=== PATIENT | female | born 1980 | race Caucasian/White ===

== ENCOUNTER → 2018-03-28 02:48 | Outpatient (CLI) | payer MEDICAID, SELFPAY ==
[2018-03-28 13:55] LABS: ALT 20 U/L (12-78); AST 18 U/L (15-37); Albumin 3.8 g/dL (3.4-5.0); Alkaline Phosphatase 99 U/L (46-116); Anion Gap 12.9 mmol/L (3-11); BUN 4 mg/dL (7-18); Bilirubin, Total 0.4 mg/dL (0.2-1.0); CO2 24.1 mmol/L (21.0-32.0); CREATININE 0.79 mg/dL (0.55-1.02); Chloride 101 mmol/L (98-107); Glucose 98 mg/dL (70-100); Potassium 4.1 mmol/L (3.5-5.1); Sodium 138 mmol/L (136-145); Total Protein 7.6 g/dL (6.4-8.2)
[2018-03-29 14:47] LABS: HCV RNA Detection Quantitative Undetected IU/mL (UNDECT)
== END ==
PROVIDERS: PCP Family Medicine; Visit Provider Nurse Practitioner Adult Health
DX: B18.2 Chronic viral hepatitis C (principal)
CPT/HCPCS: 36415; 80053; 87522

== ENCOUNTER 2018-05-01 19:58 | Outpatient (REF) | payer MEDICAID, SELFPAY ==
[2018-05-03 13:45] LABS: Chlamydia Result Negative; GC Result Negative; Specimen Description VAGINAL
== END 2018-05-01 20:18 ==
LOC: LBN 19:58
PROVIDERS: PCP Family Medicine; Visit Provider Nurse Practitioner Family
DX: N76.0 Acute vaginitis (principal)
CPT/HCPCS: 87491; 87591; 87480; 87510; 87660

== ENCOUNTER 2018-08-14 12:06 | Outpatient (CLI) | payer MEDICAID, SELFPAY ==
[2018-08-14 15:21] LABS: ALT 13 U/L (12-78); AST 8 U/L (15-37); Albumin 3.5 g/dL (3.4-5.0); Alkaline Phosphatase 101 U/L (46-116); Anion Gap 8.8 mmol/L (3-11); BUN 8 mg/dL (7-18); Bilirubin, Total 0.2 mg/dL (0.2-1.0); CO2 24.2 mmol/L (21.0-32.0); CREATININE 0.75 mg/dL (0.55-1.02); Chloride 104 mmol/L (98-107); Glucose 112 mg/dL (70-100); Potassium 3.9 mmol/L (3.5-5.1); Sodium 137 mmol/L (136-145)
[2018-08-20 11:31] LABS: HCV RNA Detection Quantitative Undetected IU/mL (UNDECT)
== END 2018-08-14 12:26 ==
PROVIDERS: PCP Family Medicine; Visit Provider Nurse Practitioner Adult Health
DX: B18.2 Chronic viral hepatitis C (principal)
CPT/HCPCS: 36415; 80053; 86803; 87522

== ENCOUNTER 2018-11-14 18:25 | Outpatient (REF) | payer MEDICAID, SELFPAY ==
[2018-11-18 14:05] LABS: Chlamydia Result Negative; GC Result Negative; Specimen Description VAGINAL
== END 2018-11-14 18:45 ==
LOC: LBN 18:25
PROVIDERS: PCP Family Medicine; Visit Provider Nurse Practitioner Family
DX: Z11.3 Encounter for screening for infections with a predominantly sexual mode of transmission (principal)
CPT/HCPCS: 87491; 87591; 87480; 87510; 87660

== ENCOUNTER 2019-06-02 00:23 | Inpatient (IN) | payer MEDICAID, SELFPAY ==
[2019-06-02] VITALS (18 sets, daily range): BP systolic 113–174; BP diastolic 49–104; PULSE 65–100; RESP 12–22; TEMP 36.9–37.6; O2SAT 95–100
--- NOTE | 2019-06-02 00:46 | DI.CT_ITS ---
EXAM: CT LUMBAR SPINE RECONS CLINICAL HISTORY: right flank and back pain. TECHNIQUE: COMPARISON: ABD PELVIS WITH CONTRAST from 06/24/2011 FINDINGS: Reconstructed CT edges of the lumbar spine no acute abnormality is demonstrated. The disc height is p reserved at L1-2 and L2-3. There is no evidence of significant central foraminal stenosis. L3-4 there is slight loss of disc height probable mild broad-based disc bulge is seen halting in mild lateral s natalie stenosis. No foraminal narrowing is identified. The disc height is preserved at L4-5 facet join t DJD is identified and is more advanced on the right side. There is moderate to severe bilateral for aminal narrowing the osteophytic material from the superior L5 articular facets abutting the L4 nerve roots bilaterally. The L5-S1 level is partially obscured by artifact and cannot be evaluated. There is what appears to represent a broad-based disc bulge. There is no apparent significant narrowing of the central canal. Bilateral facet joint DJD is demonstrated and is more advanced on the right side. There is apparent severe bilateral foraminal narrowing with apparent flattening of the L5 nerve roots bilaterally. Yes subparagraph summary acute lumbar fracture is demonstrated. If changes are noted as described above. Please see the body of. IMPRESSION:
--- NOTE | 2019-06-02 00:46 | DI.CT_ITS ---
EXAM: CT ABDOMEN PELVIS WO CLINICAL HISTORY: right flank and back pain. TECHNIQUE: The examination was carried out according to the usual protocol without contrast enhancem ent. COMPARISON: ABD PELVIS WITH CONTRAST from 06/24/2011 FINDINGS: The liver is incompletely demonstrated however no abnormality involving the mid or lower portions of the liver is seen. Gallbladder is normal. There are no stones or ductal dilatation. Pancreas and s pleen are unremarkable. The adrenals appear normal. Unenhanced kidneys appear intact with no eviden ce of calculi or hydronephrosis. There is no evidence of nephroureterolithiasis. In the absence of o ral contrast enhancement, a partially distended stomach is noted with ingested material. No small bow el dilatation or evidence to suggest obstruction is seen. Colon is normal. There is no evidence of d iverticulitis or colitis. There is nothing to suggest an acute appendix. There is a trace amount fr ee fluid in the pelvis. No free air is identified. There is no evidence of an aortic aneurysm. Ther e is no evidence of lymphadenopathy. The bladder is grossly unremarkable. Note is made of an anteve rted uterus which is normal in size. There is a 6.2 by 6.9 x 6.5 cm cystic lesion in the anterior pe lvis with a density of 4.6 Hounsfield units. This lesion is contiguous with both ovaries. As visualiz ed, the ovaries are normal in size with note made of a 1.4 x 1.7 cm dominant right ovarian follicle. No bony abnormality is seen. There is a tiny fat containing ventral hernia at the umbilicus. IMPRESSION: There is no evidence of nephrolithiasis or hydronephrosis. Ureters are incompletely visualized but th ere is no evidence of ureterolithiasis or ureterectasis. Note is made of a 6.2 x 6.9 x 6.5 cm cystic lesion in the anterior pelvis which likely arises from the right ovary but is contiguous with both ov lindy. An enlarged ovarian follicle or cyst measuring 1.4 x 1.7 cm in the right ovary. A trace quanti ty of free fluid is identified in the pelvis.
[2019-06-02] MEDS: Ondansetron 4 MG/2 ML VIAL IVP ×3 (01:10→10:10)
[2019-06-02] MEDS: Ketorolac 15 MG/ML VIAL IVP (01:11)
[2019-06-02] MEDS: Normal Saline 1,000 ML 1000 ML IV (01:11)
[2019-06-02 01:23] LABS: Bilirubin Small (Negative); Blood Negative (Negative); Clarity Clear (Clear); Glucose Negative (Negative); Ketones Negative (Negative); Leukocyte Esterase Negative (Negative); Nitrite Negative (Negative); Specific Gravity >= 1.030 (1.005-1.025); Urobilinogen 0.2 EU/dL (Up TO 0.2); pH 5.5 (5-8)
--- NOTE | 2019-06-02 01:27 | ED.GENADUL_ITS ---
Discharge Plan Disposition Patient Disposition: [facility] INPATIENT Condition: Good Discharge Details Chief Complaint: Nk/Back Pain Clinical Impression: Ovarian cyst, Ovarian torsion Primary Care Provider: Coty Stanley ED Provider: Héctor Calvo Home Meds and New Rx's Prescriptions: No Action olanzapine 7.5 mg tablet 7.5 mg PO QHS Qty: 30 RF: 1 mirtazapine 15 mg tablet 15 mg PO DAILY Qty: 30 RF: 1 clonidine HCl 0.2 mg tablet 0.2 mg PO BID Qty: 60 RF: 0 lamotrigine [Lamictal] 150 mg tablet 150 mg PO BID Qty: 60 RF: 5 alprazolam 2 mg tablet 2 mg PO BID Qty: 60 RF: 0 doxepin 10 mg capsule 10 mg PO QHS PRN (Reason: itching) Qty: 30 RF: 0 methylphenidate HCl [Ritalin] 20 mg tablet 20 mg PO TID MDD 3 Qty: 90 RF: 0 albuterol sulfate [ProAir HFA] 8.5 GM HFA aerosol inhaler 2 puff Inhalation Q4H PRN Qty: 1 RF: 12 levothyroxine 50 mcg tablet 50 mcg PO DAILY Qty: 90 RF: 12 omeprazole 40 mg capsule,delayed release(DR/EC) 40 mg PO DAILY Qty: 90 RF: 3 fluticasone propionate 50 mcg/actuation spray,suspension 2 spray NS BID Qty: 3 RF: 12 clindamycin phosphate 2 % cream 1 appful VG DAILY Qty: 40 RF: 0 metoprolol tartrate 25 mg tablet 25 mg PO BID Qty: 180 RF: 3 Symbicort 160-4.5 mcg/actuation HFA aerosol inhaler 2 puff Inhalation BID Qty: 1 RF: 6 clonidine HCl 0.2 mg tablet 0.2 mg PO BID Qty: 30 RF: 0 Medical Decision Making This is a 38-year-old female with a past medical history of reactive airway disease, chronic hep C, bipolar disorder, who presents today for evaluation of right flank pain. She has had symptoms for the last 2 days, she describes it as achy in nature. She denies any urinary complaints, she denies any GI or complaints. She denies any chest pain shortness of breath. Physical exam demonstrates no ability to reproduce the tenderness. No midline cervical thoracic or lumbar spine tenderness, no clinical evidence of cauda equina syndrome, no significant paraspinal spasm. Signs and symptoms are concerning for potential kidney stone versus psoas spasm.. We will get a CT scan of the abdomen, evaluate for the laboratory work-up, get a urinalysis, treat the patient's pain and reassess. 3:31 AM Laboratory work-up is returned, no significant white count. Mild increase at 11.6. Hemoglobin is notably low at 8.0, which is certainly atypical for the patient. Stool Hemoccult was performed, and this is negative for any blood. She continues to deny any vaginal bleeding, dark tarry stools, or hematemesis. Renal function stable. Urinalysis shows no significant hematuria, no clinical evidence of UTI. CT scan results have returned, she has severe degeneration of her lumbar spine, no significant acute fracture though. CT of the abdomen does show evidence of a large 6.2 x 6.9 x 6.5 cm cystic lesion in the anterior pelvis suspected to arise from the right ovary. Suspect large cyst. With no evidence of kidney stone, and this radiographic finding this certainly pains her atypical symptomatology and a new light. I suspect that her pain is most likely referred pain secondary to this cyst. With the size of the cyst, as well as her intermittent severe stabbing right\flank pain, and concern for potential torsion as well. No ultrasound is available at this time of night. I have contacted Dr. Leach of OB, discussed the history with her, she is here evaluated the patient currently out of concern for potential intermittent torsion. Patient has received 8 mg of morphine, as well as 5 mg of Valium and pain appears to be controlled at this time. 3:[address] Leach has seen and assessed the patient, she to this concern for intermittent torsion. She would like to admit the patient to take her to the OR in the morning. Patient's pain is controlled at this time. Vital signs remained stable. Patient will be admitted for further management. I have extensively reviewed the treatment plan with the patient. I have addressed all patient concerns at this time. I have also discussed the plan with the admitting physician and they agree with the current assessment and plan and have agreed to assume responsibility for the patient. All parties demonstrate verbal understanding and agreement with our assessment and plan at this time. High-resolution bone algorithm imaging has been reconstructed in the axial, coronal, and sagittal planes. High resolution axial soft tissue imaging has been reconstructed at 1 mm slice thickness. Please note: This is not the same as a dedicated lumbar spine exam. There is extensive technical artifact. The discs and spinal nerve roots are poorly visualized. No acute lumbar fracture or malalignment is seen. There is degenerative change in the lower thoracic spine with discogenic degeneration and anterior osteophytes at multiple levels. L1-L2: Disc height preserved. Small anterior osteophytes. Within the limits of the exam, no significant central canal or neural foraminal narrowing demonstrated. L2-L3: Disc height relatively preserved. Within the limits of the exam, no significant central canal or neural foraminal narrowing demonstrated. L3-L4: Mild loss of disc height. Mild broad-based disc bulge suggested with mild central canal narrowing. Within the limits of the exam, no significant foraminal narrowing. L4-L5: Disc height preserved. Moderate bilateral facet arthrosis, worse on the right. Within the limits of the exam, no significant central canal narrowing. Moderate-severe bilateral foraminal narrowing with osteophytic material from the superior L5 articular facets abutting the L4 nerve roots bilaterally. L5-S1: This level is partially obscured by artifact and not well evaluated. Loss of disc height with a broad-based posterior disc bulge. Central canal not well evaluated but probably not significantly narrowed. Markedly severe bilateral facet arthrosis, worse on the right where there is bony fragmentation. Severe bilateral foraminal narrowing with apparent flattening of the L5 nerve roots bilaterally. IMPRESSION: 1. Limited evaluation of the lumbar spine. No acute lumbar fracture seen. 2. Severe degenerative change with the worst levels at L4-L5 and L5-S1, probably affecting the L4 and L5 nerve roots bilaterally, as above. 3. Disc pathology not confidently excluded given the limits of the exam. Although no grossly herniated disc is seen, the L5-S1 level is largely obscured by artifact and poorly evaluated in this regard. FINDINGS: Lungs: Lung bases clear. Liver: Upper liver partially excluded from view. Visualized unenhanced liver grossly unremarkable. Gallbladder and bile ducts: Normal appearing gallbladder. No calcified gallstone s. No biliary dilatation. Pancreas: Grossly unremarkable unenhanced pancreas. Spleen: Grossly unremarkable unenhanced spleen. Adrenals: Normal appearing adrenal glands. Kidneys and ureters: Grossly unremarkable unenhanced kidneys. No radiopaque renal calculi or hydronephrosis. Ureters partially obscured. No suspicious calcifications along the expected ureteral courses. Stomach and bowel: No oral contrast. Stomach partially distended with ingested material. No small bowel dilatation to suggest obstruction. Normal-appearing colon. No evidence of diverticulitis or colitis. Appendix: Appendix partially obscured but normal in caliber and appearance through its visualized portion. Intraperitoneal space: Trace fluid in the pelvis. No free air. Vasculature: Normal caliber abdominal aorta. Lymph nodes: No pathologically enlarged mesenteric, retroperitoneal, or pelvic sidewall lymph nodes. Bladder: Urinary bladder collapsed and not well evaluated but grossly unremarkable, as seen. Reproductive: Anteverted uterus, normal in size. 6.2 cm x 6.9 cm x 6.5 cm cystic lesion in the anterior pelvis with a density of 4.6 Hounsfield units, contiguous with both ovaries. Otherwise normal sized ovaries. 1.4 cm x 1.7 cm dominant right ovarian follicle. Bones/joints: No acute fracture seen among the bones of the abdomen or pelvis. Severe bilateral facet arthrosis at L5-S1. Discogenic degeneration and anterior osteophytes at multiple lower thoracic levels. Soft tissues: Tiny fat-containing ventral hernia at the umbilicus, doubtful clinical significance. IMPRESSION: 1. No radiopaque renal calculi or hydronephrosis. Ureters partially obscured. No suspicious calcifications along the expected ureteral courses. 2. 6.2 cm x 6.9 cm x 6.5 cm cystic lesion in the anterior pelvis, suspected to arise from the right ovary but contiguous with both ovaries. An enlarged ovarian follicle or cyst is suspected. 1.4 cm x 1.7 cm dominant right ovarian follicle also present. 3. Trace pelvic fluid. Thank you for allowing us to participate in the care of your patient. Dictated and Authenticated by: Hernandez Erickson MD 06/02/2019 1:57 AM Eastern Time ([place] & [place]) HPI General Date/Time Provider Initiated Documentation: 06/02/19 00:30 . HPI Narrative: This is a 38-year-old female with past medical history of reactive airway disease, bipolar disorder, chronic hepatitis C, who presents today for evaluation of right flank pain. Patient states that for the last 2 days she has had this right-sided flank pain, that appears to be in her back as well. She denies any initial aggravating event. Pain is notably achy in the right lower back, no radiation anteriorly, or to midline. She denies any radiation down her leg. She does have a history of sciatica in the past and states that this feels notably different. She denies any dysuria, hematuria, increased urinary frequency. She denies history of kidney stones. She denies any vaginal discharge. She denies any nausea vomiting or diarrhea. Symptoms are made worse with movement. She did take a friend's [place] earlier today and this did notably improve her symptoms. She denies any other complaints at this time. She denies bowel or bladder incontinence, saddle anesthesia, numbness tingling or weakness. She denies any chest pain or shortness of breath. Related Data Home Medications Medication Instructions Recorded Confirmed albuterol sulfate [Proair Hfa] 2 puff INHALATION Q4H PRN #1 12/18/16 06/02/19 canister clonidine HCl 0.2 mg tablet 0.2 mg PO BID #60 tab 08/19/18 06/02/19 lamotrigine 150 mg tablet 150 mg PO BID #60 tab 09/04/18 06/02/19 levothyroxine 50 mcg tablet 50 mcg PO DAILY #90 tab-cap 10/15/18 06/02/19 omeprazole 40 mg capsule,delayed 40 mg PO DAILY #90 tab-cap 10/21/18 06/02/19 release olanzapine 7.5 mg tablet 7.5 mg PO QHS #30 tab 11/27/18 06/02/19 fluticasone propionate 50 2 spray NS BID #3 gm 12/16/18 06/02/19 mcg/actuation nasal spray,suspension clindamycin phosphate 2 % vaginal 1 appful VG DAILY #40 gm 12/23/18 06/02/19 cream metoprolol tartrate 25 mg tablet 25 mg PO BID #180 tab-cap 01/08/19 06/02/19 mirtazapine 15 mg tablet 15 mg PO DAILY #30 tab 01/15/19 06/02/19 alprazolam 2 mg tablet 2 mg PO BID #60 tab 02/13/19 06/02/19 doxepin 10 mg capsule 10 mg PO QHS PRN #30 cap 02/13/19 06/02/19 methylphenidate HCl 20 mg tablet 20 mg PO TID #90 tab MDD 3 02/13/19 06/02/19 budesonide-formoterol HFA 160 2 puff INHALATION BID #1 inhaler 02/20/19 06/02/19 mcg-4.5 mcg/actuation aerosol inhaler clonidine HCl 0.2 mg tablet 0.2 mg PO BID #30 tab 03/14/19 06/02/19 Previous Rx's Medication Instructions Recorded clonidine HCl 0.2 mg tablet 0.2 mg PO BID #60 tab 08/19/18 lamotrigine 150 mg tablet 150 mg PO BID #60 tab 09/04/18 levothyroxine 50 mcg tablet 50 mcg PO DAILY #90 tab-cap 10/15/18 omeprazole 40 mg capsule,delayed 40 mg PO DAILY #90 tab-cap 10/21/18 release olanzapine 7.5 mg tablet 7.5 mg PO QHS #30 tab 11/27/18 fluticasone propionate 50 2 spray NS BID #3 gm 12/16/18 mcg/actuation nasal spray,suspension clindamycin phosphate 2 % vaginal 1 appful VG DAILY #40 gm 12/23/18 cream metoprolol tartrate 25 mg tablet 25 mg PO BID #180 tab-cap 01/08/19 mirtazapine 15 mg tablet 15 mg PO DAILY #30 tab 01/15/19 alprazolam 2 mg tablet 2 mg PO BID #60 tab 02/13/19 doxepin 10 mg capsule 10 mg PO QHS PRN #30 cap 02/13/19 methylphenidate HCl 20 mg tablet 20 mg PO TID #90 tab MDD 3 02/13/19 budesonide-formoterol HFA 160 2 puff INHALATION BID #1 inhaler 02/20/19 mcg-4.5 mcg/actuation aerosol inhaler clonidine HCl 0.2 mg tablet 0.2 mg PO BID #30 tab 03/14/19 Allergies Allergy/AdvReac Type Severity Reaction Status Date / Time latex Allergy Intermediate SKIN RASH Unverified 06/02/19 00:37 prazosin AdvReac Dizziness/S Unverified 06/02/19 00:37 wejanet General Stated Complaint: Nk/Back Pain JOLLY: 3 Review of Systems Review of Systems ROS Unobtainable: All systems reviewed & are unremarkable except as noted in HPI and below PFSH Surgical History (Updated 01/03/19 @ 05:56 by Jeff Riggs) Dilation and curettage Social History Smoking/Tobacco Use Status: Current every day Drug use: Current Sobriety Exam Narrative Exam Narrative: 1.Const: Well-nourished, Well-developed, appearing stated age 2.Eyes: PERRL, no conjunctival injection, and symmetrical lids. 3.ENT: Atraumatic external nose and ears. Moist MM. Neck: Symmetric, trachea midline, No thyromegaly. 4.CVS: +S1/S2, No murmurs or gallops. Peripheral pulses 2+ and equal in all extremities. Brisk capillary refill in all extremities. 5.RESP: Unlabored respiratory effort. Clear to auscultation bilaterally. No wheezes rales or rhonchi 6.GI: Soft, Nontender/Nondistended, No hepatosplenomegaly. No guarding or rebound. No CVA tenderness. Nonreproducible tenderness subjectively in the right lower flank area. Negative obturator and psoas sign. No pain at McBurney's point, negative Larsen sign. 7.MSK: Normocephalic/Atraumatic, Extremities w/o deformity or ttp No cyanosis or clubbing, Normal movement of all extremities. No midline tenderness to palpation over the CTLS spine. Normal ROM in flexion, extension, side bend, and rotation. Patient has +5 out of 5 strength in the lower extremities in dorsiflexion and plantarflexion, knee flexion and extension, hip flexion and extension. There is +2 over 2 dorsalis pedis pulses bilaterally. There is normal sensation to the skin with light touch at the foot, knee, and hip. Normal saddle sensation. Good sensation over the deep sural nerve area bilaterally. Rectal exam demonstrates normal rectal tone, normal perirectal sensation. Reflexes are +2 over 4 in the patellar reflex bilaterally. +5 out of 5 strength in the medial, ulnar, radial nerve distribution bilaterally in the hands as well as intact light touch sensation to these dermatomes on the hands 8.Skin: Warm, Dry. No rashes or lesions. 9.Neuro: ichthyologist II-XII grossly intact. Sensation grossly intact, no focal neurologic deficits. 10.Psych: (AAO) x3. Appropriate mood and affect Course Vital Signs Vital signs: Vital Signs Temperature 37.1 C 06/02/19 00:29 Pulse 71 06/02/19 00:29 Respiratory Rate 20 06/02/19 00:29 Blood Pressure 130/92 H 06/02/19 00:29 Pulse Oximetry 100 06/02/19 00:29 Temperature 37.1 C 06/02/19 00:29 Temperature Source Skin 06/02/19 00:29 Pulse 71 06/02/19 00:29 Respiratory Rate 20 06/02/19 00:29 Blood Pressure 130/92 H 06/02/19 00:29 Blood Pressure Position Standing 06/02/19 00:29 Pulse Oximetry 100 06/02/19 00:29 Oxygen Delivery Method Room Air 06/02/19 00:29 Oxygen Flow Rate 0 06/02/19 00:29 Pain Level 10 06/02/19 01:11 Lab/Test Results Lab/Test Results: POC- Test(urine) Negative
[2019-06-02 01:36] LABS: Bacteria Moderate HPF (Negative); Crystals Negative HPF (Negative); Epithelial Cells Many HPF (Negative); Other Cells Negative (Negative); RBC Negative (0-2)
[2019-06-02 01:37] LABS: C & S Indicated? No/Sq. Contamination; Casts Negative LPF (Negative); Mucus Heavy (Negative)
--- NOTE | 2019-06-02 01:58 | DI.VRAD_ITS ---
Addendum created by Hernandez Erickson MD on 06/02/2019 3:01:53 AM EDT High-resolution bone algorithm imaging has been reconstructed in the axial, coronal, and sagittal planes. High resolution axial soft tissue imaging has been reconstructed at 1 mm slice thickness. Please note: This is not the same as a dedicated lumbar spine exam. There is extensive technical artifact. The discs and spinal nerve roots are poorly visualized. No acute lumbar fracture or malalignment is seen. There is degenerative change in the lower thoracic spine with discogenic degeneration and anterior osteophytes at multiple levels. L1-L2: Disc height preserved. Small anterior osteophytes. Within the limits of the exam, no significant central canal or neural foraminal narrowing demonstrated. L2-L3: Disc height relatively preserved. Within the limits of the exam, no significant central canal or neural foraminal narrowing demonstrated. L3-L4: Mild loss of disc height. Mild broad-based disc bulge suggested with mild central canal narrowing. Within the limits of the exam, no significant foraminal narrowing. L4-L5: Disc height preserved. Moderate bilateral facet arthrosis, worse on the right. Within the limits of the exam, no significant central canal narrowing. Moderate-severe bilateral foraminal narrowing with osteophytic material from the superior L5 articular facets abutting the L4 nerve roots bilaterally. L5-S1: This level is partially obscured by artifact and not well evaluated. Loss of disc height with a broad-based posterior disc bulge. Central canal not well evaluated but probably not significantly narrowed. Markedly severe bilateral facet arthrosis, worse on the right where there is bony fragmentation. Severe bilateral foraminal narrowing with apparent flattening of the L5 nerve roots bilaterally. IMPRESSION: 1. Limited evaluation of the lumbar spine. No acute lumbar fracture seen. 2. Severe degenerative change with the worst levels at L4-L5 and L5-S1, probably affecting the L4 and L5 nerve roots bilaterally, as above. 3. Disc pathology not confidently excluded given the limits of the exam. Although no grossly herniated disc is seen, the L5-S1 level is largely obscured by artifact and poorly evaluated in this regard. Initial report created on 06/02/2019 1:57:40 AM EDT PROCEDURE INFORMATION: Exam: CT Abdomen And Pelvis Without Contrast Exam date and time: 06/02/2019 12:49 AM Clinical history: 38 years old, female; Abdominal pain; Flank; Right TECHNIQUE: Imaging protocol: Computed tomography of the abdomen and pelvis without contrast. COMPARISON: No relevant prior studies available. FINDINGS: Lungs: Lung bases clear. Liver: Upper liver partially excluded from view. Visualized unenhanced liver grossly unremarkable. Gallbladder and bile ducts: Normal appearing gallbladder. No calcified gallstones. No biliary dilatation. Pancreas: Grossly unremarkable unenhanced pancreas. Spleen: Grossly unremarkable unenhanced spleen. Adrenals: Normal appearing adrenal glands. Kidneys and ureters: Grossly unremarkable unenhanced kidneys. No radiopaque renal calculi or hydronephrosis. Ureters partially obscured. No suspicious calcifications along the expected ureteral courses. Stomach and bowel: No oral contrast. Stomach partially distended with ingested material. No small bowel dilatation to suggest obstruction. Normal-appearing colon. No evidence of diverticulitis or colitis. Appendix: Appendix partially obscured but normal in caliber and appearance through its visualized portion. Intraperitoneal space: Trace fluid in the pelvis. No free air. Vasculature: Normal caliber abdominal aorta. Lymph nodes: No pathologically enlarged mesenteric, retroperitoneal, or pelvic sidewall lymph nodes. Bladder: Urinary bladder collapsed and not well evaluated but grossly unremarkable, as seen. Reproductive: Anteverted uterus, normal in size. 6.2 cm x 6.9 cm x 6.5 cm cystic lesion in the anterior pelvis with a density of 4.6 Hounsfield units, contiguous with both ovaries. Otherwise normal sized ovaries. 1.4 cm x 1.7 cm dominant right ovarian follicle. Bones/joints: No acute fracture seen among the bones of the abdomen or pelvis. Severe bilateral facet arthrosis at L5-S1. Discogenic degeneration and anterior osteophytes at multiple lower thoracic levels. Soft tissues: Tiny fat-containing ventral hernia at the umbilicus, doubtful clinical significance. IMPRESSION: 1. No radiopaque renal calculi or hydronephrosis. Ureters partially obscured. No suspicious calcifications along the expected ureteral courses. 2. 6.2 cm x 6.9 cm x 6.5 cm cystic lesion in the anterior pelvis, suspected to arise from the right ovary but contiguous with both ovaries. An enlarged ovarian follicle or cyst is suspected. 1.4 cm x 1.7 cm dominant right ovarian follicle also present. 3. Trace pelvic fluid. Dictated and Authenticated by: Hernandez Erickson MD. Ordering:KAMILA Anaya MD
[2019-06-02 02:25] LABS: Abs Immature Grans 0.03 k/cumm (0.0-0.09); Absolute Basophil Count 0.01 k/cumm (0.0-0.2); Absolute Eosinophil Count 0.07 k/cumm (0.0-0.7); Absolute Lymphocyte Count 1.45 k/cumm (1.2-3.4); Absolute Monocyte Count 0.76 k/cumm (0.11-0.7); Absolute Neutrophil Count 9.24 k/cumm (1.2-6.7); Basophils % 0.1; Eosinophils % 0.6; HCT 28.5 % (36.0-46.0); Immature Grans % 0.3; Lymphocytes % 12.5; Mean Corp. HGB Concentration 28.1 g/dL (32.0-36.0); Mean Corpuscular Volume 78.5 fL (80-95); Mean Platelet Volume 8.7 fL (8.0-11.0); Monocytes % 6.6; Neutrophils % 79.9; Platelet Count 328 x1000/uL (130-400); RBC 3.63 m/cumm (4.00-5.20); RBC Distribution Width 17.5 % (11.7-14.6); White Blood Cell Count 11.56 k/cumm (4.4-10.8)
[2019-06-02] MEDS: ACETAMINOPHEN 1,000 MG/100 ML BTL 400 MG IVPB (02:33)
[2019-06-02 02:34] LABS: ALT 9 U/L (14-59); Alkaline Phosphatase 62 U/L (46-116); Anion Gap 8.4 mmol/L (3-11); BUN 8 mg/dL (7-18); Bilirubin, Total 0.3 mg/dL (0.2-1.0); CO2 25.6 mmol/L (21.0-32.0); Calcium 8.3 mg/dL (8.5-10.1); Chloride 104 mmol/L (98-107); Glucose 110 mg/dL (70-100); Potassium 4.1 mmol/L (3.5-5.1); Sodium 138 mmol/L (136-145); Total Protein 6.5 g/dL (6.4-8.2)
[2019-06-02 02:35] LABS: AST < 5 U/L (15-37)
[2019-06-02] MEDS: diazePAM 10 MG/2 ML SYR 5 MG IVP (03:15)
--- NOTE | 2019-06-02 04:05 | W.PM.HP.N ---
Date of service: 06/02/19 Time of Service: 04:05 Assessment and Plan Assessment and plan (1) Anxiety: Status: Chronic (2) Asthma: Status: Chronic (3) Bipolar I disorder: Status: Chronic (4) Smoker: Status: Chronic (5) Chronic hepatitis C: Status: Resolved (6) Right lower quadrant pain: Start date: 05/30/19 Status: Acute Assessment and plan: Patient has responded to IV morphine while in the emergency room the plan is to continue to provide analgesics pending her surgery today. (7) Ovarian cyst: Status: Acute Assessment and plan: Informed consent was obtained for laparoscopic ovarian cystectomy possible oophorectomy. The risk of damage to surrounding structures including bowel bladder ureters and blood vessels was discussed. She is aware that there is a chance of infection and that she may have a removal of the ovary during surgery. She was instructed to be n.p.o. and her questions were answered History of Present Illness History of Present Illness Chief Complaint: Acute onset right lower quadrant pain, ovarian cyst Review of Systems Constitutional Constitutional: Reports difficulty sleeping Cardiovascular Cardiovascular: Reports lightheadedness Respiratory Respiratory: Reports cough (Occasional) Gastrointestinal Gastrointestinal: Reports abdominal pain, Denies change in bowel habits and Denies change in stool character Genitourinary Genitourinary: Reports abnormal menses (Monthly blood variable in amount of bleeding) and Reports pelvic pain (Acute onset 48 hours-no improvement with NSAIDs) Musculoskeletal Musculoskeletal: Reports back pain Integumentary/Breasts Skin/Breast: Reports system reviewed and no additional complaints, except as docu Psychiatric Psychiatric: Reports abnormal sleep pattern and Reports anxiety Comments: Currently functioning well. She sees Dr. Pereira for medications on a monthly basis. [facility] Medical History (Updated 06/02/19 @ 04:26 by Miriam Leach MD) Asthma (Chronic) Bipolar I disorder (Chronic) Declines medication. Followed by Dr. Pereira Chronic hepatitis C (Resolved 01/14/18) Rx at [facility] [place]. 2019 viral load undetectable Drug overdose (Ruled-out 03/12/06) Fracture of tibia (Resolved) Hepatitis C antibody test positive (Resolved 03/19/15) pos RNA test referral to [facility] Hypothyroidism (Chronic 01/11/12) Increased body mass index (Chronic) Substance abuse (Chronic) Heroin, crack cocaine, alcohol. 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 Number of Children: 0 Education Level: college Pets and animals: No Sexually active: Yes History History 1 Para Hx # Term Pregnancies Multiple births Hx # Pregnancies Ectopic pregnancies AB induced 1 Hx Number of Living Children 0 AB spontaneous Meds Home Medications and Allergies Home Medications Medication Instructions Recorded Confirmed Type albuterol sulfate [Proair Hfa] 2 puff INHALATION Q4H PRN #1 12/18/16 06/02/19 History canister clonidine HCl 0.2 mg tablet 0.2 mg PO BID #60 tab 08/19/18 06/02/19 Rx lamotrigine 150 mg tablet 150 mg PO BID #60 tab 09/04/18 06/02/19 Rx levothyroxine 50 mcg tablet 50 mcg PO DAILY #90 tab-cap 10/15/18 06/02/19 Rx omeprazole 40 mg capsule,delayed 40 mg PO DAILY #90 tab-cap 10/21/18 06/02/19 Rx release olanzapine 7.5 mg tablet 7.5 mg PO QHS #30 tab 11/27/18 06/02/19 Rx fluticasone propionate 50 2 spray NS BID #3 gm 12/16/18 06/02/19 Rx mcg/actuation nasal spray,suspension clindamycin phosphate 2 % vaginal 1 appful VG DAILY #40 gm 12/23/18 06/02/19 Rx cream metoprolol tartrate 25 mg tablet 25 mg PO BID #180 tab-cap 01/08/19 06/02/19 Rx mirtazapine 15 mg tablet 15 mg PO DAILY #30 tab 01/15/19 06/02/19 Rx alprazolam 2 mg tablet 2 mg PO BID #60 tab 02/13/19 06/02/19 Rx doxepin 10 mg capsule 10 mg PO QHS PRN #30 cap 02/13/19 06/02/19 Rx methylphenidate HCl 20 mg tablet 20 mg PO TID #90 tab MDD 3 02/13/19 06/02/19 Rx budesonide-formoterol HFA 160 2 puff INHALATION BID #1 inhaler 02/20/19 06/02/19 Rx mcg-4.5 mcg/actuation aerosol inhaler clonidine HCl 0.2 mg tablet 0.2 mg PO BID #30 tab 03/14/19 06/02/19 Rx Allergies Allergy/AdvReac Type Severity Reaction Status Date / Time latex Allergy Intermediate SKIN RASH Unverified 06/02/19 00:37 prazosin AdvReac Dizziness/S Unverified 06/02/19 00:37 weats Exam Const General: no acute distress (Lying on gurney left lateral position) and anxious Nutritional Appearance: obese Orientation: alert, awake and oriented x3 Resp Effort & Inspection: normal respiratory effort and able to speak in complete sentences Auscultation: clear to auscultation bilaterally Cardio Rate: regular rate Rhythm: regular rhythm GI Palpation: soft, no hepatosplenomegaly and tender (Right lower quadrant) Rectal Exam - female: other (Performed by ER provider earlier in the evening) General: deferred Skin General skin exam: no rashes or lesions noted Extrem General: normal to inspection, full ROM and normal capillary refill Psych Appearance: grossly normal Mental Status: mental status grossly normal Speech and Movement: pressured speech Mood: expansive Affect: normal affect Attitude: cooperative Thought Process: tangential Thought Content: normal Insight: insight good Judgment: judgment good Other: Patient was able to comprehend the gravity of the situation and the need for surgery to evaluate and treat her ovary for possible ovarian torsion. Results Labs Result diagrams: 06/02/19 02:12 06/02/19 02:12 Labs: Laboratory Results - last 24 hr 06/02/19 06/02/19 06/02/19 01:00 02:12 02:12 WBC 11.56 H RBC 3.63 L Hgb 8.0 L Hct 28.5 L MCV 78.5 L MCH 22.0 L MCHC 28.1 L RDW 17.5 H Plt Count 328 MPV 8.7 Immature Gran % 0.3 Neutrophils % 79.9 Lymphocytes % 12.5 Monocytes % 6.6 Eosinophils % 0.6 Basophils % 0.1 Absolute Neutrophils 9.24 H Absolute Lymphocytes 1.45 Absolute Monocytes 0.76 H Absolute Eosinophils 0.07 Absolute Basophils 0.01 Sodium 138 Potassium 4.1 Chloride 104 Carbon Dioxide 25.6 Anion Gap 8.4 BUN 8 Creatinine 0.70 Estimated GFR/1.73 m2 >= 60.00 Glucose 110 H Calcium 8.3 L Total Bilirubin 0.3 AST < 5 L ALT 9 L Alkaline Phosphatase 62 Total Protein 6.5 Albumin 3.0 L Urine Color Yellow Urine Clarity Clear Urine pH 5.5 Ur Specific [place] >= 1.030 H Urine Protein 30 H Urine Ketones Negative Urine Blood Negative Urine Nitrite Negative Urine Bilirubin Small H Urine Urobilinogen 0.2 Ur Leukocyte Esterase Negative Urine RBC Negative Urine WBC 3-5 Ur Epithelial Cells Many Urine Crystals Negative Urine Bacteria Moderate Urine Casts Negative Urine Mucus Heavy Urine Other Negative Ur Culture Indicated? No/sq. contamination Urine Glucose Negative Last Vital Signs Temp 98.8 F 06/02/19 00:29 Pulse 71 06/02/19 00:29 Resp 19 06/02/19 03:03 BP 130/92 H 06/02/19 00:29 Pulse Ox 96 06/02/19 03:03
[2019-06-02] MEDS: Normal Saline Flush 10 ML SYR IVP ×3 (05:20→08:01)
[2019-06-02] MEDS: Lactated Ringers 1,000 ML 125 ML IV ×3 (05:20→11:46)
--- NOTE | 2019-06-02 07:03 | NUR.NOTE ---
Patient was admitted to the med-surg unit with history of right flank pain since early Sunday morning. She was medicated when she came to the floor with prn morphine with a pain of 8-9/10. Warm compress placed to the area to help with the discomfort.
[2019-06-02] MEDS: MORPHine 2 MG/ML SYR IVP (07:32)
--- NOTE | 2019-06-02 09:35 | FALL_PTH ---
PATIENT: Beverley Charles LOC: [id number]#:[id number] AGE/SX: 38/F ROOM: 216 RE06/02/[address]: Miriam Leach : 1980 BED: A DIS: 06/02/2019 SPEC #: [id number] RECD: 06/02/19 12:54 STATUS: CARRIE REQ #: [id number] KERRI: 06/02/19 09:[address]: Miriam Leach DEPT: Surgical Specimen RECD BY: Kandice Dukes ENTERED: 06/02/19 12:55 SP TYPE: Fall OTHR DR: Coty Stanley MD, DC Tissues: 1 - FALLOPIAN TUBE (OTHER) Procedures: GROSS AND MICRO LEVEL 3 Comments: [id number]
--- NOTE | 2019-06-02 09:39 | PDOC.CMIN ---
- If Service Date Differs Date of service: 06/02/19 Time of Service: 09:40 Care Management Initial Assess REASON FOR HOSPITALIZATION:: Ovarian torsion. PAST MEDICAL HISTORY/PAST SURGICAL HISTORY:: Medical History: Anxiety disorder, depression, ? bipolar disorder, asthma, history of substance abuse, tobacco use, sleep disorder with chronic insomnia, and chronic back pain. 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 Has patient been provided with information about the portal?: Yes CODE STATUS:: Full Code INSURANCE COVERAGE / FINANCIAL ISSUES:: Medicaid. PRIMARY CARE PHYSICIAN:: Coty Stanley MD PATIENT/FAMILY EDUCATION NEEDS:: Review discharge plan, limitations, follow-up plan, and Ask Me Three. ANTICIPATED BARRIERS TO DISCHARGE:: None identified at this time.
[2019-06-02] MEDS: Bupivacaine 0.25% Pres-Free 30 ML VIAL (09:48)
--- NOTE | 2019-06-02 09:49 | NUR.NOTE ---
0700 Pt found to be writhing and crying out in pain at change of shift - MD notified by charge nurse - now dose of MSO4 was given without relief - second dose of MSO4 given as ordered without relief - pt transported to the ORm shortly after the second dose. Nursing Note:
[2019-06-02] MEDS: LORazepam 2 MG/ML VIAL 0.5 MG IVP (10:05)
[2019-06-02] MEDS: fentaNYL 100 MCG/2 ML VIAL IVP (10:35)
[2019-06-02] MEDS: oxyCODONE 5 mg/Acetaminophen 325 mg TAB PO ×2 (11:56→15:34)
--- NOTE | 2019-06-02 14:57 | DSE_ITS ---
Date of service: 06/02/19 Time of Service: 14:57 DS: Diagnosis Discharge Diagnosis (1) Anxiety: Status: Chronic (2) Asthma: Status: Chronic (3) Bipolar I disorder: Status: Chronic (4) Smoker: Status: Chronic (5) Chronic hepatitis C: Status: Resolved (6) Right lower quadrant pain: Status: Acute Asessment and Plan: 6 x 6 cm left adnexal cystic structure on CT scan. Operative findings left fallopian paratubal cyst (7) History of laparoscopy: Status: Chronic Discharge Plan Disposition Patient Disposition: HOME Condition: Good Discharge Details Chief Complaint: Nk/Back Pain Clinical Impression: Ovarian cyst, Ovarian torsion Reason For Visit: OVARIAN TORSION Admit Date/Time: 06/02/19 04:15 Admit Provider: Miriam Leach Attending Provider: Miriam Leach Primary Care Provider: Coty Stanley ED Provider: Héctor Calvo Hospital Course Hospital Course: Patient presented to the [facility] emergency department with 48 hours of worsening right lower quadrant and back pain. CT imaging showed a simple appearing 6 x 6 adnexal structure in the pelvis. Patient's pain was intermittent concerning for torsion of the adnexal structure. She underwent a operative laparoscopy on 06/02/2019 with the finding of a untorsed left paratubal cyst. Other pelvic structures abdominal structures appear normal. The left fallopian tube and paratubal cyst were excised. She was had stable vital signs and satisfactory pain control after the procedure was discharged home on the day of surgery. Home Meds and New Rx's Prescriptions: No Action olanzapine 7.5 mg tablet 7.5 mg PO QHS Qty: 30 RF: 1 mirtazapine 15 mg tablet 15 mg PO DAILY Qty: 30 RF: 1 clonidine HCl 0.2 mg tablet 0.2 mg PO BID Qty: 60 RF: 0 lamotrigine [Lamictal] 150 mg tablet 150 mg PO BID Qty: 60 RF: 5 alprazolam 2 mg tablet 2 mg PO BID Qty: 60 RF: 0 doxepin 10 mg capsule 10 mg PO QHS PRN (Reason: itching) Qty: 30 RF: 0 methylphenidate HCl [Ritalin] 20 mg tablet 20 mg PO TID MDD 3 Qty: 90 RF: 0 albuterol sulfate [ProAir HFA] 8.5 GM HFA aerosol inhaler 2 puff Inhalation Q4H PRN Qty: 1 RF: 12 levothyroxine 50 mcg tablet 50 mcg PO DAILY Qty: 90 RF: 12 omeprazole 40 mg capsule,delayed release(DR/EC) 40 mg PO DAILY Qty: 90 RF: 3 fluticasone propionate 50 mcg/actuation spray,suspension 2 spray NS BID Qty: 3 RF: 12 clindamycin phosphate 2 % cream 1 appful VG DAILY Qty: 40 RF: 0 metoprolol tartrate 25 mg tablet 25 mg PO BID Qty: 180 RF: 3 Symbicort 160-4.5 mcg/actuation HFA aerosol inhaler 2 puff Inhalation BID Qty: 1 RF: 6 clonidine HCl 0.2 mg tablet 0.2 mg PO BID Qty: 30 RF: 0 oxycodone-acetaminophen [Percocet] 5-325 mg tablet 1 tab PO Q6H MDD 4 PRN (Reason: pain) Qty: 6 RF: 0 Discharge Instructions Additional Instructions: Follow-up with Dr. Leach in 1-1/2 weeks. Call to make an appointment. Stand Alone Forms: DSU Post Gynecology Surgery Activity:: Activity as Tolerated Equipment/Supplies:: No Equipment Needed Diet:: As Tolerated Discharge Orders Discharge Orders: Discharge Order (Routine); Ordered 06/02/19 Ordered By: Miriam Leach DS: Summary Status at Discharge Functional status at discharge: independent ambulation Overall status at discharge: patient is progressing back to baseline Mental Status: mental status grossly normal Speech and Movement: speech and movement normal Mood: congruent mood Affect: labile affect Exam Narrative Exam Narrative: Patient underwent the above-stated surgery on the morning of 06/02/2019. Her postop course was uncomplicated she was tolerating regular diet at the time of discharge. Pain controlled with 1 dose of Percocet every 6 hours and nonsteroidal anti-inflammatories as needed. Incisions are clean dry and intact she is able to ambulate without difficulty to and from the bathroom. She will remain with her mother tonight and was given instructions regarding activity restrictions in the next 48 hours. Const General: no acute distress Nutritional Appearance: obese Orientation: alert, awake and oriented x3 Neck Neck: normal visual inspection Resp Effort & Inspection: normal respiratory effort GI Inspection: other (Incisions clean dry and intact no evidence of ecchymosis) Palpation: soft (Slightly tender incision sites) General: deferred Skin General skin exam: no rashes or lesions noted Extrem General: normal to inspection, full ROM and normal capillary refill Psych Appearance: grossly normal Mental Status: mental status grossly normal Speech and Movement: speech and movement normal Mood: congruent mood Affect: labile affect DS: Data Vitals/I&O Vitals and I&O: Vital Signs Temperature 99.1 F 06/02/19 12:32 Temperature Source Core 06/02/19 12:32 Pulse 81 06/02/19 12:32 Pulse Rhythm Regular 06/02/19 04:40 Pulse 65 06/02/19 03:03 Respiratory Rate 14 06/02/19 12:32 Respiratory Effort Non-Labored 06/02/19 04:40 Respiratory Depth Normal 06/02/19 04:40 Respiratory Pattern Normal 06/02/19 04:40 Blood Pressure 151/87 H 06/02/19 12:32 Blood Pressure Position Standing 06/02/19 00:29 Pulse Oximetry 96 06/02/19 12:32 Respiratory End-tidal CO2 29 06/02/19 10:45 Oxygen Delivery Method Room Air 06/02/19 12:32 Oxygen Flow Rate 0 06/02/19 12:32 Pain Level 5 06/02/19 12:32 Comment 06/02/19 06:19 Intake & Output 06/01/19 06/02/19 06/02/19 23:59 11:59 23:59 Intake Total 1100 / 1100 Output Total 400 / 800 400 / 800 Balance 700 / 300 -400 / 300 Weight 259 lb 15.999 oz Intake: IV 1100 / 1100 Output: Urine 400 / 800 400 / 800 Other: Urine Color Yellow Pale Yellow Urine Appearance Clear Clear Emesis Description None Voiding Methods Toilet Data Completed and Pending Labs on day of discharge: Labs from last 24 hours 06/02/19 06/02/19 06/02/19 08:03 02:12 02:12 WBC 11.56 H RBC 3.63 L Hgb 8.0 L Hct 28.5 L MCV 78.5 L MCH 22.0 L MCHC 28.1 L RDW 17.5 H Plt Count 328 MPV 8.7 Immature Gran % 0.3 Neutrophils % 79.9 Lymphocytes % 12.5 Monocytes % 6.6 Eosinophils % 0.6 Basophils % 0.1 Absolute Neutrophils 9.24 H Absolute Lymphocytes 1.45 Absolute Monocytes 0.76 H Absolute Eosinophils 0.07 Absolute Basophils 0.01 Sodium 138 Potassium 4.1 Chloride 104 Carbon Dioxide 25.6 Anion Gap 8.4 BUN 8 Creatinine 0.70 Estimated GFR/1.73 m2 >= 60.00 Glucose 110 H Calcium 8.3 L Total Bilirubin 0.3 AST < 5 L ALT 9 L Alkaline Phosphatase 62 Total Protein 6.5 Albumin 3.0 L Urine Color Urine Clarity Urine pH Ur Specific [place] Urine Protein Urine Ketones Urine Blood Urine Nitrite Urine Bilirubin Urine Urobilinogen Ur Leukocyte Esterase Urine RBC Urine WBC Ur Epithelial Cells Urine Crystals Urine Bacteria Urine Casts Urine Mucus Urine Other Ur Culture Indicated? Urine Glucose Patient ABO/Rh Cancelled 06/02/19 01:00 WBC RBC Hgb Hct MCV MCH MCHC RDW Plt Count MPV Immature Gran % Neutrophils % Lymphocytes % Monocytes % Eosinophils % Basophils % Absolute Neutrophils Absolute Lymphocytes Absolute Monocytes Absolute Eosinophils Absolute Basophils Sodium Potassium Chloride Carbon Dioxide Anion Gap BUN Creatinine Estimated GFR/1.73 m2 Glucose Calcium Total Bilirubin AST ALT Alkaline Phosphatase Total Protein Albumin Urine Color Yellow Urine Clarity Clear Urine pH 5.5 Ur Specific [place] >= 1.030 H Urine Protein 30 H Urine Ketones Negative Urine Blood Negative Urine Nitrite Negative Urine Bilirubin Small H Urine Urobilinogen 0.2 Ur Leukocyte Esterase Negative Urine RBC Negative Urine WBC 3-5 Ur Epithelial Cells Many Urine Crystals Negative Urine Bacteria Moderate Urine Casts Negative Urine Mucus Heavy Urine Other Negative Ur Culture Indicated? No/sq. contamination Urine Glucose Negative Patient ABO/Rh [facility] Medical History (Updated 06/02/19 @ 04:26 by Miriam Leach MD) Asthma (Chronic) Bipolar I disorder (Chronic) Declines medication. Followed by Dr. Pereira Chronic hepatitis C (Resolved 01/14/18) Rx at [facility] [place]. 2019 viral load undetectable Drug overdose (Ruled-out 03/12/06) Fracture of tibia (Resolved) Hepatitis C antibody test positive (Resolved 03/19/15) pos RNA test referral to [facility] [place] Hypothyroidism (Chronic 01/11/12) Increased body mass index (Chronic) Substance abuse (Chronic) Heroin, crack cocaine, alcohol. 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
--- NOTE | 2019-06-02 15:24 | ROE_ITS ---
Date of service: 06/02/19 Time of Service: 15:24 Operative Note Operative Note DATE OF PROCEDURE: 06/02/19 PRE-OP DIAGNOSIS: Right adnexal mass. Right lower quadrant pain. Possible intermittent ovarian torsion POST-OP DIAGNOSIS: other (Right lower quadrant pain. Left paratubal cyst) PROCEDURE: Laparoscopic left salpingectomy with adjoining cyst. SURGEON: Miriam Leach REINSTATEMENT CLERK: Roger Olson ANESTHESIA: GETA ESTIMATED BLOOD LOSS: 5 PATHOLOGY: other (Left fallopian tube with attached tubal cyst) COMPLICATIONS: None Patient was transported to: PACU Patient's condition: stable Implants: None Indications: 38-year old G1, P0 female who presented to [facility] ED with 48 hours of right lower quadrant and back pain. Imaging revealed a cystic structure of adnexal origin approximately 6 x 6 cm. Patient's foot symptoms were significant for intermittent pain not controlled with narcotics or nonsteroidal anti- inflammatories. Findings: Normal upper abdomen. Normal right adnexa. Normal left ovary. Inferior portion of the length of the fallopian tube was attached to a smooth mobile cystic mass with clear fluid. Procedure Description: Patient was taken the operating room she is placed in the dorsal supine position and general endotracheal anesthesia administered without difficulty. She is placed in the dorsal supine position prepped and draped in the usual sterile fashion after [place] catheter was inserted to gravity drainage a transverse skin incision was made below the umbilicus and through the incision was placed a varies needle attached to carbon dioxide gas. Ultrasound guidance was used to observe the placement of the varies needle into the fascia and intra-abdominal placement also confirmed by drop in the intra-abdominal pressure. Once a pneumoperitoneum was established a 12 mm Visiport was placed through the incision and intra-abdominal placement confirmed visually. Patient was then placed in Trendelenburg and two 5 mm skin incisions were made approximately 2 cm medial to the superior anterior iliac crest left and right side respectively after the sites were infiltrated with 1% lidocaine without epinephrine. A 5 mm trocar and sleeves were placed on the right and left i ncisions under direct visualization. The bowels were swept away with laparoscopic graspers the upper abdomen pelvis carefully inspected with the above-noted findings it was determined that the left fallopian tube was too involved with the paratubal cyst to safely dissected the cyst from the fallopian tube incision was made to proceed with a salpingectomy. LigaSure device was used to clamp cauterize and cut the mesosalpinx attachment to the left ovary. The proximal portion of the left fallopian tube was clamped cauterized and dissected from the uterine cornua effectively freeing up the left paratubal cyst. All pedicle sites were noted to be hemostatic. A Endo Catch bag was placed through the 10 mm port and an attempt at placing paratubal cyst into the bag was unsuccessful secondary to the bag size. Another Endo Catch bag was attempted but could not be placed through the umbilical port so the decision was made to drain the cyst. I direct visualization a laparoscopic needle was inserted through the 5 mm port and punctured the wall of the cyst and 100 cc of clear proteinaceous fluid was aspirated successfully deflating the cystic structure. The left scopic grasper was then used to hold cystic structure up so no leakage of cyst contents were observed and the cyst was then placed into a Endo Catch bag delivered through the abdominal incision and passed off of the operative field. The 10 mm umbilical port was reinserted the pedicle sites were carefully inspected and noted to be hemostatic and both 5 mm ports were removed the pneumoperitoneum reduced and the 10 mm trocar and sleeve removed. The rectus fascia was grasped with [place] clamp tented up and the rectus fascia closed with interrupted suture of 0 Vicryl. space beneath the umbilical incision was also closed with a 0 Vicryl suture. Skin of the umbilical port site was reapproximated with subcuticular suture of 4-0 Monocryl and skin glue was used to seal incisions. All sponge lap needle counts are correct x2
== END 2019-06-02 15:45 | disposition home or self-care (01) | DRG 742 ==
LOC: ER 04:31 → MS 05:05
PROVIDERS: Admitting Provider Obstetrics & Gynecology Gynecology; Emergency Provider Student in an Organized Health Care Education/Training Program; PCP Family Medicine; Visit Provider Obstetrics & Gynecology Gynecology
PROC: 0UT64ZZ Resection of Left Fallopian Tube, Percutaneous Endoscopic Approach (ICD-10-PCS; CPT 58662; principal; 2019-06-02 10:30)
DX: N83.8 Other noninflammatory disorders of ovary, fallopian tube and broad ligament (principal); G06.1 Intraspinal abscess and granuloma; A41.01 Sepsis due to Methicillin susceptible Staphylococcus aureus; F31.89 Other bipolar disorder; Z16.29 Resistance to other single specified antibiotic; G82.20 Paraplegia, unspecified; G83.4 Cauda equina syndrome; Z68.41 Body mass index [BMI] 40.0-44.9, adult; R10.31 Right lower quadrant pain; F41.9 Anxiety disorder, unspecified; J45.909 Unspecified asthma, uncomplicated; F17.210 Nicotine dependence, cigarettes, uncomplicated; B18.2 Chronic viral hepatitis C; E03.9 Hypothyroidism, unspecified; F11.11 Opioid abuse, in remission; F10.11 Alcohol abuse, in remission; F14.11 Cocaine abuse, in remission; B95.61 Methicillin susceptible Staphylococcus aureus infection as the cause of diseases classified elsewhere; R50.82 Postprocedural fever; Z48.816 Encounter for surgical aftercare following surgery on the genitourinary system; R26.89 Other abnormalities of gait and mobility; R33.9 Retention of urine, unspecified; G89.18 Other acute postprocedural pain; D50.9 Iron deficiency anemia, unspecified; I10 Essential (primary) hypertension
CPT/HCPCS: 58661; 36415; 72158; 80053; 80307; 81025; 82550; 84145; 86900; 86901; 87040; 87077; 87389; 87798; 94640; 96361; 96365; 96374; 96375; 96376; 99221; 99238; 99285; 71046; 74176; 74177; 81003; 81015; 82607; 82728; 82746; 83010; 83540; 83550; 83605; 83615; 83735; 85014; 85018; 85025; 85045; 85610; 86140; 86618; 87086; 87186; 88304; 99222; 99284; 99291; 99292; G0378; J0131; J0696; J1100; J1885; J2060; J2250; J2270; J2405; J3010; J3360; J3490; Q9967

== ENCOUNTER 2019-06-02 17:18 | Inpatient (IN) | payer MEDICAID, SELFPAY ==
[2019-06-02] VITALS (9 sets, daily range): BP systolic 138–194; BP diastolic 90–106; PULSE 96–116; RESP 17–30; TEMP 36.6–39; O2SAT 97–98
--- NOTE | 2019-06-02 17:39 | W.ED.GENAD ---
Discharge Plan Disposition Patient Disposition: [facility] INPATIENT Condition: Stable Discharge Details Chief Complaint: Abd Prob Clinical Impression: Post-op pain Primary Care Provider: Coty Stanley ED Provider: Niko Sifuentes Home Meds and New Rx's Prescriptions: No Action olanzapine 7.5 mg tablet 7.5 mg PO QHS Qty: 30 RF: 1 mirtazapine 15 mg tablet 15 mg PO DAILY Qty: 30 RF: 1 clonidine HCl 0.2 mg tablet 0.2 mg PO BID Qty: 60 RF: 0 lamotrigine [Lamictal] 150 mg tablet 150 mg PO BID Qty: 60 RF: 5 alprazolam 2 mg tablet 2 mg PO BID Qty: 60 RF: 0 doxepin 10 mg capsule 10 mg PO QHS PRN (Reason: itching) Qty: 30 RF: 0 methylphenidate HCl [Ritalin] 20 mg tablet 20 mg PO TID MDD 3 Qty: 90 RF: 0 albuterol sulfate [ProAir HFA] 8.5 GM HFA aerosol inhaler 2 puff Inhalation Q4H PRN Qty: 1 RF: 12 levothyroxine 50 mcg tablet 50 mcg PO DAILY Qty: 90 RF: 12 omeprazole 40 mg capsule,delayed release(DR/EC) 40 mg PO DAILY Qty: 90 RF: 3 fluticasone propionate 50 mcg/actuation spray,suspension 2 spray NS BID Qty: 3 RF: 12 metoprolol tartrate 25 mg tablet 25 mg PO BID Qty: 180 RF: 3 Symbicort 160-4.5 mcg/actuation HFA aerosol inhaler 2 puff Inhalation BID Qty: 1 RF: 6 clonidine HCl 0.2 mg tablet 0.2 mg PO BID Qty: 30 RF: 0 oxycodone-acetaminophen [Percocet] 5-325 mg tablet 1 tab PO Q6H MDD 4 PRN (Reason: pain) Qty: 6 RF: 0 Medical Decision Making 38-year-old female who is hours status post excision of 6 x 6 cm left adnexal cystic structure with operative findings of left fallopian paratubal cyst. She has had cramping abdominal and back pain. She is hypertensive, mildly tachycardic in pain. Her abdominal exam is essentially reassuring, but this may be a postoperative ileus, pain from distention of abdomen, doubt acute postsurgical complication. IV placed, fluids and medications administered. Patient seen in consultation in the ER by Dr. Olson and will be admitted to the floor. HPI General Mode of arrival: ambulatory. Date/Time Provider Initiated Documentation: 06/02/19 17:19. Limitations to Documentation: no limitations. Information obtained by: patient and family. History of Present Illness 38 year old F presents to the emergency department with the chief complaint of Postop abdominal and back pain, described as moderate, Quality is described as other (Cramping), and is localized to the abdomen. Patient reports radiation to back. Patient started experiencing this hour(s) and it has been intermittent. No relieving factors improve symptom(s), Patient notes denies fever/chills and nausea/vomiting. Related Data Home Medications Medication Instructions Recorded Confirmed albuterol sulfate [Proair Hfa] 2 puff INHALATION Q4H PRN #1 12/18/16 06/02/19 canister clonidine HCl 0.2 mg tablet 0.2 mg PO BID #60 tab 08/19/18 06/02/19 lamotrigine 150 mg tablet 150 mg PO BID #60 tab 09/04/18 06/02/19 levothyroxine 50 mcg tablet 50 mcg PO DAILY #90 tab-cap 10/15/18 06/02/19 omeprazole 40 mg capsule,delayed 40 mg PO DAILY #90 tab-cap 10/21/18 06/02/19 release olanzapine 7.5 mg tablet 7.5 mg PO QHS #30 tab 11/27/18 06/02/19 fluticasone propionate 50 2 spray NS BID #3 gm 12/16/18 06/02/19 mcg/actuation nasal spray,suspension metoprolol tartrate 25 mg tablet 25 mg PO BID #180 tab-cap 01/08/19 06/02/19 mirtazapine 15 mg tablet 15 mg PO DAILY #30 tab 01/15/19 06/02/19 alprazolam 2 mg tablet 2 mg PO BID #60 tab 02/13/19 06/02/19 doxepin 10 mg capsule 10 mg PO QHS PRN #30 cap 02/13/19 06/02/19 methylphenidate HCl 20 mg tablet 20 mg PO TID #90 tab MDD 3 02/13/19 06/02/19 budesonide-formoterol HFA 160 2 puff INHALATION BID #1 inhaler 02/20/19 06/02/19 mcg-4.5 mcg/actuation aerosol inhaler clonidine HCl 0.2 mg tablet 0.2 mg PO BID #30 tab 03/14/19 06/02/19 oxycodone-acetaminophen 5 mg-325 1 tab PO Q6H PRN #6 tab MDD 4 06/02/19 06/02/19 mg tablet Previous Rx's Medication Instructions Recorded clonidine HCl 0.2 mg tablet 0.2 mg PO BID #60 tab 08/19/18 lamotrigine 150 mg tablet 150 mg PO BID #60 tab 09/04/18 levothyroxine 50 mcg tablet 50 mcg PO DAILY #90 tab-cap 10/15/18 omeprazole 40 mg capsule,delayed 40 mg PO DAILY #90 tab-cap 10/21/18 release olanzapine 7.5 mg tablet 7.5 mg PO QHS #30 tab 11/27/18 fluticasone propionate 50 2 spray NS BID #3 gm 12/16/18 mcg/actuation nasal spray,suspension metoprolol tartrate 25 mg tablet 25 mg PO BID #180 tab-cap 01/08/19 mirtazapine 15 mg tablet 15 mg PO DAILY #30 tab 01/15/19 alprazolam 2 mg tablet 2 mg PO BID #60 tab 02/13/19 doxepin 10 mg capsule 10 mg PO QHS PRN #30 cap 02/13/19 methylphenidate HCl 20 mg tablet 20 mg PO TID #90 tab MDD 3 02/13/19 budesonide-formoterol HFA 160 2 puff INHALATION BID #1 inhaler 02/20/19 mcg-4.5 mcg/actuation aerosol inhaler clonidine HCl 0.2 mg tablet 0.2 mg PO BID #30 tab 03/14/19 oxycodone-acetaminophen 5 mg-325 1 tab PO Q6H PRN #6 tab MDD 4 06/02/19 mg tablet Allergies Allergy/AdvReac Type Severity Reaction Status Date / Time latex Allergy Intermediate SKIN RASH Unverified 06/02/19 17:27 prazosin AdvReac Dizziness/S Unverified 06/02/19 17:27 wejanet General Stated Complaint: Abd Prob JOLLY: 3 Review of Systems Review of Systems Narrative: No fever, no vomiting. 6 systems reviewed and otherwise negative [facility] Medical History Asthma (Chronic) Bipolar I disorder (Chronic) Declines medication. Followed by Dr. Pereira Chronic hepatitis C (Resolved 01/14/18) [place] [facility] [place] viral load undetectable Drug overdose (Ruled-out 03/12/06) Fracture of tibia (Resolved) Hepatitis C antibody test positive (Resolved 03/19/15) pos RNA test [place] [facility] [place] Hypothyroidism (Chronic 01/11/12) Increased body mass index (Chronic) Substance abuse (Chronic) Heroin, crack cocaine, alcohol. 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 Pleasant, well groomed, interactive. HEAD: Normocephalic, atraumatic ENT: Mucous membranes moist, oropharynx unremarkable, External ear exam unremarkable EYES: PERRL, EOMI NECK: Full ROM, no LATHA, no menigismus CHEST/RESP: Nontender, clear to auscultation bilateral, no wheeze/rhonchi/rales CARDIOVASCULAR: RRR, no murmur, rub nydia. 2+ Rad pulse bilateral ABDOMEN: Soft, mild diffuse tenderness without rebound or guarding, lower abdomen surgical incisions clean dry and intact with overlying tissue adhesive, no mass. +Bowel sounds EXT: Full ROM, no edema, no rash Neuro: Grossly normal neurologic exam, conversant, interactive. Psych: Speech fluent, thoughts congruent, affect normal Course Vital Signs Vital signs: Vital Signs Temperature 36.6 C 06/02/19 17:24 Pulse 111 H 06/02/19 17:24 Respiratory Rate 30 H 06/02/19 17:24 Blood Pressure 138/106 H 06/02/19 17:24 Pulse Oximetry 98 06/02/19 17:24 Temperature 36.6 C 06/02/19 17:24 Temperature Source Temporal Artery Scan 06/02/19 17:24 Pulse 111 H 06/02/19 17:24 Respiratory Rate 30 H 06/02/19 17:24 Respiratory Effort Non-Labored 06/02/19 17:24 Blood Pressure 138/106 H 06/02/19 17:24 Pulse Oximetry 98 06/02/19 17:24 Oxygen Delivery Method Room Air 06/02/19 17:24 Oxygen Flow Rate 0 06/02/19 17:24 Pain Level 10 06/02/19 17:24
[2019-06-02] MEDS: diazePAM 10 MG/2 ML SYR 2.5 MG IVP (18:18)
[2019-06-02] MEDS: Ketorolac 30 MG/ML VIAL IVP ×2 (18:18→23:34)
[2019-06-02] MEDS: Lactated Ringers 1,000 ML 125 ML IV ×2 (18:19→19:38)
[2019-06-02] MEDS: HYDROmorphone 2 MG/ML VIAL IVP (19:36)
[2019-06-02] MEDS: ALPRAZolam 0.5 MG TAB 2 MG PO (20:25)
[2019-06-02] MEDS: cloNIDine 0.1 MG TAB 0.2 MG PO (20:26)
[2019-06-02] MEDS: Acetaminophen 500 MG TAB 1000 MG PO (20:26)
[2019-06-02] MEDS: Metoprolol 25 MG TAB PO (20:26)
[2019-06-02] MEDS: lamoTRIgine 100 MG TAB 150 MG PO (20:27)
[2019-06-02] MEDS: Budesonide/Formoterol 160/4.5 6 GM 60 PUFF INH IH (20:28)
[2019-06-02] MEDS: Normal Saline Flush 10 ML SYR IVP (22:02)
[2019-06-02] MEDS: Ondansetron 4 MG/2 ML VIAL IVP (22:03)
[2019-06-02] MEDS: Doxepin 10 MG CAP PO (22:23)
--- NOTE | 2019-06-02 23:51 | NUR.NOTE ---
Nursing Note: Pt been restless, anxious, verbally upset since admission. Had brown liquidy emesis x 4, estimated total of 500 cc. Medicated with zofran for nausea. Dilaudid also given for post op pain, ice pack been utilized for pounding headache. Had tylenol for temp. 39 and subsided to 38.3. Pt home meds 3 bottles in a purple bag taken by manager floor then 1 bot with Ibufropen,tylenol and xanax was locked up by nursing motel food service supervisor. Pt was hesitant to give the last bot to Nrsg.super, Pt stated that because of her spiritual belief that something might happen to her if it will be out of her hand. Pt repeated many times that her boyfriend will kill her that's why she is scared to . Crying of not feeling good and continue pacing and up and about on bed, crying intermittently. Requested a jug of ice cubes. Nursing will continue to monitor for safety.
[2019-06-03] MEDS: Lactated Ringers 1,000 ML 125 ML IV ×3 (00:57→19:26)
[2019-06-03 04:10] VITALS: BP 137/82; PULSE 101; RESP 20; TEMP 37.3; O2SAT 96
[2019-06-03] MEDS: HYDROmorphone 2 MG/ML VIAL IVP ×2 (04:17→19:26)
[2019-06-03 07:00] VITALS: BP 126/70; PULSE 107; RESP 18; TEMP 38; O2SAT 95
[2019-06-03] MEDS: Ketorolac 30 MG/ML VIAL IVP ×3 (07:07→18:12)
[2019-06-03] MEDS: Levothyroxine 50 MCG TAB PO (07:07)
[2019-06-03 08:13] LABS: HCT 26.1 % (36.0-46.0); HGB 7.3 g/dL (12.0-15.5); Mean Corpuscular Hemoglobin 22.1 pg (27.0-33.0); Mean Corpuscular Volume 79.1 fL (80-95); Mean Platelet Volume 8.6 fL (8.0-11.0); Platelet Count 287 x1000/uL (130-400); RBC Distribution Width 17.5 % (11.7-14.6); White Blood Cell Count 11.92 k/cumm (4.4-10.8)
[2019-06-03] MEDS: lamoTRIgine 100 MG TAB 150 MG PO ×2 (08:27→19:28)
[2019-06-03] MEDS: Methylphenidate 10 MG TAB 20 MG PO ×3 (08:28→16:15)
[2019-06-03] MEDS: oxyCODONE 5 mg/Acetaminophen 325 mg TAB PO ×4 (08:29→22:05)
[2019-06-03] MEDS: ALPRAZolam 0.5 MG TAB 2 MG PO ×2 (08:29→19:27)
[2019-06-03] MEDS: cloNIDine 0.1 MG TAB 0.2 MG PO ×2 (08:29→19:28)
[2019-06-03] MEDS: Metoprolol 25 MG TAB PO ×2 (08:29→19:28)
[2019-06-03] MEDS: Omeprazole 20 MG CAPCR 40 MG PO (08:29)
[2019-06-03] MEDS: Normal Saline Flush 10 ML SYR IVP ×2 (08:30→18:12)
[2019-06-03 08:33] LABS: Absolute Lymphocyte Count 1.07 k/cumm (1.2-3.4); Absolute Neutrophil Count 10.25 k/cumm (1.2-6.7); Anisocytosis 1+; Basophilic Stippling Present; Diff Comment Manual Differential; Hypochromasia 2+; Microcytosis 2+
[2019-06-03 08:34] LABS: Polychromasia Present
[2019-06-03] MEDS: Budesonide/Formoterol 160/4.5 6 GM 60 PUFF INH IH ×2 (08:48→22:06)
[2019-06-03 11:15] VITALS: BP 112/75; PULSE 83; RESP 18; TEMP 37.1; O2SAT 96
--- NOTE | 2019-06-03 11:29 | DI.RAD_ITS ---
EXAM: XR CHEST 2V PA LATERAL INDICATION: Postoperative fever. COMPARISON: CHEST 2 VIEWS PA,LAT from 04/07/2010 TECHNIQUE: 2D digital imaging was performed. FINDINGS: The heart size is within normal limits. The aorta is mildly tortuous. The lungs appear clear. The re is respiratory motion on the lateral view. Degenerative changes are seen in thoracic spine. IMPRESSION: Limited exam. No acute abnormality.
--- NOTE | 2019-06-03 13:29 | INITIAL_ITS ---
Care Management Initial Assess REASON FOR HOSPITALIZATION:: Ovarian Torsion PAST MEDICAL HISTORY/PAST SURGICAL HISTORY:: Asthma, Bipolar I disorder, chronic heapatitis C, prior drug overdose, fracture of tibia, Hep C antibody test positive, hypothyroidism, increased BMI, Substance abuse, laparoscopy, dilation and curettage-elective termination of . PREVIOUS FUNCTIONAL STATUS/SOCIAL/FAMILY SUPPORTS:: Beverley resides alone in her own home in [place], [place]. Beverley reports some close friends as supports as well as her parents. She is not currently employed and enjoys art work and dancing. She is deemed disabled due to Bipolar diagnosis and has service supports locally. Openly admits she uses drugs on a regular basis. Her parents assist with management of finances. Mostly independent in the community. CURRENT FUNCTIONAL STATUS:: Beverley was standing in her room, fully engaged with this entry writer. She reviewed her current living situation and was openly engaged. ADVANCE DIRECTIVES:: Completing with [employer] Systems [employer] currently, per her report. Has patient been provided with information about the portal?: Yes Did the patient sign up for the portal?: No CODE STATUS:: Full Code INSURANCE COVERAGE / FINANCIAL ISSUES:: Medicaid CURRENT HOME/COMMUNITY SERVICES/EQUIPMENT:: Beverley is normally independent with ADLs, does not use any assistive equipment and does not have any services in place. Has med management/counseling services in place with Dr. Pereira in the community setting. PRIMARY CARE PHYSICIAN:: Dr. Coty Stanley POTENTIAL DISCHARGE NEEDS:: Follow up appointment with PCP and Dr. Pereira. PATIENT/FAMILY EDUCATION NEEDS:: Review discharge instructions regarding medications and follow up appointments, discuss Ask Me Three. ANTICIPATED BARRIERS TO DISCHARGE:: None identified at this time. TRANSPORTATION:: Home via private vehicle with family. PLAN:: Beverley will return home when ready per MD. She will follow up with her community providers and plan of care as prescribed. She will transport via private vehicle with family.
--- NOTE | 2019-06-03 16:11 | CHAPLAIN ---
Beverley was resting in bed when I visited. She told me about not feeling well after she was discharged yesterday and returning to the ER and being readmitted. She said she is fearful of going home, as she lives alone. This is unusual for her she said. She shared some personal history and described what negative energies she believes are affecting her and where they are coming from. We talked about this being a safe place for her and she could focus on regaining her strength. When I asked what she does to support her wellness, she talked about meditation and drawing. She said she has not been able to meditate lately, but did ask for paper and black pen, so I got those for her. I will check in with her tomorrow.
--- NOTE | 2019-06-03 17:38 | W.PM.HP.N ---
Date of service: 06/02/19 Time of Service: 19:00 Assessment and Plan Assessment and plan (1) Postoperative pain: Status: Acute Assessment and plan: Will place in observation overnight. We will manage pain with IV Dilaudid. Plan to reevaluate as needed. (2) Status post laparoscopy: Status: Acute History of Present Illness History of Present Illness Chief Complaint: Postoperative pain Narrative: 36-year-old patient presented to the emergency department shortly after discharge home today. She did undergo a laparoscopic left salpingectomy with excision of a large paratubal cyst. The patient had intense pain on her way home which was uncontrollable prompting her to present back to the emergency department. She felt that she simply could not manage her pain at home. Review of Systems Review of Systems ROS Unobtainable: All systems reviewed & are unremarkable except as noted in HPI and below [facility] Medical History Asthma (Chronic) Bipolar I disorder (Chronic) Declines medication. Followed by Dr. Pereira Chronic hepatitis C (Resolved 01/14/18) Rx at [facility] [place]. 2019 viral load undetectable Drug overdose (Ruled-out 03/12/06) Fracture of tibia (Resolved) Hepatitis C antibody test positive (Resolved 03/19/15) pos RNA test referral to [facility] [place] Hypothyroidism (Chronic 01/11/12) Increased body mass index (Chronic) Substance abuse (Chronic) Heroin, crack cocaine, alcohol. 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 Number of Children: 0 Education Level: college Pets and animals: No Sexually active: Yes Do you feel safe at home: Yes Do you feel safe in your relationship?: Yes History History 1 Para Hx # Term Pregnancies Multiple births Hx # Pregnancies Ectopic pregnancies AB induced 1 Hx Number of Living Children 0 AB spontaneous Meds Home Medications and Allergies Home Medications Medication Instructions Recorded Confirmed Type albuterol sulfate [Proair Hfa] 2 puff INHALATION Q4H PRN #1 12/18/16 06/02/19 History canister clonidine HCl 0.2 mg tablet 0.2 mg PO BID #60 tab 08/19/18 06/02/19 Rx lamotrigine 150 mg tablet 150 mg PO BID #60 tab 09/04/18 06/02/19 Rx levothyroxine 50 mcg tablet 50 mcg PO DAILY #90 tab-cap 10/15/18 06/02/19 Rx omeprazole 40 mg capsule,delayed 40 mg PO DAILY #90 tab-cap 10/21/18 06/02/19 Rx release olanzapine 7.5 mg tablet 7.5 mg PO QHS #30 tab 11/27/18 06/02/19 Rx fluticasone propionate 50 2 spray NS BID #3 gm 12/16/18 06/02/19 Rx mcg/actuation nasal spray,suspension metoprolol tartrate 25 mg tablet 25 mg PO BID #180 tab-cap 01/08/19 06/02/19 Rx mirtazapine 15 mg tablet 15 mg PO DAILY #30 tab 01/15/19 06/02/19 Rx alprazolam 2 mg tablet 2 mg PO BID #60 tab 02/13/19 06/02/19 Rx doxepin 10 mg capsule 10 mg PO QHS PRN #30 cap 02/13/19 06/02/19 Rx methylphenidate HCl 20 mg tablet 20 mg PO TID #90 tab MDD 3 02/13/19 06/02/19 Rx budesonide-formoterol HFA 160 2 puff INHALATION BID #1 inhaler 02/20/19 06/02/19 Rx mcg-4.5 mcg/actuation aerosol inhaler clonidine HCl 0.2 mg tablet 0.2 mg PO BID #30 tab 03/14/19 06/02/19 Rx oxycodone-acetaminophen 5 mg-325 1 tab PO Q6H PRN #6 tab MDD 4 06/02/19 06/02/19 Rx mg tablet Allergies Allergy/AdvReac Type Severity Reaction Status Date / Time latex Allergy Intermediate SKIN RASH Unverified 06/02/19 17:27 prazosin AdvReac Dizziness/S Unverified 06/02/19 17:27 weats Exam GI Other: Abdomen is soft and appropriately tender. Incisions are clean and dry. No palpable masses organomegaly. Results Labs Result diagrams: 06/03/19 07:57 Labs: Laboratory Results - last 24 hr 06/03/19 07:57 WBC 11.92 H RBC 3.30 L Hgb 7.3 L Hct 26.1 L MCV 79.1 L MCH 22.1 L MCHC 28.0 L RDW 17.5 H Plt Count 287 MPV 8.6 Immature Gran % 0.0 Neutrophils % 86.0 Lymphocytes % 9.0 Monocytes % 5.0 Eosinophils % 0.0 Basophils % 0.0 Absolute Neutrophils 10.25 H Absolute Lymphocytes 1.07 L Absolute Monocytes 0.60 Absolute Eosinophils 0.00 Absolute Basophils 0.00 Differential Comment Manual differential RBC Morphology See below Polychromasia Present Hypochromasia 2+ Basophilic Stippling Present Anisocytosis 1+ Microcytosis 2+ Last Vital Signs Temp 98.8 F 06/03/19 11:15 Pulse 83 06/03/19 11:15 Resp 18 06/03/19 11:15 BP 112/75 06/03/19 11:15 Pulse Ox 96 06/03/19 11:15
--- NOTE | 2019-06-03 17:41 | W.PM.PROGNOT ---
Date of Service Date of service: 06/03/19 Time of Service: 17:41 Assessment and Plan Assessment and plan (1) Status post laparoscopy: Status: Acute Assessment and plan: Likely fevers are related to atelectasis and lack of ambulation. Will obtain blood cultures if fevers persist. CXR today was normal. Will continue to observe over night. Repeat labs in the am. If she remains afebrile will consider discharge home in the morning. (2) Postoperative pain: Status: Acute Subjective Subjective Interval history since last seen: Doing a little bit better this afternoon. She did have numerous low-grade temperatures overnight. There is no appreciable source for her fevers. Through the day today she did feel better particularly after use of incentive spirometer and ambulation. She does still have somewhat of headache. Pain is moderately controlled. She has not yet moved her bowels. Exam GI Other: Abdomen remains soft and appropriately tender. There is normoactive bowel sounds. Incisions are clean dry and intact Objective Objective Clinical Data: Abnormal lab results 06/03/19 Range/Units 07:57 WBC 11.92 H (4.4-10.8) k/cumm RBC 3.30 L (4.00-5.20) m/cumm Hgb 7.3 L (12.0-15.5) g/dL Hct 26.1 L (36.0-46.0) % MCV 79.1 L (80-95) fL MCH 22.1 L (27.0-33.0) pg MCHC 28.0 L (32.0-36.0) g/dL RDW 17.5 H (11.7-14.6) % Absolute Neutrophils 10.25 H (1.2-6.7) k/cumm Absolute Lymphocytes 1.07 L (1.2-3.4) k/cumm Vital Signs Temperature 98.8 F 06/03/19 11:15 Temperature Source Tympanic 06/03/19 11:15 Pulse 83 06/03/19 11:15 Pulse Rhythm Regular 06/03/19 08:34 Respiratory Rate 18 06/03/19 11:15 Respiratory Effort 06/03/19 08:34 Respiratory Depth Normal 06/03/19 08:34 Respiratory Pattern Normal 06/03/19 08:34 Blood Pressure 112/75 06/03/19 11:15 Pulse Oximetry 96 06/03/19 11:15 Oxygen Delivery Method Room Air 06/03/19 11:15 Oxygen Flow Rate 0 06/03/19 11:15 Pain Level 8 06/03/19 16:14 Comment 06/03/19 04:10 Intake & Output 06/02/19 06/03/19 06/03/19 23:59 11:59 23:59 Intake Total 329.166 / 684.398 2732.416 / 2110.416 Output Total 300 / 300 2200 / 2200 Balance 29.166 / 29.166 -89.584 / -89.584 Weight 259 lb 15.999 oz Intake: IV 329.166 / 399.522 6922.416 / 1610.416 Oral 500 / 500 Output: Urine 300 / 300 2200 / 2200 Other: Urine Color Dark Katy Yellow Urine Appearance Clear Clear Urine Odor Normal Strong Comment in toilet per Pt Voiding Methods Toilet Toilet Laboratory Results WBC 11.92 k/cumm (4.4-10.8) H 06/03/19 07:57 RBC 3.30 m/cumm (4.00-5.20) L 06/03/19 07:57 Hgb 7.3 g/dL (12.0-15.5) L 06/03/19 07:57 Hct 26.1 % (36.0-46.0) L 06/03/19 07:57 MCV 79.1 fL (80-95) L 06/03/19 07:57 MCH 22.1 pg (27.0-33.0) L 06/03/19 07:57 MCHC 28.0 g/dL (32.0-36.0) L 06/03/19 07:57 RDW 17.5 % (11.7-14.6) H 06/03/19 07:57 Plt Count 287 x1000/uL (130-400) 06/03/19 07:57 MPV 8.6 fL (8.0-11.0) 06/03/19 07:57 Immature Gran % 0.0 06/03/19 07:57 Neutrophils % 86.0 06/03/19 07:57 Lymphocytes % 9.0 06/03/19 07:57 Monocytes % 5.0 06/03/19 07:57 Eosinophils % 0.0 06/03/19 07:57 Basophils % 0.0 06/03/19 07:57 Absolute Neutrophils 10.25 k/cumm (1.2-6.7) H 06/03/19 07:57 Absolute Lymphocytes 1.07 k/cumm (1.2-3.4) L 06/03/19 07:57 Absolute Monocytes 0.60 k/cumm (0.11-0.7) 06/03/19 07:57 Absolute Eosinophils 0.00 k/cumm (0.0-0.7) 06/03/19 07:57 Absolute Basophils 0.00 k/cumm (0.0-0.2) 06/03/19 07:57 Differential Comment Manual differential 06/03/19 07:57 RBC Morphology See below 06/03/19 07:57 Polychromasia Present 06/03/19 07:57 Hypochromasia 2+ 06/03/19 07:57 Basophilic Stippling Present 06/03/19 07:57 Anisocytosis 1+ 06/03/19 07:57 Microcytosis 2+ 06/03/19 07:57
[2019-06-03 18:15] VITALS: BP 150/90; PULSE 95; RESP 18; TEMP 37; O2SAT 100
[2019-06-03 19:35] VITALS: BP 106/69; PULSE 91; RESP 18; TEMP 37; O2SAT 97
[2019-06-03] MEDS: Mirtazapine 15 MG TAB PO (22:05)
[2019-06-03] MEDS: Milk of Magnesia 30 ML CUP PO (22:05)
[2019-06-03] MEDS: Doxepin 10 MG CAP PO (22:05)
[2019-06-03] MEDS: Senna TAB 1 TAB PO (22:05)
[2019-06-03] MEDS: Docusate Sodium 100 MG CAP PO (22:05)
[2019-06-04] VITALS (9 sets, daily range): BP systolic 121–166; BP diastolic 68–97; PULSE 72–108; RESP 18–22; TEMP 36.3–39; O2SAT 90–100
[2019-06-04] MEDS: Ketorolac 30 MG/ML VIAL IVP ×3 (00:45→22:49)
[2019-06-04] MEDS: Ondansetron 4 MG/2 ML VIAL IVP (01:54)
[2019-06-04] MEDS: Acetaminophen 500 MG TAB 1000 MG PO (02:00)
[2019-06-04] MEDS: Lactated Ringers 1,000 ML 125 ML IV ×2 (03:25→11:30)
[2019-06-04] MEDS: Levothyroxine 50 MCG TAB PO (06:52)
[2019-06-04] MEDS: oxyCODONE 5 mg/Acetaminophen 325 mg TAB PO ×2 (06:52→12:37)
[2019-06-04] MEDS: Methylphenidate 10 MG TAB 20 MG PO ×3 (08:00→15:55)
[2019-06-04] MEDS: Budesonide/Formoterol 160/4.5 6 GM 60 PUFF INH IH ×2 (09:37→20:21)
--- NOTE | 2019-06-04 10:14 | W.PM.PROGNOT ---
Date of Service Date of service: 06/04/19 Time of Service: 10:14 Assessment and Plan Assessment and plan (1) Status post laparoscopy: Status: Acute Assessment and plan: Pt's pain persists. Rx with narcotics. No plans for discharge at this time. (2) Postoperative pain: Status: Acute Assessment and plan: We will continue with as needed narcotics will hold Xanax secondary to apparent somnolence. (3) Fever: Status: Acute Assessment and plan: Unclear etiology. Hospitalist service consulted. We will perform CAT scan of abdomen and pelvis Subjective Subjective Patient reports: still having pain (not currently but earlier this am.), tolerating a regular diet and flatus; denies bowel movement (laxative last night without results.) Interval history since last seen: Pt's temperature was elevated during the night. BCx obtained. WBC pending. Per Dr. Olson's exam abdomen w/o evidence of guarding or rebound yesterday. However pt continues to c/o abdominal pain. Brigitte regular diet. CXR neg for infiltrate. Exam Narrative Exam Narrative: TM 101f this am. Const General: no acute distress (sitting in bed, conversing with visitor.) Nutritional Appearance: obese Orientation: alert, awake, oriented x3 and other (slurring words, eyelids drooping.) Eyes Pupils: pinpoint bilaterally Resp Effort & Inspection: normal respiratory effort Auscultation: clear to auscultation bilaterally Cardio Palpation: normal PMI Rate: regular rate Rhythm: regular rhythm GI Inspection: normal to inspection, incision (Clean dry and intact) and large pannus Palpation: soft and tender (No guarding or rebound, tenderness is generalized not focal) Auscultation: normal bowel sounds General: deferred Back/Spine/Pelvis Back: no CVA tenderness Thoracic/Lumbar Spine: thoracic and lumbar spine normal to inspection Pelvis: no pain with anterior-posterior compression Skin General skin exam: no rashes or lesions noted (Tattoos) Trauma: no lacerations or abrasions Hair: normal Neuro General: alert, awake (Awakened easily, not obtunded) and oriented x3 Speech: abnormal speech slurred (Initially slurred however normalized during conversation) Motor: muscle tone normal throughout Sensory Exam: lower extremity (Complains of itchy feet and soles) Extrem General: normal to inspection, full ROM and normal capillary refill (SCDs in place) Psych Appearance: grossly normal Speech and Movement: slurred speech Mood: congruent mood Affect: blunted Attitude: cooperative Thought Process: normal Thought Content: normal Insight: fair Judgment: judgment good Objective Objective Clinical Data: Vital Signs Temperature 99.0 F 06/04/19 09:52 Temperature Source Tympanic 06/04/19 09:52 Pulse 98 H 06/04/19 07:45 Pulse Rhythm Regular 06/04/19 04:57 Respiratory Rate 20 06/04/19 08:29 Respiratory Effort 06/04/19 04:57 Respiratory Depth Normal 06/04/19 04:57 Respiratory Pattern Normal 06/04/19 04:57 Blood Pressure 156/82 H 06/04/19 07:45 Pulse Oximetry 95 06/04/19 08:29 Oxygen Delivery Method Room Air 06/04/19 08:29 Oxygen Flow Rate 0 06/04/19 08:29 Pain Level 10 06/04/19 07:45 Comment 06/04/19 08:29 Intake & Output 06/03/19 06/03/19 06/04/19 11:59 23:59 11:59 Intake Total 2110.416 / 3370.416 1260 / 3370.416 1497.5 / 1497.5 Output Total 2200 / 2200 600 / 600 Balance -89.584 / 9841.789 7352 / 1170.416 897.5 / 897.5 Intake: IV 1610.416 / 2630.416 1020 / 2630.416 997.5 / 997.5 Oral 500 / 740 240 / 740 500 / 500 Output: Urine 2200 / 2200 600 / 600 Other: Urine Color Yellow Yellow Yellow Urine Appearance Clear Clear Clear Urine Odor Strong Normal Normal Comment in toilet per Pt Pt voiding ad florin in toilet. Denies sx. Voiding Methods Toilet Toilet Toilet Laboratory Results WBC 11.92 k/cumm (4.4-10.8) H 06/03/19 07:57 RBC 3.30 m/cumm (4.00-5.20) L 06/03/19 07:57 Hgb 7.3 g/dL (12.0-15.5) L 06/03/19 07:57 Hct 26.1 % (36.0-46.0) L 06/03/19 07:57 MCV 79.1 fL (80-95) L 06/03/19 07:57 MCH 22.1 pg (27.0-33.0) L 06/03/19 07:57 MCHC 28.0 g/dL (32.0-36.0) L 06/03/19 07:57 RDW 17.5 % (11.7-14.6) H 06/03/19 07:57 Plt Count 287 x1000/uL (130-400) 06/03/19 07:57 MPV 8.6 fL (8.0-11.0) 06/03/19 07:57 Immature Gran % 0.0 06/03/19 07:57 Neutrophils % 86.0 06/03/19 07:57 Lymphocytes % 9.0 06/03/19 07:57 Monocytes % 5.0 06/03/19 07:57 Eosinophils % 0.0 06/03/19 07:57 Basophils % 0.0 06/03/19 07:57 Absolute Neutrophils 10.25 k/cumm (1.2-6.7) H 06/03/19 07:57 Absolute Lymphocytes 1.07 k/cumm (1.2-3.4) L 06/03/19 07:57 Absolute Monocytes 0.60 k/cumm (0.11-0.7) 06/03/19 07:57 Absolute Eosinophils 0.00 k/cumm (0.0-0.7) 06/03/19 07:57 Absolute Basophils 0.00 k/cumm (0.0-0.2) 06/03/19 07:57 Differential Comment Manual differential 06/03/19 07:57 RBC Morphology See below 06/03/19 07:57 Polychromasia Present 06/03/19 07:57 Hypochromasia 2+ 06/03/19 07:57 Basophilic Stippling Present 06/03/19 07:57 Anisocytosis 1+ 06/03/19 07:57 Microcytosis 2+ 06/03/19 07:57
[2019-06-04] MEDS: lamoTRIgine 100 MG TAB 150 MG PO ×2 (11:02→20:22)
[2019-06-04] MEDS: Omeprazole 20 MG CAPCR 40 MG PO (11:04)
[2019-06-04] MEDS: cloNIDine 0.1 MG TAB 0.2 MG PO ×2 (11:04→20:22)
[2019-06-04] MEDS: Metoprolol 25 MG TAB PO ×2 (11:05→20:23)
[2019-06-04 12:32] LABS: *AMPHETAMINES SCREEN URINE Negative (Negative); *BARBITURATES SCREEN URINE Negative (Negative); *BENZODIAZEPINES SCREEN URINE POSITIVE (Negative); Cannabinoids THC POSITIVE (Negative); Cocaine Screen,Urine Negative (Negative); METHADONE URINE SCREEN Negative (Negative); OPIATES URINE SCREEN POSITIVE (Negative)
[2019-06-04 12:35] LABS: Tricyclic Antidepressants Negative (Negative)
[2019-06-04] MEDS: Butalbital/Acetaminophen/Caffeine 50/325/40 TAB PO (12:37)
[2019-06-04 13:10] LABS: Lactate 1.1 mmol/L (0.6-1.4)
[2019-06-04 13:17] LABS: Abs Immature Grans 0.06 k/cumm (0.0-0.09); Absolute Eosinophil Count 0.02 k/cumm (0.0-0.7); Absolute Lymphocyte Count 1.22 k/cumm (1.2-3.4); Basophils % 0.1; Eosinophils % 0.1; HCT 28.1 % (36.0-46.0); HGB 7.9 g/dL (12.0-15.5); Immature Grans % 0.3; Lymphocytes % 6.8; Mean Corp. HGB Concentration 28.1 g/dL (32.0-36.0); Mean Corpuscular Hemoglobin 22.3 pg (27.0-33.0); Mean Corpuscular Volume 79.2 fL (80-95); Monocytes % 4.7; Platelet Count 337 x1000/uL (130-400); RBC 3.55 m/cumm (4.00-5.20); RBC Distribution Width 17.6 % (11.7-14.6); White Blood Cell Count 17.98 k/cumm (4.4-10.8)
[2019-06-04] MEDS: ALPRAZolam 0.5 MG TAB PO ×2 (13:26→22:49)
[2019-06-04 13:32] LABS: Absolute Basophil Count 0.02 k/cumm (0.0-0.2); Absolute Monocyte Count 0.85 k/cumm (0.11-0.7); Absolute Neutrophil Count 15.82 k/cumm (1.2-6.7)
[2019-06-04 13:39] LABS: ALT 12 U/L (14-59); AST 11 U/L (15-37); Albumin 2.7 g/dL (3.4-5.0); Alkaline Phosphatase 89 U/L (46-116); Anion Gap 11.1 mmol/L (3-11); BUN 10 mg/dL (7-18); Bilirubin, Total 0.4 mg/dL (0.2-1.0); CO2 26.9 mmol/L (21.0-32.0); CREATININE 0.81 mg/dL (0.55-1.02); Calcium 8.7 mg/dL (8.5-10.1); Chloride 99 mmol/L (98-107); Glucose 106 mg/dL (70-100); Potassium 3.4 mmol/L (3.5-5.1); Sodium 137 mmol/L (136-145); Total Protein 7.5 g/dL (6.4-8.2)
[2019-06-04 13:48] LABS: Diff Comment RBC Morph Reviewed
[2019-06-04 13:51] LABS: Anisocytosis 2+; Hypochromasia 2+; Polychromasia Present
[2019-06-04 13:52] LABS: Poikilocytes 1+
--- NOTE | 2019-06-04 15:21 | DI.CT_ITS ---
EXAM: CT LUMBAR SPINE RECONS CLINICAL HISTORY: suspected cord impingement,BACK PAIN TECHNIQUE: The exam is done as reconstructions from abdomen and pelvic CT. COMPARISON: CT LUMBAR SPINE RECONS from 06/02/2019 FINDINGS: There is a normal lumbar lordosis. The vertebral bodies are intact. Facet joint arthropathy is noted at L5-S1. There is a serial 0.4 cm grade 1 anterior listhesis of L5 on S1. No acute lumbar spine f racture is evident. There is no evidence of spondylolisthesis. Note is made of degenerative changes involving the lower thoracic and upper lumbar spine. A disc bulge is noted at L5-S1, likely causing mild canal stenosis. The disc spaces are otherwise intact. No soft abnormality is seen. IMPRESSION: No acute abnormality is demonstrated. Degenerative changes at L5-S1 are noted as described above. If there is further clinical question regarding the status of this patient, then an MRI is suggested.
--- NOTE | 2019-06-04 15:27 | DI.CT_ITS ---
EXAM: CT ABDOMEN PELVIS W CLINICAL HISTORY: pod 2. fevers unknown etiology. TECHNIQUE: The examination was carried out with an intravenous injection of 100 cc of Omnipaque 350. COMPARISON: No exams were available for comparison FINDINGS: There is a small right pleural effusion. The liver, gallbladder and bile ducts are unremarkable. The pancreas, spleen and adrenals and kidneys and stomach is unremarkable. There is no evidence of bowel obstruction. There is no evidence of an acute appendix. There is no evidence of free fluid or a pneu moperitoneum., There is no evidence of an aortic aneurysm. There are no enlarged lymph nodes. The bl adder is decompressed. A Fagan catheter noted in place. The reproductive organs as visualized are u nremarkable. No acute bony abnormality is seen. There is a small fat containing umbilical hernia. IMPRESSION: There is no evidence of an acute abdomen. Note is made of a small right pleural effusion.
[2019-06-04] MEDS: Omnipaque 350 MG/ML 50 ML BTL IV (15:31)
[2019-06-04] MEDS: Omnipaque 350 MG/ML 100 ML BTL IV (15:32)
[2019-06-04] MEDS: Normal Saline Flush 10 ML SYR IVP ×2 (15:46→22:51)
[2019-06-04] MEDS: POTASSIUM CHLORIDE/0.9% NACL 1,000 ML 75 MEQ IV (15:54)
--- NOTE | 2019-06-04 15:56 | CHAPLAIN ---
Beverley was clearly uncomfortable and complaining of significant pain. She said she is worried about her soul and her body. We talked about caring for her soul while she was experiencing pain. At times she said she didn't think she could move her legs. She was not able to lie still for more than a few moments at a time.
--- NOTE | 2019-06-04 15:59 | DI.VRAD_ITS ---
PROCEDURE INFORMATION: Exam: CT Lumbar Spine Without Contrast Exam date and time: 06/04/2019 3:35 PM Clinical history: 38 years old, female; Other: Suspected cord impingement TECHNIQUE: Imaging protocol: Computed tomography images of the lumbar spine without contrast. Radiation optimization: All CT scans at this facility use at least one of these dose optimization techniques: automated exposure control; mA and/or kV adjustment per patient size (includes targeted exams where dose is matched to clinical indication); or iterative reconstruction. COMPARISON: CT LUMBAR SPINE RECONS 06/02/2019 1:10 AM FINDINGS: Vertebrae: Lumbar lordosis is preserved. Vertebral body heights are maintained. Redemonstration of prominent facet arthropathy at L5-S1. Serial 0.4 cm grade 1 anterolisthesis of L5 on S1. No acute lumbar spine fracture. No measurable spondylolisthesis. Small anterior osteophytes in the lower thoracic upper lumbar spine. Discs/Spinal canal/Neural foramina: Based disc bulge at L5-S1, likely causing mild canal stenosis. Disc space heights are preserved. Soft tissues: Unremarkable. IMPRESSION: 1. No acute findings in the lumbar spine. 2. Spondylotic changes at L5-S1, as above. If clinical concern for spinal canal stenosis, recommend correlation with MRI. Dictated and Authenticated by: Dustin Guzmán MD. Ordering:ALETHEA Evans MD
--- NOTE | 2019-06-04 16:09 | DI.VRAD_ITS ---
PROCEDURE INFORMATION: Exam: CT Abdomen And Pelvis With Contrast Exam date and time: 06/04/2019 3:28 PM Clinical history: 38 years old, female; Patient HX: Fever unknown etiology TECHNIQUE: Imaging protocol: Computed tomography of the abdomen and pelvis with intravenous contrast. Radiation optimization: All CT scans at this facility use at least one of these dose optimization techniques: automated exposure control; mA and/or kV adjustment per patient size (includes targeted exams where dose is matched to clinical indication); or iterative reconstruction. Contrast material: OMNIPAQUE 350; Contrast volume: 100 ml; Contrast route: IV; COMPARISON: CT ABDOMEN PELVIS WO 06/02/2019 1:10 AM FINDINGS: Limitations: Examination is limited by motion artifact. Pleural space: Small right pleural effusion. Liver: Unremarkable. Gallbladder and bile ducts: Unremarkable. No ductal dilation. Pancreas: Unremarkable. No ductal dilation. Spleen: Unremarkable. Adrenals: Unremarkable. Kidneys and ureters: No hydronephrosis or stones. Stomach and bowel: Stomach is unremarkable. No small bowel obstruction. Large bowel is unremarkable. Appendix: No evidence of appendicitis. Intraperitoneal space: No pneumoperitoneum. No significant fluid collection. Vasculature: Unremarkable. Lymph nodes: No enlarged lymph nodes. Bladder: The bladder is decompressed by presence of Fagan catheter. Reproductive: Unremarkable as visualized. Bones/joints: No acute fracture. Soft tissues: Small fat containing umbilical hernia. IMPRESSION: 1. No acute intra-abdominal findings. 2. Small right pleural effusion. Dictated and Authenticated by: Dustin Guzmán MD. Ordering:YUSEF Pineda MD
--- NOTE | 2019-06-04 16:12 | CMPROGNOTE_ITS ---
Care Management Progress Note S/O: Beverley continues to struggle with increased pain, and has not had a bowel movement. She also had some issues with voiding today, and jasso was placed. Beverley continues to be closely monitored and continues with additional testing. CM continues to follow. A: 38 year old female admitted to [facility] 06/02/19 for Ovarian Torsion P: Beverley will return home when ready per MD. She will follow up with her community providers and plan of care as prescribed. She will transport via private vehicle with family.
--- NOTE | 2019-06-04 17:18 | W.PM.PROGNOT ---
Date of Service Date of service: 06/04/19 Time of Service: 17:18 Assessment and Plan Assessment and plan (1) Status post laparoscopy: Status: Acute Assessment and plan: CT of the abdomen pelvis was normal. No evidence of intra-abdominal process causing fevers or back pain (2) Fever: Status: Acute Assessment and plan: Patient experienced a elevation of WBC earlier today along with a T-max of 101 ?F. Blood cultures are pending. Antibiotic coverage initiated. Urine culture obtained. Qualifiers: Fever type: post-procedural Qualified Code(s): R50.82 - Postprocedural fever (3) Microcytic anemia: Status: Acute Assessment and plan: Stable (4) Lower extremity weakness: Status: Acute Assessment and plan: Unclear etiology lumbar CAT scan inconclusive for stenosis or disc involvement in symptoms. Normal anal sphincter tone on exam this evening. Qualifiers: Laterality: bilateral Qualified Code(s): R29.898 - Other symptoms and signs involving the musculoskeletal system (5) Lumbar pain: Status: Acute Assessment and plan: Flexeril initiated. Lumbar lidocaine patch applied. Will continue Percocet and change from Dilaudid to morphine for breakthrough pain per patient request. (6) Urinary retention: Start date: 06/04/19 Start time: 11:04 Status: Acute Assessment and plan: Patient unable to void spontaneously. Fagan catheter placed to gravity drainage. (7) Constipation: Status: Acute Assessment and plan: Patient reports no BM since prior to her surgery. MiraLAX dose last night was ineffective. I recommended repeating the MiraLAX continuing the Colace. Subjective Subjective Patient reports: still having pain, tolerating liquids well, no bowel movement and afebrile (Since this morning); denies bowel movement Interval history since last seen: -Patient unable to void this morning and had approximately 800 cc postvoid residual. A Fagan catheter was placed to gravity drainage and has remained in place during the day. -Hospitalist consult greatly appreciated -No evidence of an intra-abdominal process on today's CAT scan. Abdominal pain has subsided. -Patient complains of feeling weak with continued lumbar pain and lower extremity numbness and tingling. She is unsure of the buckling of her legs yesterday evening was a result of the Dilaudid analgesic being too strong. CT of the lumbar spine was inconclusive for spinal cord stenosis or compression. Patient is extremely reluctant to undergo an MRI secondary to anxiety. She has attempted MRIs in the past and was unable to tolerate them secondary to claustrophobia and anxiety. -Plan at this time is to proceed with medication change: Begin Flexeril and substitute IV morphine in place of Dilaudid for pain not controlled with Percocet. Will apply lidocaine patch to the lumbar area. -No BM for several days. Patient received a dose of MiraLAX last night with no results I have encouraged her to repeat the MiraLAX dosing. -She is currently more comfortable on her hospital [facility] then she is in the hospital bed. Exam Const General: no acute distress (Laying on the left side feeding herself supper, more alert and engaged) Nutritional Appearance: obese Orientation: alert, awake and oriented x3 Resp Effort & Inspection: normal respiratory effort GI Inspection: normal to inspection and large pannus Palpation: soft Rectal Exam - female: normal sphincter tone Rectal exam normal sphincter tone - female: bulbo-cavernosis reflex normal Back/Spine/Pelvis Thoracic/Lumbar Spine: lumbar spinal tenderness (During application of lidocaine patch) Sacrum: tenderness Neuro General: gait abnormal (Patient has remained in bed or on the [facility] throughout the day) Cognition: normal cognition Motor: muscle tone normal throughout Extrem General: full ROM (Patient able to move lower extremities 4/5 strength) Psych Appearance: grossly normal Mental Status: mental status grossly normal Speech and Movement: speech and movement normal (No evidence of agitation, restlessness that was present earlier today) Mood: anxious mood (Less anxious) Affect: blunted Attitude: cooperative Thought Process: normal Thought Content: normal Insight: fair Judgment: fair Objective Objective Clinical Data: Abnormal lab results 06/04/19 06/04/19 06/04/19 Range/Units 12:02 13:00 13:00 WBC 17.98 H (4.4-10.8) k/cumm RBC 3.55 L (4.00-5.20) m/cumm Hgb 7.9 L (12.0-15.5) g/dL Hct 28.1 L (36.0-46.0) % MCV 79.2 L (80-95) fL MCH 22.3 L (27.0-33.0) pg MCHC 28.1 L (32.0-36.0) g/dL RDW 17.6 H (11.7-14.6) % Absolute Neutrophils 15.82 H (1.2-6.7) k/cumm Absolute Monocytes 0.85 H (0.11-0.7) k/cumm Potassium 3.4 L (3.5-5.1) mmol/L Anion Gap 11.1 H (3-11) mmol/L Glucose 106 H (70-100) mg/dL AST 11 L (15-37) U/L ALT 12 L (14-59) U/L Albumin 2.7 L (3.4-5.0) g/dL Urine Opiates Screen Positive A (Negative) U Benzodiazepines Scrn Positive A (Negative) Ur THC Screen Positive A (Negative) Vital Signs Temperature 97.3 F L 06/04/19 13:19 Temperature Source Temporal Artery Scan 06/04/19 13:19 Pulse 72 06/04/19 13:19 Pulse Rhythm Regular 06/04/19 07:35 Respiratory Rate 18 06/04/19 13:19 Respiratory Effort Non-Labored 06/04/19 07:35 Respiratory Depth Normal 06/04/19 07:35 Respiratory Pattern Normal 06/04/19 07:35 Blood Pressure 166/97 H 06/04/19 13:19 Pulse Oximetry 90 L 06/04/19 13:19 Oxygen Delivery Method Room Air 06/04/19 13:19 Oxygen Flow Rate 0 06/04/19 13:19 Pain Level 10 06/04/19 15:55 Comment 06/04/19 08:29 Intake & Output 06/03/19 06/04/19 06/04/19 23:59 11:59 23:59 Intake Total 1260 / 3370.416 2497.5 / 4497.5 1999 / 4497.5 Output Total 600 / 1375 775 / 1375 Balance 1260 / 9471.057 3856.5 / 3122.5 1225 / 3122.5 Intake: IV 1020 / 2630.416 1996.5 / 2997.5 999 / 2997.5 Oral 240 / 740 500 / 1500 1000 / 1500 Output: Urine 600 / 1375 775 / 1375 Other: Urine Color Yellow Yellow Straw Urine Appearance Clear Clear Clear Urine Odor Normal Normal Comment Pt voiding ad florin in toilet. Denies sx. Voiding Methods Toilet Toilet Laboratory Results WBC 17.98 k/cumm (4.4-10.8) H 06/04/19 13:00 RBC 3.55 m/cumm (4.00-5.20) L 06/04/19 13:00 Hgb 7.9 g/dL (12.0-15.5) L 06/04/19 13:00 Hct 28.1 % (36.0-46.0) L 06/04/19 13:00 MCV 79.2 fL (80-95) L 06/04/19 13:00 MCH 22.3 pg (27.0-33.0) L 06/04/19 13:00 MCHC 28.1 g/dL (32.0-36.0) L 06/04/19 13:00 RDW 17.6 % (11.7-14.6) H 06/04/19 13:00 Plt Count 337 x1000/uL (130-400) 06/04/19 13:00 MPV 9.0 fL (8.0-11.0) 06/04/19 13:00 Immature Gran % 0.3 06/04/19 13:00 Neutrophils % 88.0 06/04/19 13:00 Lymphocytes % 6.8 06/04/19 13:00 Monocytes % 4.7 06/04/19 13:00 Eosinophils % 0.1 06/04/19 13:00 Basophils % 0.1 06/04/19 13:00 Absolute Neutrophils 15.82 k/cumm (1.2-6.7) H 06/04/19 13:00 Absolute Lymphocytes 1.22 k/cumm (1.2-3.4) 06/04/19 13:00 Absolute Monocytes 0.85 k/cumm (0.11-0.7) H 06/04/19 13:00 Absolute Eosinophils 0.02 k/cumm (0.0-0.7) 06/04/19 13:00 Absolute Basophils 0.02 k/cumm (0.0-0.2) 06/04/19 13:00 Differential Comment Rbc morph reviewed 06/04/19 13:00 RBC Morphology See below 06/04/19 13:00 Polychromasia Present 06/04/19 13:00 Hypochromasia 2+ 06/04/19 13:00 Poikilocytosis 1+ 06/04/19 13:00 Basophilic Stippling Present 06/03/19 07:57 Anisocytosis 2+ 06/04/19 13:00 Microcytosis 2+ 06/03/19 07:57 Sodium 137 mmol/L (136-145) 06/04/19 13:00 Potassium 3.4 mmol/L (3.5-5.1) L 06/04/19 13:00 Chloride 99 mmol/L (98-107) 06/04/19 13:00 Carbon Dioxide 26.9 mmol/L (21.0-32.0) 06/04/19 13:00 Anion Gap 11.1 mmol/L (3-11) H 06/04/19 13:00 BUN 10 mg/dL (7-18) 06/04/19 13:00 Creatinine 0.81 mg/dL (0.55-1.02) 06/04/19 13:00 Estimated GFR/1.73 m2 >= 60.00 (mL/min/1.73m2) 06/04/19 13:00 Glucose 106 mg/dL (70-100) H 06/04/19 13:00 Lactate 1.1 mmol/L (0.6-1.4) 06/04/19 13:00 Calcium 8.7 mg/dL (8.5-10.1) 06/04/19 13:00 Total Bilirubin 0.4 mg/dL (0.2-1.0) 06/04/19 13:00 AST 11 U/L (15-37) L 06/04/19 13:00 ALT 12 U/L (14-59) L 06/04/19 13:00 Alkaline Phosphatase 89 U/L (46-116) 06/04/19 13:00 Total Protein 7.5 g/dL (6.4-8.2) 06/04/19 13:00 Albumin 2.7 g/dL (3.4-5.0) L 06/04/19 13:00 Urine Opiates Screen Positive (Negative) A 06/04/19 12:02 Urine Methadone Screen Negative (Negative) 06/04/19 12:02 Ur Barbiturates Screen Negative (Negative) 06/04/19 12:02 Ur Tricyclics Screen Negative (Negative) 06/04/19 12:02 Ur Amphetamines Screen Negative (Negative) 06/04/19 12:02 U Benzodiazepines Scrn Positive (Negative) A 06/04/19 12:02 Urine Cocaine Screen Negative (Negative) 06/04/19 12:02 Ur THC Screen Positive (Negative) A 06/04/19 12:02
[2019-06-04] MEDS: Lidocaine 5% Patch 1 PATCH TP (17:49)
[2019-06-04] MEDS: Cyclobenzaprine 10 MG TAB 5 MG PO ×2 (17:50→20:23)
[2019-06-04] MEDS: cefTRIAXone 1 GM/50 ML BAG IVPB (17:50)
[2019-06-04] MEDS: MORPHine 2 MG/ML SYR IVP ×2 (18:56→23:02)
--- NOTE | 2019-06-04 20:54 | W.MEDCONSULT ---
Date of service: 06/04/19 Time of Service: 13:00 Assessment and Plan Assessment and plan (1) FUO (fever of unknown origin): Status: Acute Assessment and plan: Given the constellation of symptoms and history, DDx includes: UTI (UA pending), infectious causes of back pain such as epidural abscess, Lyme disease, substance withdrawal, HIV seroconversion illness, central fever, complication of anesthesia, bacteremia/endocarditis. I cannot emphasize strongly enough that the patient should have an MRI. Will increase ceftriaxone to 2 grams Q 12 hours and add vancomycin for any epidural issue. I do not see meningeal signs as far as her headache, though. Check CRP, procalcitonin. Await culture data. I think we should also strongly consider transfer of the patient to a facility with ID as well as formal anesthesia for MRI available. (2) Back pain: Status: Acute Assessment and plan: DDx: Cauda equina, epidural abscess, muscle spasm Consult neurology. Treat empirically for epidural abscess. (3) Migraine: Status: Chronic Assessment and plan: Treat potential [employer] infection. Ok to use tylenol/toradol for pain. I do not see any evidence of meningitis on exam. Neurology consult. (4) Ambulatory dysfunction: Status: Acute Assessment and plan: PT/OT consults (5) Constipation: Status: Acute Assessment and plan: provide bowel regimen. Could be related to back pain/spinal cord issue (6) Urinary retention: Status: Acute Assessment and plan: S/p jasso. as above (7) Lower extremity weakness: Status: Acute Assessment and plan: As above Qualifiers: Laterality: bilateral Qualified Code(s): R29.898 - Other symptoms and signs involving the musculoskeletal system (8) H/O: substance abuse: Status: Acute Assessment and plan: Check HIV. Consider bacteremia, endocarditis, epidural abscess. History of Present Illness History of Present Illness Chief Complaint: headache, back pain Narrative: Ms Charles is a 38 year old female with h/o chronic back pain, hypertension, hepatitis C, BiPolar I d/o, anxiety d/o NOS, obesity with BMI of 43.3, hypothyroidism, who was admitted to the [facility] on 06/02/19 for a suspected right ovarian torsion. At the time, one of her complaints seems to also have been the back pain. She underwent a laparoscopic left salpingectomy with adjoining cyst on 06/02/19, with EBL of 5 cc, which was otherwise uncomplicated. She did not have a spinal block for anesthesia - it was general. The patient developed a fever on the day of admission. Today, she also reported a headache with photophobia, mostly on the right side of her head. She gets migraines sometimes and they can feel a little bit like that. She states usually tyelnol helps her with her headache. 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 She is retaining urine and had to have a jasso catheter placed. No BM for several days. When examining the patient, she is quite distracted and keeps asking for someone to wrap her legs a certain way. When I talked to her about getting an MRI which I feel is strongly indicated due to concerns for possible cord compression, the patient stated that there is nothing we can give her to make her calm enough to go through it - she has tried to have them before but always freaked out. She did not consent to an MRI, but did to CT of her lumbar spine. This was reviewed with radiology - both this CT and the abdominal CT were normal. MRI of the spine was recommended. The patient has refused it so far despite us trying to convince her and despite us trying to recruit her parents to do the same. Consults Consult date: 06/04/19 Requesting physician: Roger Olson Review of Systems Review of Systems Narrative: 12 systems reviewed. Pertinent positives and negatives are as per HPI. [facility] Medical History (Updated 06/04/19 @ 21:19 by Cristina Romero MD) Asthma (Chronic) Bipolar I disorder (Chronic) Declines medication. Followed by Dr. Pereira Chronic hepatitis C (Resolved 01/14/18) [place] at [facility] [place] 2019 viral load undetectable Constipation (Acute) Drug overdose (Ruled-out 03/12/06) Fever (Acute) Fracture of tibia (Resolved) Hepatitis C antibody test positive (Resolved 03/19/15) pos RNA test referral to [facility] [place] Hypothyroidism (Chronic 01/11/12) Increased body mass index (Chronic) Iron deficiency anemia (Acute) Lower extremity weakness (Acute) Lumbar pain (Acute) Microcytic anemia (Acute) Substance abuse (Chronic) Heroin, crack cocaine, alcohol. 2019 patient reports clean and sober not in a maintenance program Urinary retention (Acute) Surgical History (Updated 06/03/19 @ 17:40 by Roger Olson MD) History of laparoscopy (Chronic) 06/02/2019 left laparoscopic salpingectomy with excision of paratubal cyst Status post dilation and curettage (Resolved) Elective termination of Social History (Updated 06/02/19 @ 04:13 by Miriam Leach MD) Smoking/Tobacco Use Status: Current every day Tobacco Type: cigarettes Alcohol Intake: current Alcohol Intake frequency: holidays/special occasions only Substance use type: former substance user and marijuana Household members: none and other Details: 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 Subjective numbness BLE's Psychiatric: Anxious Skin: visible skin intact HEENT: Atraumatic, normocephalic, has a washcloth on, EOMI, MMM, no submandibular or cervical lymphadenopathy, no goiter or JVD Cardiovascular: RRR, no m/r/g, mildly tachycardic Lungs: CTAB Gastrointestinal: abdomen is soft, full, nontender, nondistended Genitourinary: has a jasso Extremities: no e/c/c BLE's, able to move both BLE's against gravity. Results Last Vital Signs Temp 36.3 C L 06/04/19 13:19 Pulse 72 06/04/19 13:19 Resp 18 06/04/19 13:19 BP 166/97 H 06/04/19 13:19 Pulse Ox 90 L 06/04/19 13:19 Labs Result diagrams: 06/04/19 13:00 06/04/19 13:00 Labs: Laboratory Results - last 24 hr 06/04/19 06/04/19 06/04/19 12:02 13:00 13:00 WBC 17.98 H RBC 3.55 L Hgb 7.9 L Hct 28.1 L MCV 79.2 L MCH 22.3 L MCHC 28.1 L RDW 17.6 H Plt Count 337 MPV 9.0 Immature Gran % 0.3 Neutrophils % 88.0 Lymphocytes % 6.8 Monocytes % 4.7 Eosinophils % 0.1 Basophils % 0.1 Absolute Neutrophils 15.82 H Absolute Lymphocytes 1.22 Absolute Monocytes 0.85 H Absolute Eosinophils 0.02 Absolute Basophils 0.02 Differential Comment Rbc morph reviewed RBC Morphology See below Polychromasia Present Hypochromasia 2+ Poikilocytosis 1+ Anisocytosis 2+ Sodium 137 Potassium 3.4 L Chloride 99 Carbon Dioxide 26.9 Anion Gap 11.1 H BUN 10 Creatinine 0.81 Estimated GFR/1.73 m2 >= 60.00 Glucose 106 H Lactate Calcium 8.7 Total Bilirubin 0.4 AST 11 L ALT 12 L Alkaline Phosphatase 89 Total Protein 7.5 Albumin 2.7 L Urine Opiates Screen Positive A Urine Methadone Screen Negative Ur Barbiturates Screen Negative Ur Tricyclics Screen Negative Ur Amphetamines Screen Negative U Benzodiazepines Scrn Positive A Urine Cocaine Screen Negative Ur THC Screen Positive A 06/04/19 13:00 WBC RBC Hgb Hct MCV MCH MCHC RDW Plt Count MPV Immature Gran % Neutrophils % Lymphocytes % Monocytes % Eosinophils % Basophils % Absolute Neutrophils Absolute Lymphocytes Absolute Monocytes Absolute Eosinophils Absolute Basophils Differential Comment RBC Morphology Polychromasia Hypochromasia Poikilocytosis Anisocytosis Sodium Potassium Chloride Carbon Dioxide Anion Gap BUN Creatinine Estimated GFR/1.73 m2 Glucose Lactate 1.1 Calcium Total Bilirubin AST ALT Alkaline Phosphatase Total Protein Albumin Urine Opiates Screen Urine Methadone Screen Ur Barbiturates Screen Ur Tricyclics Screen Ur Amphetamines Screen U Benzodiazepines Scrn Urine Cocaine Screen Ur THC Screen CT lumbar spine: 1. No acute findings in the lumbar spine. 2. Spondylotic changes at L5-S1, as above. If clinical concern for spinal canal stenosis, recommend correlation with MRI. CT abdomen/pelvis: 1. No acute intra-abdominal findings. 2. Small right pleural effusion.
[2019-06-04 21:50] LABS: C-Reactive Protein > 25.00 mg/dL (0.0-0.3)
[2019-06-04 22:40] LABS: Procalcitonin 0.3 ng/mL
[2019-06-04] MEDS: Mirtazapine 15 MG TAB PO (22:50)
[2019-06-04 23:18] LABS: Creatine Kinase 152 U/L (26-192)
[2019-06-04] MEDS: Acetaminophen 325 MG TAB 650 MG PO (23:40)
[2019-06-05] VITALS (8 sets, daily range): BP systolic 142–192; BP diastolic 72–119; PULSE 81–96; RESP 16–23; TEMP 36.7–38.5; O2SAT 93–98
[2019-06-05 01:51] LABS: Bilirubin Negative (Negative); Blood Small (Negative); Clarity Clear (Clear); Glucose Negative (Negative); Ketones Negative (Negative); Leukocyte Esterase Negative (Negative); Nitrite Negative (Negative); Specific Gravity 1.015 (1.005-1.025); Urobilinogen 0.2 EU/dL (Up TO 0.2)
[2019-06-05 02:00] LABS: WBC 20-50 HPF (0-5)
[2019-06-05 02:01] LABS: Bacteria Few HPF (Negative); Epithelial Cells Few HPF (Negative); Other Cells Moderate Renal (Negative)
[2019-06-05 02:02] LABS: C & S Indicated? Yes; Casts Negative LPF (Negative); Crystals Negative HPF (Negative); Mucus Negative (Negative)
[2019-06-05] MEDS: Ketorolac 30 MG/ML VIAL IVP ×2 (03:40→09:07)
[2019-06-05] MEDS: Normal Saline Flush 10 ML SYR IVP ×3 (03:41→12:41)
[2019-06-05] MEDS: Ondansetron 4 MG/2 ML VIAL IVP (05:01)
[2019-06-05] MEDS: Levothyroxine 50 MCG TAB PO (05:59)
[2019-06-05] MEDS: POTASSIUM CHLORIDE/0.9% NACL 1,000 ML 75 MEQ IV (06:34)
[2019-06-05 07:24] LABS: Abs Immature Grans 0.05 k/cumm (0.0-0.09); Absolute Basophil Count 0.01 k/cumm (0.0-0.2); Absolute Eosinophil Count 0.03 k/cumm (0.0-0.7); Absolute Lymphocyte Count 0.66 k/cumm (1.2-3.4); Absolute Monocyte Count 0.72 k/cumm (0.11-0.7); Absolute Neutrophil Count 12.92 k/cumm (1.2-6.7); Basophils % 0.1; Eosinophils % 0.2; HCT 27.1 % (36.0-46.0); HGB 7.5 g/dL (12.0-15.5); Immature Grans % 0.3; Lymphocytes % 4.6; Mean Corp. HGB Concentration 27.7 g/dL (32.0-36.0); Mean Corpuscular Hemoglobin 21.9 pg (27.0-33.0); Neutrophils % 89.8; Platelet Count 289 x1000/uL (130-400); RBC 3.43 m/cumm (4.00-5.20); RBC Distribution Width 17.6 % (11.7-14.6); White Blood Cell Count 14.39 k/cumm (4.4-10.8)
[2019-06-05 07:30] LABS: ALT 12 U/L (14-59); AST 10 U/L (15-37); Albumin 2.3 g/dL (3.4-5.0); Alkaline Phosphatase 105 U/L (46-116); Anion Gap 8.5 mmol/L (3-11); BUN 6 mg/dL (7-18); Bilirubin, Total 0.4 mg/dL (0.2-1.0); CO2 27.5 mmol/L (21.0-32.0); CREATININE 0.62 mg/dL (0.55-1.02); Calcium 8.6 mg/dL (8.5-10.1); Chloride 102 mmol/L (98-107); Glucose 110 mg/dL (70-100); Potassium 3.6 mmol/L (3.5-5.1); Sodium 138 mmol/L (136-145); Total Protein 6.9 g/dL (6.4-8.2)
[2019-06-05 07:35] LABS: C-Reactive Protein > 25.00 mg/dL (0.0-0.3)
[2019-06-05] MEDS: Acetaminophen 325 MG TAB 650 MG PO (08:01)
[2019-06-05] MEDS: Senna TAB 1 TAB PO (08:01)
[2019-06-05] MEDS: lamoTRIgine 100 MG TAB 150 MG PO (08:01)
[2019-06-05] MEDS: Docusate Sodium 100 MG CAP PO (08:01)
[2019-06-05] MEDS: cloNIDine 0.1 MG TAB 0.2 MG PO (08:01)
[2019-06-05] MEDS: Omeprazole 20 MG CAPCR 40 MG PO (08:02)
[2019-06-05] MEDS: Cyclobenzaprine 10 MG TAB 5 MG PO ×2 (08:02→13:30)
[2019-06-05] MEDS: Metoprolol 25 MG TAB PO (08:02)
[2019-06-05] MEDS: Methylphenidate 10 MG TAB 20 MG PO ×2 (08:02→11:32)
[2019-06-05] MEDS: cefTRIAXone 2 GM/50 ML BAG IVPB (08:06)
[2019-06-05 08:12] LABS: Procalcitonin 0.3 ng/mL
--- NOTE | 2019-06-05 08:20 | NCONE_ITS ---
Date of service: 06/05/19 Time of Service: 08:20 Assessment and Plan Assessment and plan (1) Flaccid paraplegia: Status: Acute (2) Lumbar pain: Status: Acute Assessment and plan: Ms. Charles is a 38-year-old, right-handed woman who was admitted for increasing low back pain and headaches associated with fever now with urinary retention, constipation, subjective lower extremity numbness, and lower extremity weakness. Her neurological exam was significant for intact sensation except for reduced vibration distally. She is noted to have flaccid lower extremity weakness. I recommend an MRI of the thoracic and lumbar spines with and without contrast as further work-up. She is extremely claustrophobic. Pending those evaluations, consider further MRI or CT imaging of the head and neck plus or minus a lumbar puncture as further work-up. DISCLAIMER: This note was created using [employer] voice recognition software. History of Present Illness History of Present Illness Chief Complaint: leg weakness Narrative: Handedness: right. HPI: Ms. Charles is a 38 year-old woman with a past medical history of bipolar disorder, hepatitis C status post recent treatment, reactive airway disease, GERD, and a remote history of polysubstance abuse. Ms. Charles presented to the emergency room on 06/01/2019 with 2-day history of right flank pain radiating across her low back. She was found to have a large right abdominal cyst thought to be related to an ovary with a noted laboratory work-up including white blood cell count of 11.6, hemoglobin 8.0 (new; baseline ~12), and negative Hemoccult test. She underwent laproscopic exploration on 06/02/19 found to have a left fallopian paratubal cyst which was removed (pathology is still pending). She was discharged home that same day, however, developed worsening acute pain (in the low back and abdomen along with headache) in transit and so turned around and came back to the ER. She was admitted for pain control. Since admission, she has had fluctuating fevers with a Tmax of 39.0. Her pain waxed and waned until 06/04/19 since when her pain has been significantly worse in her low back along with worsening headache. At that time, she also was unable to void (800cc on bladder scan) and jasso catheter was placed. She has not had a BM since admission. She also noted leg numbness from the knees down bilaterally as well as new leg weakness. She has been unable to ambulate independently since yesterday. Today she notes right buttocks numbness with intact perineal sensation. She underwent a L-spine CT on 06/02/19 and 06/04/19. I was able to review both. She has minimal DJD. No significant bony findings. CT A/P yesterday showed no significant abnormalities. Her WBC spiked to 18.98 yesterday and she has 1/2 blood cultures with gram+ cocci. She has been started on broad-spectrum antibiotics. She has baseline headaches 2-3 days per week. These are easily treated with APAP. Consults Requesting physician: Cristina Romero [facility] Medical History Asthma (Chronic) Bipolar I disorder (Chronic) Declines medication. Followed by Dr. Pereira Chronic hepatitis C (Resolved 01/14/18) Rx at [facility] [place]. 2019 viral load undetectable Constipation (Acute) Drug overdose (Ruled-out 03/12/06) Fever (Acute) Fracture of tibia (Resolved) Hepatitis C antibody test positive (Resolved 03/19/15) pos RNA test referral to [facility] [place] Hypothyroidism (Chronic 01/11/12) Increased body mass index (Chronic) Iron deficiency anemia (Acute) Lower extremity weakness (Acute) Lumbar pain (Acute) Microcytic anemia (Acute) Substance abuse (Chronic) Heroin, crack cocaine, alcohol. 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 Number of Children: 0 Education Level: college Pets and animals: No Sexually active: Yes Do you feel safe at home: Yes Do you feel safe in your relationship?: Yes History History 1 Para Hx # Term Pregnancies Multiple births Hx # Pregnancies Ectopic pregnancies AB induced 1 Hx Number of Living Children 0 AB spontaneous Visit Medication and Allergies Active Medications Generic Name Dose Route Start Last Admin Trade Name Freq PRN Reason Stop Dose Admin Acetaminophen 650 mg 06/04/19 22:09 06/05/19 08:01 Tylenol PO 650 mg Q6H PRN PRN Administration Acetaminophen/Butalbital/Caffeine 1 tab 06/03/19 21:25 06/04/19 12:37 Fioricet PO 1 tab Q4H PRN PRN Administration Albuterol Sulfate 0 puff 06/02/19 19:30 Ventolin Hfa IH Q4H PRN PRN Alprazolam 0.5 mg 06/04/19 16:54 06/04/19 22:49 Xanax PO 0.5 mg BID PRN PRN Administration Budesonide/Formoterol Fumarate 0 puff 06/02/19 20:00 06/04/19 20:21 Symbicort 160/4.5 Mcg Inhaler IH 2 puffs BID MARIANA Administration Clonidine 0.2 mg 06/02/19 20:00 06/05/19 08:01 Catapres PO 0.2 mg BID MARIANA Administration Cyclobenzaprine HCl 5 mg 06/04/19 20:00 06/05/19 08:02 Flexeril PO 5 mg TID MARIANA Administration Diazepam 2.5 mg 06/05/19 08:00 Valium Injection IVP 06/05/19 16:00 TODAY@0800 MARIANA Docusate Sodium 100 mg 06/05/19 08:30 06/05/19 08:01 Colace PO 100 mg BID MARIANA Administration Doxepin HCl 10 mg 06/02/19 22:00 06/04/19 22:49 Adapin PO Not Given HS MARIANA Potassium Chloride/Sodium Chloride 1,000 mls @ 75 mls/hr 06/04/19 15:15 06/05/19 06:34 Kcl 20meq/Ns IV 75 mls/hr INFUSION MARIANA Administration Ceftriaxone Sodium/Dextrose 2 gm in 50 mls @ 100 mls/hr 06/05/19 08:00 06/05/19 08:06 Rocephin IVPB 100 mls/hr Q12H MARIANA Administration Vancomycin HCl 1,250 mg/ 250 mls @ 166.667 mls/hr 06/05/19 08:00 Sodium Chloride IVPB Q8H [facility] Protocol IV Miscellaneous Supplies 1 each 06/02/19 17:45 IV DIRECTED MARIANA Iohexol 50 ml 06/04/19 16:00 06/04/19 15:31 Omnipaque 350 IV 07/04/19 23:59 50 ml DIRECTED MARIANA Administration Iohexol 100 ml 06/04/19 15:45 06/04/19 15:32 Omnipaque 350 IV 07/04/19 23:59 100 ml DIRECTED MARIANA Administration Ketorolac Tromethamine 30 mg 06/04/19 16:00 06/05/19 03:40 Toradol Injection IVP 06/09/19 15:59 30 mg Q6H MARIANA Administration Lamotrigine 150 mg 06/02/19 20:00 06/05/19 08:01 Lamictal PO 150 mg BID MARIANA Administration Levothyroxine Sodium 50 mcg 06/03/19 06:00 06/05/19 05:59 Levothroid PO 50 mcg DAILY@0600 MARIANA Administration Lidocaine 1 patch 06/04/19 18:00 06/04/19 17:49 Lidoderm 5% Patch TP 1 patch Q24H MARIANA Administration Magnesium Hydroxide 30 ml 06/03/19 21:28 06/03/19 22:05 Milk Of Magnesia PO 30 ml DAILY PRN PRN Administration Methylphenidate HCl 20 mg 06/03/19 08:00 06/05/19 08:02 Ritalin PO 20 mg 0800,1200,1600 MARIANA Administration Metoprolol Tartrate 25 mg 06/02/19 20:00 06/05/19 08:02 Lopressor PO 25 mg BID MARIANA Administration Mirtazapine 15 mg 06/03/19 22:00 06/04/19 22:50 Remeron PO 15 mg HS MARIANA Administration Morphine Sulfate 2 mg 06/04/19 17:13 06/04/19 23:02 IVP 2 mg Q3H PRN PRN Administration Olanzapine 5 mg/ Olanzapine 2. 7.5 mg 06/02/19 22:00 06/04/19 22:49 5 mg PO Not Given HS MARIANA Omeprazole 40 mg 06/03/19 07:30 06/05/19 08:02 Prilosec PO 40 mg DAILY@0730 MARIANA Administration Ondansetron HCl 4 mg 06/02/19 17:46 06/05/19 05:01 Zofran Injection IVP 4 mg Q6H PRN PRN Administration Oxycodone/Acetaminophen 0 tab 06/02/19 17:46 06/04/19 12:37 Percocet 5 Mg/325 Mg PO 2 tab Q4H PRN PRN Administration Polyethylene Glycol 17 gm 06/04/19 11:01 Miralax PO BID PRN PRN Sennosides 1 tab 06/05/19 08:30 06/05/19 08:01 Senokot PO 1 tab BID MARIANA Administration Sodium Chloride 0 ml 06/02/19 17:31 06/05/19 05:01 Saline Flush 10 Ml Syringe IVP 10 ml PRN PRN Administration Allergies latex Allergy (Intermediate, Unverified 06/02/19 17:27) SKIN RASH prazosin Adverse Reaction (Unverified 06/02/19 17:27) Dizziness/Sweats Exam Narrative Exam Narrative: Physical Exam: Gen: Patient of apparent stated age, distressed, eyes closed, not moving much due to pain Head and face: no facial or cranial abnormalities Neck: Supple, no meningismus, no occipital tenderness CV: + S1, S2, RRR, no murmur Resp: CTA B/L Abd: soft, tender, nondistended, +BS Ext: No edema. No clubbing or cyanosis. No bony deformity. Neuro Exam: Language: fluency, naming, repetition, and comprehension intact; Mental Status: AAOx3, current events intact, fund of knowledge intact; Speech: no dysarthria Cranial nerves: Funduscopy: not performed CN II: visual masters intact CN III, IV, : extraocular movements intact, no nystagmus, pupils symmetric and reactive to light CN V: face sensation intact to LT and PP CN VII: no facial asymmetry noted CN VIII: hearing intact bilaterally CN IX, X: palate rises symmetrically CN XI: trapezius/SCM 5/5 bilaterally CN XII: protrudes tongue symmetrically Sensory: intact to LT, PP (was in significant pain with this testing throughout her body), and joint position in all extremities; reduced vibration in the distal LEs; no level to PP; unable to test sphincter reflex/control as patient was leaving for MRI Motor: bulk intact. Flaccid bilateral LE. Fine motor movements intact bilaterally. No pronator drift. Strength 5/5 throughout the upper extremities. No movement in legs except for toe wiggling. Did not test reflex to pain. Reflexes: 2+ at the biceps, triceps, and brachioradialis; areflexic in the bilateral LE with toes neutral bilaterally; Coordination: no ataxia Gait: unable to ambulate (3 assist) Results Last Vital Signs Temp 38.5 C H 06/05/19 08:01 Pulse 81 06/05/19 04:10 Resp 16 06/05/19 04:10 BP 143/82 H 06/05/19 04:10 Pulse Ox 95 06/05/19 04:10 Labs Result diagrams: 06/05/19 14:00 06/05/19 07:05 Labs: Laboratory Results - last 24 hr 06/04/19 06/04/19 06/04/19 12:02 13:00 13:00 WBC 17.98 H RBC 3.55 L Hgb 7.9 L Hct 28.1 L MCV 79.2 L MCH 22.3 L MCHC 28.1 L RDW 17.6 H Plt Count 337 MPV 9.0 Immature Gran % 0.3 Neutrophils % 88.0 Lymphocytes % 6.8 Monocytes % 4.7 Eosinophils % 0.1 Basophils % 0.1 Absolute Neutrophils 15.82 H Absolute Lymphocytes 1.22 Absolute Monocytes 0.85 H Absolute Eosinophils 0.02 Absolute Basophils 0.02 Differential Comment Rbc morph reviewed RBC Morphology See below Polychromasia Present Hypochromasia 2+ Poikilocytosis 1+ Anisocytosis 2+ Sodium 137 Potassium 3.4 L Chloride 99 Carbon Dioxide 26.9 Anion Gap 11.1 H BUN 10 Creatinine 0.81 Estimated GFR/1.73 m2 >= 60.00 Glucose 106 H Lactate Calcium 8.7 Magnesium Total Bilirubin 0.4 AST 11 L ALT 12 L Alkaline Phosphatase 89 Creatine Kinase C-Reactive Protein Total Protein 7.5 Albumin 2.7 L Procalcitonin Urine Color Urine Clarity Urine pH Ur Specific Terral Urine Protein Urine Ketones Urine Blood Urine Nitrite Urine Bilirubin Urine Urobilinogen Ur Leukocyte Esterase Urine RBC Urine WBC Ur Epithelial Cells Urine Crystals Urine Bacteria Urine Casts Urine Mucus Urine Other Ur Culture Indicated? Urine Glucose Urine Opiates Screen Positive A Urine Methadone Screen Negative Ur Barbiturates Screen Negative Ur Tricyclics Screen Negative Ur Amphetamines Screen Negative U Benzodiazepines Scrn Positive A Urine Cocaine Screen Negative Ur THC Screen Positive A 06/04/19 06/04/19 06/04/19 13:00 13:00 21:25 WBC RBC Hgb Hct MCV MCH MCHC RDW Plt Count MPV Immature Gran % Neutrophils % Lymphocytes % Monocytes % Eosinophils % Basophils % Absolute Neutrophils Absolute Lymphocytes Absolute Monocytes Absolute Eosinophils Absolute Basophils Differential Comment RBC Morphology Polychromasia Hypochromasia Poikilocytosis Anisocytosis Sodium Potassium Chloride Carbon Dioxide Anion Gap BUN Creatinine Estimated GFR/1.73 m2 Glucose Lactate 1.1 Calcium Magnesium Total Bilirubin AST ALT Alkaline Phosphatase Creatine Kinase 152 C-Reactive Protein > 25.00 H Total Protein Albumin Procalcitonin Urine Color Urine Clarity Urine pH Ur Specific Terral Urine Protein Urine Ketones Urine Blood Urine Nitrite Urine Bilirubin Urine Urobilinogen Ur Leukocyte Esterase Urine RBC Urine WBC Ur Epithelial Cells Urine Crystals Urine Bacteria Urine Casts Urine Mucus Urine Other Ur Culture Indicated? Urine Glucose Urine Opiates Screen Urine Methadone Screen Ur Barbiturates Screen Ur Tricyclics Screen Ur Amphetamines Screen U Benzodiazepines Scrn Urine Cocaine Screen Ur THC Screen 06/04/19 06/05/19 06/05/19 21:25 01:20 07:05 WBC RBC Hgb Hct MCV MCH MCHC RDW Plt Count MPV Immature Gran % Neutrophils % Lymphocytes % Monocytes % Eosinophils % Basophils % Absolute Neutrophils Absolute Lymphocytes Absolute Monocytes Absolute Eosinophils Absolute Basophils Differential Comment RBC Morphology Polychromasia Hypochromasia Poikilocytosis Anisocytosis Sodium 138 Potassium 3.6 Chloride 102 Carbon Dioxide 27.5 Anion Gap 8.5 BUN 6 L Creatinine 0.62 Estimated GFR/1.73 m2 >= 60.00 Glucose 110 H Lactate Calcium 8.6 Magnesium 2.0 Total Bilirubin 0.4 AST 10 L ALT 12 L Alkaline Phosphatase 105 Creatine Kinase C-Reactive Protein > 25.00 H Total Protein 6.9 Albumin 2.3 L Procalcitonin 0.3 Urine Color Yellow Urine Clarity Clear Urine pH 7.0 Ur Specific Terral 1.015 Urine Protein 30 H Urine Ketones Negative Urine Blood Small H Urine Nitrite Negative Urine Bilirubin Negative Urine Urobilinogen 0.2 Ur Leukocyte Esterase Negative Urine RBC 10-20 H Urine WBC 20-50 Ur Epithelial Cells Few Urine Crystals Negative Urine Bacteria Few Urine Casts Negative Urine Mucus Negative Urine Other Moderate renal Ur Culture Indicated? Yes Urine Glucose Negative Urine Opiates Screen Urine Methadone Screen Ur Barbiturates Screen Ur Tricyclics Screen Ur Amphetamines Screen U Benzodiazepines Scrn Urine Cocaine Screen Ur THC Screen 06/05/19 06/05/19 07:05 07:05 WBC 14.39 H RBC 3.43 L Hgb 7.5 L Hct 27.1 L MCV 79.0 L MCH 21.9 L MCHC 27.7 L RDW 17.6 H Plt Count 289 MPV 9.0 Immature Gran % Neutrophils % Lymphocytes % Monocytes % Eosinophils % Basophils % Absolute Neutrophils Absolute Lymphocytes Absolute Monocytes Absolute Eosinophils Absolute Basophils Differential Comment RBC Morphology Polychromasia Hypochromasia Poikilocytosis Anisocytosis Sodium Potassium Chloride Carbon Dioxide Anion Gap BUN Creatinine Estimated GFR/1.73 m2 Glucose Lactate Calcium Magnesium Total Bilirubin AST ALT Alkaline Phosphatase Creatine Kinase C-Reactive Protein Total Protein Albumin Procalcitonin 0.3 Urine Color Urine Clarity Urine pH Ur Specific Terral Urine Protein Urine Ketones Urine Blood Urine Nitrite Urine Bilirubin Urine Urobilinogen Ur Leukocyte Esterase Urine RBC Urine WBC Ur Epithelial Cells Urine Crystals Urine Bacteria Urine Casts Urine Mucus Urine Other Ur Culture Indicated? Urine Glucose Urine Opiates Screen Urine Methadone Screen Ur Barbiturates Screen Ur Tricyclics Screen Ur Amphetamines Screen U Benzodiazepines Scrn Urine Cocaine Screen Ur THC Screen
[2019-06-05 08:23] LABS: Anisocytosis 1+; Diff Comment RBC Morph Reviewed; Hypochromasia 2+; Polychromasia Present
[2019-06-05] MEDS: VANCOMYCIN 1,250 MG in Normal Saline 250 ML 166.667 MG IVPB (09:07)
[2019-06-05] MEDS: MORPHine 2 MG/ML SYR IVP ×2 (09:07→13:31)
[2019-06-05] MEDS: ALPRAZolam 0.5 MG TAB PO (09:07)
--- NOTE | 2019-06-05 10:12 | PDOC.CMPRO ---
Care Management Progress Note S/O: Beverley continues to struggle with increased pain, has not had a bowel movement and now has fevers and positive blood cultures. Beverley continues to be closely monitored and continues with additional testing-anticipate MRI today if Beverley can manage. She reports struggling with claustrophobia and shares fears around completing the MRI, anticipate she will be medicated prior to attempt. CHANTE met with Beverley and provided support, Beverley requested this junior underwriter call her mother, Lashanda and describe her situation. CHANTE complied and facilitated conversation with Beverley and her mother, at Beverley's request. Lashanda reported she would be in some time this afternoon. Per MD, anticipate Beverley may transfer, CM continues to follow. A: 38 year old female admitted to [facility] 06/02/19 for Ovarian Torsion P: Undetermined plan at this time. Anticipate Beverley may require transfer. CHANTE continues to follow.
--- NOTE | 2019-06-05 11:11 | W.PM.PROGNOT ---
Date of Service Date of service: 06/05/19 Time of Service: 11:11 Assessment and Plan Assessment and plan (1) Ambulatory dysfunction: Status: Acute Assessment and plan: Appreciate neuro consult and hospitalist care of the patient. Will await results of further imaging. (2) Back pain: Status: Acute Assessment and plan: Patient receiving narcotics for pain control (3) FUO (fever of unknown origin): Status: Acute Assessment and plan: Currently being dosed with ceftriaxone and vancomycin. Await final report on blood cultures. Subjective Subjective Patient reports: still having pain, flatus, no bowel movement and fever (TM 101 degrees Fahrenheit) Interval history since last seen: 12-hour events: -WBC 17 K yesterday 14 K today. Procalcitonin 0.3. Temperature elevation to 101 ?F overnight blood Cultures from 06/04/2019 showed gram-positive cocci as pulmonary growth. Ceftriaxone and vancomycin have been ordered. -Continues to have back pain lower extremity numbness in feeling that her legs are very heavy and difficult to lift. She has not been off the gurney since yesterday when she returned from her CAT scan. He feels that the gurney is more comfortable than the bed. Neuro consult performed this morning. -She continues to receive sedation for anxiety and is in the process of being premedicated for a MRI of the spine and chest plan for today. -Blood pressure intermittently elevated during the night. -Oxygen saturation has been satisfactory -Fagan catheter in place preliminary urine culture from the emergency room was negative for growth -No BM since arrival to the hospital. She had normal sphincter tone last evening, hospitalist was unable to replicate results this morning. - Exam Const General: lethargic (Patient currently sedated in anticipation of MRI) Nutritional Appearance: obese Orientation: other (Heavily sedated) Limitations: altered mental status GI Inspection: other (Physical exam deferred at this time. Will follow with hospitalist service ) Objective Objective Clinical Data: Abnormal lab results 06/04/19 06/04/19 06/04/19 Range/Units 12:02 13:00 13:00 WBC 17.98 H (4.4-10.8) k/cumm RBC 3.55 L (4.00-5.20) m/cumm Hgb 7.9 L (12.0-15.5) g/dL Hct 28.1 L (36.0-46.0) % MCV 79.2 L (80-95) fL MCH 22.3 L (27.0-33.0) pg MCHC 28.1 L (32.0-36.0) g/dL RDW 17.6 H (11.7-14.6) % Absolute Neutrophils 15.82 H (1.2-6.7) k/cumm Absolute Lymphocytes (1.2-3.4) k/cumm Absolute Monocytes 0.85 H (0.11-0.7) k/cumm Potassium 3.4 L (3.5-5.1) mmol/L Anion Gap 11.1 H (3-11) mmol/L BUN (7-18) mg/dL Glucose 106 H (70-100) mg/dL AST 11 L (15-37) U/L ALT 12 L (14-59) U/L C-Reactive Protein (0.0-0.3) mg/dL Albumin 2.7 L (3.4-5.0) g/dL Urine Protein (Negative) mg/dL Urine Blood (Negative) Urine RBC (0-2) Urine Opiates Screen Positive A (Negative) U Benzodiazepines Scrn Positive A (Negative) Ur THC Screen Positive A (Negative) 06/04/19 06/05/19 06/05/19 Range/Units 21:25 01:20 07:05 WBC (4.4-10.8) k/cumm RBC (4.00-5.20) m/cumm Hgb (12.0-15.5) g/dL Hct (36.0-46.0) % MCV (80-95) fL MCH (27.0-33.0) pg MCHC (32.0-36.0) g/dL RDW (11.7-14.6) % Absolute Neutrophils (1.2-6.7) k/cumm Absolute Lymphocytes (1.2-3.4) k/cumm Absolute Monocytes (0.11-0.7) k/cumm Potassium (3.5-5.1) mmol/L Anion Gap (3-11) mmol/L BUN 6 L (7-18) mg/dL Glucose 110 H (70-100) mg/dL AST 10 L (15-37) U/L ALT 12 L (14-59) U/L C-Reactive Protein > 25.00 H > 25.00 H (0.0-0.3) mg/dL Albumin 2.3 L (3.4-5.0) g/dL Urine Protein 30 H (Negative) mg/dL Urine Blood Small H (Negative) Urine RBC 10-20 H (0-2) Urine Opiates Screen (Negative) U Benzodiazepines Scrn (Negative) Ur THC Screen (Negative) 06/05/19 Range/Units 07:05 WBC 14.39 H (4.4-10.8) k/cumm RBC 3.43 L (4.00-5.20) m/cumm Hgb 7.5 L (12.0-15.5) g/dL Hct 27.1 L (36.0-46.0) % MCV 79.0 L (80-95) fL MCH 21.9 L (27.0-33.0) pg MCHC 27.7 L (32.0-36.0) g/dL RDW 17.6 H (11.7-14.6) % Absolute Neutrophils 12.92 H (1.2-6.7) k/cumm Absolute Lymphocytes 0.66 L (1.2-3.4) k/cumm Absolute Monocytes 0.72 H (0.11-0.7) k/cumm Potassium (3.5-5.1) mmol/L Anion Gap (3-11) mmol/L BUN (7-18) mg/dL Glucose (70-100) mg/dL AST (15-37) U/L ALT (14-59) U/L C-Reactive Protein (0.0-0.3) mg/dL Albumin (3.4-5.0) g/dL Urine Protein (Negative) mg/dL Urine Blood (Negative) Urine RBC (0-2) Urine Opiates Screen (Negative) U Benzodiazepines Scrn (Negative) Ur THC Screen (Negative) Vital Signs Temperature 99.9 F H 06/05/19 10:11 Temperature Source Tympanic 06/05/19 10:11 Pulse 96 H 06/05/19 07:40 Pulse Rhythm Regular 06/05/19 01:34 Respiratory Rate 23 06/05/19 07:40 Respiratory Effort Non-Labored 06/05/19 01:34 Respiratory Depth Normal 10/24/19 01:34 Respiratory Pattern Normal 06/05/19 01:34 Blood Pressure 192/119 H 06/05/19 07:40 Pulse Oximetry 98 06/05/19 07:40 Oxygen Delivery Method Room Air 06/05/19 07:40 Oxygen Flow Rate 0 06/05/19 07:40 Pain Level 10 06/05/19 09:07 Comment 06/05/19 07:40 Intake & Output 06/04/19 06/04/19 06/05/19 11:59 23:59 11:59 Intake Total 2497.5 / 4737.5 2240 / 4737.5 1520 / 1520 Output Total 600 / 2900 2300 / 2900 1600 / 1600 Balance 1897.5 / 1837.5 -60 / 1837.5 -80 / -80 Intake: IV 1997.5 / 2997.5 1000 / 2997.5 1520 / 1520 Oral 500 / 1740 1240 / 1740 Output: Urine 600 / 2900 2300 / 2900 1600 / 1600 Other: Urine Color Yellow Yellow Dark [place] Urine Appearance Clear Clear Clear Urine Odor Normal Voiding Methods Toilet Laboratory Results WBC 14.39 k/cumm (4.4-10.8) H 06/05/19 07:05 RBC 3.43 m/cumm (4.00-5.20) L 06/05/19 07:05 Hgb 7.5 g/dL (12.0-15.5) L 06/05/19 07:05 Hct 27.1 % (36.0-46.0) L 06/05/19 07:05 MCV 79.0 fL (80-95) L 06/05/19 07:05 MCH 21.9 pg (27.0-33.0) L 06/05/19 07:05 MCHC 27.7 g/dL (32.0-36.0) L 06/05/19 07:05 RDW 17.6 % (11.7-14.6) H 06/05/19 07:05 Plt Count 289 x1000/uL (130-400) 06/05/19 07:05 MPV 9.0 fL (8.0-11.0) 06/05/19 07:05 Immature Gran % 0.3 06/05/19 07:05 Neutrophils % 89.8 06/05/19 07:05 Lymphocytes % 4.6 06/05/19 07:05 Monocytes % 5.0 06/05/19 07:05 Eosinophils % 0.2 06/05/19 07:05 Basophils % 0.1 06/05/19 07:05 Absolute Neutrophils 12.92 k/cumm (1.2-6.7) H 06/05/19 07:05 Absolute Lymphocytes 0.66 k/cumm (1.2-3.4) L 06/05/19 07:05 Absolute Monocytes 0.72 k/cumm (0.11-0.7) H 06/05/19 07:05 Absolute Eosinophils 0.03 k/cumm (0.0-0.7) 06/05/19 07:05 Absolute Basophils 0.01 k/cumm (0.0-0.2) 06/05/19 07:05 Differential Comment Rbc morph reviewed 06/05/19 07:05 RBC Morphology See below 06/05/19 07:05 Polychromasia Present 06/05/19 07:05 Hypochromasia 2+ 06/05/19 07:05 Poikilocytosis 1+ 06/04/19 13:00 Basophilic Stippling Present 06/03/19 07:57 Anisocytosis 1+ 06/05/19 07:05 Microcytosis 2+ 06/03/19 07:57 Sodium 138 mmol/L (136-145) 06/05/19 07:05 Potassium 3.6 mmol/L (3.5-5.1) 06/05/19 07:05 Chloride 102 mmol/L (98-107) 06/05/19 07:05 Carbon Dioxide 27.5 mmol/L (21.0-32.0) 06/05/19 07:05 Anion Gap 8.5 mmol/L (3-11) 06/05/19 07:05 BUN 6 mg/dL (7-18) L 06/05/19 07:05 Creatinine 0.62 mg/dL (0.55-1.02) 06/05/19 07:05 Estimated GFR/1.73 m2 >= 60.00 (mL/min/1.73m2) 06/05/19 07:05 Glucose 110 mg/dL (70-100) H 06/05/19 07:05 Lactate 1.1 mmol/L (0.6-1.4) 06/04/19 13:00 Calcium 8.6 mg/dL (8.5-10.1) 06/05/19 07:05 Magnesium 2.0 mg/dL (1.8-2.4) 06/05/19 07:05 Total Bilirubin 0.4 mg/dL (0.2-1.0) 06/05/19 07:05 AST 10 U/L (15-37) L 06/05/19 07:05 ALT 12 U/L (14-59) L 06/05/19 07:05 Alkaline Phosphatase 105 U/L (46-116) 06/05/19 07:05 Creatine Kinase 152 U/L (26-192) 06/04/19 13:00 C-Reactive Protein > 25.00 mg/dL (0.0-0.3) H 06/05/19 07:05 Total Protein 6.9 g/dL (6.4-8.2) 06/05/19 07:05 Albumin 2.3 g/dL (3.4-5.0) L 06/05/19 07:05 Procalcitonin 0.3 ng/mL 06/05/19 07:05 Urine Color Yellow (Yellow) 06/05/19 01:20 Urine Clarity Clear (Clear) 06/05/19 01:20 Urine pH 7.0 (5-8) 06/05/19 01:20 Ur Specific [place] 1.015 (1.005-1.025) 06/05/19 01:20 Urine Protein 30 mg/dL (Negative) H 06/05/19 01:20 Urine Ketones Negative mg/dL (Negative) 06/05/19 01:20 Urine Blood Small (Negative) H 06/05/19 01:20 Urine Nitrite Negative (Negative) 06/05/19 01:20 Urine Bilirubin Negative (Negative) 06/05/19 01:20 Urine Urobilinogen 0.2 EU/dL (Up TO 0.2) 06/05/19 01:20 Ur Leukocyte Esterase Negative (Negative) 06/05/19 01:20 Urine RBC 10-20 (0-2) H 06/05/19 01:20 Urine WBC 20-50 HPF (0-5) 06/05/19 01:20 Ur Epithelial Cells Few HPF (Negative) 06/05/19 01:20 Urine Crystals Negative HPF (Negative) 06/05/19 01:20 Urine Bacteria Few HPF (Negative) 06/05/19 01:20 Urine Casts Negative LPF (Negative) 06/05/19 01:20 Urine Mucus Negative (Negative) 06/05/19 01:20 Urine Other Moderate renal (Negative) 06/05/19 01:20 Ur Culture Indicated? Yes 06/05/19 01:20 Urine Glucose Negative mg/dL (Negative) 06/05/19 01:20 Urine Opiates Screen Positive (Negative) A 06/04/19 12:02 Urine Methadone Screen Negative (Negative) 06/04/19 12:02 Ur Barbiturates Screen Negative (Negative) 06/04/19 12:02 Ur Tricyclics Screen Negative (Negative) 06/04/19 12:02 Ur Amphetamines Screen Negative (Negative) 06/04/19 12:02 U Benzodiazepines Scrn Positive (Negative) A 06/04/19 12:02 Urine Cocaine Screen Negative (Negative) 06/04/19 12:02 Ur THC Screen Positive (Negative) A 06/04/19 12:02
[2019-06-05] MEDS: diazePAM 10 MG/2 ML SYR 2.5 MG IVP (11:33)
[2019-06-05] MEDS: Gadoterate meglumine 20 ML VIAL IVP (12:40)
--- NOTE | 2019-06-05 13:00 | DI.MRI_ITS ---
EXAM: MR LUMBAR SPINE WO/W CLINICAL HISTORY: suspected epidural abscess,back pain. TECHNIQUE: Multiplanar multisequence MRI was performed. COMPARISON: No exams were available for comparison FINDINGS: MR examination of the lower thoracic and lumbar spine was performed according to the usual protocol w ith additional post contrast T1 weighted axial and sagittal imaging. No significant bony signal abnormality seen except for mild peridiscal vertebral signal changes at T1 1-T12. There is an irregular posteriorly located area of abnormal signal extending from T11 through L2-L3, measuring roughly 10.5 by 1 x 1 cm. This shows intermediate to high heterogeneous signal on T 2 weighted images, low to intermediate heterogeneous signal on T1 weighted images, and shows suggesti on of enhancement of the border and adjoining nerve roots on post contrast imaging with no internal e nhancement. Findings as described are consistent with the clinically suspected epidural abscess. No gross disc herniation identified. No gross bony destruction by MR criteria. No gross perispinal abscess. Visualized portions of the kidneys and aorta appear intact. IMPRESSION: Findings suggesting epidural abscess from T11-L2 or L3 level as described above.
[2019-06-05] MEDS: Bisacodyl 10 MG SUPP PR (13:45)
[2019-06-05] MEDS: LORazepam 2 MG/ML VIAL 1 MG IVP (14:09)
[2019-06-05 14:13] LABS: Lactate 0.8 mmol/L (0.6-1.4)
[2019-06-05 14:16] LABS: HCT 28.5 % (36.0-46.0); HGB 7.9 g/dL (12.0-15.5)
--- NOTE | 2019-06-05 14:20 | W.PM.DS.N ---
Date of service: 06/05/19 Time of Service: 14:20 DS: Diagnosis Discharge Diagnosis (1) Epidural abscess: Status: Acute Asessment and Plan: T11-L3 (2) Sepsis: Status: Acute (3) Flaccid paraplegia: Status: Acute (4) Lumbar pain: Status: Acute (5) Gram-positive bacteremia: Status: Acute (6) Cauda equina compression: Status: Acute (7) H/O: substance abuse: Status: Acute (8) Ambulatory dysfunction: Status: Acute (9) Urinary retention: Status: Acute (10) Microcytic anemia: Status: Acute (11) Anxiety: Status: Chronic (12) Bipolar I disorder: Status: Chronic (13) Chronic hepatitis C: Status: Resolved (14) Essential hypertension: Status: Suspected (15) Hypothyroidism: Status: Chronic (16) Obesity, morbid, BMI 40.0-49.9: Status: Acute Discharge Plan Disposition Patient Disposition: [facility] Condition: Stable Discharge Details Chief Complaint: Abd Prob Clinical Impression: Post-op pain Reason For Visit: OVARIAN TORSION Admit Date/Time: 06/02/19 17:47 Admit Provider: Roger Olson Attending Provider: Roger Olson Primary Care Provider: Coty Stanley ED Provider: Niko Sifuentes Hospital Course Hospital Course: Ms Charles is a 38 year old female with PMHx of IV drug/polysubstance abuse, as well as hypertension, hepatitic C, Bipolar I and anxiety d/o NOS, asthma, obesith with BMI of 43, who was admitted to [facility] service on 06/02/19 after she had presented to [facility] ED with right flank/abdominal/back pain x 2 days. The patient now also reports that she had had chills at home. CT of the abdomen had revealed an adnexal mass (cyst), and the patient was suspected to have intermittent ovarian torsion causing the pain. She underwent a laparoscopic left salpingectomy with excision of a large paratubal cyst. She was discharged home the same day, but had intense pain in the same region and represented to [facility] ED. She was again admitted to the [facility] service. She was noted to be spiking fevers on the day of hospitalization with a white count of 11.56 and worsening back pain. Initial septic workup included a UA/culture and CXR, both negative. Hospitalist service was consulted on 06/04/19 when the patient started to report loss of sensation in her legs, a headache with photophobia, remained febrile, and started to require a 3-person assist to get out of bed because of leg weakness. Later that day she was found to have urinary retention, requiring a jasso catheter. She had preserved rectal tone, per report of the primary team, but together with her history of IV drug abuse (though the patient denies doing so recent), current symptoms were very suspicious for an epidural abscess. The patient had refused an MRI on 06/04/19 despite multiple attempts to convince her to get one. She was empirically initiated on vancomycin and ceftriaxone 2 grams IV Q12 hours because of the high clinical suspicion for epidural abscess. On the am of 06/05/19, the patient finally consented to an MRI. She was evaluated by neurology who agreed that the patient had flacid paraplegia and required a thoracolumbar MRI with and without contrast. As feared, the study was positive for an epidural abscess extending from T11 to L3. The patient had one blood culture come back so far positive for GPC's in aerobic bottle, drawn on 06/04/19. She likely also has endocarditis and this will need to be evaluated at [facility] where she is getting transferred. She does not have a murmur. She consents to transfer. She was accepted in transfer by Dr Austin Michael of Neurosurgery, whose assistance is very much appreciated with plans for emergent surgery on her arrival to the hospital. She is hemodynamically stable for transport and transfer to medical surgical level of care. Critical care time spent on patient and completion of her transfer summary is 90 minutes. Home Meds and New Rx's Prescriptions: No Action olanzapine 7.5 mg tablet 7.5 mg PO QHS Qty: 30 RF: 1 mirtazapine 15 mg tablet 15 mg PO DAILY Qty: 30 RF: 1 clonidine HCl 0.2 mg tablet 0.2 mg PO BID Qty: 60 RF: 0 lamotrigine [Lamictal] 150 mg tablet 150 mg PO BID Qty: 60 RF: 5 alprazolam 2 mg tablet 2 mg PO BID Qty: 60 RF: 0 doxepin 10 mg capsule 10 mg PO QHS PRN (Reason: itching) Qty: 30 RF: 0 methylphenidate HCl [Ritalin] 20 mg tablet 20 mg PO TID MDD 3 Qty: 90 RF: 0 albuterol sulfate [ProAir HFA] 8.5 GM HFA aerosol inhaler 2 puff Inhalation Q4H PRN Qty: 1 RF: 12 levothyroxine 50 mcg tablet 50 mcg PO DAILY Qty: 90 RF: 12 omeprazole 40 mg capsule,delayed release(DR/EC) 40 mg PO DAILY Qty: 90 RF: 3 fluticasone propionate 50 mcg/actuation spray,suspension 2 spray NS BID Qty: 3 RF: 12 metoprolol tartrate 25 mg tablet 25 mg PO BID Qty: 180 RF: 3 Symbicort 160-4.5 mcg/actuation HFA aerosol inhaler 2 puff Inhalation BID Qty: 1 RF: 6 clonidine HCl 0.2 mg tablet 0.2 mg PO BID Qty: 30 RF: 0 oxycodone-acetaminophen [Percocet] 5-325 mg tablet 1 tab PO Q6H MDD 4 PRN (Reason: pain) Qty: 6 RF: 0 Discharge Instructions Stand Alone Forms: Nursing Discharge Form Activity:: bedrest, turn Q2H Equipment/Supplies:: No Equipment Needed Diet:: NPO Discharge Orders Discharge Orders: Discharge Order (Routine); Ordered 06/05/19 Ordered By: Miriam Leach Discharge Data Discharge Date/Time-TO BE ENTERED AT DEPARTURE: 06/05/19 14:40 DS: Summary Status at Discharge Functional status at discharge: bed bound Overall status at discharge: patient is not back to baseline Mental Status: mental status grossly normal Speech and Movement: restless and other (weak BLE's) Mood: anxious mood Affect: labile affect Exam Narrative Exam Narrative: General: Very anxious obese female, A&Ox3, distracted, but able to focus and have a conversation. Neurological: A&Ox3, 3/5 strength B, Subjective numbness BLE's Psychiatric: Anxious Skin: visible skin intact HEENT: Atraumatic, normocephalic, EOMI, MMM, no submandibular or cervical lymphadenopathy, no goiter or JVD Cardiovascular: RRR, no m/r/g, mildly tachycardic Lungs: CTAB Gastrointestinal: abdomen is soft, full, nontender, nondistended Genitourinary: has a jasso Extremities: no e/c/c BLE's, able to move both BLE's, 3/5 strength today; severe right lower back pain. Psych Mental Status: mental status grossly normal Speech and Movement: restless and other (weak BLE's) Mood: anxious mood Affect: labile affect DS: Data Vitals/I&O Vitals and I&O: Vital Signs Temperature 37.7 C H 06/05/19 10:11 Temperature Source Tympanic 06/05/19 10:11 Pulse 96 H 06/05/19 07:40 Pulse Rhythm Regular 06/05/19 09:28 Respiratory Rate 23 06/05/19 07:40 Respiratory Effort Non-Labored 06/05/19 09:28 Respiratory Depth Normal 06/05/19 09:28 Respiratory Pattern Normal 06/05/19 09:28 Blood Pressure 192/119 H 06/05/19 07:40 Pulse Oximetry 98 06/05/19 07:40 Oxygen Delivery Method Room Air 06/05/19 07:40 Oxygen Flow Rate 0 06/05/19 07:40 Pain Level 10 06/05/19 13:31 Comment 06/05/19 07:40 Intake & Output 06/04/19 06/05/19 06/05/19 23:59 11:59 23:59 Intake Total 2240 / 4737.5 1520 / 2520 1000 / 2520 Output Total 2300 / 2900 1600 / 1600 Balance -60 / 1837.5 -80 / 920 1000 / 920 Intake: IV 1000 / 2997.5 1520 / 2520 1000 / 2520 Oral 1240 / 1740 Output: Urine 2300 / 2900 1600 / 1600 Other: Urine Color Yellow Dark Katy Urine Appearance Clear Clear Data Completed and Pending Completed studies during hospitalization [Text1]: MRI lumbar spine 06/05/19: MR examination of the lower thoracic and lumbar spine was performed according to the usual protocol with additional post contrast T1 weighted axial and sagittal imaging. No significant bony signal abnormality seen except for mild peridiscal vertebral signal changes at T11-T12. There is an irregular posteriorly located area of abnormal signal extending from T11 through L2-L3, measuring roughly 10.5 by 1 x 1 cm. This shows intermediate to high heterogeneous signal on T2 weighted images, low to intermediate heterogeneous signal on T1 weighted images, and shows suggestion of enhancement of the border and adjoining nerve roots on post contrast imaging with no internal enhancement. Findings as described are consistent with the clinically suspected epidural abscess. No gross disc herniation identified. No gross bony destruction by MR criteria. No gross perispinal abscess. Visualized portions of the kidneys and aorta appear intact. IMPRESSION: Findings suggesting epidural abscess from T11-L2 or L3 level as described above. CT abdomen/pelvis 06/04/19: There is no evidence of an acute abdomen. Note is made of a small right pleural effusion. CT lumbar spine 06/04/19: No acute abnormality is demonstrated. Degenerative changes at L5-S1 are noted as described above. If there is further clinical question regarding the status of this patient, then an MRI is suggested. CXR 06/03/19: Limited exam. No acute abnormality. CT lumbar spine 06/02/19: Reconstructed CT edges of the lumbar spine no acute abnormality is demonstrated. The disc height is preserved at L1-2 and L2-3. There is no evidence of significant central foraminal stenosis. L3-4 there is slight loss of disc height probable mild broad-based disc bulge is seen halting in mild lateral spinal stenosis. No foraminal narrowing is identified. The disc height is preserved at L4-5 facet joint DJD is identified and is more advanced on the right side. There is moderate to severe bilateral foraminal narrowing the osteophytic material from the superior L5 articular facets abutting the L4 nerve roots bilaterally. The L5-S1 level is partially obscured by artifact and cannot be evaluated. There is what appears to represent a broad-based disc bulge. There is no apparent significant narrowing of the central canal. Bilateral facet joint DJD is demonstrated and is more advanced on the right side. There is apparent severe bilateral foraminal narrowing with apparent flattening of the L5 nerve roots bilaterally. Yes subparagraph summary acute lumbar fracture is demonstrated. If changes are noted as described above. Please see the body of. CT abdomen/pelvis 06/02/19: There is no evidence of nephrolithiasis or hydronephrosis. Ureters are incompletely visualized but there is no evidence of ureterolithiasis or ureterectasis. Note is made of a 6.2 x 6.9 x 6.5 cm cystic lesion in the anterior pelvis which likely arises from the right ovary but is contiguous with both ovaries. An enlarged ovarian follicle or cyst measuring 1.4 x 1.7 cm in the right ovary. A trace quantity of free fluid is identified in the pelvis. Labs on day of discharge: Labs from last 24 hours 06/05/19 06/05/19 06/05/19 14:00 14:00 14:00 WBC RBC Hgb Hct MCV MCH MCHC RDW Plt Count MPV Immature Gran % Neutrophils % Lymphocytes % Monocytes % Eosinophils % Basophils % Absolute Neutrophils Absolute Lymphocytes Absolute Monocytes Absolute Eosinophils Absolute Basophils Differential Comment RBC Morphology Polychromasia Hypochromasia Anisocytosis Retic Count Pending Haptoglobin Pending PT INR Sodium Potassium Chloride Carbon Dioxide Anion Gap BUN Creatinine Estimated GFR/1.73 m2 Glucose Lactate Calcium Magnesium Iron Pending TIBC Pending Transferrin % Sat Pending Ferritin Total Bilirubin AST ALT Alkaline Phosphatase Lactate Dehydrogenase Creatine Kinase C-Reactive Protein Total Protein Albumin Vitamin B12 Folate Procalcitonin Urine Color Urine Clarity Urine pH Ur Specific Roby Urine Protein Urine Ketones Urine Blood Urine Nitrite Urine Bilirubin Urine Urobilinogen Ur Leukocyte Esterase Urine RBC Urine WBC Ur Epithelial Cells Urine Crystals Urine Bacteria Urine Casts Urine Mucus Urine Other Ur Culture Indicated? Urine Glucose A.phagocytophil DNA PCR B. divergens/MO-1 PCR Babesia duncani (PCR) Babesia microti DNA PCR Borrelia (PCR) Lyme Disease Antibody E.chaffeensis DNA (PCR) E.ewingii/canis DNA PCR E. muris-like DNA (PCR) HIV 1&2 Ag/Ab, 4th Gen Pathology Consult Spec 06/05/19 06/05/19 06/05/19 14:00 14:00 14:00 WBC RBC Hgb Hct MCV MCH MCHC RDW Plt Count MPV Immature Gran % Neutrophils % Lymphocytes % Monocytes % Eosinophils % Basophils % Absolute Neutrophils Absolute Lymphocytes Absolute Monocytes Absolute Eosinophils Absolute Basophils Differential Comment RBC Morphology Polychromasia Hypochromasia Anisocytosis Retic Count Haptoglobin PT Pending INR Pending Sodium Potassium Chloride Carbon Dioxide Anion Gap BUN Creatinine Estimated GFR/1.73 m2 Glucose Lactate 0.8 Calcium Magnesium Iron TIBC Transferrin % Sat Ferritin Pending Total Bilirubin AST ALT Alkaline Phosphatase Lactate Dehydrogenase Pending Creatine Kinase C-Reactive Protein Total Protein Albumin Vitamin B12 Pending Folate Pending Procalcitonin Urine Color Urine Clarity Urine pH Ur Specific Roby Urine Protein Urine Ketones Urine Blood Urine Nitrite Urine Bilirubin Urine Urobilinogen Ur Leukocyte Esterase Urine RBC Urine WBC Ur Epithelial Cells Urine Crystals Urine Bacteria Urine Casts Urine Mucus Urine Other Ur Culture Indicated? Urine Glucose A.phagocytophil DNA PCR B. divergens/MO-1 PCR Babesia duncani (PCR) Babesia microti DNA PCR Borrelia (PCR) Lyme Disease Antibody E.chaffeensis DNA (PCR) E.ewingii/canis DNA PCR E. muris-like DNA (PCR) HIV 1&2 Ag/Ab, 4th Gen Pathology Consult Spec 06/05/19 06/05/19 06/05/19 14:00 12:04 07:05 WBC RBC Hgb 7.9 L Hct 28.5 L MCV MCH MCHC RDW Plt Count MPV Immature Gran % Neutrophils % Lymphocytes % Monocytes % Eosinophils % Basophils % Absolute Neutrophils Absolute Lymphocytes Absolute Monocytes Absolute Eosinophils Absolute Basophils Differential Comment RBC Morphology Polychromasia Hypochromasia Anisocytosis Retic Count Haptoglobin PT INR Sodium Potassium Chloride Carbon Dioxide Anion Gap BUN Creatinine Estimated GFR/1.73 m2 Glucose Lactate Calcium Magnesium Iron TIBC Transferrin % Sat Ferritin Total Bilirubin AST ALT Alkaline Phosphatase Lactate Dehydrogenase Creatine Kinase C-Reactive Protein Total Protein Albumin Vitamin B12 Folate Procalcitonin 0.3 Urine Color Urine Clarity Urine pH Ur Specific Roby Urine Protein Urine Ketones Urine Blood Urine Nitrite Urine Bilirubin Urine Urobilinogen Ur Leukocyte Esterase Urine RBC Urine WBC Ur Epithelial Cells Urine Crystals Urine Bacteria Urine Casts Urine Mucus Urine Other Ur Culture Indicated? Urine Glucose A.phagocytophil DNA PCR B. divergens/MO-1 PCR Babesia duncani (PCR) Babesia microti DNA PCR Borrelia (PCR) Lyme Disease Antibody E.chaffeensis DNA (PCR) E.ewingii/canis DNA PCR E. muris-like DNA (PCR) HIV 1&2 Ag/Ab, 4th Gen Pathology Consult Spec Pending 06/05/19 06/05/19 06/05/19 07:05 07:05 01:20 WBC 14.39 H RBC 3.43 L Hgb 7.5 L Hct 27.1 L MCV 79.0 L MCH 21.9 L MCHC 27.7 L RDW 17.6 H Plt Count 289 MPV 9.0 Immature Gran % 0.3 Neutrophils % 89.8 Lymphocytes % 4.6 Monocytes % 5.0 Eosinophils % 0.2 Basophils % 0.1 Absolute Neutrophils 12.92 H Absolute Lymphocytes 0.66 L Absolute Monocytes 0.72 H Absolute Eosinophils 0.03 Absolute Basophils 0.01 Differential Comment Rbc morph reviewed RBC Morphology See below Polychromasia Present Hypochromasia 2+ Anisocytosis 1+ Retic Count Haptoglobin PT INR Sodium 138 Potassium 3.6 Chloride 102 Carbon Dioxide 27.5 Anion Gap 8.5 BUN 6 L Creatinine 0.62 Estimated GFR/1.73 m2 >= 60.00 Glucose 110 H Lactate Calcium 8.6 Magnesium 2.0 Iron TIBC Transferrin % Sat Ferritin Total Bilirubin 0.4 AST 10 L ALT 12 L Alkaline Phosphatase 105 Lactate Dehydrogenase Creatine Kinase C-Reactive Protein > 25.00 H Total Protein 6.9 Albumin 2.3 L Vitamin B12 Folate Procalcitonin Urine Color Yellow Urine Clarity Clear Urine pH 7.0 Ur Specific Roby 1.015 Urine Protein 30 H Urine Ketones Negative Urine Blood Small H Urine Nitrite Negative Urine Bilirubin Negative Urine Urobilinogen 0.2 Ur Leukocyte Esterase Negative Urine RBC 10-20 H Urine WBC 20-50 Ur Epithelial Cells Few Urine Crystals Negative Urine Bacteria Few Urine Casts Negative Urine Mucus Negative Urine Other Moderate renal Ur Culture Indicated? Yes Urine Glucose Negative A.phagocytophil DNA PCR B. divergens/MO-1 PCR Babesia duncani (PCR) Babesia microti DNA PCR Borrelia (PCR) Lyme Disease Antibody E.chaffeensis DNA (PCR) E.ewingii/canis DNA PCR E. muris-like DNA (PCR) HIV 1&2 Ag/Ab, 4th Gen Pathology Consult Spec 06/04/19 06/04/19 06/04/19 21:25 21:25 13:00 WBC RBC Hgb Hct MCV MCH MCHC RDW Plt Count MPV Immature Gran % Neutrophils % Lymphocytes % Monocytes % Eosinophils % Basophils % Absolute Neutrophils Absolute Lymphocytes Absolute Monocytes Absolute Eosinophils Absolute Basophils Differential Comment RBC Morphology Polychromasia Hypochromasia Anisocytosis Retic Count Haptoglobin PT INR Sodium Potassium Chloride Carbon Dioxide Anion Gap BUN Creatinine Estimated GFR/1.73 m2 Glucose Lactate Calcium Magnesium Iron TIBC Transferrin % Sat Ferritin Total Bilirubin AST ALT Alkaline Phosphatase Lactate Dehydrogenase Creatine Kinase C-Reactive Protein > 25.00 H Total Protein Albumin Vitamin B12 Folate Procalcitonin 0.3 Urine Color Urine Clarity Urine pH Ur Specific Roby Urine Protein Urine Ketones Urine Blood Urine Nitrite Urine Bilirubin Urine Urobilinogen Ur Leukocyte Esterase Urine RBC Urine WBC Ur Epithelial Cells Urine Crystals Urine Bacteria Urine Casts Urine Mucus Urine Other Ur Culture Indicated? Urine Glucose A.phagocytophil DNA PCR B. divergens/MO-1 PCR Babesia duncani (PCR) Babesia microti DNA PCR Borrelia (PCR) Lyme Disease Antibody E.chaffeensis DNA (PCR) E.ewingii/canis DNA PCR E. muris-like DNA (PCR) HIV 1&2 Ag/Ab, 4th Gen Pending Pathology Consult Spec 06/04/19 06/04/19 13:00 13:00 WBC RBC Hgb Hct MCV MCH MCHC RDW Plt Count MPV Immature Gran % Neutrophils % Lymphocytes % Monocytes % Eosinophils % Basophils % Absolute Neutrophils Absolute Lymphocytes Absolute Monocytes Absolute Eosinophils Absolute Basophils Differential Comment RBC Morphology Polychromasia Hypochromasia Anisocytosis Retic Count Haptoglobin PT INR Sodium Potassium Chloride Carbon Dioxide Anion Gap BUN Creatinine Estimated GFR/1.73 m2 Glucose Lactate Calcium Magnesium Iron TIBC Transferrin % Sat Ferritin Total Bilirubin AST ALT Alkaline Phosphatase Lactate Dehydrogenase Creatine Kinase 152 C-Reactive Protein Total Protein Albumin Vitamin B12 Folate Procalcitonin Urine Color Urine Clarity Urine pH Ur Specific Roby Urine Protein Urine Ketones Urine Blood Urine Nitrite Urine Bilirubin Urine Urobilinogen Ur Leukocyte Esterase Urine RBC Urine WBC Ur Epithelial Cells Urine Crystals Urine Bacteria Urine Casts Urine Mucus Urine Other Ur Culture Indicated? Urine Glucose A.phagocytophil DNA PCR Pending B. divergens/MO-1 PCR Pending Babesia duncani (PCR) Pending Babesia microti DNA PCR Pending Borrelia (PCR) Pending Lyme Disease Antibody Pending E.chaffeensis DNA (PCR) Pending E.ewingii/canis DNA PCR Pending E. muris-like DNA (PCR) Pending HIV 1&2 Ag/Ab, 4th Gen Pathology Consult Spec 06/05/19 14:00 Blood Blood Culture - Pending 06/05/19 01:20 Urine - Reflex from Ua Urine Culture - Pending 06/04/19 13:20 Blood Blood Culture - Pending Preliminary micro results at discharge 06/05/19 14:00 Blood Culture - Pending Blood 06/04/19 13:00 Blood Culture - Preliminary Blood Gram Positive Cocci 06/04/19 12:02 Urine Culture - Preliminary Urine - Cath Straight 06/05/19 01:20 Urine Culture - Pending Urine - Reflex from Ua 06/04/19 13:20 Blood Culture - Pending Blood [facility] Medical History Asthma (Chronic) Bipolar I disorder (Chronic) Declines medication. Followed by Dr. Pereira Chronic hepatitis C (Resolved 01/14/18) [place] at [facility] 2019 viral load undetectable Constipation (Acute) Drug overdose (Ruled-out 03/12/06) Fever (Acute) Fracture of tibia (Resolved) Hepatitis C antibody test positive (Resolved 03/19/15) pos RNA test referral to [facility] Hypothyroidism (Chronic 01/11/12) Increased body mass index (Chronic) Iron deficiency anemia (Acute) Lower extremity weakness (Acute) Lumbar pain (Acute) Microcytic anemia (Acute) Substance abuse (Chronic) Heroin, crack cocaine, alcohol. 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
[2019-06-05 14:28] LABS: Prothrombin Time 10.5 sec (9.3-11.0)
[2019-06-05 14:56] LABS: Iron 8 ug/dL (50-175); Total Iron Binding Capacity 274 ug/dL (250-450); Transferrin Sat 3 % (15-50)
--- NOTE | 2019-06-05 15:16 | CHAPLAIN ---
I visited with Beverley shortly before she was transferred to [facility]. Her nurse, Elvis, and SCREEN MAKING TECHNICIAN, Jose, were working hard to make Beverley comfortable. Centrifuge Operator, Britany let Bevelrey know that her mom would be following her to [facility]. Beverley was calm when the ambulance crew arrived to transport her.
[2019-06-05 15:34] LABS: Ferritin 125 ng/mL (8-388); Folate 5.6 ng/mL (8.6-20.0); Vitamin B12 711 pg/mL (193-986)
[2019-06-05 15:47] LABS: LDH 142 U/L (81-234)
[2019-06-06 11:14] LABS: Haptoglobin 364 mg/dL (32-197)
[2019-06-06 13:18] LABS: HIV-1/2 Ag & Ab Screen Negative (NEGAT)
[2019-06-06 13:50] LABS: Lyme Ab w Rflx to Lyme Confirm Negative
[2019-06-07 00:05] LABS: Anaplasma phagocytophilum Negative (Negative); B. miyamotoi PCR Negative (Negative); Babesia divergens/MO-1 Negative (Negative); Babesia duncani Negative (Negative); Babesia microti Negative (Negative); Ehrlichia chaffeensis Negative (Negative); Ehrlichia ewingii/canis Negative (Negative); Ehrlichia muris eauclairensis Negative (Negative)
== END 2019-06-05 14:40 | DRG 94 ==
LOC: ER 18:00 → MS 06-03 09:04
PROVIDERS: Internal Medicine; Admitting Provider Obstetrics & Gynecology; Emergency Provider Emergency Medicine; PCP Family Medicine; Visit Provider Obstetrics & Gynecology Gynecology
DX: G06.1 Intraspinal abscess and granuloma (principal); A41.01 Sepsis due to Methicillin susceptible Staphylococcus aureus; Z16.29 Resistance to other single specified antibiotic; G82.20 Paraplegia, unspecified; G83.4 Cauda equina syndrome; Z68.41 Body mass index [BMI] 40.0-44.9, adult; B95.61 Methicillin susceptible Staphylococcus aureus infection as the cause of diseases classified elsewhere; R50.82 Postprocedural fever; Z48.816 Encounter for surgical aftercare following surgery on the genitourinary system; R26.89 Other abnormalities of gait and mobility; R33.9 Retention of urine, unspecified; G89.18 Other acute postprocedural pain; F14.11 Cocaine abuse, in remission; F10.11 Alcohol abuse, in remission; F11.11 Opioid abuse, in remission; D50.9 Iron deficiency anemia, unspecified; F41.9 Anxiety disorder, unspecified; F31.9 Bipolar disorder, unspecified; B18.2 Chronic viral hepatitis C; I10 Essential (primary) hypertension; E03.9 Hypothyroidism, unspecified
CPT/HCPCS: 36415; 72158; 80053; 80307; 82550; 84145; 87040; 87077; 87389; 87798; 94640; 96374; 96375; 99223; 99231; 99233; 99254; 99255; 99285; 99291; 71046; 74177; 81003; 81015; 82607; 82728; 82746; 83010; 83540; 83550; 83605; 83615; 83735; 85014; 85018; 85025; 85045; 85610; 86140; 86618; 87086; 87186; 99222; 99284; 99292; G0378; J0696; J1885; J2060; J2270; J2405; J3360; J3490; Q9967

== ENCOUNTER 2019-09-05 00:13 | Outpatient (CLI) | payer MEDICAID, SELFPAY ==
[2019-09-05 14:42] LABS: Abs Immature Grans 0.04 k/cumm (0.0-0.09); Absolute Basophil Count 0.02 k/cumm (0.0-0.2); Absolute Lymphocyte Count 2.33 k/cumm (1.2-3.4); Absolute Monocyte Count 0.32 k/cumm (0.11-0.7); Absolute Neutrophil Count 6.84 k/cumm (1.2-6.7); Basophils % 0.2; HCT 31.8 % (36.0-46.0); HGB 9.2 g/dL (12.0-15.5); Immature Grans % 0.4 %; Lymphocytes % 24.1; Mean Corp. HGB Concentration 28.9 g/dL (32.0-36.0); Mean Corpuscular Hemoglobin 22.7 pg (27.0-33.0); Mean Corpuscular Volume 78.5 fL (80-95); Mean Platelet Volume 9.2 fL (8.0-11.0); Monocytes % 3.3; Platelet Count 361 x1000/uL (130-400); RBC 4.05 m/cumm (4.00-5.20); RBC Distribution Width 16.3 % (11.7-14.6); White Blood Cell Count 9.65 k/cumm (4.4-10.8)
[2019-09-05 14:56] LABS: Anisocytosis 1+; Diff Comment RBC Morph Reviewed; Hypochromasia 2+; Microcytosis 2+; Polychromasia Present
[2019-09-05 15:23] LABS: ALT 13 U/L (14-59); AST 8 U/L (15-37); Albumin 3.5 g/dL (3.4-5.0); Alkaline Phosphatase 82 U/L (46-116); Anion Gap 10.1 mmol/L (3-11); BUN 16 mg/dL (7-18); Bilirubin, Total 0.1 mg/dL (0.2-1.0); CO2 25.9 mmol/L (21.0-32.0); CREATININE 0.51 mg/dL (0.55-1.02); Calcium 9.1 mg/dL (8.5-10.1); Chloride 104 mmol/L (98-107); Glucose 102 mg/dL (74-106); Potassium 4.4 mmol/L (3.5-5.1); Sodium 140 mmol/L (136-145); TSH (W/Ref FT4) 2.04 uIU/mL (0.36-3.74); Total Protein 6.9 g/dL (6.4-8.2)
[2019-09-08 10:49] LABS: HIV-1/2 Ag & Ab Screen Negative (Negative)
[2019-09-08 11:12] LABS: Hepatitis C Ab w Rflx HCV PCR Reactive (Negative)
[2019-09-08 13:53] LABS: Syphilis Serology (RPR) Negative (Negative)
[2019-09-10 08:46] LABS: HCV RNA Detection Quantitative 0 IU/mL (Undetected)
== END 2019-09-05 00:33 ==
PROVIDERS: PCP Family Medicine; Visit Provider Nurse Practitioner Family
DX: D50.9 Iron deficiency anemia, unspecified (principal); E11.9 Type 2 diabetes mellitus without complications; E03.9 Hypothyroidism, unspecified; F19.11 Other psychoactive substance abuse, in remission; G06.2 Extradural and subdural abscess, unspecified; Z11.3 Encounter for screening for infections with a predominantly sexual mode of transmission; Z11.59 Encounter for screening for other viral diseases; Z11.4 Encounter for screening for human immunodeficiency virus [HIV]
CPT/HCPCS: 36415; 80053; 86803; 87389; 83036; 84443; 85025; 86592; 87522

== ENCOUNTER 2020-04-29 11:30 | Outpatient (REF) | payer MEDICAID, SELFPAY ==
[2020-05-05 15:06] LABS: Chlamydia Result Negative (Negative); GC Result Negative (Negative)
== END 2020-04-29 11:50 ==
LOC: LBN 11:30
PROVIDERS: PCP Family Medicine; Visit Provider Physician Assistant
DX: L02.416 Cutaneous abscess of left lower limb (principal); N89.8 Other specified noninflammatory disorders of vagina
CPT/HCPCS: 87491; 87591; 87480; 87510; 87660

== ENCOUNTER 2020-06-10 21:25 | Outpatient (REF) | payer MEDICAID, SELFPAY ==
[2020-06-17 11:54] LABS: Chlamydia Result Negative (Negative); GC Result Negative (Negative)
== END 2020-06-10 21:45 ==
LOC: LBN 21:25
PROVIDERS: PCP Family Medicine; Visit Provider Physician Assistant
DX: N89.8 Other specified noninflammatory disorders of vagina (principal); Z11.3 Encounter for screening for infections with a predominantly sexual mode of transmission
CPT/HCPCS: 87491; 87591; 87480; 87510; 87660

== ENCOUNTER 2021-08-01 17:22 | Outpatient (REF) | payer MEDICAID, SELFPAY ==
[2021-08-03 11:38] LABS: COVID-19 RT-PCR UVMMC Result Negative (Negative)
== END 2021-08-01 17:23 | disposition home or self-care (01) ==
LOC: NCHCN 17:22
PROVIDERS: PCP Family Medicine; Visit Provider Family Medicine
DX: Z20.822 Contact with and (suspected) exposure to COVID-19 (principal); J06.9 Acute upper respiratory infection, unspecified
CPT/HCPCS: U0003

== ENCOUNTER 2021-10-24 03:01 | Emergency (ER) | payer MEDICAID, SELFPAY ==
[2021-10-24 03:11] VITALS: BP 178/100; PULSE 119; RESP 24; TEMP 36; O2SAT 98
--- NOTE | 2021-10-24 03:15 | DI.CT_ITS ---
Exam(s) CT CHEST PE CTA EXAM: CT CHEST PE CTA CLINICAL HISTORY: cough, hemoptysis. TECHNIQUE: Imaging Protocol: Axial CT angiography was performed with multi-slice acquisition and mu lti-planar and/or 3D reconstructions. CONTRAST MATERIAL: Intravenous: Omnipaque 350 Contrast volume:100 ml COMPARISON: CT CT LUMBAR SPINE RECONS from 06/04/2019 FINDINGS: Pulmonary Arteries: No evidence of filling defect to suggest pulmonary emboli. Tracheobronchial tree: Patent where visualized. Mediastinum and Bettye: No dominant adenopathy or fluid collection. Pulmonary parenchyma: No consolidation or dominant measurable mass. Respiratory motion. Pleura: No effusion or pneumothorax. Heart: The heart is not dilated. No coronary artery calcifications are seen. Aorta: Thoracic aorta non-dilated. Upper abdomen: Unremarkable. Bones: Endplate osteophytes. IMPRESSION: No evidence of pulmonary embolism or other acute abnormality.. RADIATION DOSE DELIVERED: 622.54mGy.cm Total DLP 622.54mGy.cm Total DLP 622.54mGy.cm Total DLP DATA REPOSITORY: All CT scans at this facility are submitted to the National Radiology Data Registry (NRDR) Dose Index Registry (DIR) with the [employer] ([employer]). RADIATION OPTIMIZATION: All CT scans at this facility use at least one of these dose optimization te chniques: automated exposure control; mA and/or kV adjustment per patient size (includes targeted exa ms where dose is matched to clinical indication); or iterative reconstruction.
[2021-10-24 03:20] VITALS: BP 140/96
--- NOTE | 2021-10-24 03:30 | RT.EKG_ITS ---
APPROVED REPORT Exam: Resting ECG Reason for Exam: sob Patient Location: E HR:101 bpm ECG Measurements Heart Rate 101 AXIS ME 173 P 44 QRSd 100 QRS 44 QT 353 T 33 QTc 457 Conclusion Sinus tachycardia...rate> 99 Probable left atrial enlargement...P >50mS, <-0.10mV V1 Low voltage, precordial leads...precordial leads <1.0mV Physician: no stemi
[2021-10-24] MEDS: Normal Saline 1,000 ML 1000 ML IV (03:40)
[2021-10-24] MEDS: Ketorolac 15 MG/ML VIAL IVP (03:45)
--- NOTE | 2021-10-24 04:05 | W.ED.GENAD ---
Discharge Plan Disposition Patient Disposition: HOME Condition: Good Discharge Details Clinical Impression: Otitis media, URI (upper respiratory infection), Pharyngitis Primary Care Provider: Coty Stanley ED Provider: Héctor Calvo Home Meds and New Rx's Prescriptions: New amoxicillin-pot clavulanate 875-125 mg tablet 1 tab PO Q12H 7 Days Qty: 14 0RF Continued cholecalciferol (vitamin D3) 2,000 unit tablet 2,000 unit PO DAILY 0RF multivitamin Tablet 1 tab PO DAILY 0RF polyethylene glycol 3350 17 gram powder in packet 17 gm PO DAILY 0RF acetaminophen 325 mg capsule 650 mg PO Q6H PRN0RF metoprolol tartrate 50 mg tablet 50 mg PO BID Qty: 180 3RF lamotrigine [Lamictal] 150 mg tablet 150 mg PO BID Qty: 60 5RF alprazolam 2 mg tablet 2 mg PO BID Qty: 60 0RF methylphenidate HCl [Ritalin] 20 mg tablet 20 mg PO TID MDD 3 Qty: 90 0RF mupirocin 2 % ointment 1 applic TP BID Qty: 30 0RF amlodipine 10 mg tablet 10 mg PO DAILY Qty: 90 6RF fluticasone propionate 50 mcg/actuation spray,suspension 1 spray NS BID Qty: 19.8 12RF lisinopril 10 mg tablet 10 mg PO DAILY Qty: 90 6RF levothyroxine 50 mcg tablet 50 mcg PO DAILY Qty: 90 12RF omeprazole 40 mg capsule,delayed release(DR/EC) 40 mg PO DAILY Qty: 90 3RF clonidine HCl 0.2 mg tablet 0.2 mg PO Q8H Qty: 90 4RF albuterol sulfate [ProAir HFA] 90 mcg/actuation HFA aerosol inhaler 2 puff Inhalation Q4H PRN Qty: 1 2RF Discontinued doxycycline hyclate 100 mg capsule 100 mg PO BID Qty: 20 0RF Discharge Instructions Instructions: Pharyngitis (ED), Upper Respiratory Infection (ED) Additional Instructions: At this time you have evidence of pharyngitis and an ear infection. It may have been caused by a virus but now there is a bacterial component. Please take the antibiotic as directed. You have been given the first dose here in 1 pill for this evening, and then please fill the prescription and take this as directed. If you notice any worsening of your symptoms, or any new symptoms such as vomiting, diarrhea, fever, chills, shortness of breath, chest pain, numbness, weakness, or fainting , please return immediately to the emergency department for reevaluation. Please follow up with your primary care provider as soon as possible for reassessment and reevaluation. As always, it was a pleasure participating in your medical care today. Referrals: Coty Stanley MD, [place] [Primary Care Provider] - Medical Decision Making 41-year-old female with past medical history of IV drug use, hypertension, bipolar disorder, hypothyroidism, previous epidural abscess, who presents today for evaluation of congestion, ear pressure and pain, cough, hemoptysis, loss of taste, and chills. She has had her initial vaccination for coronavirus. She admits to a sore throat as well, and worsening breath. She does admit to recently using IV drugs 1 week ago, shortly after which her symptoms began. She denies any other complaints. She does admit to significant others with similar symptoms at home. She denies any severe headache but does admit to notable sinus congestion. She denies any neck pain. She denies any chest or back pain. No other complaints at this time. No other modifying factors. She describes the hemoptysis is a small amount of blood tingeing the sputum. Physical exam demonstrate small amount of effusion behind both ears and tympanic membranes. Enlarged tonsils, not crossing midline no. Only grade 3. No nuchal rigidity. No abdominal pain. Lung sounds are clear. Patient is tachycardic. The patient's history of IV drug use, differential is most likely hives for Covid, viral upper respiratory infection, in conjunction now with bacterial ear infection and pharyngitis with mild tonsillitis. However with her IV drug use I do have concern for other potential etiologies including pneumonia, pulmonary abscess. She has no cardiac murmur on exam, so I doubt endocarditis at this stage. We will rehydrate, evaluate for these etiologies, monitor closely rehydrate and reassess. No indication for lumbar puncture at this time as there is no current clinical evidence of meningitis. 6:16 AM Laboratory work-up has returned, mildly elevated white count at 15, mild left shift, electrolytes normal, renal function unremarkable. Troponin normal with no suggestion of myocarditis. Covid influenza and RSV are negative. CTA shows no evidence of pulmonary embolism, pneumonia, or other significant abnormality. Patient was rehydrated with a liter of normal saline, heart rate notably improved. Patient remains afebrile. Patient is feeling better. With evidence of very mild colitis, and otitis media, I do feel antibiotics are indicated. We will give Augmentin here, and a prescription for home use. With a normal lactate, normalized vital signs, no evidence of septic shock or severe sepsis whatsoever, I do feel that the patient is stable at this time for discharge with antibiotics. Discussed red flags which to return. I have extensively reviewed the treatment plan and discharge instructions with the patient. I have addressed all patient concerns at this time. The patient was made aware of what symptoms to monitor for that would warrant a return to the emergency department. Discussed the plan with the patient, they demonstrate verbal understanding and agreement with our assessment and plan at this time. The documentation in this chart was dictated using [employer] dictation software. Please excuse any dictation errors. FINDINGS: Pulmonary arteries: No central or segmental filling pulmonary artery filling defects are identified. Aorta: Unremarkable. The aorta is normal in course and caliber. No bronchial artery enlargement identified. Lungs: Pulmonary motion limiting fine pulmonary detail. No significant airspace consolidation concerning for pneumonia. Pleural spaces: No pneumothorax. No pleural effusion. Heart: The heart is within normal limits for size. No pericardial effusion is seen. Lymph nodes: The visualized supraclavicular region appears normal. No mediastinal or hilar adenopathy is identified. Bones/joints: Unremarkable. Is Kim you can come to the house if he already rolls reversed tissues: Unremarkable. IMPRESSION: 1. No pulmonary embolism identified. 2. No significant airspace consolidation concerning for pneumonia. 3. No bronchial artery enlargement identified. Thank you for allowing us to participate in the care of your patient. Dictated and Authenticated by: Abdoul Ingram MD 10/24/2021 5:37 AM Eastern Time ([place] & [place]) HPI General Date/Time Provider Initiated Documentation: 10/24/21 03:17. HPI Narrative: 41-year-old female with past medical history of IV drug use, hypertension, bipolar disorder, hypothyroidism, previous epidural abscess, who presents today for evaluation of congestion, ear pressure and pain, cough, hemoptysis, loss of taste, and chills. She has had her initial vaccination for coronavirus. She admits to a sore throat as well, and worsening breath. She does admit to recently using IV drugs 1 week ago, shortly after which her symptoms began. She denies any other complaints. She does admit to significant others with similar symptoms at home. She denies any severe headache but does admit to notable sinus congestion. She denies any neck pain. She denies any chest or back pain. No other complaints at this time. No other modifying factors. She describes the hemoptysis is a small amount of blood tingeing the sputum. Related Data Home Medications Medication Instructions Recorded Confirmed lamotrigine 150 mg tablet 150 mg PO BID #60 tab 09/04/18 10/24/21 (Lamictal) alprazolam 2 mg tablet 2 mg PO BID #60 tab 02/13/19 10/24/21 methylphenidate HCl 20 mg tablet 20 mg PO TID #90 tab MDD 3 02/13/19 10/24/21 (Ritalin) acetaminophen 325 mg capsule 650 mg PO Q6H PRN cap 07/24/19 10/24/21 cholecalciferol (vitamin D3) 50 2,000 unit PO DAILY 07/24/19 08/01/21 mcg (2,000 unit) tablet metoprolol tartrate 50 mg tablet 50 mg PO BID #180 tab-cap 07/24/19 10/24/21 multivitamin 1 tab PO DAILY 07/24/19 10/24/21 polyethylene glycol 3350 17 gram 17 gm PO DAILY 07/24/19 08/01/21 oral powder packet mupirocin 2 % topical ointment 1 applic TP BID #30 gm 08/04/19 08/01/21 amlodipine 10 mg tablet 10 mg PO DAILY #90 tab 01/15/21 10/24/21 fluticasone propionate 50 1 spray NS BID #19.8 ml 01/15/21 10/24/21 mcg/actuation nasal spray,suspension levothyroxine 50 mcg tablet 50 mcg PO DAILY #90 tab-cap 01/15/21 10/24/21 lisinopril 10 mg tablet 10 mg PO DAILY #90 tab 01/15/21 10/24/21 omeprazole 40 mg capsule,delayed 40 mg PO DAILY #90 tab-cap 01/15/21 10/24/21 release clonidine HCl 0.2 mg tablet 0.2 mg PO Q8H #90 tab 01/18/21 10/24/21 albuterol sulfate 90 mcg/actuation 2 puff INHALATION Q4H PRN #1 10/05/21 10/24/21 aerosol inhaler (ProAir HFA) canister amoxicillin 875 mg-potassium 1 tab PO Q12H 7 Days #14 tab 10/24/21 clavulanate 125 mg tablet Previous Rx's Medication Instructions Recorded lamotrigine 150 mg tablet 150 mg PO BID #60 tab 09/04/18 (Lamictal) alprazolam 2 mg tablet 2 mg PO BID #60 tab 02/13/19 methylphenidate HCl 20 mg tablet 20 mg PO TID #90 tab MDD 3 02/13/19 (Ritalin) metoprolol tartrate 50 mg tablet 50 mg PO BID #180 tab-cap 07/24/19 mupirocin 2 % topical ointment 1 applic TP BID #30 gm 08/04/19 amlodipine 10 mg tablet 10 mg PO DAILY #90 tab 01/15/21 fluticasone propionate 50 1 spray NS BID #19.8 ml 01/15/21 mcg/actuation nasal spray,suspension levothyroxine 50 mcg tablet 50 mcg PO DAILY #90 tab-cap 01/15/21 lisinopril 10 mg tablet 10 mg PO DAILY #90 tab 01/15/21 omeprazole 40 mg capsule,delayed 40 mg PO DAILY #90 tab-cap 01/15/21 release clonidine HCl 0.2 mg tablet 0.2 mg PO Q8H #90 tab 01/18/21 albuterol sulfate 90 mcg/actuation 2 puff INHALATION Q4H PRN #1 10/05/21 aerosol inhaler (ProAir HFA) canister amoxicillin 875 mg-potassium 1 tab PO Q12H 7 Days #14 tab 10/24/21 clavulanate 125 mg tablet Allergies Allergy/AdvReac Type Severity Reaction Status Date / Time latex Allergy Intermediate SKIN RASH Unverified 10/24/21 03:14 prazosin AdvReac Dizziness/S Unverified 10/24/21 03:14 carmela General Stated Complaint: RespSymp JOLLY: 3 Review of Systems All systems reviewed & are unremarkable except as noted in HPI and below PFSH All Active Problems (Updated 10/24/21 @ 05:48 by Héctor Calvo DO) Otitis media (Acute) URI (upper respiratory infection) (Acute) Pharyngitis (Acute) Abscess (Acute) Vaginal itching (Acute) Pre-diabetes (Acute) Obesity, morbid, BMI 40.0-49.9 (Acute) Flaccid paraplegia (Acute) H/O: substance abuse (Acute) Ambulatory dysfunction (Acute) Back pain (Acute) Migraine (Chronic) FUO (fever of unknown origin) (Acute) Constipation (Acute) Urinary retention (Acute) Lumbar pain (Acute) Lower extremity weakness (Acute) Microcytic anemia (Acute) Postoperative pain (Acute) Ovarian cyst (Acute) Substance abuse (Chronic) Heroin, crack cocaine, alcohol. 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 Followed by Dr. Pereira Annual physical exam (Acute 04/01/15) Anxiety (Chronic) Elev transaminase/LDH (Acute 03/16/08) Smoker (Chronic) Accidental drug overdose (Acute) Medical History At risk for sexually transmitted disease due to unprotected sex (04/24/17) 2018 treated for chlamydia x2. 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 3.ENT: Atraumatic external nose and ears. Moist MM. Neck: Symmetric, trachea midline, No thyromegaly. No nuchal rigidity. Patient does demonstrate a small effusion in both ears. Posterior oropharynx demonstrates erythematous and enlarged tonsils, tonsils are grade 3. They are not touching. They are not crossing midline. No evidence of abscess, or deviation of the uvula. No large amount of pus is noted. 4.CVS: +S1/S2, No murmurs or gallops. Peripheral pulses 2+ and equal in all extremities. Brisk capillary refill in all extremities. 5.RESP: Unlabored respiratory effort. Clear to auscultation bilaterally. No wheezes rales or rhonchi 6.GI: Soft, Nontender/Nondistended, No hepatosplenomegaly. No guarding or rebound. 7.MSK: Normocephalic/Atraumatic, Extremities w/o deformity or ttp No cyanosis or clubbing, Normal movement of all extremities 8.Skin: Warm, Dry. No rashes or lesions. 9.Neuro: patient accounts specialist II-XII grossly intact. Sensation grossly intact, no focal neurologic deficits. 10.Psych: (AAO) x3. Appropriate mood and affect Course Vital Signs Vital signs: Vital Signs Temperature 36.0 C L 10/24/21 03:11 Pulse 119 H 10/24/21 03:11 Respiratory Rate 24 10/24/21 03:11 Blood Pressure 178/100 H 10/24/21 03:11 Pulse Oximetry 98 10/24/21 03:11 Temperature 36.0 C L 10/24/21 03:11 Temperature Source Skin 10/24/21 03:11 Pulse 119 H 10/24/21 03:11 Respiratory Rate 24 10/24/21 03:11 Respiratory Effort 10/24/21 03:17 Blood Pressure 140/96 H 10/24/21 03:20 Pulse Oximetry 98 10/24/21 03:11 Pain Level 9 10/24/21 03:11 Lab/Test Results Lab/Test Results: 10/24/21 03:29 Blood Blood Culture - Pending 10/24/21 03:29 Blood Blood Culture - Pending Laboratory Tests Range/Units 10/24/21 03:29 COVID-19 Source Cancelled SARS-CoV-2 (PCR) Cancelled
[2021-10-24 04:09] LABS: BE (Venous) 4 mmol/L (-2-3); HCO3 (Venous) 27 mmol/L (23-28); O2 Sat (Venous) 97 %; TCO2 (Venous) 25 mmol/L (24-29); pCO2 (Venous) 37 mmHg (41-51); pH (Venous) 7.47 (7.31-7.41); pO2 (Venous) 80 mmHg
[2021-10-24 04:10] LABS: Abs Immature Grans 0.08 10^3/uL (0.0-0.06); Absolute Basophil Count 0.03 10^3/uL (0.0-0.2); Absolute Eosinophil Count 0.13 10^3/uL (0.0-0.7); Absolute Lymphocyte Count 2.16 10^3/uL (1.2-3.4); Absolute Monocyte Count 0.75 10^3/uL (0.1-0.8); Absolute Neutrophil Count 12.51 10^3/uL (1.2-6.7); Basophils % 0.2; Eosinophils % 0.8; HCT 36.5 % (36.0-46.0); HGB 11.1 g/dL (11.2-15.7); Immature Grans % 0.5; Lymphocytes % 13.8; MCH 26.2 pg (27.0-33.0); MCHC 30.4 % (32.0-36.0); MCV 86.1 fL (80-95); MPV 9.2 fL (8.0-11.0); Monocytes % 4.8; Neutrophils % 79.9; Nucleated RBC 0 %; Platelet Count 283 10^3/uL (130-400); RBC 4.24 10^6/uL (3.93-5.22); RDW 14.6 % (11.7-14.6); RDW-SD 46.5 fL; WBC 15.66 10^3/uL (4.4-10.8)
[2021-10-24 04:32] VITALS: BP 137/72; PULSE 72; RESP 16; O2SAT 100
[2021-10-24 04:41] LABS: ALT 17 U/L (14-59); AST 12 U/L (15-37); Alkaline Phosphatase 96 U/L (46-116); Anion Gap 10.4 mmol/L (3-11); BUN 12 mg/dL (7-18); Bilirubin, Total 0.2 mg/dL (0.2-1.0); CO2 25.6 mmol/L (21.0-32.0); CREATININE 0.7 mg/dL (0.55-1.02); Calcium 8.4 mg/dL (8.5-10.1); Chloride 100 mmol/L (98-107); Glucose 103 mg/dL (74-106); Potassium 3.9 mmol/L (3.5-5.1); Sodium 136 mmol/L (136-145); Total Protein 7.3 g/dL (6.4-8.2); Troponin I < 50 ng/L (<or=60)
[2021-10-24 04:51] LABS: COVID-19 PCR Negative (Negative); Influenza A PCR Negative (Negative); Influenza B PCR Negative (Negative); RSV PCR Negative (Negative)
[2021-10-24 04:52] LABS: Source Nasopharynx
[2021-10-24] MEDS: Omnipaque 350 MG/ML 100 ML BTL IJ (05:12)
[2021-10-24] MEDS: Normal Saline Flush 10 ML SYR IVP (05:22)
--- NOTE | 2021-10-24 05:38 | DI.VRAD_ITS ---
PROCEDURE INFORMATION: Exam: CTA Chest With Contrast Exam date and time: 10/24/2021 3:31 AM Age: 41 years old Clinical indication: Patient HX: Cough, hemoptysis TECHNIQUE: Imaging protocol: Computed tomographic angiography of the chest with contrast. 3D rendering (Not supervised by radiologist): MIP and/or 3D reconstructed images were created by the technologist. Radiation optimization: All CT scans at this facility use at least one of these dose optimization techniques: automated exposure control; mA and/or kV adjustment per patient size (includes targeted exams where dose is matched to clinical indication); or iterative reconstruction. Contrast material: OMNIPAQUE 350; Contrast volume: 100 ml; Contrast route: INTRAVENOUS (IV); COMPARISON: CR XR CHEST 2V PA LATERAL 06/03/2019 11:18 AM FINDINGS: Pulmonary arteries: No central or segmental filling pulmonary artery filling defects are identified. Aorta: Unremarkable. The aorta is normal in course and caliber. No bronchial artery enlargement identified. Lungs: Pulmonary motion limiting fine pulmonary detail. No significant airspace consolidation concerning for pneumonia. Pleural spaces: No pneumothorax. No pleural effusion. Heart: The heart is within normal limits for size. No pericardial effusion is seen. Lymph nodes: The visualized supraclavicular region appears normal. No mediastinal or hilar adenopathy is identified. Bones/joints: Unremarkable. Soft tissues: Unremarkable. IMPRESSION: 1. No pulmonary embolism identified. 2. No significant airspace consolidation concerning for pneumonia. 3. No bronchial artery enlargement identified. Dictated and Authenticated by: Abdoul Ingram MD. Ordering:KAMILA Anaya MD
[2021-10-24 05:47] VITALS: BP 163/92; PULSE 96; RESP 16; O2SAT 97
[2021-10-24] MEDS: Amox. 875/Clav. 125, 2 TABS/BTL 1 TAB PO (05:56)
== END 2021-10-24 06:10 | disposition home or self-care (01) ==
PROVIDERS: Emergency Provider Student in an Organized Health Care Education/Training Program; PCP Family Medicine
DX: H65.193 Other acute nonsuppurative otitis media, bilateral (principal); J06.9 Acute upper respiratory infection, unspecified; J02.9 Acute pharyngitis, unspecified; R00.0 Tachycardia, unspecified; R06.02 Shortness of breath
CPT/HCPCS: 36415; 71275; 80053; 81025; 82805; 87040; 87635; 87637; 87880; 93005; 96361; 96374; 99284; 99285; 83605; 84484; 85025; 87081; 93010; J1885; J3490

== ENCOUNTER 2021-11-05 14:59 | Emergency (ER) | payer MEDICAID, SELFPAY ==
[2021-11-05 15:03] VITALS: BP 137/73; PULSE 88; RESP 16; TEMP 37; O2SAT 96
[2021-11-05 15:55] LABS: Abs Immature Grans 0.05 10^3/uL (0.0-0.06); Absolute Basophil Count 0.02 10^3/uL (0.0-0.2); Absolute Eosinophil Count 0.09 10^3/uL (0.0-0.7); Absolute Lymphocyte Count 1.65 10^3/uL (1.2-3.4); Basophils % 0.2; Eosinophils % 0.9; HCT 35.6 % (36.0-46.0); HGB 10.7 g/dL (11.2-15.7); Immature Grans % 0.5; Lymphocytes % 16.6; MCHC 30.1 % (32.0-36.0); MCV 86.4 fL (80-95); MPV 9.2 fL (8.0-11.0); Neutrophils % 76.8; Nucleated RBC 0 %; Platelet Count 281 10^3/uL (130-400); RBC 4.12 10^6/uL (3.93-5.22); RDW-SD 47.8 fL; WBC 9.91 10^3/uL (4.4-10.8)
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
[2021-11-05 16:03] LABS: Bilirubin Negative (Negative); Blood Negative (Negative); Clarity Clear (Clear); Glucose Negative (Negative); Ketones Negative (Negative); Leukocyte Esterase Negative (Negative); Nitrite Negative (Negative); Urobilinogen 0.2 EU/dL (Up TO 0.2)
--- NOTE | 2021-11-05 16:03 | CMPROGNOTE_ITS ---
- If Service Date Differs Date of service: 11/05/21 Time of Service: 16:03 Care Management Progress Note VOLUNTARY FOR INPATIENT PSYCHIATRIC STABILIZATION. Beverley has a known mental health and substance use history, as well as severe internal and external (environmental) stressors she is dealing with at this time. Her family has been attempting to support her in seeking support for over a week, as Beverley has been at times delusional and suicidal. Carol Hernandez, [facility] prepared EE paperwork in the event Beverley changes her mind and no longer wishes to seek treatment. Safety plan has been established with patient, and care team, to adhere to patient goals, identify restrictions based on behavioral status, address nutrition, and determine allowed personal belongings, tools for hygiene and personal care. Determine level of activity including ambulation, level of sup ervision, visitors, and determine privileges based on behaviors and level of engagement by pt. SAFETY PLAN: 1. Will remain on suicide precautions. In Paper Clothes 2. Will remain in room under direct supervision of one-on-one staff at all times provided by [employer]; VINOD, [employer] supervisor shipping room. 3. May have paper cups, plates, finger foods as well as a cardboard spoon with which to eat meals. 4. Follow [facility] Management of the Admitted Behavioral Health Patient policy. 5. Comfort bath system only, shower permitted with escort at RN discretion. 6. No personal belongings-soft items permitted at RN discretion. 7. Visitors-none at this time-per policy at RN discretion. 8. Activities: soft cart items approved per RN discretion. 9. Bathroom privileges with escort in the ED, available in room without limita tion on M/S. 10. Phone: contact limited to family/legal/service providers at this time, via cordless phone at RN discretion. 11. Due to VOLUNTARY status, if patient wishes to leave [facility], staff will contact [facility] Crisis Screener ([phone]) and On-Call Seamer ([phone]) as soon as possible. In the event of elopement, notify [place] [employer] ([phone]). Patient is currently voluntarily at [facility] and seeking inpatient admission when a bed becomes available. [facility] Frontline Second Floor Operator will continue seeking placement. Please contact the Senior Environmental Consultant Seamer ([phone]) and [facility] Second Floor Operator ([phone]) for any needed changes in the Safety Plan. Safety plan has been provided to interdepartmental care team. - Status Status: Voluntary - Reason for Wait Reason for Wait: Inpatient Admission
[2021-11-05 16:16] LABS: *AMPHETAMINES SCREEN URINE Negative (Negative); *BARBITURATES SCREEN URINE Negative (Negative); *BENZODIAZEPINES SCREEN URINE Negative (Negative); Cannabinoids THC Positive (Negative); Cocaine Screen,Urine Positive (Negative); METHADONE URINE SCREEN Negative (Negative); OPIATES URINE SCREEN Negative (Negative)
[2021-11-05 16:17] LABS: Tricyclic Antidepressants Positive (Negative)
[2021-11-05] MEDS: diphenhydrAMINE 50 MG/ML VIAL IM (16:26)
[2021-11-05 16:27] LABS: Salicylate 4.4 mg/dL (<2.8)
[2021-11-05] MEDS: LORazepam 2 MG/ML VIAL IM (16:27)
[2021-11-05] MEDS: Haloperidol 5 MG/ML VIAL 4 MG IM (16:27)
[2021-11-05 16:29] LABS: Acetaminophen < 2 ug/mL (10-30)
[2021-11-05 16:32] LABS: ALT 16 U/L (14-59); AST 12 U/L (15-37); Albumin 3.6 g/dL (3.4-5.0); Alkaline Phosphatase 76 U/L (46-116); Anion Gap 8.8 mmol/L (3-11); BUN 14 mg/dL (7-18); Bilirubin, Total 0.4 mg/dL (0.2-1.0); CO2 25.2 mmol/L (21.0-32.0); CREATININE 0.8 mg/dL (0.55-1.02); Calcium 8.9 mg/dL (8.5-10.1); Chloride 102 mmol/L (98-107); Glucose 102 mg/dL (74-106); Potassium 3.7 mmol/L (3.5-5.1); Sodium 136 mmol/L (136-145); TSH (W/Ref FT4) 1.54 uIU/mL (0.36-3.74); Total Protein 7.8 g/dL (6.4-8.2)
[2021-11-05 16:40] LABS: ETHANOL BLOOD < 3.0 mg/dL (<10)
[2021-11-05 21:47] LABS: Source Nasal/Nares
[2021-11-05 22:15] VITALS: BP 120/70; PULSE 78; RESP 16; TEMP 36.4; O2SAT 90
[2021-11-05 22:28] LABS: COVID-19 PCR Negative (Negative)
[2021-11-05] MEDS: Acetaminophen 325 MG TAB PO (22:40)
[2021-11-05] MEDS: cloNIDine 0.1 MG TAB 0.2 MG PO (22:40)
[2021-11-05] MEDS: ALPRAZolam 0.5 MG TAB 2 MG PO (22:40)
--- NOTE | 2021-11-05 22:56 | PDOC.MHCN_ITS ---
Date of service: 11/05/21 Time of Service: 22:57 Mental Health Crisis Note Presenting Issue How did you arrive at the ED and why did you come: Client arrived at [facility] ED via [facility] police after endorsing SI and having delusions. Precipitating Factors Client states that she is not suicidal, however states: I don't want to wake up again and , I'm not going to be able to fight anymore, there is nothing to live for. Client also states: I don't feel safe, I am being watched by people, through my smoke detectors, they are even watching me undress its disgusting. Disposition BEHAVIOR: Client presents in proper paper hospital attire when this chart writer arrives via zoom. Client is groggy, however wakes up and engages minimally with this chart writer. EYE CONTACT: Client makes minimal eye contact. MOOD: Clients mood appears to be depressed and agitated. AFFECT: Congruent with mood. APPETITE: Client is eating throughout assessment, client states that she is hungry out of nowhere. SLEEP(trouble falling/staying asleep: Client reports that she has not been sleeping well at all, she was able to get some sleep on , but has not been able to sleep since. Plan Client will remain at [facility] ED on voluntary status pending admission to [facility] in a co-occuring bed. Safety plan in place with [facility] ED. Client will be reassessed daily by [facility]. If client tries to leave the ED HS should be contacted so an EE could be submitted Signature Clinician's Name/Title: Carol Hernandez, [facility] Emergency Clinician.
[2021-11-06] MEDS: Levothyroxine 25 MCG TAB 50 MCG PO (06:15)
[2021-11-06 10:00] VITALS: BP 150/91; PULSE 68; RESP 16; TEMP 36.6; O2SAT 92
[2021-11-06] MEDS: lamoTRIgine 100 MG TAB 150 MG PO (10:09)
[2021-11-06] MEDS: Omeprazole 20 MG CAPCR 40 MG PO (10:10)
[2021-11-06] MEDS: OLANZapine 10 MG, OLANZapine 5 MG 15 MG PO (10:11)
[2021-11-06] MEDS: amLODIPine 10 MG TAB PO (10:12)
[2021-11-06] MEDS: ALPRAZolam 0.5 MG TAB 2 MG PO (10:12)
[2021-11-06] MEDS: Methylphenidate 10 MG TAB 20 MG PO ×2 (10:16→16:41)
[2021-11-06] MEDS: Acetaminophen 325 MG TAB PO (10:19)
--- NOTE | 2021-11-06 12:21 | ED.PROG_ITS ---
Date of service: 11/07/21 Time of Service: 15:39 Medical Decision Making 0800 --Case endorsed to continue to monitor while awaiting placement. She remains voluntary. No reported events overnight. 1000 --patient evaluated by mental health who reports that she remains delusional. She remains voluntary and they have placed multiple referrals. There is a low threshold for EE and she is delusional and still currently suicidal. Will likely not be placed today. Discussed with nursing supervisor cigarette making department and will plan to admit to the floor. 1200 --patient now stating she wants to leave. Staff reported that she wants to smoke a cigarette. Will order Nicotrol inhaler. Will complete the EE paperwork and hold in the ED at this time. 1600 --patient evaluated by Dr. Acosta at bedside. Diagnosis is likely psychosis in the setting of an acute stress reaction. Recommends stopping her Ritalin and Lamictal. Recommend restarting her doxepin which she had been taking 100 mg nightly. Recommend changing olanzapine from 50 mg daily to 10 mg twice daily. If patient becomes agitated or needs sedation can give PO or IM Haldol or 10 mg Zyprexa PO or IM. 1999 --Case endorsed to Dr. Martínez to continue to monitor overnight. Pending second certificate this evening. JuanTao Bandar [address] Martínez at time of shift change with inpatient placement pending. [address] patient signed out to Dr. Sifuentes at time of shift change with inpatient placement pending. No acute events throughout the day. Medical Records Medical records reviewed: Yes I reviewed the patient's medical records. Sign Out Sign Out Data: Sign Out Comment: Hx of Bipolar. Presents with paranoid delusions. Pending re-eval in am and placement. Voluntary at this time. If wants to leave needs to be held involuntarily. Wrote a suicidal text to her Mom this am. Last updated by Dennise Vo at 11/05/21 23:15 Sign Out Comment: calm overnight, no events; awaiting AM re-evaluation for psych placement Last updated by Esdras Mcclure MD at 11/06/21 07:48 Sign Out Comment: Patient has been voluntary but threatening to leave today. She remains delusional and suicidal. EE completed. Pending second certificate this evening. Evaluated by Dr. Acosta today and medication recommendations made. Awaiting placement. Last updated by Teresa Marquez DO at 11/06/21 19:51 Sign Out Comment: Here involuntary, had second cert completed. HAd oral valium and haldol for anxiety/agitation overnight, did not reach code [place]es de oca level. Last updated by Baldemar Martínez MD at 11/06/21 22:06 Sign Out Comment: No acute events during my shift. Pt has been calm and cooperative. Patient remains on EE status awaiting inpatient placement. Last updated by Marga Portillo MD at 11/07/21 15:35 Discharge Plan Disposition Patient Disposition: STILL A PATIENT Condition: Stable Discharge Details Clinical Impression: Acute psychosis, Acute stress reaction, Major depression, Suicidal ideation Primary Care Provider: Coty Stanley ED Provider: Niko Sifuentes Home Meds and New Rx's Prescriptions: No Action cholecalciferol (vitamin D3) 2,000 unit tablet 2,000 unit PO DAILY 0RF multivitamin Tablet 1 tab PO DAILY 0RF polyethylene glycol 3350 17 gram powder in packet 17 gm PO DAILY 0RF acetaminophen 325 mg capsule 650 mg PO Q6H PRN0RF metoprolol tartrate 50 mg tablet 50 mg PO BID Qty: 180 3RF lamotrigine [Lamictal] 150 mg tablet 150 mg PO BID Qty: 60 5RF mupirocin 2 % ointment 1 applic TP BID Qty: 30 0RF amlodipine 10 mg tablet 10 mg PO DAILY Qty: 90 6RF fluticasone propionate 50 mcg/actuation spray,suspension 1 spray NS BID Qty: 19.8 12RF lisinopril 10 mg tablet 10 mg PO DAILY Qty: 90 6RF levothyroxine 50 mcg tablet 50 mcg PO DAILY Qty: 90 12RF omeprazole 40 mg capsule,delayed release(DR/EC) 40 mg PO DAILY Qty: 90 3RF albuterol sulfate [ProAir HFA] 90 mcg/actuation HFA aerosol inhaler 2 puff Inhalation Q4H PRN Qty: 1 2RF doxepin 100 mg capsule 100 mg PO HS 0RF alprazolam 2 mg tablet 2 mg PO DAILY 0RF Label Comments: TAKE ONE TABLET BY MOUTH EVERY DAY FOR SEVERE ANXIETY, MAXIMUM DAILY DOSE = 1 TABLET dexmethylphenidate 20 mg capsule,ER biphasic 50-50 20 mg PO BID 0RF Label Comments: TAKE ONE CAPSULE BY MOUTH TWICE A DAY clonidine HCl 0.2 mg tablet 0.2 mg PO BID 0RF
[2021-11-06] MEDS: LORazepam 1 MG TAB 2 MG PO (12:55)
--- NOTE | 2021-11-06 13:58 | CMSP_ITS ---
- If Service Date Differs Date of service: 11/06/21 Time of Service: 13:59 Care Management Safety Plan Status: Involuntary - Reason for Wait Reason for Wait: Inpatient Admission INVOLUNTARY FOR INPATIENT PSYCHIATRIC STABILIZATION. Beevrley has a known mental health and substance use history, as well as severe internal and external (environmental) stressors she is dealing with at this time. Her family has been attempting to support her in seeking Psych/YONATHAN co-occurring inpatient hospitalization for over a week, as Beverley has been at times delusional and suicidal. Carol Hernandez, [facility] prepared EE paperwork in the event Beverley changes her mind and no longer wishes to seek treatment. 1200: Beverley advocated for leaving [facility] due to wanting a cigarette, nicotrol inhaler ordered and EE paperwork completed, per MD. Safety plan has been established with patient, and care team, to adhere to patient goals, identify restrictions based on behavioral status, address nutrition, and determine allowed personal belongings, tools for hygiene and personal care. Determine level of activity including ambulation, level of supervision, visitors, and determine privileges based on behaviors and level of engagement by pt. SAFETY PLAN: 1. Will remain on suicide precautions. In Paper Clothes 2. Will remain in room under direct supervision of one-on-one staff at all times provided by [employer]; VINOD, STRAWHAT BLOCKING OPERATOR street openings inspector. 3. May have paper cups, plates, finger foods as well as a cardboard spoon with which to eat meals. 4. Follow [facility] Management of the Admitted Behavioral Health Patient policy. 5. Comfort bath system only, shower permitted with escort at RN discretion. 6. No personal belongings-soft items permitted at RN discretion. 7. Visitors-none at this time-per policy at RN discretion. 8. Activities: soft cart items approved per RN discretion. 9. Bathroom privileges with escort in the ED, available in room without limitation on M/S. 10. Phone: contact limited to family/legal/service providers at this time, via cordless phone at RN discretion. 11. Due to INVOLUNTARY status, if patient wishes to leave [facility], staff will contact [facility] Crisis Screener ([phone]) and On-Call Apprentice Jockey ([phone]) as soon as possible. In the event of elopement, notify [facility] Police ([phone]). Due to INVOLUNTARY status, patient is being held at [facility] by the Department of Mental Health ([facility]) until 2nd certification by [facility] Psychiatrist can be performed (within 24 hours). Staff will provide de-escalation support (CPI) as needed. If patient wishes to leave [facility], staff will contact [facility] Crisis Screener ([phone]) and On-Call Apprentice Jockey ([phone]) as soon as possible. In the event of elopement, notify [facility] Police ([phone]). Patient is currently involuntarily at [facility]. [facility] Frontline Executive Administrative Assistant will continue seeking placement. Please contact the Spool Worker Apprentice Jockey ([phone]) for any needed changes to Safety Plan. Safety plan has been provided to interdepartmental care team. Patient will be transported by wheel adjuster at time of discharge.
--- NOTE | 2021-11-06 13:58 | PDOC.CMSAFED ---
- If Service Date Differs Date of service: 11/06/21 Time of Service: 13:59 Care Management Safety Plan Status: Involuntary - Reason for Wait Reason for Wait: Inpatient Admission INVOLUNTARY FOR INPATIENT PSYCHIATRIC STABILIZATION. Beverley has a known mental health and substance use history, as well as severe internal and external (environmental) stressors she is dealing with at this time. Her family has been attempting to support her in seeking Psych/YONATHAN co-occurring inpatient hospitalization for over a week, as Beverley has been at times delusional and suicidal. Carol Hernandez, [facility] prepared EE paperwork in the event Beverley changes her mind and no longer wishes to seek treatment. 1200: Beverley advocated for leaving [facility] due to wanting a cigarette, nicotrol inhaler ordered and EE paperwork completed, per MD. Safety plan has been established with patient, and care team, to adhere to patient goals, identify restrictions based on behavioral status, address nutrition, and determine allowed personal belongings, tools for hygiene and personal care. Determine level of activity including ambulation, level of supervision, visitors, and determine privileges based on behaviors and level of engagement by pt. SAFETY PLAN: 1. Will remain on suicide precautions. In Paper Clothes 2. Will remain in room under direct supervision of one-on-one staff at all times provided by [employer]; VINOD, TREE TRIMMING SUPERVISOR train conductor. 3. May have paper cups, plates, finger foods as well as a cardboard spoon with which to eat meals. 4. Follow [facility] Management of the Admitted Behavioral Health Patient policy. 5. Comfort bath system only, shower permitted with escort at RN discretion. 6. No personal belongings-soft items permitted at RN discretion. 7. Visitors-none at this time-per policy at RN discretion. 8. Activities: soft cart items approved per RN discretion. 9. Bathroom privileges with escort in the ED, available in room without limitation on M/S. 10. Phone: contact limited to family/legal/service providers at this time, via cordless phone at RN discretion. 11. Due to INVOLUNTARY status, if patient wishes to leave [facility], staff will contact [facility] Crisis Screener ([phone]) and On-Call Dba Manager ([phone]) as soon as possible. In the event of elopement, notify [facility] Police ([phone]). Due to INVOLUNTARY status, patient is being held at [facility] by the Department of Mental Health ([facility]) until 2nd certification by [facility] Psychiatrist can be performed (within 24 hours). Staff will provide de-escalation support (CPI) as needed. If patient wishes to leave [facility], staff will contact [facility] Crisis Screener ([phone]) and On-Call Dba Manager ([phone]) as soon as possible. In the event of elopement, notify [facility] Police ([phone]). Patient is currently involuntarily at [facility]. [facility] Frontline Mountain Guide will continue seeking placement. Please contact the Learning Center Coordinator Dba Manager ([phone]) for any needed changes to Safety Plan. Safety plan has been provided to interdepartmental care team. Patient will be transported by steam generating powerplant mechanic at time of discharge.
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
[2021-11-06] MEDS: cloNIDine 0.1 MG TAB 0.2 MG PO (21:00)
[2021-11-06] MEDS: Haloperidol 5 MG TAB PO (21:40)
[2021-11-06] MEDS: diazePAM 5 MG TAB 10 MG PO (21:40)
[2021-11-06] MEDS: Doxepin 50 MG CAP 100 MG PO (22:07)
[2021-11-06] MEDS: OLANZapine 10 MG TAB PO (22:12)
--- NOTE | 2021-11-06 23:32 | PDOC.MHCN ---
Date of service: 11/06/21 Time of Service: 21:00 Mental Health Crisis Note Presenting Issue How did you arrive at the ED and why did you come: Client arrived at [facility] ED on 11/05/2021 via VSP for SI. Client wanted to leave earlier today so MH EE was written. Client is seen tonight for 2nd certification by psychiatrist via telehealth. Precipitating Factors Client states: I will kill myself. Disposition BEHAVIOR: Client is sitting on bed dressed in proper paper hospital attire when this proposal lead writer arrives via zoom. Client states that she just wants to go outside for a cigarette and then she will come back in and sleep. By the end of the assessment client is becoming agitated. EYE CONTACT: Client makes minimal eye contact. MOOD: Client mood appears to be agitated. AFFECT: Clients affect is conguent with mood. APPETITE: Did not assess SLEEP(trouble falling/staying asleep: Did not assess. Plan Dr. Moise will sign 2nd certification which will hold client at [facility] on involuntary status. Client will be seen 2x daily by [facility] ES. Updated referrals will be sent to , [facility], [facility], and [facility]. Signature Clinician's Name/Title: Carol Hernandez, [facility] Emergency Clinician.
--- NOTE | 2021-11-07 06:32 | NUR.NOTE ---
Nursing Note: This scribe attempted to give patient her scheduled levothyroxine around 06:30 but patient refused to take it at this time. She reported that she takes her levothyroxine with all her other morning medications.
[2021-11-07 09:11] VITALS: BP 145/91; PULSE 75; TEMP 36.4; O2SAT 95
[2021-11-07] MEDS: ALPRAZolam 0.5 MG TAB 2 MG PO ×2 (09:22→21:38)
[2021-11-07] MEDS: cloNIDine 0.1 MG TAB 0.2 MG PO ×3 (09:23→21:13)
[2021-11-07] MEDS: Levothyroxine 50 MCG TAB PO (09:23)
[2021-11-07] MEDS: Omeprazole 20 MG CAPCR 40 MG PO (09:23)
[2021-11-07] MEDS: amLODIPine 10 MG TAB PO (09:23)
--- NOTE | 2021-11-07 12:33 | CMSP_ITS ---
- If Service Date Differs Date of service: 11/07/21 Time of Service: 12:33 Care Management Safety Plan Status: Involuntary - Reason for Wait Reason for Wait: Inpatient Admission INVOLUNTARY FOR INPATIENT PSYCHIATRIC STABILIZATION. Beverley has a known mental health and substance use history, as well as severe internal and external (environmental) stressors she is dealing with at this time. Her family has been attempting to support her in seeking Psych/YONATHAN co-occurring inpatient hospitalization for over a week, as Beverley has been at times delusional and suicidal. Beverley interacts minimally when CM comes to meet with her. She is drowsy and attributes her drowsiness to a change in her medication. She states she has been trying to arrange a placement at [facility] for over a week now, so she doesn't understand why she is currently on involuntary status. A huddle is held with Dr. Marga Portillo, ED provider, Hollie, Nursing Detailer Pharmaceuticals, and CHANTE Foster, in attendance. Safety plan has been established with patient, and care team, to adhere to patient goals, identify restrictions based on behavioral status, address nutrition, and determine allowed personal belongings, tools for hygiene and p ersonal care. Determine level of activity including ambulation, level of supervision, visitors, and determine privileges based on behaviors and level of engagement by pt. SAFETY PLAN: 1. Will remain on suicide precautions. In Paper Clothes 2. Will remain in room under direct supervision of one-on-one staff at all times provided by [employer], CHIEF MARKETING OFFICER, AIRCRAFT CAPTAIN aoc director combat operations officer. 3. May have paper cups, plates, finger foods as well as a cardboard spoon with which to eat meals. 4. Follow [facility] Management of the Admitted Behavioral Health Patient policy. 5. Shower permitted with escort at RN discretion. 6. No personal belongings. 7. Visitors: per [facility] visitor policy and at RN discretion. 8. Activities: soft cart items, music tablet, television, and other activities at RN discretion. 9. Bathroom privileges with escort in the ED, available in room without limitation on M/S. 10. Phone: contact limited to family/legal/service providers at this time, via [place] hospital phone at RN discretion. 11. Due to INVOLUNTARY status, if patient wishes to leave [facility], staff will contact [facility] Crisis Screener ([phone]) and On-Call Oracle Reports Developer ([phone]) as soon as possible. In the event of elopement, notify [facility] Police ([phone]). Due to INVOLUNTARY status, patient is being held at [facility] by the Department of Mental Health ([facility]). A 2nd Certification by [facility] Psychiatrist done on 11/06/[address] Echevarria found patient to be a person in need of treatment and upheld the involuntary status. Staff will provide de-escalation support (CPI) as needed. If patient wishes to leave [facility], staff will contact [facility] Crisis Screener ([phone]) and On-Call Oracle Reports Developer ([phone]) as soon as possible. In the event of elopement, notify [facility] Police ([phone]). Patient is currently involuntarily at [facility]. [facility] Frontline Optical Brightener Maker Helper will continue seeking placement. Please contact the Equipment Manager Oracle Reports Developer ([phone]) for any needed changes to Safety Plan. Safety plan has been provided to interdepartmental care team. Patient will be transported by Character Booster at time of discharge.
[2021-11-07] MEDS: Acetaminophen 325 MG TAB PO (13:28)
--- NOTE | 2021-11-07 13:58 | MHPN_ITS ---
Date of service: 11/07/21 Time of Service: 09:45 Mental Health Progress Note Progress Note Progress Note: Presenting Issue: Client is being reassessed after Emergency Exam and 2nd cert by a psychiatrist concluded client is in need of involuntary psychiatric dilshad atment due to concerns for clients safety to self and others. Precipitating Factors Disposition * Behavior: Confrontational, agitated. *Eye Contact: Minimal. *Mood:Client reports shitty. *Affect:Constricted *Appetite:Client reports a very active appetite due to not being able to smoke. Client expresses concerns about the more she eats the more weight she will gain. *Sleep(troubel falling/staying asleep): Client report difficulties with staying asleep, reporting waking up every few hours. Client also reports bad dreams. Plan(please elaborate and include that physician is consulted with plan and/or placement): Client will remain on EE status at ED until placement for involuntary psychiatric treatment can be found. Client will be reassessed 2 times per day by [facility]. Referrals have been sent to [facility], [facility] and [facility] Clinician's Name , Title, and Signature Lambert Andujar BA Make sure that you are photocopying and submitting this to [facility] records Dept. to be scanned into chart.
--- NOTE | 2021-11-07 15:18 | PDOC.MHCN_ITS ---
<Carol Hernandez - Last Filed: 11/07/21 15:38> Date of service: 11/07/21 Time of Service: 15:18 Mental Health Crisis Note <Carol Hernandez - Last Filed: 11/07/21 15:38> Presenting Issue How did you arrive at the ED and why did you come: Client arrived at [facility] ED on 11/05/21 via VSP after endorsing SI, stating that she was hearing voices, and writing a suicide text to her mom. Client was on voluntary status until 11/06/21 when she attempted to leave and an EE was written. 2nd cert passed by Dr. Moise. Client is seen for [facility] daily screening. Precipitating Factors Client currently denies SI/HI stating: I have never been suicidal I came here and asked for help.Client states that she has not heard voices since she was at the hospital. Disposition BEHAVIOR: Client is sleeping when this insurance underwriter sales arrives via zoom. Client is easily woken up by attending physician. Client appears to be agitated and states: I want to know why they took me off from medications and didn't add any. I already have a med provider and he is the only one I want to be adjusting my medications. Client also states: I do not understand why I am here involuntary when I wanted the help, yesterday all I wanted was a cigarette. EYE CONTACT: Client does not make eye contact, as the screen is facing the wall. MOOD: Clients mood appears to be agitated. AFFECT: Client has labile affect. APPETITE: Client reports that her appetite has sucked however [facility] staff report that client has been eating all of her meals and then demanding more full meals to eat in between her meals. SLEEP(trouble falling/staying asleep: It is reported by ED staff that client has been sleeping a lot, however client reports that she has not been able to sleep due to the pain that she is in and how uncomfotable the bed is. Plan Client will remain at [facility] on EE status. Client will be seen 2x daily by [facility] staff until inpatient treatment is secured. [facility] has referred client for state bed at pending acceptance. [facility] willl be updated when more information is gathered. Signature Clinician's Name/Title: Carol Hernandez [facility] Emergency Clinician
--- NOTE | 2021-11-07 15:45 | RT.EKG_ITS ---
APPROVED REPORT Exam: Resting ECG Reason for Exam: suicidal, prev hx overdose Patient Location: E HR:68 bpm ECG Measurements Heart Rate 68 AXIS AL 193 P 47 QRSd 102 QRS 43 QT 406 T 38 QTc 434 Conclusion Sinus rhythm...normal P axis, V-rate 60- 99
--- NOTE | 2021-11-07 16:35 | DI.CT_ITS ---
Exam(s) CT HEAD WO EXAM: CT HEAD WO CLINICAL HISTORY: Mood disruption. TECHNIQUE: Imaging Protocol: Axial computed tomography images with coronal and sagittal reformatted images were created and reviewed COMPARISON: No exams were available for comparison FINDINGS: Ventricles and Extra axial spaces: Normal in size and morphology for the patient's age. Hemorrhage: None. Cerebral parenchyma: Normal. Midline shift: None. Brainstem/Cerebellum: Normal. Calvarium: Normal. Visualized Paranasal sinuses/Mastoids: Mucosal thickening floors of both maxillary sinuses. Soft Tissues: Prominent adenoids. IMPRESSION: No acute intracranial process. RADIATION DOSE DELIVERED: 767.41mGy.cm Total DLP DATA REPOSITORY: All CT scans at this facility are submitted to the National Radiology Data Registry (NRDR) Dose Index Registry (DIR) with the [employer] (ACR). RADIATION OPTIMIZATION: All CT scans at this facility use at least one of these dose optimization te chniques: automated exposure control; mA and/or kV adjustment per patient size (includes targeted exa ms where dose is matched to clinical indication); or iterative reconstruction.
[2021-11-07] MEDS: LORazepam 1 MG TAB 2 MG PO (19:13)
--- NOTE | 2021-11-07 19:18 | ED.PROG_ITS ---
Date of service: 11/08/21 Time of Service: 13:00 Medical Decision Making Received signout on the patient for the afternoon/evening shift of November 07. At the request of Karol downey, patient did undergo unremarkable CT scan of the head and EKG screening. Approximately 7 PM the patient voiced some anxiety regarding possible transfer, she took oral Ativan willingly with improvement. She was accepted in transfer by Dr. Chan to the [facility]. 11/08/21 Dr. Marquez 0830 -- Plan is for transfer to [facility] at 1 PM today. 1300 -- Patient transported by [facility] out of the ED in no acute distress. Sign Out Sign Out Data: Sign Out Comment: Hx of Bipolar. Presents with paranoid delusions. Pending MH re-eval in am and placement. Voluntary at this time. If wants to leave needs to be held involuntarily. Wrote a suicidal text to her Mom this am. Last updated by Dennise Vo at 11/05/21 23:15 Sign Out Comment: calm overnight, no events; awaiting AM re-evaluation for psych placement Last updated by Esdras Mcclure MD at 11/06/21 07:48 Sign Out Comment: Patient has been voluntary but threatening to leave today. She remains delusional and suicidal. EE completed. Pending second certificate this evening. Evaluated by Dr. Acosta today and medication recommendations made. Awaiting placement. Last updated by Teresa Marquez DO at 11/06/21 19:51 Sign Out Comment: Here involuntary, had second cert completed. HAd oral valium and haldol for anxiety/agitation overnight, did not reach code [place] level. Last updated by Baldemar Martínez MD at 11/06/21 22:06 Sign Out Comment: No acute events during my shift. Pt has been calm and business operations coordinator perative. Patient remains on EE status awaiting inpatient placement. Last updated by Marga Portillo MD at 11/07/21 15:35 Sign Out Comment: Anxious in evening, given benzos. Transfer [place] in AM Last updated by Niko Sifuentes MD at 11/07/21 22:44 Sign Out Comment: no issues, reportedly will go to [facility] today Last updated by Baldemar Martínez MD at 11/07/21 23:19 Discharge Plan Disposition Patient Disposition: [facility] Condition: Stable Discharge Details Clinical Impression: Acute psychosis, Acute stress reaction, Major depression, Suicidal ideation Primary Care Provider: Coty Stanley ED Provider: Teresa Marquez Home Meds and New Rx's Prescriptions: No Action cholecalciferol (vitamin D3) 2,000 unit tablet 2,000 unit PO DAILY 0RF multivitamin Tablet 1 tab PO DAILY 0RF polyethylene glycol 3350 17 gram powder in packet 17 gm PO DAILY 0RF acetaminophen 325 mg capsule 650 mg PO Q6H PRN0RF metoprolol tartrate 50 mg tablet 50 mg PO BID Qty: 180 3RF lamotrigine [Lamictal] 150 mg tablet 150 mg PO BID Qty: 60 5RF mupirocin 2 % ointment 1 applic TP BID Qty: 30 0RF amlodipine 10 mg tablet 10 mg PO DAILY Qty: 90 6RF fluticasone propionate 50 mcg/actuation spray,suspension 1 spray NS BID Qty: 19.8 12RF lisinopril 10 mg tablet 10 mg PO DAILY Qty: 90 6RF levothyroxine 50 mcg tablet 50 mcg PO DAILY Qty: 90 12RF omeprazole 40 mg capsule,delayed release(DR/EC) 40 mg PO DAILY Qty: 90 3RF albuterol sulfate [ProAir HFA] 90 mcg/actuation HFA aerosol inhaler 2 puff Inhalation Q4H PRN Qty: 1 2RF doxepin 100 mg capsule 100 mg PO HS 0RF alprazolam 2 mg tablet 2 mg PO DAILY 0RF Label Comments: TAKE ONE TABLET BY MOUTH EVERY DAY FOR SEVERE ANXIETY, MAXIMUM DAILY DOSE = 1 TABLET dexmethylphenidate 20 mg capsule,ER biphasic 50-50 20 mg PO BID 0RF Label Comments: TAKE ONE CAPSULE BY MOUTH TWICE A DAY clonidine HCl 0.2 mg tablet 0.2 mg PO BID 0RF Discharge Data Discharge Date/Time-TO BE ENTERED AT DEPARTURE: 11/08/21 13:10
--- NOTE | 2021-11-07 19:26 | NUR.NOTE ---
nurse to nurse given to Fang at [facility]. they are working on transport for tomorrow.Nursing Note:
--- NOTE | 2021-11-07 20:42 | NUR.NOTE ---
Nursing Note: [facility] called to state that they cannot accept pt as they are currently full.
[2021-11-07] MEDS: Doxepin 50 MG CAP 100 MG PO (21:13)
--- NOTE | 2021-11-08 09:40 | CMSP_ITS ---
- If Service Date Differs Date of service: 11/08/21 Time of Service: 09:40 Care Management Safety Plan Status: Involuntary - Reason for Wait Reason for Wait: Inpatient Admission INVOLUNTARY FOR INPATIENT PSYCHIATRIC STABILIZATION. Beverley has a known mental health and substance use history, as well as severe internal and external (environmental) stressors she is dealing with at this time. Her family has been attempting to support her in seeking Psych/YONATHAN co-occurring inpatient hospitalization for over a week, as Beverley has been at times delusional and suicidal. A huddle is held at 10:05 am with Hollie, Nursing Director Of Infection Control, Kelly, Charge Nurse, Nirmala RN, and CHANTE Foster, in attendance. Safety plan has been established with patient, and care team, to adhere to patient goals, identify restrictions based on behavioral status, address nutrition, and determine allowed personal belongings, tools for hygiene and personal care. Determine level of activity including ambulation, level of supervision, visitors, and determine privileges based on behaviors and level of engagement by pt. SAFETY PLAN: 1. Will remain on suicide precautions. In Paper Clothes 2. Will remain in room under direct supervision of one-on-one staff at all times provided by [employer], VINOD, SEO ENGINEER employee relations director. 3. May have paper cups, plates, finger foods as well as a spoon or fork with which to eat meals. The spoon or fork is to be removed immediately from the room when patient is done eating. 4. Follow [facility] Management of the Admitted Behavioral Health Patient policy. 5. Shower permitted with escort at RN discretion. 6. No personal belongings. 7. Visitors: per [facility] visitor policy and at RN discretion. 8. Activities: soft cart items, music tablet, television, and other activities at RN discretion. 9. Bathroom privileges with escort in the ED. 10. Phone: contact limited to family/legal/service providers at this time, via [facility] hospital phone at RN discretion. 11. Due to INVOLUNTARY status, if patient wishes to leave [facility], staff will contact [facility] Crisis Screener ([phone]) and [facility] [place] ([phone]) as soon as possible. In the event of elopement, notify [facility] Police ([phone]). Due to INVOLUNTARY status, patient is being held at [facility] by the Department of Mental Health ([facility]). A 2nd Certification by [facility] Psychiatrist done on 11/06/[address] Echevarria found patient to be a person in need of treatment and upheld the involuntary status. Staff will provide de-escalation support (CPI) as needed. If patient wishes to leave [facility], staff will contact [facility] Crisis Screener ([phone]) and [facility] [place] ([phone]) as soon as possible. In the event of elopement, notify [facility] Police ([phone]). Patient is currently involuntarily at [facility]. [facility] Frontline Tennis Ball Coverer Hand will continue seeking placement. Please contact the Furnace Puncher [place] ([phone]) for any needed changes to Safety Plan. Safety plan has been p rovided to interdepartmental care team. Patient will be transported by cash grain farmer at time of discharge.
--- NOTE | 2021-11-08 09:40 | PDOC.CMSAFED ---
- If Service Date Differs Date of service: 11/08/21 Time of Service: 09:40 Care Management Safety Plan Status: Involuntary - Reason for Wait Reason for Wait: Inpatient Admission INVOLUNTARY FOR INPATIENT PSYCHIATRIC STABILIZATION. Beverley has a known mental health and substance use history, as well as severe internal and external (environmental) stressors she is dealing with at this time. Her family has been attempting to support her in seeking Psych/YONATHAN co-occurring inpatient hospitalization for over a week, as Beverley has been at times delusional and suicidal. A huddle is held at 10:05 am with Hollie, Nursing Rigging Up Worker, Kelly, Charge Nurse, Nirmala RN, and CHANTE Foster, in attendance. Safety plan has been established with patient, and care team, to adhere to patient goals, identify restrictions based on behavioral status, address nutrition, and determine allowed personal belongings, tools for hygiene and personal care. Determine level of activity including ambulation, level of supervision, visitors, and determine privileges based on behaviors and level of engagement by pt. SAFETY PLAN: 1. Will remain on suicide precautions. In Paper Clothes 2. Will remain in room under direct supervision of one-on-one staff at all times provided by [employer], VINOD, PSYCHIATRIC THERAPIST professional development instructor. 3. May have paper cups, plates, finger foods as well as a spoon or fork with which to eat meals. The spoon or fork is to be removed immediately from the room when patient is done eating. 4. Follow [facility] Management of the Admitted Behavioral Health Patient policy. 5. Shower permitted with escort at RN discretion. 6. No personal belongings. 7. Visitors: per [facility] visitor policy and at RN discretion. 8. Activities: soft cart items, music tablet, television, and other activities at RN discretion. 9. Bathroom privileges with escort in the ED. 10. Phone: contact limited to family/legal/service providers at this time, via [facility] hospital phone at RN discretion. 11. Due to INVOLUNTARY status, if patient wishes to leave [facility], staff will contact [facility] Crisis Screener ([phone]) and On-Call [place] ([phone]) as soon as possible. In the event of elopement, notify [facility] Police ([phone]). Due to INVOLUNTARY status, patient is being held at [facility] by the Department of Mental Health ([facility]). A 2nd Certification by [facility] Psychiatrist done on 11/06/[address] Echevarria found patient to be a person in need of treatment and upheld the involuntary status. Staff will provide de-escalation support (CPI) as needed. If patient wishes to leave [facility], staff will contact [facility] Crisis Screener ([phone]) and On-[facility] [place] ([phone]) as soon as possible. In the event of elopement, notify [facility] Police ([phone]). Patient is currently involuntarily at [facility]. [facility] Frontline Heater Furnace will continue seeking placement. Please contact the Subgrade Tester [place] ([phone]) for any needed changes to Safety Plan. Safety plan has been provided to interdepartmental care team. Patient will be transported by cake knocker at time of discharge.
[2021-11-08] MEDS: amLODIPine 10 MG TAB PO (10:14)
[2021-11-08] MEDS: ALPRAZolam 0.5 MG TAB 2 MG PO (10:14)
[2021-11-08] MEDS: OLANZapine 10 MG TAB PO (10:15)
[2021-11-08] MEDS: cloNIDine 0.1 MG TAB 0.2 MG PO (10:15)
[2021-11-08] MEDS: Levothyroxine 50 MCG TAB PO (10:15)
[2021-11-08] MEDS: Omeprazole 20 MG CAPCR 40 MG PO (10:16)
[2021-11-08 10:57] VITALS: BP 146/79; PULSE 80; RESP 18; TEMP 36.6; O2SAT 95
[2021-11-08 13:15] VITALS: BP 146/79; PULSE 80; RESP 18; TEMP 36.6; O2SAT 95
--- NOTE | 2021-11-08 13:19 | PDOC.ERCMPRO ---
- If Service Date Differs Date of service: 11/08/21 Time of Service: 13:19 Care Management Progress Note S/O: Beverley is laying in bed when CM comes to meet with her. She expresses frustration that she can't have her things while awaiting placement. She again states that she has been working on finding placement for herself for over a week, so she can't understand why she is on involuntary status. CM explains to her that she is involuntary because she wanted to leave the hospital. Beverley denies this and says she is very unhappy with the treatment she has received at [facility]. A: Beverley was admitted to [facility] on 11/05/21 for delusions, paranoia, and suicidal ideation. P: Beverley is accepted for placement at the [facility]. She will follow up with her PCP, community providers, and plan of care upon discharge from the inpatient facility. [facility]'s transport team provides transportation to [place]. - Status Status: Involuntary - Reason for Wait Reason for Wait: Inpatient Admission ([facility])
== END 2021-11-08 13:10 | disposition short-term general hospital (02) ==
PROVIDERS: Nurse Practitioner Family; Registered Nurse Emergency; Emergency Provider Physician Assistant; PCP Family Medicine
DX: F23 Brief psychotic disorder (principal); F43.0 Acute stress reaction; F32.A Depression, unspecified; R45.851 Suicidal ideations; F31.9 Bipolar disorder, unspecified; E03.9 Hypothyroidism, unspecified; B18.2 Chronic viral hepatitis C; R82.5 Elevated urine levels of drugs, medicaments and biological substances; I10 Essential (primary) hypertension; Z20.822 Contact with and (suspected) exposure to COVID-19; D50.9 Iron deficiency anemia, unspecified; F17.210 Nicotine dependence, cigarettes, uncomplicated
CPT/HCPCS: 80053; 80307; 81025; 87635; 93005; 96372; 99285; Q3014; 70450; 80320; 80329; 81003; 84443; 85025; 93010; J1200; J1630; J2060

== ENCOUNTER 2022-01-15 15:26 | Emergency (ER) | payer MEDICAID, SELFPAY ==
[2022-01-15 15:36] VITALS: BP 136/83; PULSE 77; RESP 18; TEMP 36.1; O2SAT 99
--- NOTE | 2022-01-15 17:21 | W.ED.GENAD ---
Discharge Plan Disposition Patient Disposition: HOME Condition: Stable Discharge Details Clinical Impression: Abscess of hand Primary Care Provider: Coty Stanley ED Provider: Kandice Calderón Home Meds and New Rx's Prescriptions: New clindamycin HCl 150 mg capsule 450 mg PO TID 10 Days Qty: 90 0RF Continued fluconazole [Diflucan] 150 mg tablet 150 mg PO QWEEK Qty: 2 0RF Rx Instructions: as a single dose, may repeat once in 1 week doxepin 100 mg capsule See Rx Instructions PO QHS Rx Instructions: 200mg PO every day at bedtime; melatonin 3 mg capsule 9 mg PO HS PRN olanzapine 20 mg tablet 20 mg PO QHS dexmethylphenidate [Focalin] 5 mg tablet 5 mg PO BID MDD 2 Qty: 10 0RF Rx Instructions: administer doses at least 4 hours apart amlodipine 10 mg tablet 10 mg PO DAILY Qty: 90 6RF lisinopril 10 mg tablet 10 mg PO DAILY Qty: 90 6RF metoprolol tartrate 50 mg tablet 50 mg PO BID Qty: 180 3RF cholecalciferol (vitamin D3) 2,000 unit tablet 2,000 unit PO DAILY multivitamin Tablet 1 tab PO DAILY polyethylene glycol 3350 17 gram powder in packet 17 gm PO DAILY acetaminophen 325 mg capsule 650 mg PO Q6H PRN lamotrigine [Lamictal] 150 mg tablet 150 mg PO BID Qty: 60 5RF mupirocin 2 % ointment 1 applic TP BID Qty: 30 0RF fluticasone propionate 50 mcg/actuation spray,suspension 1 spray NS BID Qty: 19.8 12RF levothyroxine 50 mcg tablet 50 mcg PO DAILY Qty: 90 12RF omeprazole 40 mg capsule,delayed release(DR/EC) 40 mg PO DAILY Qty: 90 3RF albuterol sulfate [ProAir HFA] 90 mcg/actuation HFA aerosol inhaler 2 puff Inhalation Q4H PRN Qty: 1 2RF alprazolam 2 mg tablet 2 mg PO DAILY Label Comments: TAKE ONE TABLET BY MOUTH EVERY DAY FOR SEVERE ANXIETY, MAXIMUM DAILY DOSE = 1 TABLET clonidine HCl 0.2 mg tablet 0.2 mg PO BID Discharge Instructions Instructions: Abscess (ED) Additional Instructions: Recheck in 48 to 72 hours with wick removal and recheck Take antibiotic aS prescribed Return earlier with spreading redness, fever, worsening pain Referrals: Coty Stanley MD, [place] [Primary Care Provider] - Discharge Data Discharge Date/Time-TO BE ENTERED AT DEPARTURE: 01/15/22 17:51 Medical Decision Making Patient tolerated procedure without incident Remain neurovascularly intact pre and post procedure, sensation intact Mild surrounding cellulitis therefore clindamycin was ordered Recheck in 48 hours recommended Surgery referral supplied Return precautions discussed and patient expressed understanding Medical Records Medical records reviewed: Yes I reviewed the patient's medical records. Lab Data Lab results reviewed: Yes I reviewed the patient's lab results. HPI General Date/Time Provider Initiated Documentation: 01/15/22 15:37. HPI Narrative: This 41-year-old female with history of hep C, prediabetic [place], IV drug abuse presents with abscess to left hand for the past week. States she was focused on antibiotics for an abscess on her right hand but neglected to m. She states that this abscess on her right hand resolved but now she has left axilla. She denies any fever or chills. She denies chance of . She states she last injected in the hand approximately 3 weeks ago. She states she had drainage from the affected area. Denies being on antibiotics recently. Denies any additional complaints at this time. Related Data Home Medications Medication Instructions Recorded Confirmed lamotrigine 150 mg tablet 150 mg PO BID #60 tabs 09/04/18 01/03/22 (Lamictal) acetaminophen 325 mg capsule 650 mg PO Q6H PRN 07/24/19 01/03/22 cholecalciferol (vitamin D3) 50 2,000 unit PO DAILY 07/24/19 01/03/22 mcg (2,000 unit) tablet multivitamin 1 tab PO DAILY 07/24/19 01/03/22 polyethylene glycol 3350 17 gram 17 gm PO DAILY 07/24/19 01/03/22 oral powder packet mupirocin 2 % topical ointment 1 applic topical BID #30 grams 08/04/19 01/03/22 fluticasone propionate 50 1 spray NS BID #19.8 mL 01/15/21 01/03/22 mcg/actuation nasal spray,suspension levothyroxine 50 mcg tablet 50 mcg PO DAILY #90 tab-caps 01/15/21 01/03/22 omeprazole 40 mg capsule,delayed 40 mg PO DAILY #90 tab-caps 01/15/21 01/03/22 release albuterol sulfate 90 mcg/actuation 2 puff inhalation Q4H PRN wheeze 10/05/21 01/03/22 aerosol inhaler (ProAir HFA) ##1 alprazolam 2 mg tablet 2 mg PO DAILY 11/06/21 01/03/22 clonidine HCl 0.2 mg tablet 0.2 mg PO BID 11/06/21 01/03/22 doxepin 100 mg capsule See Rx Instructions PO QHS 11/29/21 01/03/22 melatonin 3 mg capsule 9 mg PO HS PRN 11/29/21 01/03/22 olanzapine 20 mg tablet 20 mg PO QHS 11/29/21 01/03/22 amlodipine 10 mg tablet 10 mg PO DAILY #90 tabs 12/01/21 01/03/22 dexmethylphenidate 5 mg tablet 5 mg PO BID #10 tabs 12/01/21 01/03/22 (Focalin) lisinopril 10 mg tablet 10 mg PO DAILY #90 tabs 12/01/21 01/03/22 metoprolol tartrate 50 mg tablet 50 mg PO BID #180 tab-caps 12/01/21 01/03/22 fluconazole 150 mg tablet 150 mg PO QWEEK #2 tabs 01/03/22 01/03/22 (Diflucan) clindamycin HCl 150 mg capsule 450 mg PO TID 10 days #90 caps 01/15/22 Previous Rx's Medication Instructions Recorded lamotrigine 150 mg tablet 150 mg PO BID #60 tabs 09/04/18 (Lamictal) mupirocin 2 % topical ointment 1 applic topical BID #30 grams 08/04/19 fluticasone propionate 50 1 spray NS BID #19.8 mL 01/15/21 mcg/actuation nasal spray,suspension levothyroxine 50 mcg tablet 50 mcg PO DAILY #90 tab-caps 01/15/21 omeprazole 40 mg capsule,delayed 40 mg PO DAILY #90 tab-caps 01/15/21 release albuterol sulfate 90 mcg/actuation 2 puff inhalation Q4H PRN wheeze 10/05/21 aerosol inhaler (ProAir HFA) ##1 amlodipine 10 mg tablet 10 mg PO DAILY #90 tabs 12/01/21 dexmethylphenidate 5 mg tablet 5 mg PO BID #10 tabs 12/01/21 (Focalin) lisinopril 10 mg tablet 10 mg PO DAILY #90 tabs 12/01/21 metoprolol tartrate 50 mg tablet 50 mg PO BID #180 tab-caps 12/01/21 fluconazole 150 mg tablet 150 mg PO QWEEK #2 tabs 01/03/22 (Diflucan) clindamycin HCl 150 mg capsule 450 mg PO TID 10 days #90 caps 01/15/22 Allergies Allergy/AdvReac Type Severity Reaction Status Date / Time latex Allergy Intermediate SKIN RASH Unverified 01/15/22 15:40 Penicillins Allergy Unverified 01/15/22 15:40 prazosin AdvReac Dizziness/S Unverified 01/15/22 15:40 weats General Stated Complaint: Cellulitis JOLLY: 3 Review of Systems All systems reviewed & are unremarkable except as noted in HPI and below PFSH All Active Problems (Updated 01/15/22 @ 17:23 by RANJAN Lee) Abscess of hand (Acute) ADD (attention deficit disorder) (Acute) On stimulant, dexylmethylphenidate-managed per psychiatry Psychosis (Acute) Pre-diabetes (Acute) Obesity, morbid, BMI 40.0-49.9 (Acute) Flaccid paraplegia (Acute) Migraine (Chronic) Urinary retention (Acute) Lumbar pain (Acute) Lower extremity weakness (Acute) Microcytic anemia (Acute) Ovarian cyst (Acute) Substance abuse (Chronic) Heroin, crack cocaine, alcohol. 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 Followed by Dr. Pereira Anxiety (Chronic) On alprazolam-Per psychiatry Smoker (Chronic) Accidental drug overdose (Acute) Medical History (Updated 01/15/22 @ 17:23 by RANJAN Lee) At risk for sexually transmitted disease due to unprotected sex (04/24/17) 2018 treated for chlamydia x2. Cauda equina compression Chlamydia (09/24/17) Drug overdose (03/12/06) Fever Gram-positive bacteremia Iron deficiency anemia Lice Right ear pain (06/08/16) Right lower quadrant pain Surgical History Status post dilation and curettage Elective termination of Status post laparoscopy Social History (Updated 01/05/22 @ 14:01 by Rupali Kennedy) Smoking/Tobacco Use Status: Current every day Tobacco Type: cigarettes Tobacco: How many years used: 23 Quit status: has quit before Second Hand Exposure: Yes Smoking risk assessment performed?: Yes Alcohol Intake: former Drug use: Rarely Substance use type: marijuana Household members: none Housing: house Number of Children: 0 Education Level: college Do you need help understanding health information?: Rarely Pets and animals: No Sexually active: Yes Do you think of yourself as: straight/heterosexual Current gender identity: female What is your relationship status?: never How often do you talk on the phone with friends or family?: three or more times per week How often do you get together with friends or relatives?: twice per week How often do you attend hindu or pentecostalism services?: decline to answer Do you belong to any clubs or organized social groups?: no Panel score (0-1 are the most socially isolated patients): 1 Duration: 15-30 minutes/day Frequency: 1-2 times per week Quin/Mandaen: No preference Do you feel safe at home: Yes Do you feel safe in your relationship?: Yes History History 1 Para Hx # Term Pregnancies Multiple births Hx # Pregnancies Ectopic pregnancies AB induced 1 Hx Number of Living Children 0 AB spontaneous Exam Const Orientation: alert and oriented x3 Neuro General: patient alert and patient oriented x3 Extrem Other: Left hand with abscess noted, swelling and erythema, drainage noted Course Vital Signs Vital signs: Vital Signs Temperature 36.1 C L 01/15/22 15:36 Pulse 77 01/15/22 15:36 Respiratory Rate 18 01/15/22 15:36 Blood Pressure 136/83 01/15/22 15:36 Pulse Oximetry 99 01/15/22 15:36 Temperature 36.1 C L 01/15/22 15:36 Temperature Source Skin 01/15/22 15:36 Pulse 77 01/15/22 15:36 Respiratory Rate 18 01/15/22 15:36 Respiratory Effort 01/15/22 15:38 Blood Pressure 136/83 01/15/22 15:36 Blood Pressure Position Sitting 01/15/22 15:36 Pulse Oximetry 99 01/15/22 15:36 Oxygen Delivery Method Room Air 01/15/22 15:36 Oxygen Flow Rate 0 01/15/22 15:36 Pain Level 6 01/15/22 15:36 Procedures Abscess I/D Site: Scalp and Hand Side (if applicable): Left Sedation/analgesia: None Local Anesthetic: Lidocaine 1% Amount of anesthesia used (mL): 3 Technique: Incised with #11 Blade Amount of fluid expressed (mL): 2 Irrigation: Yes Packing used?: Iodoform
[2022-01-15] MEDS: oxyCODONE 5 MG TAB 10 MG PO (17:37)
[2022-01-15] MEDS: Clindamycin 150 MG CAP, 12 CAPS/BTL 450 MG PO (17:38)
== END 2022-01-15 17:51 | disposition home or self-care (01) ==
PROVIDERS: Emergency Provider Physician Assistant; PCP Family Medicine
DX: L02.512 Cutaneous abscess of left hand (principal); T80.29XA Infection following other infusion, transfusion and therapeutic injection, initial encounter; F19.10 Other psychoactive substance abuse, uncomplicated
CPT/HCPCS: 99283

== ENCOUNTER 2022-01-17 13:59 | Emergency (ER) | payer MEDICAID, SELFPAY ==
[2022-01-17 14:03] VITALS: BP 131/96; PULSE 81; RESP 16; TEMP 36.6; O2SAT 99
--- NOTE | 2022-01-17 14:09 | ED.GENADUL_ITS ---
Discharge Plan Disposition Patient Disposition: HOME Condition: Stable Discharge Details Clinical Impression: Encounter for wound re-check Primary Care Provider: Coty Stanley ED Provider: Dennise Vo Home Meds and New Rx's Prescriptions: No Action fluconazole [Diflucan] 150 mg tablet 150 mg PO QWEEK Qty: 2 0RF Rx Instructions: as a single dose, may repeat once in 1 week doxepin 100 mg capsule See Rx Instructions PO QHS Rx Instructions: 200mg PO every day at bedtime; melatonin 3 mg capsule 9 mg PO HS PRN olanzapine 20 mg tablet 20 mg PO QHS dexmethylphenidate [Focalin] 5 mg tablet 5 mg PO BID MDD 2 Qty: 10 0RF Rx Instructions: administer doses at least 4 hours apart amlodipine 10 mg tablet 10 mg PO DAILY Qty: 90 6RF lisinopril 10 mg tablet 10 mg PO DAILY Qty: 90 6RF metoprolol tartrate 50 mg tablet 50 mg PO BID Qty: 180 3RF cholecalciferol (vitamin D3) 2,000 unit tablet 2,000 unit PO DAILY multivitamin Tablet 1 tab PO DAILY polyethylene glycol 3350 17 gram powder in packet 17 gm PO DAILY acetaminophen 325 mg capsule 650 mg PO Q6H PRN lamotrigine [Lamictal] 150 mg tablet 150 mg PO BID Qty: 60 5RF mupirocin 2 % ointment 1 applic TP BID Qty: 30 0RF fluticasone propionate 50 mcg/actuation spray,suspension 1 spray NS BID Qty: 19.8 12RF levothyroxine 50 mcg tablet 50 mcg PO DAILY Qty: 90 12RF omeprazole 40 mg capsule,delayed release(DR/EC) 40 mg PO DAILY Qty: 90 3RF albuterol sulfate [ProAir HFA] 90 mcg/actuation HFA aerosol inhaler 2 puff Inhalation Q4H PRN Qty: 1 2RF alprazolam 2 mg tablet 2 mg PO DAILY Label Comments: TAKE ONE TABLET BY MOUTH EVERY DAY FOR SEVERE ANXIETY, MAXIMUM DAILY DOSE = 1 TABLET clonidine HCl 0.2 mg tablet 0.2 mg PO BID clindamycin HCl 150 mg capsule 450 mg PO TID 10 Days Qty: 90 0RF Discharge Instructions Instructions: Abscess Incision and Drainage (DC) Additional Instructions: Keep clean and dry, covered while showering. Take 3 tablets 3 times a day of the antibiotics were previously prescribed. Please get this prescription filled In 3 days you may take the dressing off and remove the packing if possible. You may attempt to place new packing. If you are unable to do this you may return to the emergency department for an additional wound recheck. Recheck of the wound every 3 days. Referrals: Coty Stanley MD, [place] [Primary Care Provider] - 1 week Medical Decision Making 41-year-old female presents to the ER for wound recheck after having abscess I&D 2 days ago. Wound was cleaned, repacked with iodoform dressing and nonadherent dressing with Kerlix placed. See procedure note. I did discuss home care with patient, appropriate use of the antibiotics I did instruct her to take 3 tablets 3 times a day she verbalizes understanding. I also did discuss showering care and to have the wound rechecked in 3 days. She was given supplies to attempt to repack the wound herself if possible. If any concerns or worsening I did instruct her to return to the emergency department. Patient was given supplies for wound care at home. Patient left department without discharge papers. Medical Records Medical records reviewed: Yes I reviewed the patient's medical records. HPI General Mode of arrival: ambulatory . Date/Time Provider Initiated Documentation: 01/17/22 14:02 . Limitations to Documentation: no limitations . Information obtained by: RN notes reviewed and old records reviewed . HPI Narrative: 41-year-old female presents to the ER for a wound recheck after having a left hand abscess I&D on January 15 which was 2 days ago. Iodoform packing was placed. Patient reports that she has not removed the dressing and has questions regarding showering. No significant erythema noted to her left forearm no red streaks. Patient was prescribed clindamycin 450 mg 3 times daily, however she has not picked up the prescription. She has been taking the to go medication that was given to her, however it us unclear if she is taking them as prescribed. Related Data Home Medications Medication Instructions Recorded Confirmed lamotrigine 150 mg tablet 150 mg PO BID #60 tabs 09/04/18 01/17/22 (Lamictal) acetaminophen 325 mg capsule 650 mg PO Q6H PRN 07/24/19 01/17/22 cholecalciferol (vitamin D3) 50 2,000 unit PO DAILY 07/24/19 01/17/22 mcg (2,000 unit) tablet multivitamin 1 tab PO DAILY 07/24/19 01/17/22 polyethylene glycol 3350 17 gram 17 gm PO DAILY 07/24/19 01/17/22 oral powder packet mupirocin 2 % topical ointment 1 applic topical BID #30 grams 08/04/19 01/17/22 fluticasone propionate 50 1 spray NS BID #19.8 mL 01/15/21 01/17/22 mcg/actuation nasal spray,suspension levothyroxine 50 mcg tablet 50 mcg PO DAILY #90 tab-caps 01/15/21 01/17/22 omeprazole 40 mg capsule,delayed 40 mg PO DAILY #90 tab-caps 01/15/21 01/17/22 release albuterol sulfate 90 mcg/actuation 2 puff inhalation Q4H PRN wheeze 10/05/21 01/17/22 aerosol inhaler (ProAir HFA) ##1 alprazolam 2 mg tablet 2 mg PO DAILY 11/06/21 01/17/22 clonidine HCl 0.2 mg tablet 0.2 mg PO BID 11/06/21 01/17/22 doxepin 100 mg capsule See Rx Instructions PO QHS 11/29/21 01/17/22 melatonin 3 mg capsule 9 mg PO HS PRN 11/29/21 01/17/22 olanzapine 20 mg tablet 20 mg PO QHS 11/29/21 01/17/22 amlodipine 10 mg tablet 10 mg PO DAILY #90 tabs 12/01/21 01/17/22 dexmethylphenidate 5 mg tablet 5 mg PO BID #10 tabs 12/01/21 01/17/22 (Focalin) lisinopril 10 mg tablet 10 mg PO DAILY #90 tabs 12/01/21 01/17/22 metoprolol tartrate 50 mg tablet 50 mg PO BID #180 tab-caps 12/01/21 01/17/22 fluconazole 150 mg tablet 150 mg PO QWEEK #2 tabs 01/03/22 01/17/22 (Diflucan) clindamycin HCl 150 mg capsule 450 mg PO TID 10 days #90 caps 01/15/22 01/17/22 Previous Rx's Medication Instructions Recorded lamotrigine 150 mg tablet 150 mg PO BID #60 tabs 09/04/18 (Lamictal) mupirocin 2 % topical ointment 1 applic topical BID #30 grams 08/04/19 fluticasone propionate 50 1 spray NS BID #19.8 mL 01/15/21 mcg/actuation nasal spray,suspension levothyroxine 50 mcg tablet 50 mcg PO DAILY #90 tab-caps 01/15/21 omeprazole 40 mg capsule,delayed 40 mg PO DAILY #90 tab-caps 01/15/21 release albuterol sulfate 90 mcg/actuation 2 puff inhalation Q4H PRN wheeze 10/05/21 aerosol inhaler (ProAir HFA) ##1 amlodipine 10 mg tablet 10 mg PO DAILY #90 tabs 12/01/21 dexmethylphenidate 5 mg tablet 5 mg PO BID #10 tabs 12/01/21 (Focalin) lisinopril 10 mg tablet 10 mg PO DAILY #90 tabs 12/01/21 metoprolol tartrate 50 mg tablet 50 mg PO BID #180 tab-caps 12/01/21 fluconazole 150 mg tablet 150 mg PO QWEEK #2 tabs 01/03/22 (Diflucan) clindamycin HCl 150 mg capsule 450 mg PO TID 10 days #90 caps 01/15/22 Allergies Allergy/AdvReac Type Severity Reaction Status Date / Time latex Allergy Intermediate SKIN RASH Unverified 01/17/22 14:10 Penicillins Allergy Unverified 01/17/22 14:10 prazosin AdvReac Dizziness/S Unverified 01/17/22 14:10 weats General JOLLY: 3 Review of Systems Constitutional Constitutional: Denies chills, Denies fever(s) and Denies headache(s) ENT Ears, Nose, Mouth, and Throat: Denies headache(s) Integumentary/Breasts Skin/Breast: Reports as per HPI and Reports wounds (Abscess I&D left hand) Neurologic Neurologic: Denies headache(s) PFSH All Active Problems (Updated 01/17/22 @ 14:44 by Dennise Vo) Abscess of hand (Acute) Encounter for wound re-check (Acute) ADD (attention deficit disorder) (Acute) On stimulant, dexylmethylphenidate-managed per psychiatry Psychosis (Acute) Pre-diabetes (Acute) Obesity, morbid, BMI 40.0-49.9 (Acute) Flaccid paraplegia (Acute) Migraine (Chronic) Urinary retention (Acute) Lumbar pain (Acute) Lower extremity weakness (Acute) Microcytic anemia (Acute) Ovarian cyst (Acute) Substance abuse (Chronic) Heroin, crack cocaine, alcohol. 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 Followed by Dr. Pereira Anxiety (Chronic) On alprazolam-Per psychiatry Smoker (Chronic) Accidental drug overdose (Acute) Medical History (Updated 01/17/22 @ 14:44 by Dennise Vo) At risk for sexually transmitted disease due to unprotected sex (04/24/17) 2018 treated for chlamydia x2. Cauda equina compression Chlamydia (09/24/17) Drug overdose (03/12/06) Fever Gram-positive bacteremia Iron deficiency anemia Lice Right ear pain (06/08/16) Right lower quadrant pain Surgical History Status post dilation and curettage Elective termination of Status post laparoscopy Social History (Updated 01/05/22 @ 14:01 by Rupali Kennedy) Smoking/Tobacco Use Status: Current every day Tobacco Type: cigarettes Tobacco: How many years used: 23 Quit status: has quit before Second Hand Exposure: Yes Smoking risk assessment performed?: Yes Alcohol Intake: former Drug use: Rarely Substance use type: marijuana Household members: none Housing: house Number of Children: 0 Education Level: college Do you need help understanding health information?: Rarely Pets and animals: No Sexually active: Yes Do you think of yourself as: straight/heterosexual Current gender identity: female What is your relationship status?: never How often do you talk on the phone with friends or family?: three or more times per week How often do you get together with friends or relatives?: twice per week How often do you attend voodoo or orthodox services?: decline to answer Do you belong to any clubs or organized social groups?: no Panel score (0-1 are the most socially isolated patients): 1 Duration: 15-30 minutes/day Frequency: 1-2 times per week Quin/Pentecostal: No preference Do you feel safe at home: Yes Do you feel safe in your relationship?: Yes History History 1 Para Hx # Term Pregnancies Multiple births Hx # Pregnancies Ectopic pregnancies AB induced 1 Hx Number of Living Children 0 AB spontaneous Exam Extrem Left upper extremity: elbow/forearm Details: normal to inspection and other (No significant induration no red streaks) Hand/finger images: 1. Redness, sloughing of outer layer of dermis 2. Incision, small amount of purulent drainage noted from the bed of the abscess Procedures Abscess I/D Site: Hand Side (if applicable): Left Irrigation: Yes Packing used?: Iodoform Complications: Pain Other Description: Patient here for a wound recheck and repacking of an abscess I&D which was performed 48 hours ago. There is a small approximately 3 inch iodoform packing which was removed. There is a incision noted approximately 0.5 cm to the dorsum of her left hand. No significant swelling or erythema. She does have some sloughing of skin. There is purulent drainage to the bed of the incision. Wound repacked irrigated with normal saline nonadherent dressing applied
--- NOTE | 2022-01-17 15:16 | NUR.NOTE ---
Nursing Note:discharge instructions mailed to patient
== END 2022-01-17 14:45 | disposition home or self-care (01) ==
PROVIDERS: Emergency Provider Registered Nurse Emergency; PCP Family Medicine
DX: L02.512 Cutaneous abscess of left hand (principal)

== ENCOUNTER 2022-04-11 10:31 | Outpatient (REF) | payer MEDICAID, SELFPAY ==
[2022-04-11 13:02] LABS: *AMPHETAMINES SCREEN URINE Positive (Negative); *BARBITURATES SCREEN URINE Negative (Negative); *BENZODIAZEPINES SCREEN URINE Positive (Negative); Cannabinoids THC Positive (Negative); Cocaine Screen,Urine Positive (Negative); METHADONE URINE SCREEN Negative (Negative); OPIATES URINE SCREEN Negative (Negative)
[2022-04-11 13:06] LABS: Tricyclic Antidepressants Negative (Negative)
[2022-04-12 15:10] LABS: Chlamydia Result Negative (Negative); GC Result Negative (Negative)
== END 2022-04-11 10:32 | disposition home or self-care (01) ==
LOC: LBN 10:31
PROVIDERS: PCP Family Medicine; Visit Provider Family Medicine
DX: Z11.3 Encounter for screening for infections with a predominantly sexual mode of transmission (principal); F29 Unspecified psychosis not due to a substance or known physiological condition
CPT/HCPCS: 80307; 87491; 87591

== ENCOUNTER 2022-04-12 21:45 | Outpatient (REF) | payer MEDICAID, SELFPAY ==
[2022-04-14 14:44] LABS: Chlamydia Result Negative (Negative); GC Result Negative (Negative)
== END 2022-04-12 21:46 | disposition home or self-care (01) ==
LOC: LBN 21:45
PROVIDERS: PCP Family Medicine; Visit Provider Nurse Practitioner Family
DX: Z11.3 Encounter for screening for infections with a predominantly sexual mode of transmission (principal)
CPT/HCPCS: 87491; 87591; 87480; 87510; 87660

== ENCOUNTER 2022-09-10 20:53 | Emergency (ER) | payer MEDICAID, SELFPAY ==
[2022-09-10] VITALS (8 sets, daily range): BP systolic 114–135; BP diastolic 59–93; PULSE 75–102; RESP 16–24; TEMP 36.8; O2SAT 93–99
--- NOTE | 2022-09-10 21:15 | RT.EKG_ITS ---
APPROVED REPORT Exam: Resting ECG Reason for Exam: sob Patient Location: E HR:90 bpm ECG Measurements Heart Rate 90 AXIS TX 191 P 40 QRSd 109 QRS 34 QT 389 T 43 QTc 476 Conclusion Sinus rhythm...normal P axis, V-rate 60- 99 Probable left atrial enlargement...P >50mS, <-0.10mV V1 ST elev, probable normal early repol pattern...ST elevation, age<55 Physician: st changes noted in lateral leads, no stemi
--- NOTE | 2022-09-10 21:15 | DI.RAD_ITS ---
Exam(s) XR PORTABLE CHEST AP EXAM: XR PORTABLE CHEST AP CLINICAL HISTORY: sob TECHNIQUE: 2D digital imaging was performed of the chest. One image was obtained. An AP view was ob tained. COMPARISON: CR XR CHEST 2V PA LATERAL from 06/03/2019 FINDINGS: There is poor inspiration. MEDIASTINUM: There is mild prominence of the mediastinum likely due to poor inspiration and technique . HEART: Normal. PULMONARY VASCULATURE: Normal. LUNGS: Clear. PLEURAL SPACE: No pleural effusion or pneumothorax. BONE:Within normal limits for the patient's age. OTHER FINDINGS:Normal. IMPRESSION: No acute pulmonary findings. DATA REPOSITORY: RADIATION DOSE DELIVERED:
--- NOTE | 2022-09-10 21:23 | ED.GENADUL_ITS ---
Discharge Plan Discharge Details Chief Complaint: GenMedical Primary Care Provider: Coty Stanley ED Provider: Eliu Enriquez Home Meds and New Rx's Prescriptions: No Action lisinopril 10 mg tablet 10 mg PO DAILY Qty: 90 6RF metoprolol tartrate 100 mg tablet 100 mg PO BID Qty: 180 3RF clonidine HCl 0.2 mg tablet 0.2 mg PO BID Qty: 30 4RF doxepin 50 mg capsule 50 mg PO QHS Qty: 30 4RF polyethylene glycol 3350 17 gram powder in packet 17 gm PO DAILY acetaminophen 325 mg capsule 650 mg PO Q6H PRN albuterol sulfate [ProAir HFA] 90 mcg/actuation HFA aerosol inhaler 2 puff Inhalation Q4H PRN Qty: 1 2RF lamotrigine [Lamictal] 150 mg tablet 150 mg PO BID Qty: 60 0RF levothyroxine 50 mcg tablet 50 mcg PO DAILY Qty: 90 12RF melatonin 3 mg capsule 9 mg PO HS PRN (Reason: insomnia) Qty: 90 4RF fluticasone propionate 50 mcg/actuation spray,suspension 1 spray NS BID Qty: 19.8 12RF cefuroxime axetil 500 mg tablet 500 mg PO BID Qty: 14 0RF prednisone 20 mg tablet See Rx Instructions PO DAILY Qty: 11 0RF Rx Instructions: 2 tabs daily for 3 days; 1 tab daily for 3 days; 0.5 tab daily for 4 days alprazolam 0.5 mg tablet 0.5 mg PO BID Qty: 35 0RF omeprazole 40 mg capsule,delayed release(DR/EC) 40 mg PO DAILY Qty: 90 3RF Medical Decision Making This is a 42-year-old female who presents to the ER paranoid, with pressured speech, anxious, stating she does not feel safe but cannot tell me why and she is also concerned for both her mother and her sister. Patient admits to noncompliance with her medications and cocaine use. She denies recent trauma to me. She denies SI or HI. Medically she has multiple complaints including shortness of breath, pain in her lower extremities bilaterally for at least 1 month, concern for dehydration, paresthesias. I am concerned of an underlying psychiatric disorder exacerbated in the setting of cocaine use. She denies SI or HI, I do not believe that she requires a CPSO but I will initiate an interim care plan and once medically cleared request a mental health evaluation. Given her multiple medical complaints, will initiate medical work-up for mental health clearance as well as a cardiac work-up. Patient is anxious, paranoid, reports that she has been noncompliant with her medications. She is agreeable to medication treatment, will provide 10 p.o. Zyprexa and 2 p.o. Ativan No evidence of leukocytosis, anemia, thrombocytopenia. Electrolytes unrema rkable, anion gap slightly elevated at 12.2. Creatinine 0.9 with GFR of 81.86. LFTs unremarkable. TSH 1.33. Salicylates 4.6. Acetaminophen less than 2. Alcohol less than 3. Her borderline EKG, chest x-ray revealing a tortuous aorta-mediastinal widening, D-dimer of 571 will pursue CTA. Flu, RSV, COVID-negative CTA unremarkable Patient went to the restroom but states that she forgot to urinate into the cup. Now she states that she is unable to urinate. She does admit to cocaine. Thus far medical work-up has been unremarkable for emergent process. I do not believe that we should delay a mental health evaluation any longer while awaiting for a urine sample and a mental health evaluation has been requested This documentation was generated using [employer] dictation system, please disregard any oddities of phrase or misspellings. Medical Records Medical records reviewed: Yes I reviewed the patient's medical records. Imaging Data Radiologic Study: Attestation: I personally reviewed and interpreted this imaging study as follows: Imaging: X-Ray Radiologist's impression: PROCEDURE INFORMATION: Exam: XR Chest Exam date and time: 09/10/2022 9:31 PM Age: 42 years old Clinical indication: Shortness of breath; Patient HX: SOB TECHNIQUE: Imaging protocol: Radiologic exam of the chest. Views: 1 view. COMPARISON: CT CHEST PE CTA 10/24/2021 5:12 AM FINDINGS: Lungs: . No consolidation. Pleural spaces: Unremarkable. No pleural effusion. No pneumothorax. Heart/Mediastinum: Tortuous aorta/mediastinal widening No cardiomegaly. Bones/joints: Unremarkable. IMPRESSION: Tortuous aorta/mediastinal widening. Consider further evaluation with CT angiography of the chest as clinically indicated Radiologic Study #2: Attestation: I personally reviewed and interpreted this imaging study as follows: Imaging: CT Scan Radiologist's impression: PROCEDURE INFORMATION: Exam: CTA Chest With Contrast CTA Abdomen and Pelvis With Contrast Exam date and time: 09/10/2022 10:35 PM Age: 42 years old Clinical indication: Shortness of breath and other: Mediastinal widening; Other: Medialstinal widening TECHNIQUE: Imaging protocol: Computed tomographic angiography of the chest with contrast. Computed tomographic angiography of the abdomen and pelvis with contrast. 3D rendering (Not supervised by radiologist): MIP and/or 3D reconstructed images were created by the technologist. Contrast material: OMNIPAQUE 3560; Contrast volume: 100 ml; Contrast route: INTRAVENOUS (IV); COMPARISON: CT CHEST PE CTA 10/24/2021 5:12 AM FINDINGS: Limited due to respiratory motion artifact VASCULATURE: Pulmonary arteries: No pulmonary emboli. Aorta: No aortic aneurysm. No aortic dissection. Celiac trunk and mesenteric arteries: No occlusion or significant stenosis. Renal arteries: No occlusion or significant stenosis. Right iliac arteries: No occlusion or significant stenosis. Left iliac arteries: No occlusion or significant stenosis.CHEST: Lungs: Unremarkable. No consolidation. No masses. Pleural spaces: Unremarkable. No pneumothorax. No pleural effusion. Heart: Unremarkable. No cardiomegaly. No pericardial effusion. ABDOMEN AND PELVIS: Liver: No mass. Gallbladder and bile ducts: Unremarkable. No calcified stones. No ductal dilat ion. Pancreas: Unremarkable. No mass. No ductal dilation. Spleen: Unremarkable. No splenomegaly. Adrenal glands: Unremarkable. No mass. Kidneys and ureters: Unremarkable. No solid mass. No hydronephrosis. Stomach and bowel: Unremarkable. No obstruction. No mucosal thickening. Appendix: No evidence of appendicitis. Intraperitoneal space: Unremarkable. No free air. No significant fluid collection. Urinary bladder: Unremarkable. No mass. Reproductive: Unremarkable as visualized. Lymph nodes: Unremarkable. No enlarged lymph nodes. Bones/joints: Unremarkable. No acute fracture. Soft tissues: Unremarkable. IMPRESSION: Unremarkable CTA chest, abdomen, and pelvis. No aortic dissection or aneurysm. No pulmonary emboli detected Thank you for allowing us to participate in the care of your patient. Lab Data Lab results reviewed: Yes I reviewed the patient's lab results. Labs: Laboratory Tests Range/Units 09/10/22 09/10/22 09/10/22 21:38 21:38 21:38 WBC (4.4-10.8) 10^3/uL 10.63 RBC (3.93-5.22) 10^6/uL 4.73 Hgb (11.2-15.7) g/dL 12.8 Hct (36.0-46.0) % 41.2 MCV (80-95) fL 87 MCH (27.0-33.0) pg 27.1 MCHC (32.0-36.0) % 31.1 L RDW (11.7-14.6) % 15.1 H Plt Count (130-400) 10^3/uL 306 MPV (8.0-11.0) fL 9.3 Immature Gran % 0.5 Neutrophils % 79.2 Lymphocytes % 16.5 Monocytes % 3.2 Eosinophils % 0.3 Basophils % 0.3 Nucleated RBC % (0.0-0.3) % 0.0 Absolute Neutrophils (1.2-6.7) 10^3/uL 8.43 H Absolute Lymphocytes (1.2-3.4) 10^3/uL 1.75 Absolute Monocytes (0.1-0.8) 10^3/uL 0.34 Absolute Eosinophils (0.0-0.7) 10^3/uL 0.03 Absolute Basophils (0.0-0.2) 10^3/uL 0.03 PT (9.3-11.0) sec INR (0.9-1.1) APTT (21.0-27.5) sec D-Dimer (<500) ng/mlFEU Sodium (136-145) mmol/L 138 Potassium (3.5-5.1) mmol/L 3.5 Chloride (98-107) mmol/L 101 Carbon Dioxide (21.0-32.0) mmol/L 24.8 Anion Gap (3-11) mmol/L 12.2 H BUN (7-18) mg/dL 11 Creatinine (0.55-1.02) mg/dL 0.9 Est GFR (CKD-EPI 2020) (mL/min/1.73m2) 81.86 Glucose (74-106) mg/dL 114 H Calcium (8.5-10.1) mg/dL 9.7 Magnesium (1.8-2.4) mg/dL Total Bilirubin (0.2-1.0) mg/dL 0.4 AST (15-37) U/L 15 ALT (14-59) U/L 15 Alkaline Phosphatase (46-116) U/L 95 Troponin I (<or=60) ng/L NT-Pro-B Natriuret Pep (<300) pg/mL Total Protein (6.4-8.2) g/dL 8.1 Albumin (3.4-5.0) g/dL 4.0 TSH (0.36-3.74) uIU/mL 1.33 Salicylates (<2.8) mg/dL 4.6 Acetaminophen (10-30) ug/mL < 2 Ethyl Alcohol (<10) mg/dL < 3.0 COVID-19 Source SARS-CoV-2 (PCR) (Negative) Influenza Type A (PCR) (Negative) Influenza Type B (PCR) (Negative) RSV (PCR) (Negative) Range/Units 09/10/22 09/10/22 09/10/22 21:38 21:38 21:38 WBC (4.4-10.8) 10^3/uL RBC (3.93-5.22) 10^6/uL Hgb (11.2-15.7) g/dL Hct (36.0-46.0) % MCV (80-95) fL MCH (27.0-33.0) pg MCHC (32.0-36.0) % RDW (11.7-14.6) % Plt Count (130-400) 10^3/uL MPV (8.0-11.0) fL Immature Gran % Neutrophils % Lymphocytes % Monocytes % Eosinophils % Basophils % Nucleated RBC % (0.0-0.3) % Absolute Neutrophils (1.2-6.7) 10^3/uL Absolute Lymphocytes (1.2-3.4) 10^3/uL Absolute Monocytes (0.1-0.8) 10^3/uL Absolute Eosinophils (0.0-0.7) 10^3/uL Absolute Basophils (0.0-0.2) 10^3/uL PT (9.3-11.0) sec 9.9 INR (0.9-1.1) 1.0 APTT (21.0-27.5) sec 28.1 H D-Dimer (<500) ng/mlFEU 571 H Sodium (136-145) mmol/L Potassium (3.5-5.1) mmol/L Chloride (98-107) mmol/L Carbon Dioxide (21.0-32.0) mmol/L Anion Gap (3-11) mmol/L BUN (7-18) mg/dL Creatinine (0.55-1.02) mg/dL Est GFR (CKD-EPI 2020) (mL/min/1.73m2) Glucose (74-106) mg/dL Calcium (8.5-10.1) mg/dL Magnesium (1.8-2.4) mg/dL 2.0 Total Bilirubin (0.2-1.0) mg/dL AST (15-37) U/L ALT (14-59) U/L Alkaline Phosphatase (46-116) U/L Troponin I (<or=60) ng/L < 50 NT-Pro-B Natriuret Pep (<300) pg/mL 199 Total Protein (6.4-8.2) g/dL Albumin (3.4-5.0) g/dL TSH (0.36-3.74) uIU/mL Salicylates (<2.8) mg/dL Acetaminophen (10-30) ug/mL Ethyl Alcohol (<10) mg/dL COVID-19 Source SARS-CoV-2 (PCR) (Negative) Influenza Type A (PCR) (Negative) Influenza Type B (PCR) (Negative) RSV (PCR) (Negative) Range/Units 09/10/22 21:48 WBC (4.4-10.8) 10^3/uL RBC (3.93-5.22) 10^6/uL Hgb (11.2-15.7) g/dL Hct (36.0-46.0) % MCV (80-95) fL MCH (27.0-33.0) pg MCHC (32.0-36.0) % RDW (11.7-14.6) % Plt Count (130-400) 10^3/uL MPV (8.0-11.0) fL Immature Gran % Neutrophils % Lymphocytes % Monocytes % Eosinophils % Basophils % Nucleated RBC % (0.0-0.3) % Absolute Neutrophils (1.2-6.7) 10^3/uL Absolute Lymphocytes (1.2-3.4) 10^3/uL Absolute Monocytes (0.1-0.8) 10^3/uL Absolute Eosinophils (0.0-0.7) 10^3/uL Absolute Basophils (0.0-0.2) 10^3/uL PT (9.3-11.0) sec INR (0.9-1.1) APTT (21.0-27.5) sec D-Dimer (<500) ng/mlFEU Sodium (136-145) mmol/L Potassium (3.5-5.1) mmol/L Chloride (98-107) mmol/L Carbon Dioxide (21.0-32.0) mmol/L Anion Gap (3-11) mmol/L BUN (7-18) mg/dL Creatinine (0.55-1.02) mg/dL Est GFR (CKD-EPI 2020) (mL/min/1.73m2) Glucose (74-106) mg/dL Calcium (8.5-10.1) mg/dL Magnesium (1.8-2.4) mg/dL Total Bilirubin (0.2-1.0) mg/dL AST (15-37) U/L ALT (14-59) U/L Alkaline Phosphatase (46-116) U/L Troponin I (<or=60) ng/L NT-Pro-B Natriuret Pep (<300) pg/mL Total Protein (6.4-8.2) g/dL Albumin (3.4-5.0) g/dL TSH (0.36-3.74) uIU/mL Salicylates (<2.8) mg/dL Acetaminophen (10-30) ug/mL Ethyl Alcohol (<10) mg/dL COVID-19 Source Nasopharynx SARS-CoV-2 (PCR) (Negative) Negative Influenza Type A (PCR) (Negative) Negative Influenza Type B (PCR) (Negative) Negative RSV (PCR) (Negative) Negative ECG Data Attestation: I personally reviewed and interpreted this ECG (s) as follows: Interpretation: Sinus rhythm, ventricular rate of 90, there does appear to be ST elevation, probable early repolarization pattern. No STEMI HPI General Mode of arrival: ambulatory . Date/Time Provider Initiated Documentation: 09/10/22 21:08 . Limitations to Documentation: other (Paranoid) . Information obtained by: patient . HPI Narrative: This is a 42-year-old female with a past medical history of psychosis, ADD, migraines, substance abuse, hypothyroidism, hepatitis, bipolar type I disorder, anxiety, hypertension, epidural abscess, drug overdose, presenting to the ER for multiple complaints, reporting that she is scared for herself and her family but cannot tell me why, tells me that her sister is the only person who has the answers, also reporting increased anxiety, shortness of breath x1 month, body wide paresthesias, and admits to cocaine use. Unfortunately she is a rather vague and elusive historian. She did give nursing staff permission to contact her mother who states that her daughter has recently been admitted at [facility] and since her discharge home has been using crack cocaine and hang ing out with a tough crowd. Mother reports that she herself and her other daughter are in fact safe. Patient does admit to being noncompliant with her medications but cannot tell me for how long. Related Data Home Medications Medication Instructions Recorded Confirmed acetaminophen 325 mg capsule 650 mg PO Q6H PRN 07/24/19 08/15/22 polyethylene glycol 3350 17 gram 17 gm PO DAILY 07/24/19 08/15/22 oral powder packet lisinopril 10 mg tablet 10 mg PO DAILY #90 tabs 12/01/21 08/15/22 omeprazole 40 mg capsule,delayed 40 mg PO DAILY #90 tab-caps 02/06/22 08/15/22 release albuterol sulfate 90 mcg/actuation 2 puff inhalation Q4H PRN wheeze 04/11/22 08/15/22 aerosol inhaler (ProAir HFA) ##1 lamotrigine 150 mg tablet 150 mg PO BID #60 tabs 04/11/22 08/15/22 (Lamictal) levothyroxine 50 mcg tablet 50 mcg PO DAILY #90 tab-caps 04/11/22 08/15/22 melatonin 3 mg capsule 9 mg PO HS PRN insomnia #90 caps 04/11/22 08/15/22 metoprolol tartrate 100 mg tablet 100 mg PO BID #180 tab-caps 06/06/22 08/15/22 clonidine HCl 0.2 mg tablet 0.2 mg PO BID #30 tabs 07/10/22 08/15/22 doxepin 50 mg capsule 50 mg PO QHS #30 caps 07/10/22 08/15/22 alprazolam 0.5 mg tablet 0.5 mg PO BID #35 tabs 08/15/22 08/15/22 cefuroxime axetil 500 mg tablet 500 mg PO BID #14 tabs 08/15/22 08/15/22 fluticasone propionate 50 1 spray NS BID #19.8 mL 08/15/22 08/15/22 mcg/actuation nasal spray,suspension prednisone 20 mg tablet See Rx Instructions PO DAILY #11 08/15/22 08/15/22 tabs Previous Rx's Medication Instructions Recorded lisinopril 10 mg tablet 10 mg PO DAILY #90 tabs 12/01/21 omeprazole 40 mg capsule,delayed 40 mg PO DAILY #90 tab-caps 02/06/22 release albuterol sulfate 90 mcg/actuation 2 puff inhalation Q4H PRN wheeze 04/11/22 aerosol inhaler (ProAir HFA) ##1 lamotrigine 150 mg tablet 150 mg PO BID #60 tabs 04/11/22 (Lamictal) levothyroxine 50 mcg tablet 50 mcg PO DAILY #90 tab-caps 04/11/22 melatonin 3 mg capsule 9 mg PO HS PRN insomnia #90 caps 04/11/22 metoprolol tartrate 100 mg tablet 100 mg PO BID #180 tab-caps 06/06/22 clonidine HCl 0.2 mg tablet 0.2 mg PO BID #30 tabs 07/10/22 doxepin 50 mg capsule 50 mg PO QHS #30 caps 07/10/22 alprazolam 0.5 mg tablet 0.5 mg PO BID #35 tabs 08/15/22 cefuroxime axetil 500 mg tablet 500 mg PO BID #14 tabs 08/15/22 fluticasone propionate 50 1 spray NS BID #19.8 mL 08/15/22 mcg/actuation nasal spray,suspension prednisone 20 mg tablet See Rx Instructions PO DAILY #11 08/15/22 tabs Allergies Allergy/AdvReac Type Severity Reaction Status Date / Time latex Allergy Intermediate SKIN RASH Unverified 08/15/22 11:03 Penicillins Allergy Unverified 08/15/22 11:03 prazosin AdvReac Dizziness/S Unverified 08/15/22 11:03 wejanet General Stated Complaint: GenMedical JOLLY: 3 Review of Systems Unobtainable due to mental status PFSH All Active Problems URI (upper respiratory infection) (Acute) ADD (attention deficit disorder) (Acute) On stimulant, dexylmethylphenidate-managed per psychiatry Psychosis (Acute) Pre-diabetes (Acute) Obesity, morbid, BMI 40.0-49.9 (Acute) Flaccid paraplegia (Acute) Migraine (Chronic) Urinary retention (Acute) Lumbar pain (Acute) Lower extremity weakness (Acute) Microcytic anemia (Acute) Ovarian cyst (Acute) Substance abuse (Chronic) Heroin, crack cocaine, alcohol. 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 Followed by Dr. Pereira Anxiety (Chronic) On alprazolam-Per psychiatry Smoker (Chronic) Accidental drug overdose (Acute) Medical History At risk for sexually transmitted disease due to unprotected sex (04/24/17) 2018 treated for chlamydia x2. Cauda equina compression Chlamydia (09/24/17) Drug overdose (03/12/06) Fever Gram-positive bacteremia Iron deficiency anemia Lice Right ear pain (06/08/16) Right lower quadrant pain Surgical History Status post dilation and curettage Elective termination of Status post laparoscopy Social History Smoking/Tobacco Use Status: Current every day Tobacco Type: cigarettes Tobacco: How many years used: 23 Quit status: has quit before Second Hand Exposure: Yes Smoking risk assessment performed?: Yes Alcohol Intake: former Drug use: Daily Substance use type: marijuana and crack/cocaine Details: Last used cocaine @199909/10/2022 Household members: none Housing: house Number of Children: 0 Education Level: college Do you need help understanding health information?: Rarely Pets and animals: No Sexually active: Yes Do you think of yourself as: straight/heterosexual Current gender identity: female What is your relationship status?: never How often do you talk on the phone with friends or family?: three or more times per week How often do you get together with friends or relatives?: twice per week How often do you attend anabaptist or caodaism services?: decline to answer Do you belong to any clubs or organized social groups?: no Panel score (0-1 are the most socially isolated patients): 1 Duration: 15-30 minutes/day Frequency: 1-2 times per week Quin/Restoration: No preference Do you feel safe at home: Yes Do you feel safe in your relationship?: Yes History History 1 Para Hx # Term Pregnancies Multiple births Hx # Pregnancies Ectopic pregnancies AB induced 1 Hx Number of Living Children 0 AB spontaneous Exam Const General: anxious and disheveled Orientation: alert, awake, oriented to person and oriented to place HENMT Head: normal to inspection, normocephalic and atraumatic Face and sinus: normal facial exam Mouth: moist mucous membranes Throat: posterior oropharynx normal Eyes General: appearance normal, both eyes and all related structures Conjunctivae: conjunctivae normal Neck Neck: normal visual inspection, full ROM, no meningeal signs, trachea midline and supple Resp Effort & Inspection: normal respiratory effort and able to speak in complete sentences Auscultation: clear to auscultation bilaterally Cardio Rate: regular rate Rhythm: regular rhythm GI Inspection: obesity Palpation: soft, not firm, no guarding and nontender Back/Spine/Pelvis Back: No back tenderness Skin General skin exam: no rashes or lesions noted Other: Abrasion dorsal aspect of left forearm. No signs of infection. Neuro General: patient alert, patient awake, oriented Patient Orientation: Person and Place, moves all extremities and no focal motor deficits Cranial Nerves: CN's II-XI intact bilaterally Cognition: normal cognition Speech: speech normal Gait: normal gait Motor: muscle tone normal throughout Sensory Exam: no sensory deficits noted Extrem General: normal to inspection, full ROM and capillary refill normal Psych Appearance: disheveled Mental Status: mental status grossly normal Speech and Movement: pressured speech Mood: anxious mood and paranoid Affect: animated and anxious affect Attitude: guarded and avoids eye contact Thought Process: flight of ideas Thought Content: suicidality Insight: poor Judgment: poor Course Vital Signs Vital signs: Vital Signs Temperature 36.8 C 09/10/22 20:57 Pulse 82 09/10/22 20:57 Respiratory Rate 22 09/10/22 20:57 Pulse Oximetry 98 09/10/22 20:57 Temperature 36.8 C 09/10/22 20:57 Temperature Source Oral 09/10/22 20:57 Pulse 82 09/10/22 20:57 Respiratory Rate 22 09/10/22 20:57 Blood Pressure Position Supine 09/10/22 20:57 Pulse Oximetry 98 09/10/22 20:57 Oxygen Delivery Method Room Air 09/10/22 20:57 Oxygen Flow Rate 0 09/10/22 20:57 Pain Level 10 09/10/22 20:57
[2022-09-10] MEDS: LORazepam 1 MG TAB 2 MG PO (21:25)
[2022-09-10] MEDS: OLANZapine 10 MG TAB PO (21:25)
[2022-09-10 21:48] LABS: Abs Immature Grans 0.05 10^3/uL (0.0-0.06); Absolute Basophil Count 0.03 10^3/uL (0.0-0.2); Absolute Eosinophil Count 0.03 10^3/uL (0.0-0.7); Absolute Lymphocyte Count 1.75 10^3/uL (1.2-3.4); Absolute Monocyte Count 0.34 10^3/uL (0.1-0.8); Absolute Neutrophil Count 8.43 10^3/uL (1.2-6.7); Basophils % 0.3; Eosinophils % 0.3; HCT 41.2 % (36.0-46.0); HGB 12.8 g/dL (11.2-15.7); Immature Grans % 0.5; Lymphocytes % 16.5; MCH 27.1 pg (27.0-33.0); MCHC 31.1 % (32.0-36.0); MCV 87 fL (80-95); MPV 9.3 fL (8.0-11.0); Monocytes % 3.2; Neutrophils % 79.2; Platelet Count 306 10^3/uL (130-400); RBC 4.73 10^6/uL (3.93-5.22); RDW 15.1 % (11.7-14.6); RDW-SD 48.2 fL; WBC 10.63 10^3/uL (4.4-10.8)
--- NOTE | 2022-09-10 21:53 | NUR.NOTE ---
@2130- Pt changed into paper scrubs, all belongings taken from room, placed into pt belongings bag and secured in locked room on unit. Pt cooperative with procedures thus far. Tolerated PO meds well.
--- NOTE | 2022-09-10 21:55 | NUR.NOTE ---
@2114- Pt is very paranoid in room. She is on her cell phone attempting to contact the police or 911 When asked why she is calling police pt states I am very scared for my family-I need to contact my mom and sister!
--- NOTE | 2022-09-10 21:57 | NUR.NOTE ---
@2119- Pt gave RN verbal consent to talk with her mother. Pt gave RN x2 phone numbers for Huma (mother) [phone] and sister, Gaye, ([phone]) Called pt's mother who states that she and her sister are safe. Beverley does not have any children at home and she lives by herself. Her mother states She has been smoking crack for 2 weeks and has been hanging around with drug dealers recently.
--- NOTE | 2022-09-10 22:05 | DI.VRAD_ITS ---
PROCEDURE INFORMATION: Exam: XR Chest Exam date and time: 09/10/2022 9:31 PM Age: 42 years old Clinical indication: Shortness of breath; Patient HX: SOB TECHNIQUE: Imaging protocol: Radiologic exam of the chest. Views: 1 view. COMPARISON: CT CHEST PE CTA 10/24/2021 5:12 AM FINDINGS: Lungs: . No consolidation. Pleural spaces: Unremarkable. No pleural effusion. No pneumothorax. Heart/Mediastinum: Tortuous aorta/mediastinal widening No cardiomegaly. Bones/joints: Unremarkable. IMPRESSION: Tortuous aorta/mediastinal widening. Consider further evaluation with CT angiography of the chest as clinically indicated Dictated and Authenticated by: Thaddeus Macias MD. Ordering:KITTY Nowak MD
[2022-09-10 22:08] LABS: PTT Activated 28.1 sec (21.0-27.5); Prothrombin Time 9.9 sec (9.3-11.0)
[2022-09-10 22:12] LABS: ALT 15 U/L (14-59); AST 15 U/L (15-37); Alkaline Phosphatase 95 U/L (46-116); Anion Gap 12.2 mmol/L (3-11); BUN 11 mg/dL (7-18); Bilirubin, Total 0.4 mg/dL (0.2-1.0); CO2 24.8 mmol/L (21.0-32.0); CREATININE 0.9 mg/dL (0.55-1.02); Calcium 9.7 mg/dL (8.5-10.1); Chloride 101 mmol/L (98-107); Estimated GFR 81.86 (mL/min/1.73m2); Glucose 114 mg/dL (74-106); Potassium 3.5 mmol/L (3.5-5.1); Sodium 138 mmol/L (136-145); TSH (W/Ref FT4) 1.33 uIU/mL (0.36-3.74); Total Protein 8.1 g/dL (6.4-8.2)
[2022-09-10 22:13] LABS: Salicylate 4.6 mg/dL (<2.8)
--- NOTE | 2022-09-10 22:15 | DI.CT_ITS ---
Exam(s) CT THORAX ABD/PEL CTA EXAM: CT THORAX ABD/PEL CTA CLINICAL HISTORY: sob, mediastinal widening. TECHNIQUE: Imaging Protocol: Axial CT angiography was performed with multi-slice acquisition and m ulti-planar and/or 3D reconstructions. CONTRAST MATERIAL: Intravenous: Omnipaque 350 contrast volume:100 mL Oral: No COMPARISON: CT CT CHEST PE CTA from 10/24/2021 FINDINGS: The examination is limited due to patient motion artifact. CHEST: Tracheobronchial tree: Patent where visualized. Pulmonary parenchyma: No consolidation or dominant measurable mass. No architectural distortion. Ther e are areas of atelectasis in the lungs. Pulmonary Arteries: No evidence of filling defect to suggest pulmonary emboli. Mediastinum and Bettye: No dominant adenopathy or fluid collection. The esophagus is unremarkable. Visualized thyroid: Unremarkable. Pleura: No effusion or pneumothorax. Heart: The heart is not dilated. No coronary artery calcifications are seen. No pericardial effusion. Aorta: Thoracic aorta non-dilated. Soft Tissues: Unremarkable. Bones: Within normal limits for the patient's age.There are old healed left rib fractures. ABDOMEN AND PELVIS: Abdomen: Celiac axis/mesenteric arteries: No evidence of occlusion or significant stenosis. Renal Arteries: No evidence of occlusion or significant stenosis. There is a single renal artery per fusing each kidney. Aorta: No evidence of occlusion or significant stenosis. No aneurysm or dissection. Pelvis: Iliac Arteries: No evidence of occlusion or significant stenosis. Common Femoral Arteries: No evidence of occlusion or significant stenosis. ABDOMEN: Liver: Normal density. No measurable mass. Gallbladder and Biliary Tract: No radiodense calculus or dilation. Pancreas: Normal density, no abnormal calcifications or inflammatory process. Spleen: Normal. Adrenals: No masses seen. Kidneys: Normal size, contour and axis. No radiodense stones or obstructive uropathy. No masses seen. Bowel: No obstruction or bowel wall thickening. Appendix is unremarkable. Peritoneal Cavity: No ascites, collection or mesenteric inflammatory response. No free air. Lymph Nodes: Within normal limits. Bones: Within normal limits for the patient's age. Soft Tissues: Unremarkable. PELVIS: Bladder: Symmetric distention, no gross wall thickening. Reproductive Organs: Unremarkable as visualized. Lymph Nodes: Within normal limits. Bones: Within normal limits for the patient's age. IMPRESSION: 1. Normal CT Angiogram of the chest, abdomen and pelvis. 2. No evidence of pulmonary embolism, thoracic aortic dissection or aneurysm. 3. No acute pulmonary, abdominal or pelvic process. RADIATION DOSE DELIVERED: 1,293.61mGy.cm Total DLP DATA REPOSITORY: All CT scans at this facility are submitted to the National Radiology Data Registry (NRDR) Dose Index Registry (DIR) with the [employer] (ACR). RADIATION OPTIMIZATION: All CT scans at this facility use at least one of these dose optimization te chniques: automated exposure control; mA and/or kV adjustment per patient size (includes targeted exa ms where dose is matched to clinical indication); or iterative reconstruction.
[2022-09-10 22:16] LABS: ETHANOL BLOOD < 3.0 mg/dL (<10)
[2022-09-10 22:17] LABS: Acetaminophen < 2 ug/mL (10-30)
[2022-09-10 22:21] LABS: COVID-19 PCR Negative (Negative); Influenza A PCR Negative (Negative); Influenza B PCR Negative (Negative); RSV PCR Negative (Negative)
[2022-09-10 22:24] LABS: Source Nasopharynx
[2022-09-10 22:28] LABS: Troponin I < 50 ng/L (<or=60)
[2022-09-10 22:29] LABS: D-Dimer 571 ng/mlFEU (<500)
[2022-09-10 22:33] LABS: NT-proBNP 199 pg/mL (<300)
[2022-09-10] MEDS: Omnipaque 350 MG/ML 100 ML BTL IJ (22:33)
[2022-09-10] MEDS: Normal Saline - Diluent 50 ML VIAL IJ (22:34)
--- NOTE | 2022-09-10 23:00 | DI.VRAD_ITS ---
PROCEDURE INFORMATION: Exam: CTA Chest With Contrast CTA Abdomen and Pelvis With Contrast Exam date and time: 09/10/2022 10:35 PM Age: 42 years old Clinical indication: Shortness of breath and other: Mediastinal widening; Other: Medialstinal widening TECHNIQUE: Imaging protocol: Computed tomographic angiography of the chest with contrast. Computed tomographic angiography of the abdomen and pelvis with contrast. 3D rendering (Not supervised by radiologist): MIP and/or 3D reconstructed images were created by the technologist. Contrast material: OMNIPAQUE 3560; Contrast volume: 100 ml; Contrast route: INTRAVENOUS (IV); COMPARISON: CT CHEST PE CTA 10/24/2021 5:12 AM FINDINGS: Limited due to respiratory motion artifact VASCULATURE: Pulmonary arteries: No pulmonary emboli. Aorta: No aortic aneurysm. No aortic dissection. Celiac trunk and mesenteric arteries: No occlusion or significant stenosis. Renal arteries: No occlusion or significant stenosis. Right iliac arteries: No occlusion or significant stenosis. Left iliac arteries: No occlusion or significant stenosis. CHEST: Lungs: Unremarkable. No consolidation. No masses. Pleural spaces: Unremarkable. No pneumothorax. No pleural effusion. Heart: Unremarkable. No cardiomegaly. No pericardial effusion. ABDOMEN AND PELVIS: Liver: No mass. Gallbladder and bile ducts: Unremarkable. No calcified stones. No ductal dilation. Pancreas: Unremarkable. No mass. No ductal dilation. Spleen: Unremarkable. No splenomegaly. Adrenal glands: Unremarkable. No mass. Kidneys and ureters: Unremarkable. No solid mass. No hydronephrosis. Stomach and bowel: Unremarkable. No obstruction. No mucosal thickening. Appendix: No evidence of appendicitis. Intraperitoneal space: Unremarkable. No free air. No significant fluid collection. Urinary bladder: Unremarkable. No mass. Reproductive: Unremarkable as visualized. Lymph nodes: Unremarkable. No enlarged lymph nodes. Bones/joints: Unremarkable. No acute fracture. Soft tissues: Unremarkable. IMPRESSION: Unremarkable CTA chest, abdomen, and pelvis. No aortic dissection or aneurysm. No pulmonary emboli detected Dictated and Authenticated by: Thaddeus Macias MD. Ordering:KITTY Nowak MD
[2022-09-11] VITALS (91 sets, daily range): BP systolic 89–151; BP diastolic 43–110; PULSE 78–149; RESP 13–26; TEMP 37; O2SAT 80–99
[2022-09-11 01:44] LABS: Troponin I < 50 ng/L (<or=60)
--- NOTE | 2022-09-11 05:19 | NUR.NOTE ---
@0440-Pt's recorded BP 90/43. BP cuff replaced w/ BP 143/97. Pt is alert to verb stimuli and has been sleeping since her return from CT scan. Continues to have 1:1 monitoring
--- NOTE | 2022-09-11 07:07 | NUR.NOTE ---
Report given to day shift rn. Pt is sleeping with even and unlabored resp of 16, continues to be monitored by 1:1 human resources officer. SPO2 98%, HR 78
--- NOTE | 2022-09-11 07:16 | NUR.NOTE ---
Addendum entered by Krishna John RN 09/11/22 07:32: pt called this RN a shanika yo. Original Note: Nursing Note: Psych attempted zoom meeting with pt. pt unwilling to cooperate.pt refusing to open eyes and kicking and thrashing in bed stating I'm cold and my blanket isn't on. Pt was instructed to speak with psych again, pt states I cant see. Pt instructed to open her eyes so she can see but pt refused to do so. pt was told that she can go back to sleep after zoom consult but continued to refuse eval. Psych team decided in person consult would be more beneficial to pt.
--- NOTE | 2022-09-11 08:57 | NUR.NOTE ---
psych at bedside for face to face eval. pt being uncooperative with psych and staff. pt stating I'm just here to sleep pt informed that the ED is not a place for people to just sleep and pt responded stating I'm not a hotel so this is where I'm gong to sleep
--- NOTE | 2022-09-11 09:25 | NUR.NOTE ---
pt provided with phone to call father. no clear plan in place with father after phone call
[2022-09-11 09:33] LABS: Bilirubin Negative (Negative); Blood Negative (Negative); Clarity Clear (Clear); Glucose Negative (Negative); Ketones Negative (Negative); Leukocyte Esterase Negative (Negative); Nitrite Negative (Negative); Specific Gravity 1.015 (1.005-1.025); Urobilinogen 0.2 EU/dL (Up TO 0.2)
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
[2022-09-11 09:43] LABS: *AMPHETAMINES SCREEN URINE Negative (Negative); *BARBITURATES SCREEN URINE Negative (Negative); *BENZODIAZEPINES SCREEN URINE Negative (Negative); Cannabinoids THC Positive (Negative); Cocaine Screen,Urine Positive (Negative); METHADONE URINE SCREEN Negative (Negative); OPIATES URINE SCREEN Negative (Negative)
[2022-09-11 09:44] LABS: Tricyclic Antidepressants Negative (Negative)
--- NOTE | 2022-09-11 09:52 | NUR.NOTE ---
maryter discontinued due to pending pt discharge
--- NOTE | 2022-09-11 10:03 | NUR.NOTE ---
[facility] speaking with pt at this time
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
== END 2022-09-11 10:47 | disposition home or self-care (01) ==
PROVIDERS: Physician Assistant; Student in an Organized Health Care Education/Training Program; Emergency Provider Student in an Organized Health Care Education/Training Program; PCP Family Medicine
DX: F22 Delusional disorders (principal); F19.10 Other psychoactive substance abuse, uncomplicated; F31.9 Bipolar disorder, unspecified; I10 Essential (primary) hypertension; E03.9 Hypothyroidism, unspecified; F98.8 Other specified behavioral and emotional disorders with onset usually occurring in childhood and adolescence; Z91.14 Patient's other noncompliance with medication regimen; Z20.822 Contact with and (suspected) exposure to COVID-19
CPT/HCPCS: 71275; 80053; 80307; 81025; 87637; 93005; 99285; 71045; 74174; 80320; 80329; 81003; 83735; 83880; 84443; 84484; 85025; 85379; 85610; 85730; 93010; J3490

== ENCOUNTER 2022-11-10 02:38 | Emergency (ER) | payer MEDICAID, SELFPAY ==
[2022-11-10 02:42] VITALS: BP 215/115; PULSE 88; RESP 16; TEMP 36.4; O2SAT 96
[2022-11-10 02:48] VITALS: RESP 18
--- NOTE | 2022-11-10 02:48 | ED.GENADUL_ITS ---
Discharge Plan Disposition Patient Disposition: Home Discharge Details Clinical Impression: Dry cough Primary Care Provider: Coty Stanley ED Provider: Gonzalo Ho Home Meds and New Rx's Prescriptions: No Action No Known Home Meds Discharge Instructions Instructions: Acute Cough (ED) Additional Instructions: Please read all of the information that accompanies these instructions. You were seen in the emergency department for your cough. Your viral swab was negative for COVID. Please schedule an appointment with your primary care provider later this week. Please return to the emergency department if you develop shortness of breath difficulty breathing or have any other concerns. Medical Decision Making This is an overall well-appearing normothermic and not tachycardic but markedly hypertensive 42-year-old female with dry cough and sore throat with recent COVID exposure concerning for the possibility of COVID. Of note patient has had a urine drug screen that has been positive in the recent past for cocaine. Given her elevated blood pressure, sympathomimetic toxidrome is certainly a possibility however the patient denies cocaine use. She denies suicidal and homicidal ideation and she also denies any auditory visual hallucinations. She reports that she is vaccinated against COVID and given her age I anticipate that she will do well if indeed she does have COVID. She has no abnormal breath sounds to suggest concurrent bacterial pneumonia. She is not hypoxic to suggest need for oxygen, dexamethasone, nor hospitalization. Midline uvula which is reassuring against peritonsillar abscess. No significant erythema in the oropharynx posteriorly to suggest strep pharyngitis. She has had no nausea nor vomiting to suggest intra-abdominal process and she has a soft nontender abdomen. Given that she has not been vomiting I did not think that she required assessment of her electrolytes. No chest pain to suggest ACS or PE. She has had no fevers and she has not had a productive cough and in the setting of her clear lungs I do not feel that she requires a chest x-ray. She has not had any headache nor any vomiting to suggest cerebral venous sinus thrombosis. She is not recently to suggest preeclampsia.She has reportedly been on clonidine in the past. We will repeat blood pressure after results of COVID swab returned. Per chart review patient has also been prescribed lisinopril 40 mg daily and metoprolol tartrate 100 mg twice daily. She has had elevated blood pressures in the past. She is not altered to suggest PRES. 409 AM I met with the patient to ask her about her antihypertensive medications. She refused to answer any questions. She said that she was not taking any medications at the moment. I asked her if she would be willing to take medications as previously prescribed. She did not respond. I told her that I would be willing to prescribe medications and sent prescriptions into her pharmacy. She did not respond. 4:33 AM Patient's viral swab was fortunately negative for COVID. I relayed these results to her. I asked her if she be willing to take any of her prescribed medications. She did not reply. She would not consent for repeat vitals with nursing. Given that she withdrew her consent for care and arrived voluntarily I discharged the patient as she did not meet criteria for an involuntary hold. I advised patient to return if she developed difficulty breathing or worsening shortness of breath or if she had any other concerns. I asked health community health director Felipa to have the patient seen later today by her primary care provider. HPI General Date/Time Provider Initiated Documentation: 11/10/22 02:48 . HPI Narrative: This is a 42-year-old female with a history of anxiety ADD and paranoia now in the emergency department in the setting of a dry cough and recent COVID exposure. Patient reports that 1 day ago she was exposed to someone with COVID. She reports that she is vaccinated against COVID. She says that she has not had a fever nor any productive cough and she also denies headache and vomiting. She has occasionally been short of breath and she had a transient twinge of abdominal pain earlier that resolved spontaneously within minutes. She is a daily smoker but denies routine ethanol and illicits. She denies hallucinations. She is not suicidal nor homicidal. She is not recently post . She denies any other complaints. Related Data Home Medications Medication Instructions Recorded Confirmed Unknown [No Known Home Meds] 11/10/22 11/10/22 Allergies Allergy/AdvReac Type Severity Reaction Status Date / Time latex Allergy Intermediate SKIN RASH Unverified 09/19/22 11:53 Penicillins Allergy Unverified 09/19/22 11:53 prazosin AdvReac Dizziness/S Unverified 09/19/22 11:53 carmela General Stated Complaint: GenMedical JOLLY: 4 PFSH All Active Problems (Updated 11/10/22 @ 04:33 by Gonzalo Ho MD) Dry cough (Acute) URI (upper respiratory infection) (Acute) ADD (attention deficit disorder) (Acute) On stimulant, dexylmethylphenidate-managed per psychiatry Psychosis (Acute) Pre-diabetes (Acute) Obesity, morbid, BMI 40.0-49.9 (Acute) Flaccid paraplegia (Acute) Migraine (Chronic) Urinary retention (Acute) Lumbar pain (Acute) Lower extremity weakness (Acute) Microcytic anemia (Acute) Ovarian cyst (Acute) Substance abuse (Chronic) Heroin, crack cocaine, alcohol. 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 Followed by Dr. Pereira Anxiety (Chronic) On alprazolam-Per psychiatry Smoker (Chronic) Accidental drug overdose (Acute) Medical History At risk for sexually transmitted disease due to unprotected sex (04/24/17) 2018 treated for chlamydia x2. Cauda equina compression Chlamydia (09/24/17) Drug overdose (03/12/06) Fever Gram-positive bacteremia Iron deficiency anemia Lice Right ear pain (06/08/16) Right lower quadrant pain Surgical History Status post dilation and curettage Elective termination of Status post laparoscopy Social History Smoking/Tobacco Use Status: Current every day Tobacco Type: cigarettes Tobacco: How many years used: 23 Quit status: has quit before Second Hand Exposure: Yes Smoking risk assessment performed?: Yes Alcohol Intake: former Drug use: Daily Substance use type: marijuana and crack/cocaine Details: Last used cocaine @199909/10/2022 Household members: none Housing: house Number of Children: 0 Education Level: college Do you need help understanding health information?: Rarely Pets and animals: No Sexually active: Yes Do you think of yourself as: straight/heterosexual Current gender identity: female What is your relationship status?: never How often do you talk on the phone with friends or family?: three or more times per week How often do you get together with friends or relatives?: twice per week How often do you attend confucianist or muslim services?: decline to answer Do you belong to any clubs or organized social groups?: no Panel score (0-1 are the most socially isolated patients): 1 Duration: 15-30 minutes/day Frequency: 1-2 times per week Quin/Presybeterian: No preference Do you feel safe at home: Yes Do you feel safe in your relationship?: Yes History History 1 Para Hx # Term Pregnancies Multiple births Hx # Pregnancies Ectopic pregnancies AB induced 1 Hx Number of Living Children 0 AB spontaneous Exam Narrative Exam Narrative: General: Well-appearing in no acute distress speaking in complete sentences. Head: Normocephalic, atraumatic Ear, nose, mouth, throat: Grossly normal inspection. Normal voice, handling secretions normally. No significant posterior pharynx erythema. Uvula midline. Neck: Trachea midline. Cardiovascular: Well-perfused distal extremities. Regular rate and rhythm Respiratory: Nonlabored respiration. Clear lungs bilaterally. Gastrointestinal: Nondistended abdomen. Soft nontender Musculoskeletal: No edema. Moving all 4 extremities spontaneously. Skin: Normal for age and race, grossly normal temperature and turgor. No acute rash. Neurologic: Alert and appropriate, no apparent acute deficits. Psychiatric: Flat affect. Disheveled appearance. Denies homicidal and suicidal ideation. No flight of ideas. No pressured speech. Course Vital Signs Vital signs: Vital Signs Temperature 36.4 C 11/10/22 02:42 Pulse 88 11/10/22 02:42 Respiratory Rate 16 11/10/22 02:42 Blood Pressure 215/115 H 11/10/22 02:42 Pulse Oximetry 96 11/10/22 02:42 Temperature 36.4 C 11/10/22 02:42 Temperature Source Tympanic 11/10/22 02:42 Pulse 88 11/10/22 02:42 Respiratory Rate 16 11/10/22 02:42 Blood Pressure 215/115 H 11/10/22 02:42 Pulse Oximetry 96 11/10/22 02:42 Oxygen Delivery Method Room Air 11/10/22 02:42 Oxygen Flow Rate 0 11/10/22 02:42
--- NOTE | 2022-11-10 02:50 | NUR.NOTE ---
Nursing Note: pt comes to the ED states i don't want to talk pt states she does not want to see crisis, is not SI or HI. will state contact with covid, pt c/o cough and sore throat x1 day. congested cough, but states no sputum production pt will choose to answer some questions, at bedside pt states some rumbling in her abd no other gi s/s pt admits to HTN, is currently not taking meds for HTN
--- NOTE | 2022-11-10 02:55 | NUR.NOTE ---
Nursing Note:pt states no when asked if she takes any medication
--- NOTE | 2022-11-10 03:19 | NUR.NOTE ---
Nursing Note:pts father phoe number [phone] cell [phone]
[2022-11-10 03:51] LABS: COVID-19 PCR Negative (Negative); Influenza A PCR Negative (Negative); Influenza B PCR Negative (Negative); RSV PCR Negative (Negative)
[2022-11-10 03:56] LABS: Source Nasopharynx
--- NOTE | 2022-11-10 04:05 | NUR.NOTE ---
Nursing Note:Pt now refusing this nurse to reassess her VS, asking to stay across the room.
--- NOTE | 2022-11-10 04:33 | NUR.NOTE ---
Nursing Note: pt aware of dispo, states she will call for her ride home
--- NOTE | 2022-11-10 04:55 | NUR.NOTE ---
Referral made by Dr. Jones to PCP follow up via phone or in person as the patient is off her meds and has elevated blood pressure as soon as possible. Put the referral in the care manger's box for follow up assistance.Nursing Note:
== END 2022-11-10 04:52 | disposition home or self-care (01) ==
PROVIDERS: Emergency Provider Emergency Medicine; PCP Family Medicine
DX: R05.9 Cough, unspecified (principal); I10 Essential (primary) hypertension; F17.210 Nicotine dependence, cigarettes, uncomplicated; Z20.822 Contact with and (suspected) exposure to COVID-19
CPT/HCPCS: 87635; 87637; 99282; 99283

== ENCOUNTER 2022-11-11 01:59 | Emergency (ER) | payer MEDICAID, SELFPAY ==
[2022-11-11 02:53] VITALS: BP 164/103; PULSE 86; RESP 14; TEMP 36.3; O2SAT 97
--- NOTE | 2022-11-11 02:56 | ED.GENADUL_ITS ---
Discharge Plan Discharge Details Chief Complaint: PsychEval Primary Care Provider: Coty Stanley ED Provider: Baldemar Martínez Home Meds and New Rx's Prescriptions: No Action No Known Home Meds Medical Decision Making 42 yo female with hx of substance abuse who admits to cocaine abuse recently comes in with vsp. She states tonight she got scared at her house and went to a neighbor's house and [facility] was called. They felt she was hallucinating so brought her here for an eval. She arrives stable and is caox4 during my exam speaking clearly with normal gait. I asked her why [facility] brought her to the hospital and she said she asked to come as she wants treatment for her cocaine abuse. She denies si/hi. She is clinically sober on my exam with no findings on exam or history to suggest underlying medical etiology for her complaint, will have mental health evaluate. [facility] screened her and plan to reassess her in the AM, will remain in the ED until that time. Differential Diagnosis Differential Diagnosis: drug abuse, bipolar Medical Records Medical records reviewed: Yes I reviewed the patient's medical records. HPI General Mode of arrival: ambulatory (with [facility]) . Date/Time Provider Initiated Documentation: 11/11/22 02:00 . Limitations to Documentation: no limitations . Information obtained by: patient and police . History of Present Illness 42 year old F presents to the emergency department with the chief complaint of wants help for cocaine addiction, Patient started experiencing this unknown and it has been constant. No relieving factors improve symptom(s), No exacerbating factors reported . Patient notes denies fever/chills. Patient did receive the following treatments prior to arrival, none Related Data Home Medications Medication Instructions Recorded Confirmed Unknown [No Known Home Meds] 11/10/22 11/11/22 Allergies Allergy/AdvReac Type Severity Reaction Status Date / Time latex Allergy Intermediate SKIN RASH Unverified 11/11/22 03:16 Penicillins Allergy Unverified 11/11/22 03:16 prazosin AdvReac Dizziness/S Unverified 11/11/22 03:16 weats General JOLLY: 4 Review of Systems All systems reviewed & are unremarkable except as noted in HPI and below Constitutional Constitutional: Denies chills, Denies fever(s) and Denies weakness Cardiovascular Cardiovascular: Denies chest pain and Denies dyspnea Respiratory Respiratory: Denies cough and Denies dyspnea Gastrointestinal Gastrointestinal: Denies abdominal pain, Denies nausea and Denies vomiting Musculoskeletal Musculoskeletal: Denies joint swelling Neurologic Neurologic: Denies weakness PFSH All Active Problems (Updated 11/10/22 @ 04:33 by Gonzalo Ho MD) Dry cough (Acute) URI (upper respiratory infection) (Acute) ADD (attention deficit disorder) (Acute) On stimulant, dexylmethylphenidate-managed per psychiatry Psychosis (Acute) Pre-diabetes (Acute) Obesity, morbid, BMI 40.0-49.9 (Acute) Flaccid paraplegia (Acute) Migraine (Chronic) Urinary retention (Acute) Lumbar pain (Acute) Lower extremity weakness (Acute) Microcytic anemia (Acute) Ovarian cyst (Acute) Substance abuse (Chronic) Heroin, crack cocaine, alcohol. 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 Followed by Dr. Pereira Anxiety (Chronic) On alprazolam-Per psychiatry Smoker (Chronic) Accidental drug overdose (Acute) Medical History At risk for sexually transmitted disease due to unprotected sex (04/24/17) 2018 treated for chlamydia x2. Cauda equina compression Chlamydia (09/24/17) Drug overdose (03/12/06) Fever Gram-positive bacteremia Iron deficiency anemia Lice Right ear pain (06/08/16) Right lower quadrant pain Surgical History Status post dilation and curettage Elective termination of Status post laparoscopy Social History Smoking/Tobacco Use Status: Current every day Tobacco Type: cigarettes Tobacco: How many years used: 23 Quit status: has quit before Second Hand Exposure: Yes Smoking risk assessment performed?: Yes Alcohol Intake: former Drug use: Daily Substance use type: marijuana and crack/cocaine Details: Last used cocaine @199909/10/2022 Household members: none Housing: house Number of Children: 0 Education Level: college Do you need help understanding health information?: Rarely Pets and animals: No Sexually active: Yes Do you think of yourself as: straight/heterosexual Current gender identity: female What is your relationship status?: never How often do you talk on the phone with friends or family?: three or more times per week How often do you get together with friends or relatives?: twice per week How often do you attend buddhist or buddhist services?: decline to answer Do you belong to any clubs or organized social groups?: no Panel score (0-1 are the most socially isolated patients): 1 Duration: 15-30 minutes/day Frequency: 1-2 times per week Quin/Druze: No preference Do you feel safe at home: Yes Do you feel safe in your relationship?: Yes History History 1 Para Hx # Term Pregnancies Multiple births Hx # Pregnancies Ectopic pregnancies AB induced 1 Hx Number of Living Children 0 AB spontaneous Exam Const General: no acute distress Orientation: alert HENMT Head: normal to inspection Ears: external ears normal General nose exam: external nose normal Mouth: moist mucous membranes Eyes General: appearance normal, both eyes and all related structures Neck Neck: normal visual inspection Resp Effort & Inspection: normal respiratory effort and able to speak in complete sentences Cardio Rate: regular rate Skin General skin exam: no rashes or lesions noted Neuro General: patient alert and patient oriented x3 Extrem General: normal to inspection Psych Speech and Movement: speech and movement normal Mood: congruent mood Affect: normal affect
--- NOTE | 2022-11-11 03:44 | NUR.NOTE ---
Nursing Note:Mental health tele at bedside to evaulate pt. Mental Health worker stated that pt was not paying attention and unable to focus to answer questions. Mental Health stated she will try again in the morning to re-evaluate.
[2022-11-11 03:49] LABS: Bilirubin Negative (Negative); Blood Negative (Negative); Clarity Clear (Clear); Glucose Negative (Negative); Ketones Negative (Negative); Leukocyte Esterase Negative (Negative); Nitrite Negative (Negative); Urobilinogen 0.2 mg/dL (Up to 0.2)
[2022-11-11 03:59] LABS: Abs Immature Grans 0.02 10^3/uL (0.0-0.06); Absolute Basophil Count 0.03 10^3/uL (0.0-0.2); Absolute Eosinophil Count 0.16 10^3/uL (0.0-0.7); Absolute Lymphocyte Count 2.04 10^3/uL (1.2-3.4); Absolute Monocyte Count 0.56 10^3/uL (0.1-0.8); Absolute Neutrophil Count 7.12 10^3/uL (1.2-6.7); Basophils % 0.3; Eosinophils % 1.6; HCT 37.4 % (36.0-46.0); HGB 11.8 g/dL (11.2-15.7); Immature Grans % 0.2; Lymphocytes % 20.5; MCH 27.3 pg (27.0-33.0); MCHC 31.6 % (32.0-36.0); MCV 86 fL (80-95); MPV 9.3 fL (8.0-11.0); Monocytes % 5.6; Neutrophils % 71.8; Platelet Count 288 10^3/uL (130-400); RBC 4.33 10^6/uL (3.93-5.22); RDW 14.6 % (11.7-14.6); RDW-SD 45.8 fL; WBC 9.93 10^3/uL (4.4-10.8)
[2022-11-11 04:13] LABS: *AMPHETAMINES SCREEN URINE Negative (Negative); *BARBITURATES SCREEN URINE Negative (Negative); *BENZODIAZEPINES SCREEN URINE Negative (Negative); Cannabinoids THC Negative (Negative); Cocaine Screen,Urine Positive (Negative); METHADONE URINE SCREEN Negative (Negative); OPIATES URINE SCREEN Negative (Negative)
[2022-11-11 04:17] LABS: Salicylate 4.8 mg/dL (<2.8)
[2022-11-11 04:18] LABS: Acetaminophen < 2 ug/mL (10-30)
[2022-11-11 04:18] LABS: Tricyclic Antidepressants Negative (Negative)
[2022-11-11 04:30] LABS: ALT 18 U/L (14-59); AST 14 U/L (15-37); Albumin 3.5 g/dL (3.4-5.0); Alkaline Phosphatase 81 U/L (46-116); Anion Gap 8.6 mmol/L (3-11); BUN 5 mg/dL (7-18); Bilirubin, Total 0.2 mg/dL (0.2-1.0); CO2 25.4 mmol/L (21.0-32.0); CREATININE 0.8 mg/dL (0.55-1.02); Calcium 8.9 mg/dL (8.5-10.1); Chloride 103 mmol/L (98-107); ETHANOL BLOOD 3.7 mg/dL (<10); Estimated GFR 94.28 (mL/min/1.73m2); Glucose 115 mg/dL (74-106); Potassium 3.3 mmol/L (3.5-5.1); Sodium 137 mmol/L (136-145); TSH (W/Ref FT4) 1.22 uIU/mL (0.36-3.74); Total Protein 7.1 g/dL (6.4-8.2)
--- NOTE | 2022-11-11 12:25 | W.EDPROG ---
Date of service: 11/11/22 Time of Service: 12:25 Medical Decision Making Patient signed out to me by Dr. Reyes Patient was evaluated byBRODY, they recommend voluntary placement, bed search in progress. 7:10 PM the patient was evaluated on arrival retreat we decided not to accept her in transfer stating that she would be better off in another environment where they can provide more substance abuse support. The patient reached out to [facility], he is program who also denies her admission given that they believe that she has more of a psychiatric issue. I discussed this with Carol from [facility] who will reevaluate the patient and make further recommendations. Sign Out Sign Out Data: Sign Out Comment: hx of bipolar and substance abuse, reports was scared of the shadows at her residence and tried to break into a neighbor's house, she asked [facility] to bring her here for treatment of her cocaine abuse. She is to be reassessed by mental health in the AM, calm and cooperative during shift Last updated by Baldemar Martínez MD at 11/11/22 04:27 Discharge Plan Discharge Details Chief Complaint: PsychEval Primary Care Provider: Coty Stanley ED Provider: Bertram Dillard Home Meds and New Rx's Prescriptions: No Action No Known Home Meds
--- NOTE | 2022-11-11 16:33 | CMPROGNOTE_ITS ---
- If Service Date Differs Date of service: 11/11/22 Time of Service: 16:33 Care Management Progress Note S/O: Beverley presents in the ED via police after reportedly attempting to break into a neighbor's home. A toxicology test done at [facility] returns positive for cocaine and alcohol. Beverley met with [facility] for an evaluation on the night of her arrival at the hospital but she could not be properly assessed due to hallucinations. She was reassessed this morning by [facility] and found to meet crite rebecca for a voluntary psychiatric hospitalization for co-occurring treatment of both mental health and substance use issues. Today she is denying suicidal ideation but she is seeking placement for treatment of trauma and use of substances. Per MD, a safety plan is not required as Beverley is not suicidal. A: Beverley is a 42 year old female seeking a voluntary psychiatric hospitalization. P: Referrals are faxed to [facility], [facility], [facility], and [facility] for review. Beverley will remain at [facility] and will be reassessed daily by [facility] until a placement is secured or she can be discharged back to the community. CM will continue to follow. - Status Status: Voluntary - Reason for Wait Reason for Wait: Inpatient Admission
--- NOTE | 2022-11-11 16:33 | PDOC.ERCMPRO ---
- If Service Date Differs Date of service: 11/11/22 Time of Service: 16:33 Care Management Progress Note S/O: Beverley presents in the ED via police after reportedly attempting to break into a neighbor's home. A toxicology test done at [facility] returns positive for cocaine and alcohol. Beverley met with [facility] for an evaluation on the night of her arrival at the hospital but she could not be properly assessed due to hallucinations. She was reassessed this morning by [facility] and found to meet criteria for a voluntary psychiatric hospitalization for co-occurring treatment of both mental health and substance use issues. Today she is denying suicidal ideation but she is seeking placement for treatment of trauma and use of substances. Per MD, a safety plan is not required as Beverley is not suicidal. A: Beverley is a 42 year old female seeking a voluntary psychiatric hospitalization. P: Referrals are faxed to [facility], [facility], [facility], and [facility] for review. Beverley will remain at [facility] and will be reassessed daily by [facility] until a placement is secured or she can be discharged back to the community. CM will continue to follow. - Status Status: Voluntary - Reason for Wait Reason for Wait: Inpatient Admission
--- NOTE | 2022-11-11 18:40 | NUR.NOTE ---
Nursing Note:EMT-P Robbie Lweis. PT assisted in contacting MH personnel at [facility], PT told those personnel that she did not think she needed acute mental health care and wanted to focus on drug rehab. PT assisted in contacting [facility] in [place], PT told those personnel that she needed to focus on her mental health before focusing on her drug dependency. When asked what her goals are the PT could not give a direct answer to the question.
[2022-11-12 10:09] VITALS: BP 163/109; PULSE 79; TEMP 36.9; O2SAT 96
--- NOTE | 2022-11-12 10:33 | W.EDPROG ---
Date of service: 11/12/22 Time of Service: 08:00 Medical Decision Making 0800 -- Please see previous provider's notes for initial presentation, exam and plan. Case endorsed to follow-up with mental health after evaluation and final disposition. 1030 --after team huddle this morning, it was discussed that patient has been stating at times that she feels she needs more substance abuse treatment and then other times stating that she needs more psychiatric care. Carol with [facility] stated that [facility] had declined pt because she did not meet criteria for admission there as she is not suicidal or homicidal and currently denies hallucinations. It was also discussed that patient had refused to speak to [facility] yesterday. Patient was evaluated by Carol with [facility] at bedside -- patient is again denying any SI or HI and currently does not meet criteria for inpatient hospitalization. Carol discussed that patient is refusing to contract for safety but currently does not meet any indications for holding in the ED at this time. Patient will be discharged home and will follow-up with [facility]. She will also follow-up with [facility] for any assistance with her substance use. Medical Records Medical records reviewed: Yes I reviewed the patient's medical records. Sign Out Sign Out Data: Sign Out Comment: hx of bipolar and substance abuse, reports was scared of the shadows at her residence and tried to break into a neighbor's house, she asked [facility] to bring her here for treatment of her cocaine abuse. She is to be reassessed by mental health in the AM, calm and cooperative during shift Last updated by Baldemar Martínez MD at 11/11/22 04:27 Sign Out Comment: Signout received this morning from Dr. Martínez. Patient with a combination of substance abuse and psychiatric issues. She was evaluated by mental health who made some referrals got a call [facility] from [facility] after they discussed the issues with the patient he decided the patient was probably better off served at a environment where they take care of of substance abuse. [facility] was [facility] who informed us that she needed psychiatric care. 7 PM I contacted [facility] services and informed Carol that the patient needs to be reevaluated so that we can get an appropriate disposition. Patient will be signed out to Dr. Mcclure Last updated by Bertram Dillard MD at 11/11/22 19:45 Sign Out Comment: awaiting reassessment by [facility] for placement recommendations; no events overnight Last updated by Esdras Mcclure MD at 11/12/22 07:46 Discharge Plan Disposition Patient Disposition: Home Condition: Stable Discharge Details Clinical Impression: Substance use disorder Primary Care Provider: Coty Stanley ED Provider: Teresa Marquez Home Meds and New Rx's Prescriptions: No Action No Known Home Meds Discharge Instructions Instructions: Methamphetamine Abuse (ED), Polysubstance Abuse (ED) Additional Instructions: Follow-up with [facility] services for reevaluation. Follow-up with the [facility] for assistance with information and/or referral to substance abuse treatment programs if desired. Follow-up with your primary care doctor in 1 week. Return to the emergency department with any worsening or new concerning symptoms. Discharge Data Discharge Physician: Teresa Marquez
--- NOTE | 2022-11-12 10:49 | PDOC.MHCN ---
Date of service: 11/11/22 Time of Service: 10:49 PHQ-9 Over the last 2 weeks, how often have you been bothered by any of the following problems? 1. Little interest or pleasure in doing things: more than half the days 2. Feeling down, depressed, or hopeless: nearly every day 3. Trouble falling or staying asleep, or sleeping too much: more than half the days 4. Feeling tired or having little energy: more than half the days 5. Poor appetite or overeating: several days 6. Feeling bad about yourself - or that you are a failure or have let yourself and your family down: nearly every day 7. Trouble concentrating on things, such as reading the newspaper or watching television: not at all 8. Moving or speaking so slowly that other people could have noticed? - Or the opposite - being so fidgety or restless that you have been moving around a lot more than usual: nearly every day 9. Thoughts that you would be better off or of hurting yourself in some way: nearly every day Total score: 19 If you checked off any problems, how difficult have these problems made it for you to do your work, take care of things at home, or get along with other people?: somewhat difficult Source: Developed by Drs. Herbert Sebastian, Valerie Duong, Demetri Persaud and colleagues, with an educational maricarmen from [employer]. Suicide Severity Rate CSSRS Have you wished you were or wished you could go to sleep and not wake up?: No Have you actually had any thoughts of killing yourself?: No CSSRS4 Was this within the past three months?: No Screening Score Total Score: 0 Screening: Negative Mental Health Emergency Note Release [facility] release signed:: Yes Reason for Visit Per report of Dr. Martínez the client reportedly got scared at house and so went to the neighbors to try and get in when [facility] was called. Dr. Martínez is requesting an evaluation of the client. In the last 2 weeks has the pt presented for ES prior to today?: Unknown Client Information Client is: Substance use Well Housed: Yes Non Suicidal Self Injury Current: No History: No Safety Risk/Harm to Self or Others Current Ideation to Harm Self or Others: No Risk: Does risk to harm exist?: No Risk: Moderate Risk Duty to warn indicated: No Asssessment/Mental Status Appearance: Disheveled Attitude: Other (Unable to concentrate on assessment questions ) Behavior: Agitated Speech: Soft Affect: Cogruent with mood Mood: Irritable Thought process: Blocking and Flight of ideas Hallucinations: No evidence (Unable to assess. She appears as if she may be but cannot answer questions. ) Delusions: No evidence (Unable to assess) Attention: Poor concentration Perception: Derealization Orientation: Disoriented in Situation Memory: Impaired in: Recent Insight: Poor Judgement: Poor Neurovegetative Symptoms Sleep: No change (unable to assess) Appetitie: No change (unable to assess) Interests: No change (unable to assess) Energy: No change (unable to assess) Libido: Not applicable Substance Use: Drug Issues: Impaired Do you use nicotine?: No Have you used substances in the last 7 days?: yes, Client disclosed she used 1 gram of cocaine earlier in the day. Additional Issues: Assaultive/Threatening Behavior: No Medical Concerns: No Client engaged in active self harm w/weapon: No Threatening to run away: No Child reported abuse/neglect: No Voluntarily presenting for services: Yes Domestic violence is a concern: No Extreme Psychosis or extreme behavior is present: Yes Impression Client is a 42 year old, single, female who lives in [facility]. She presents to the ED via police after she attempted to get into a neighbors home following becoming scared at her home. It is unclear what made her scared but could be related to the self-reported cocaine use earlier today. Client is observed looking around the room with an agitated face and is unable to stay focused or follow directions. She is inconsistent in risk questions asked based on her answers to the PHQ-9 and then the CSSRS. She reported that she sees ?light in the dark? when asked if she sees or hears things that others cannot. At this time it appears the client is possibly responding to internal stimuli origin of this is inconclusive at this time due to the inability to do a formal assessment. At the same time according to record review of her chart with [facility] she is diagnosed with Major depressive disorder, recurrent, severe with psychotic symptoms. Plan/Disposition Recommended Disposition: Other. Plan: Client will remain at [facility] for the night and be reassessed later on 11.11.2022 once she has had a chance to sleep to determine outcome. Person reported agreement to plan: Yes Reports/communication Outcome discussed with: ED/Personnel
--- NOTE | 2022-11-12 11:31 | CMPROGNOTE_ITS ---
- If Service Date Differs Date of service: 11/12/22 Time of Service: 11:32 Care Management Progress Note Beverley is currently denying hallucinations and SI, so [facility] is contacted and asked to reassess. Staff report last evening she spoke with [facility] and [facility] and refused services. A [facility] Heat Treat Supervisor was asked to meet with her yesterday and patient also declined their services. Beverley is reassessed by Carol [facility] crisis screener, mid-morning and is subsequently discharged to the community as she does not meet criteria for inpatient hospitalization. She will follow up with [facility] on an outpatient basis.
--- NOTE | 2022-11-12 13:20 | MHPN_ITS ---
Date of service: 11/11/22 Time of Service: 19:26 PHQ-9 Over the last 2 weeks, how often have you been bothered by any of the following problems? 1. Little interest or pleasure in doing things: more than half the days 2. Feeling down, depressed, or hopeless: nearly every day 3. Trouble falling or staying asleep, or sleeping too much: more than half the days 4. Feeling tired or having little energy: more than half the days 5. Poor appetite or overeating: several days 6. Feeling bad about yourself - or that you are a failure or have let yourself and your family down: nearly every day 7. Trouble concentrating on things, such as reading the newspaper or watching television: not at all 8. Moving or speaking so slowly that other people could have noticed? - Or the opposite - being so fidgety or restless that you have been moving around a lot more than usual: nearly every day 9. Thoughts that you would be better off or of hurting yourself in some way: nearly every day Total score: 19 If you checked off any problems, how difficult have these problems made it for you to do your work, take care of things at home, or get along with other people?: somewhat difficult Source: Developed by Drs. Herbert Sebastian, Valerie Duong, Demetri Persaud and colleagues, with an educational maricarmen from [email or web address]. Suicide Severity Rate CSSRS Have you wished you were or wished you could go to sleep and not wake up?: No Have you actually had any thoughts of killing yourself?: No CSSRS4 Was this within the past three months?: No Screening Score Total Score: 0 Screening: Negative Mental Health Emergency Note Release [facility] release signed:: Yes Reason for Visit Client presented to [facility] ED in the manager commercial hours of 11/11 after [facility] were called because the client was attempting to break into her neighbors home. Client was assessed by ROB Chavez this morning after the client was medically cleared for overdose on cocaine. Per conversation that this underwriter solicitation director had with Dr. Dillard prior to assessing client he had received a call from stating that the client would be better suited in SA treatment at [facility], however when the client called [facility] they stated she would be better suited in a facility. This underwriter solicitation director re-assesses the client via zoom while at [facility] ED on voluntary status. In the last 2 weeks has the pt presented for ES prior to today?: Unknown Client Information Client is: Substance use Well Housed: Yes Non Suicidal Self Injury Current: No History: No Safety Risk/Harm to Self or Others Current Ideation to Harm Self or Others: No Risk: Does risk to harm exist?: No Risk: Moderate Risk Duty to warn indicated: No Asssessment/Mental Status Appearance: Disheveled Attitude: Other (Unable to concentrate on assessment questions ) Behavior: Agitated Speech: Soft Affect: Cogruent with mood Mood: Irritable Thought process: Blocking and Flight of ideas Hallucinations: No evidence (Unable to assess. She appears as if she may be but cannot answer questions. ) Delusions: No evidence (Unable to assess) Attention: Poor concentration Perception: Derealization Orientation: Disoriented in Situation Memory: Impaired in: Recent Insight: Poor Judgement: Poor Neurovegetative Symptoms Sleep: No change (unable to assess) Appetitie: No change (unable to assess) Interests: No change (unable to assess) Energy: No change (unable to assess) Libido: Not applicable Substance Use: Drug Issues: Dependence (Client reports that she uses cocaine and marijuana frequently. ) and Impaired Do you use nicotine?: Yes Have you used substances in the last 7 days?: yes, Client disclosed she used 1 gram of cocaine on Sunday. Additional Issues: Assaultive/Threatening Behavior: No Medical Concerns: No Client engaged in active self harm w/weapon: No Threatening to run away: No Child reported abuse/neglect: No Voluntarily presenting for services: Yes Domestic violence is a concern: No Extreme Psychosis or extreme behavior is present: Yes Impression Client is a 42 year old, single, female who lives in [facility]. She presents to the ED via police after she attempted to get into a neighbors home following becoming scared at her home. It is unclear what made her scared but could be related to the self-reported cocaine use on Sunday. Client reports to this underwriter solicitation director that she is currently feeling a vibration in her room, but does not hear or see things that other people do not. Per report of [facility] nursing staff the client was declined by [facility] after they reported that the client would benefit from substance use treatment at a facility like [facility], however when the client talked to [facility] they reportedly told her that she would benefit from inpatient treatment for mental health. Due to the clients presentation the client will remain at [facility] overnight and this underwriter solicitation director will re-evaluate the cleint in person in the morning. According to record review of her chart with [facility] she is diagnosed with Major depressive disorder, recurrent, severe with psychotic symptoms. Plan/Disposition Recommended Disposition: Other. Plan: Due to the clients current presentation the client will remain at [facility] ED overnight and will be re-evaluated by this underwriter solicitation director in person in the morning. The client is agreeable to having [facility] come in to talk to her about substance abuse treatment. Verbal passover given to [facility] ED attending provider Dr. Dillard. Person reported agreement to plan: Yes Reports/communication Outcome discussed with: ED/Personnel (Verbal passover given to [facility] attending pr jenny Dillard. )
--- NOTE | 2022-11-13 13:42 | MHPN_ITS ---
Date of service: 11/12/22 Time of Service: 10:03 PHQ-9 Over the last 2 weeks, how often have you been bothered by any of the following problems? 1. Little interest or pleasure in doing things: more than half the days 2. Feeling down, depressed, or hopeless: nearly every day 3. Trouble falling or staying asleep, or sleeping too much: more than half the days 4. Feeling tired or having little energy: more than half the days 5. Poor appetite or overeating: several days 6. Feeling bad about yourself - or that you are a failure or have let yourself and your family down: nearly every day 7. Trouble concentrating on things, such as reading the newspaper or watching television: not at all 8. Moving or speaking so slowly that other people could have noticed? - Or the opposite - being so fidgety or restless that you have been moving around a lot more than usual: nearly every day 9. Thoughts that you would be better off or of hurting yourself in some way: nearly every day Total score: 19 If you checked off any problems, how difficult have these problems made it for you to do your work, take care of things at home, or get along with other people?: somewhat difficult Source: Developed by Drs. Herbert Sebastian, Valerie Duong, Demetri Persaud and colleagues, with an educational maricarmen from [employer]. Suicide Severity Rate CSSRS Have you wished you were or wished you could go to sleep and not wake up?: No Have you actually had any thoughts of killing yourself?: No CSSRS4 Was this within the past three months?: No Screening Score Total Score: 0 Screening: Negative Mental Health Emergency Note Release [facility] release signed:: Yes Reason for Visit Client is known to [facility], however per chart review the client was supposed to attend appointments for outpatient services and canceled or no showed. Client was assessed by ROB Chavez yesterday morning after the client was medically cleared for overdose on cocaine. Per conversation that this pattern chart writer had with Dr. Dillard prior to assessing client last night he had received a call from stating that the client would be better suited in SA treatment at [facility], however when the client called [facility] they stated she would be better suited in a facility. This morning per conversation that this pattern chart writer had with [facility] ED nurse Kaylee, the ED is requesting in person assessment so huddle can be had as they feel like the client is changing her story and manipulating providers. This pattern chart writer assesses the client in person at [facility] ED. In the last 2 weeks has the pt presented for ES prior to today?: Unknown Client Information Client is: Substance use Well Housed: Yes Non Suicidal Self Injury Current: No History: No Safety Risk/Harm to Self or Others Current Ideation to Harm Self or Others: No Risk: Does risk to harm exist?: No Risk: Moderate Risk Duty to warn indicated: No Asssessment/Mental Status Appearance: Disheveled Attitude: Other (Unable to concentrate on assessment questions ) Behavior: Agitated Speech: Soft Affect: Cogruent with mood Mood: Irritable Thought process: Blocking and Flight of ideas Hallucinations: No evidence (Unable to assess. She appears as if she may be but cannot answer questions. ) Delusions: No evidence (Unable to assess) Attention: Poor concentration Perception: Derealization Orientation: Disoriented in Situation Memory: Impaired in: Recent Insight: Poor Judgement: Poor Neurovegetative Symptoms Sleep: No change (unable to assess) Appetitie: No change (unable to assess) Interests: No change (unable to assess) Energy: No change (unable to assess) Libido: Not applicable Substance Use: Drug Issues: Dependence (Client reports that she uses cocaine and marijuana frequently. ) and Impaired Do you use nicotine?: Yes Have you used substances in the last 7 days?: yes, Client disclosed she used 1 gram of cocaine on Sunday. Additional Issues: Assaultive/Threatening Behavior: No Medical Concerns: No Client engaged in active self harm w/weapon: No Threatening to run away: No Child reported abuse/neglect: No Voluntarily presenting for services: Yes Domestic violence is a concern: No Extreme Psychosis or extreme behavior is present: Yes Impression Client is a 42 year old, single, female who lives in [facility]. She presents to the ED via police after she attempted to get into a neighbors home following becoming scared at her home. It is unclear what made her scared but could be related to the self-reported cocaine use on Sunday. Client reports to this pattern chart writer that she is currently feeling a vibration in her room, but does not hear or see things that other people do not. Per report of [facility] nursing staff the client was declined by [facility] after they reported that the client would benefit from substance use treatment at a facility like [facility], however when the client talked to [facility] they reportedly told her that she would benefit from inpatient treatment for mental health. It appears that the client is trying to manipulate providers as evidenced by inconsistent reports to this pattern chart writer and other providers when she is asked to identify what help looks like for her. Client reports to this pattern chart writer: I am really lost about what is going on out there with the house. I don't have any of the right answers. I didn't mean to hold the work back. This pattern chart writer asks the client to clarify what she is talking about, however she refuses and dismisses this pattern chart writer out of her room. Plan/Disposition Recommended Disposition: Community resources and Other. Plan: Client does not meet criteria for inpatient hospitalization, as it appears that client is dealing with legal ramifications of her actions on Sunday night when police took her into custody for attempting to break into her neighbors home. When this pattern chart writer attempts to complete a safety plan with the client she refuses. This pattern chart writer had conversation with [facility] ED attending provider Dr. Marquez and she will include [facility] 24 hour phone number on the clients discharge paperwork as well as attempt to have [facility] come in and talk to the client prior to discharge. Person reported agreement to plan: Yes Reports/communication Outcome discussed with: ED/Personnel (Verbal passover given to [facility] attending provider Dr. Marquez)
== END 2022-11-12 11:16 | disposition home or self-care (01) ==
PROVIDERS: Emergency Medicine; Emergency Provider Physician Assistant; PCP Family Medicine
DX: F14.10 Cocaine abuse, uncomplicated (principal); F31.9 Bipolar disorder, unspecified
CPT/HCPCS: 36415; 80053; 80307; 81025; 99285; 80320; 80329; 81003; 84443; 85025

== ENCOUNTER 2023-02-08 14:02 | Outpatient (REF) | payer MEDICAID, SELFPAY ==
--- NOTE | 2023-02-08 13:30 | PAPFT_PTH ---
PATIENT: Beverley Charles LOC: [facility] U#:[id number] AGE/SX: 42/F ROOM: RE02/08/[address]: Coty Stanley MD, DC : 1980 BED: DIS: 02/08/2023 SPEC #: [id number] RECD: 02/09/23 13:15 STATUS: CARRIE RELu #: [id number] KERRI: 02/08/23 13:[address]: Coty Stanley DEPT: [facility] Cytology RECD BY: Kandice Dukes Tissues: 1 - CX/ENDOCX FOR PAP SMEARS Procedures: PAP THIN PREP/UVM Screening HPV DNA PROBE Comments: [id number] (CHLAMYDIA/GC)
[2023-02-12 13:57] LABS: Chlamydia Result Negative (Negative); GC Result Negative (Negative)
== END 2023-02-08 14:03 | disposition home or self-care (01) ==
LOC: LBN 14:02
PROVIDERS: PCP Family Medicine; Visit Provider Family Medicine
DX: Z11.51 Encounter for screening for human papillomavirus (HPV) (principal)
CPT/HCPCS: 87491; 87591; 88142; 87624

== ENCOUNTER 2023-03-05 04:53 | Outpatient (CLI) | payer MEDICAID, SELFPAY ==
[2023-03-05 12:15] LABS: HCT 38.6 % (36.0-46.0); HGB 11.9 g/dL (11.2-15.7); MCH 26.9 pg (27.0-33.0); MCHC 30.8 % (32.0-36.0); MCV 87 fL (80-95); Platelet Count 307 10^3/uL (130-400); RBC 4.43 10^6/uL (3.93-5.22); RDW 15.1 % (11.7-14.6); RDW-SD 48.6 fL; WBC 7.87 10^3/uL (4.4-10.8)
[2023-03-05 12:36] LABS: ALT 35 U/L (14-59); AST 18 U/L (15-37); Albumin 3.3 g/dL (3.4-5.0); Alkaline Phosphatase 88 U/L (46-116); Anion Gap 9.3 mmol/L (3-11); BUN 13 mg/dL (7-18); Bilirubin, Total 0.1 mg/dL (0.2-1.0); CO2 26.7 mmol/L (21.0-32.0); CREATININE 0.9 mg/dL (0.55-1.02); Chloride 105 mmol/L (98-107); Estimated GFR 81.86 (mL/min/1.73m2); Glucose 89 mg/dL (74-106); Potassium 4.1 mmol/L (3.5-5.1); Sodium 141 mmol/L (136-145); TSH (W/Ref FT4) 4.93 uIU/mL (0.36-3.74); Total Protein 7.3 g/dL (6.4-8.2)
[2023-03-05 12:42] LABS: Hemoglobin A1C 5.6 % (<5.7)
[2023-03-05 12:52] LABS: FREE T4 1.12 ng/dL (0.76-1.46)
== END 2023-03-05 04:54 | disposition home or self-care (01) ==
LOC: LOS 04:53
PROVIDERS: PCP Family Medicine; Visit Provider Family Medicine
DX: E11.9 Type 2 diabetes mellitus without complications (principal); F19.10 Other psychoactive substance abuse, uncomplicated; F31.9 Bipolar disorder, unspecified; F41.9 Anxiety disorder, unspecified
CPT/HCPCS: 36415; 80053; 85027; 83036; 84439; 84443

== ENCOUNTER 2023-05-18 21:34 | Emergency (ER) | payer MEDICAID, SELFPAY ==
[2023-05-18 21:37] VITALS: BP 238/107; PULSE 84; RESP 16; TEMP 36.9; O2SAT 98
--- NOTE | 2023-05-18 21:46 | ED.GENADUL_ITS ---
Discharge Plan Disposition Patient Disposition: [facility] Condition: Good Discharge Details Clinical Impression: Arm pain, Leg pain Primary Care Provider: Coty Stanley ED Provider: Suri Alvarez Home Meds and New Rx's Prescriptions: Continued metoprolol succinate 100 mg tablet extended release 24 hr 100 mg PO DAILY Qty: 90 5RF lisinopril 40 mg tablet 40 mg PO DAILY Qty: 90 4RF doxepin 50 mg capsule 50 mg PO QHS Qty: 30 5RF levothyroxine 50 mcg tablet 50 mcg PO DAILY Qty: 90 6RF clindamycin phosphate 2 % cream 1 appful vaginal DAILY Qty: 40 0RF Rx Instructions: for 3 days Discharge Instructions Instructions: Leg Pain (ED), Arm Pain (ED) Additional Instructions: You have declined any physical exam of the areas that are tender or imaging. You may return anytime for any worsening symptoms or continued evaluation. You are given a dose of Tylenol while here. May continue with Tylenol and ibuprofen as needed for discomfort. Please follow-up with primary care in 2 weeks for reevaluation. Please return if you develop any new or worsening symptoms. Referrals: Coty Stanley MD, [place] [Primary Care Provider] - Medical Decision Making Patient is a 42 year old ambidextrous female, PMH of gissel, ADD, obesity, epidural abscess, YONATHAN, HTN, brought in in police custody chief complaint of left arm and left leg pain. She reports that she had left thigh pain for 9 disclosed amount of time but her description does sound like this is more of a chronic issue. She also reports that she has left arm pain, particularly at the elbow from being arrested this evening and having her arm turned. She denies any numbness or tingling. Patient is not forthcoming with information and refuses to answer most of my questions. Patient demanding to have x-rays of her arms and legs as well as Tylenol and something to make me relax. Denies any headache, head injury. She not in any respiratory distress. On exam, patient appears nontoxic. She is resting comfortably. She is very guarded and will not answer most of my questions. While she reports that her elbow is maximal area of tenderness, this happens to be the arm that she is leaning on, particularly on the elbow on the arm of the chair. She has 2+ distal pulses. Patient is cuffed. Police presents this with her. Intact capi llary refill. Patient is able to move all of her fingers, has intact sensation. When I began examining rest of the arm and trying to palpate the arm as well as visualized the arm, patient refused. She does not want a physical exam. She does not want me to look at her left thigh. She is refusing an exam. I am not comfortable giving her any sedatives, as she is requesting. Will give PO APAP to help with pain. Sh is requesting xray of left femur at this time. Orders placed, she took the APAP but is now declining the imaging. Wants to go with police, she is in their custody. I did let her know that without physical exam, and possibly imaging, we may be missing signficant imaging. Seh contineus to decline, I did not see skin over the areas in question nor did she allow me to examine them. She was leaning on the injured arm, ambulating on marilia injured leg without antalgic gait or assistance. She was made aware she may come back any time for furthe revaluation or exam. She is in agreement with this plan. HPI General Date/Time Provider Initiated Documentation: 05/18/23 21:35 . Limitations to Documentation: no limitations . Information obtained by: patient, police, RN notes reviewed and old records reviewed . History of Present Illness 42 year old F presents to the emergency department with the chief complaint of left arm and left leg pain, described as moderate, with intensity rated at 8. and is localized to the left, upper extremity and lower extremity. Patient reports no radiation. Patient started experiencing this hour(s) (1929) and it has been constant. No relieving factors improve symptom(s), No exacerbating factors reported . Patient notes no other symptoms.. Patient did receive the following treatments prior to arrival, none Related Data Home Medications Medication Instructions Recorded Confirmed doxepin 50 mg capsule 50 mg PO QHS #30 caps 12/25/22 02/08/23 levothyroxine 50 mcg tablet 50 mcg PO DAILY #90 tabs 12/25/22 02/08/23 lisinopril 40 mg tablet 40 mg PO DAILY #90 tabs 12/25/22 02/08/23 metoprolol succinate 100 mg 100 mg PO DAILY #90 tabs 12/25/22 02/08/23 tablet,extended release 24 hr clindamycin phosphate 2 % vaginal 1 appful vaginal DAILY #40 grams 02/28/23 cream Previous Rx's Medication Instructions Recorded doxepin 50 mg capsule 50 mg PO QHS #30 caps 12/25/22 levothyroxine 50 mcg tablet 50 mcg PO DAILY #90 tabs 12/25/22 lisinopril 40 mg tablet 40 mg PO DAILY #90 tabs 12/25/22 metoprolol succinate 100 mg 100 mg PO DAILY #90 tabs 12/25/22 tablet,extended release 24 hr clindamycin phosphate 2 % vaginal 1 appful vaginal DAILY #40 grams 02/28/23 cream Allergies Allergy/AdvReac Type Severity Reaction Status Date / Time latex Allergy Intermediate SKIN RASH Unverified 02/08/23 13:27 Penicillins Allergy Unverified 02/08/23 13:27 prazosin AdvReac Dizziness/S Unverified 02/08/23 13:27 wejanet General Stated Complaint: Orthopedic JOLLY: 4 Review of Systems Constitutional Constitutional: Reports as per HPI, Denies headache(s) and Denies weakness ENT Ears, Nose, Mouth, and Throat: Denies headache(s) Cardiovascular Cardiovascular: Reports as per HPI Musculoskeletal Musculoskeletal: Reports as per HPI and Denies tingling Integumentary/Breasts Skin/Breast: Reports as per HPI and Denies wounds Neurologic Neurologic: Reports as per HPI, Denies headache(s), Denies tingling, Denies paresthesias and Denies weakness PFSH All Active Problems (Updated 05/18/23 @ 21:51 by RANJAN Cordova) Arm pain (Acute) Leg pain (Acute) Gissel (Acute) URI (upper respiratory infection) (Acute) ADD (attention deficit disorder) (Acute) On stimulant, dexylmethylphenidate-managed per psychiatry Psychosis (Acute) Pre-diabetes (Acute) Obesity, morbid, BMI 40.0-49.9 (Acute) Flaccid paraplegia (Acute) Migraine (Chronic) Urinary retention (Acute) Lumbar pain (Acute) Lower extremity weakness (Acute) Microcytic anemia (Acute) Ovarian cyst (Acute) Substance abuse (Chronic) Heroin, crack cocaine, alcohol. 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 Followed by Dr. Long Anxiety (Chronic) On alprazolam-Per psychiatry Smoker (Chronic) Accidental drug overdose (Acute) Medical History At risk for sexually transmitted disease due to unprotected sex (04/24/17) 2018 treated for chlamydia x2. Cauda equina compression Chlamydia (09/24/17) Drug overdose (03/12/06) Fever Gram-positive bacteremia Iron deficiency anemia Lice Right ear pain (06/08/16) Right lower quadrant pain Surgical History Status post dilation and curettage Elective termination of Status post laparoscopy Social History Smoking/Tobacco Use Status: Current every day Tobacco Type: cigarettes Tobacco: How many years used: 23 Quit status: has quit before Second Hand Exposure: Yes Smoking risk assessment performed?: Yes Alcohol Intake: former Drug use: Daily Substance use type: marijuana Household members: none Housing: house Number of Children: 0 Education Level: college Do you need help understanding health information?: Rarely Pets and animals: No Sexually active: Yes Do you think of yourself as: straight/heterosexual Current gender identity: female What is your relationship status?: never How often do you talk on the phone with friends or family?: three or more times per week How often do you get together with friends or relatives?: twice per week How often do you attend hoahaoism or worship services?: decline to answer Do you belong to any clubs or organized social groups?: no Panel score (0-1 are the most socially isolated patients): 1 Duration: 15-30 minutes/day Frequency: 1-2 times per week Quin/Nondenominational: No preference Do you feel safe at home: Yes Do you feel safe in your relationship?: Yes History History 1 Para Hx # Term Pregnancies Multiple births Hx # Pregnancies Ectopic pregnancies AB induced 1 Hx Number of Living Children 0 AB spontaneous Exam Const General: uncooperative (guarded, does not want to be examined, does not want to answer questions), healthy appearing, comfortable (leaning on left arm, ambulating well), no acute distress and well developed Nutritional Appearance: well nourished and obese Orientation: alert and awake Resp Effort & Inspection: normal respiratory effort, able to speak in complete sentences and no respiratory distress Auscultation: clear to auscultation bilaterally Cardio Rate: regular rate Rhythm: regular rhythm Heart Sounds: S1 normal and S2 normal Skin General skin exam: no rashes or lesions noted (on exposed skin, she has long sleeves on, refuses exam) Neuro General: patient alert and patient awake Cognition: normal cognition Speech: speech normal Gait: normal gait Motor: muscle tone normal throughout Sensory Exam: no sensory deficits noted Extrem General: normal to inspection Psych Thought Process: normal Thought Content: suicidality Course Vital Signs Vital signs: Vital Signs Temperature 36.9 C 05/18/23 21:37 Pulse 84 05/18/23 21:37 Respiratory Rate 16 05/18/23 21:37 Blood Pressure 238/107 H 05/18/23 21:37 Pulse Oximetry 98 05/18/23 21:37 Temperature 36.9 C 05/18/23 21:37 Temperature Source Tympanic 05/18/23 21:37 Pulse 84 05/18/23 21:37 Respiratory Rate 16 05/18/23 21:37 Respiratory Effort Normal, Non-Labored 05/18/23 21:44 Blood Pressure 238/107 H 05/18/23 21:37 Blood Pressure Position Sitting 05/18/23 21:37 Pulse Oximetry 98 05/18/23 21:37 Oxygen Delivery Method Room Air 05/18/23 21:37 Oxygen Flow Rate 0 05/18/23 21:37 Pain Level 8 05/18/23 21:37
[2023-05-18] MEDS: Acetaminophen 325 MG TAB 650 MG PO (21:50)
== END 2023-05-18 21:51 ==
PROVIDERS: Emergency Provider Physician Assistant; PCP Family Medicine
DX: M79.622 Pain in left upper arm (principal); M79.632 Pain in left forearm; M79.605 Pain in left leg; Y35.893A Legal intervention involving other specified means, suspect injured, initial encounter
CPT/HCPCS: 99282; 99283

== ENCOUNTER 2023-07-08 15:09 | Emergency (ER) | payer MEDICAID, SELFPAY ==
[2023-07-08] VITALS (19 sets, daily range): BP systolic 157–203; BP diastolic 88–120; PULSE 85–91; RESP 11–32; TEMP 36.5–37; O2SAT 91–98
--- NOTE | 2023-07-08 15:14 | W.ED.GENAD ---
Discharge Plan Disposition Patient Disposition: Home Discharge Details Clinical Impression: Cough Primary Care Provider: Coty Stanley ED Provider: Gonzalo Ho Home Meds and New Rx's Prescriptions: Continued metoprolol succinate 100 mg tablet extended release 24 hr 100 mg PO DAILY Qty: 90 5RF lisinopril 40 mg tablet 40 mg PO DAILY Qty: 90 4RF doxepin 50 mg capsule 50 mg PO QHS Qty: 30 5RF levothyroxine 50 mcg tablet 50 mcg PO DAILY Qty: 90 6RF clindamycin phosphate 2 % cream 1 appful vaginal DAILY Qty: 40 0RF Rx Instructions: for 3 days Discharge Instructions Additional Instructions: You were seen in the emergency department for your cough and fevers. You likely have a viral infection for which you should ensure you stay hydrated. Please return to the emergency department, as we discussed, if you develop any weakness in your lower extremities any loss of control of your bowels or bladder or if you have any other concerns. Your viral swab was negative for COVID influenza and RSV. Your chest x-ray showed no sign of a pneumonia. For your pain please take medications as follows: 1. Take acetaminophen (Tylenol), 1,000 mg (two 500 mg tabs) every 6 hours 2. Take ibuprofen (Advil), 400 mg every 6 hours. HPI General Date/Time Provider Initiated Documentation: 07/08/23 15:14. HPI Narrative: MDM This is an overall well-appearing normothermic and not tachycardic 42-year-old female in the emergency department in the setting of low back pain chills cough fevers and headache concerning for most likely viral etiology versus pneumonia. No pain out of proportion to suggest necrotizing soft tissue infection. No focal neurological deficits no loss of bowel or bladder control to suggest recurrent spinal epidural abscess. Patient has vomited several days ago however has a soft nontender abdomen so my suspicion is exceedingly low for intra-abdominal process. No dysuria nor frequency to suggest UTI. Patient is not altered to suggest encephalitis. No nuchal rigidity to suggest meningitis I do not feel that the patient requires a lumbar puncture. Given decreased p.o. will assess basic labs and provide normal saline. No abnormal vaginal discharge so doubt sexually transmitted infection. Given no dysuria nor frequency doubt urinary tract infection. No carbon monoxide exposure to suggest CO toxicity. No neck pain nor chiropractic manipulation so doubt cervical arterial dissection. Headache was not sudden in onset so my suspicion is exceedingly low for subarachnoid hemorrhage. No routine tobacco ethanol no illicits to suggest acute withdrawal. Patient's vital signs are remarkable for elevated blood pressure. She does have a history of essential hypertension but is not adherent with her medications. She does not have any infiltrate on chest x-ray given cough URI symptoms. She reports taking less by mouth recently so we will ensure that she does not have any acute electrolyte abnormalities. Will reassess following labs. Patient denies suicidal and homicidal ideations and no indication for involuntary hold. 4:05 PM CBC showing mild new leukocytosis. No thrombocytopenia. No anemia. 4:20 PM COVID influenza RSV all negative. Basic metabolic panel showing no TIFFANI. Very mild hyperglycemia but no anion gap and normal bicarbonate??not consistent with DKA. Negative hCG. 4:40 PM Chest x-ray read as no acute cardiopulmonary process. Patient and I discussed strict return indications including any worsening discomfort or any loss of bowel or bladder control. We also discussed that she should return for any saddle anesthesia. She was brought some soup as requested but reported that she only wanted chicken needle soup. We will proceed with empiric trial of expectant outpatient management. Patient's blood pressure improved in the emergency department. Repeat vitals showing no tachycardia. Patient persistently normothermic. Improved blood pressure. I have asked health progressive care unit registered nurse Jennifer to have the patient seen for general malaise by her primary care team within the next week. Chronic conditions affecting the care of the patient: Tobacco use hep C bipolar disorder prior epidural abscess chronic back pain History obtained from an outside historian: Paramedics External record review: [facility] [place] Diagnostic interpretations performed by me: Per my independent interpretation chest x-ray shows: No acute cardiopulmonary process Medications: Ibuprofen and acetaminophen Social determinants of health affecting disposition: Lives alone Management discussed with: N/A Treatment/interventions considered: Hospitalization but deferred given reassuring labs Response to therapies provided: N/A HPI This is a 42-year-old female with a history of back pain hypertension hepatitis C bipolar disorder anxiety obesity hypothyroidism hypertension and chronic back pain with prior epidural abscess arriving to the emergency department via paramedics in the setting of cough chills fevers low back pain. Patient reports her symptoms have been going on for the past several weeks but became worse today. She says her cough is productive of sputum. She told her neighbor that she was feeling unwell and her neighbor called paramedics. Over the past several days she has gradually had indolent onset headache. She has not lost control of her bowels or bladder. She has not had any weakness. She has not taken any falls. She takes no routine medications. She denies any dysuria and frequency. She did see her mother the other day but has not had any sick contacts. Her house is reportedly in disarray according to paramedics. Exam General: Well-appearing in no acute distress speaking in complete sentences. Head: Normocephalic, atraumatic. Eye: Extraocular eye movements intact. No conjunctival injection. No scleral icterus. Ear, nose, mouth, throat: Grossly normal inspection. Normal voice, handling secretions normally. Neck: Trachea midline. No nuchal rigidity. Cardiovascular: Well-perfused distal extremities. Regular rate and rhythm Respiratory: Nonlabored respiration. Clear lungs bilaterally. Gastrointestinal: Nondistended abdomen. Soft nontender. Back: No rash to back. No midline thoracic nor lumbar spinal tenderness. Mild left-sided paraspinal lumbar tenderness. Musculoskeletal: No edema. Moving all 4 extremities spontaneously. 5 out of 5 bilateral lower extremity strength. Skin: Normal for age and race, grossly normal temperature and turgor. No acute rash. Neurologic: Alert and appropriate, no apparent acute deficits. Psychiatric: Mildly pressured speech. No flight of ideas. No suicidal or homicidal ideation. Related Data Home Medications Medication Instructions Recorded Confirmed doxepin 50 mg capsule 50 mg PO QHS #30 caps 12/25/22 02/08/23 levothyroxine 50 mcg tablet 50 mcg PO DAILY #90 tabs 12/25/22 02/08/23 lisinopril 40 mg tablet 40 mg PO DAILY #90 tabs 12/25/22 02/08/23 metoprolol succinate 100 mg 100 mg PO DAILY #90 tabs 12/25/22 02/08/23 tablet,extended release 24 hr clindamycin phosphate 2 % vaginal 1 appful vaginal DAILY #40 grams 02/28/23 cream Previous Rx's Medication Instructions Recorded doxepin 50 mg capsule 50 mg PO QHS #30 caps 12/25/22 levothyroxine 50 mcg tablet 50 mcg PO DAILY #90 tabs 12/25/22 lisinopril 40 mg tablet 40 mg PO DAILY #90 tabs 12/25/22 metoprolol succinate 100 mg 100 mg PO DAILY #90 tabs 12/25/22 tablet,extended release 24 hr clindamycin phosphate 2 % vaginal 1 appful vaginal DAILY #40 grams 02/28/23 cream Allergies Allergy/AdvReac Type Severity Reaction Status Date / Time latex Allergy Intermediate SKIN RASH Unverified 02/08/23 13:27 Penicillins Allergy Unverified 02/08/23 13:27 prazosin AdvReac Dizziness/S Unverified 02/08/23 13:27 weats General Stated Complaint: GenMedical JOLLY: 3 PFSH All Active Problems (Updated 07/08/23 @ 16:41 by Gonzalo Ho MD) Cough (Acute) Dulce (Acute) URI (upper respiratory infection) (Acute) ADD (attention deficit disorder) (Acute) On stimulant, dexylmethylphenidate-managed per psychiatry Psychosis (Acute) Pre-diabetes (Acute) Obesity, morbid, BMI 40.0-49.9 (Acute) Flaccid paraplegia (Acute) Migraine (Chronic) Urinary retention (Acute) Lumbar pain (Acute) Lower extremity weakness (Acute) Microcytic anemia (Acute) Ovarian cyst (Acute) Substance abuse (Chronic) Heroin, crack cocaine, alcohol. 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 Followed by Dr. Pereira Anxiety (Chronic) On alprazolam-Per psychiatry Smoker (Chronic) Accidental drug overdose (Acute) Medical History At risk for sexually transmitted disease due to unprotected sex (04/24/17) 2018 treated for chlamydia x2. Cauda equina compression Chlamydia (09/24/17) Drug overdose (03/12/06) Fever Gram-positive bacteremia Iron deficiency anemia Lice Right ear pain (06/08/16) Right lower quadrant pain Surgical History Status post dilation and curettage Elective termination of Status post laparoscopy Social History Smoking/Tobacco Use Status: Current every day Tobacco Type: cigarettes Tobacco: How many years used: 23 Quit status: has quit before Second Hand Exposure: Yes Smoking risk assessment performed?: Yes Alcohol Intake: former Drug use: Daily Substance use type: marijuana and crack/cocaine Household members: none Housing: house Number of Children: 0 Education Level: college Do you need help understanding health information?: Rarely Pets and animals: No Sexually active: Yes Do you think of yourself as: straight/heterosexual Current gender identity: female What is your relationship status?: never How often do you talk on the phone with friends or family?: three or more times per week How often do you get together with friends or relatives?: twice per week How often do you attend restoration or episcopal services?: decline to answer Do you belong to any clubs or organized social groups?: no Panel score (0-1 are the most socially isolated patients): 1 Duration: 15-30 minutes/day Frequency: 1-2 times per week Quin/Episcopal: No preference Do you feel safe at home: Yes Do you feel safe in your relationship?: Yes History History 1 Para Hx # Term Pregnancies Multiple births Hx # Pregnancies Ectopic pregnancies AB induced 1 Hx Number of Living Children 0 AB spontaneous Course Vital Signs Vital signs: Vital Signs Temperature 37 C 07/08/23 15:04 Pulse 89 07/08/23 15:04 Respiratory Rate 18 07/08/23 15:04 Blood Pressure 203/98 H 07/08/23 15:04 Pulse Oximetry 98 07/08/23 15:04 Temperature 37 C 07/08/23 15:04 Temperature Source Oral 07/08/23 15:04 Pulse 89 07/08/23 15:04 Respiratory Rate 18 07/08/23 15:04 Respiratory Effort Normal 07/08/23 15:09 Blood Pressure 203/98 H 07/08/23 15:04 Pulse Oximetry 98 07/08/23 15:04 Oxygen Delivery Method Room Air 07/08/23 15:04 Oxygen Flow Rate 0 07/08/23 15:04 Pain Level 10 07/08/23 15:04
--- NOTE | 2023-07-08 15:15 | DI.RAD_ITS ---
Exam(s) XR PORTABLE CHEST AP EXAM: XR PORTABLE CHEST AP CLINICAL HISTORY: Fever cough TECHNIQUE: 2D digital imaging was performed of the chest. One image was obtained. An AP view was ob tained. COMPARISON: CR,XR XR PORTABLE CHEST AP from 09/10/2022 FINDINGS: MEDIASTINUM: Normal. HEART: Normal. PULMONARY VASCULATURE: Normal. LUNGS: There are low lung volumes. No focal consolidation. PLEURAL SPACE: No pleural effusion or pneumothorax. BONE:Within normal limits for the patient's age. OTHER FINDINGS:Normal. IMPRESSION: No acute pulmonary findings. DATA REPOSITORY: RADIATION DOSE DELIVERED:
[2023-07-08] MEDS: Normal Saline 500 ML IV (16:00)
[2023-07-08 16:02] LABS: Abs Immature Grans 0.08 10^3/uL (0.0-0.06); Absolute Basophil Count 0.04 10^3/uL (0.0-0.2); Absolute Eosinophil Count 0.07 10^3/uL (0.0-0.7); Absolute Lymphocyte Count 1.71 10^3/uL (1.2-3.4); Absolute Monocyte Count 0.61 10^3/uL (0.1-0.8); Basophils % 0.4; Eosinophils % 0.6; HCT 38.4 % (36.0-46.0); HGB 12.3 g/dL (11.2-15.7); Immature Grans % 0.7; Lymphocytes % 15.5; MCH 27.6 pg (27.0-33.0); MCV 86 fL (80-95); MPV 9.1 fL (8.0-11.0); Monocytes % 5.5; Neutrophils % 77.3; Platelet Count 279 10^3/uL (130-400); RBC 4.46 10^6/uL (3.93-5.22); RDW 14.9 % (11.7-14.6); RDW-SD 47.4 fL; WBC 11.01 10^3/uL (4.4-10.8)
[2023-07-08 16:03] LABS: Absolute Neutrophil Count 8.51 10^3/uL (1.2-6.7)
[2023-07-08 16:09] LABS: COVID-19 PCR Negative (Negative); Influenza A PCR Negative (Negative); Influenza B PCR Negative (Negative); RSV PCR Negative (Negative)
[2023-07-08 16:12] LABS: Source Nasopharynx
[2023-07-08 16:13] LABS: Anion Gap 9.2 mmol/L (3-11); BUN 11 mg/dL (7-18); CO2 25.8 mmol/L (21.0-32.0); CREATININE 0.7 mg/dL (0.55-1.02); Calcium 8.9 mg/dL (8.5-10.1); Chloride 104 mmol/L (98-107); Estimated GFR 110.67 (mL/min/1.73m2); Glucose 121 mg/dL (74-106); Potassium 3.8 mmol/L (3.5-5.1); Sodium 139 mmol/L (136-145)
[2023-07-08 16:20] LABS: HCG Qual (Serum) Negative
--- NOTE | 2023-07-08 16:36 | DI.VRAD_ITS ---
PROCEDURE INFORMATION: Exam: XR Chest Exam date and time: 07/08/2023 4:07 PM Age: 42 years old Clinical indication: Cough and fever TECHNIQUE: Imaging protocol: Radiologic exam of the chest. Views: 1 view. COMPARISON: CT THORAX ABD/PEL CTA 10/09/2022 22:35 FINDINGS: Lungs: Low lung volumes. Crowding of the central pulmonary vessels. No focal consolidation. Pleural spaces: Unremarkable. No pleural effusion. No pneumothorax. Heart/Mediastinum: Prominent cardiac silhouette. Bones/joints: Unremarkable for patient's age. IMPRESSION: No acute cardiopulmonary findings. Dictated and Authenticated by: Ashlee Anne MD. Ordering:FRANCESCA Sánchez MD
[2023-07-08] MEDS: Acetaminophen 500 MG TAB 1000 MG PO (16:47)
[2023-07-08] MEDS: Ibuprofen 600 MG TAB PO (16:47)
== END 2023-07-08 17:58 | disposition home or self-care (01) ==
LOC: ER 17:02
PROVIDERS: Emergency Provider Emergency Medicine; PCP Family Medicine
DX: R51.9 Headache, unspecified (principal); M54.50 Low back pain, unspecified; R05.9 Cough, unspecified; I10 Essential (primary) hypertension; F31.9 Bipolar disorder, unspecified; Z79.899 Other long term (current) drug therapy; E66.9 Obesity, unspecified; Z68.41 Body mass index [BMI] 40.0-44.9, adult; E03.9 Hypothyroidism, unspecified; F41.9 Anxiety disorder, unspecified; Z72.0 Tobacco use; Z91.040 Latex allergy status; Z88.0 Allergy status to penicillin; Z88.8 Allergy status to other drugs, medicaments and biological substances
CPT/HCPCS: 80048; 87637; 96360; 99284; 71045; 84703; 85025

== ENCOUNTER 2023-07-09 18:16 | Emergency (ER) | payer MEDICAID, SELFPAY ==
[2023-07-09] VITALS (18 sets, daily range): BP systolic 150–196; BP diastolic 84–110; PULSE 79–104; RESP 20; TEMP 36.7–37.2; O2SAT 92–98
--- NOTE | 2023-07-09 19:03 | W.ED.GENAD ---
Discharge Plan Disposition Patient Disposition: Home Condition: Stable Discharge Details Clinical Impression: Bipolar I disorder, Hypertension Primary Care Provider: Coty Stanley ED Provider: Merle Quiroz Home Meds and New Rx's Prescriptions: Continued lisinopril 40 mg tablet 40 mg PO DAILY Qty: 30 4RF No Action metoprolol succinate 100 mg tablet extended release 24 hr 100 mg PO DAILY Qty: 90 5RF doxepin 50 mg capsule 50 mg PO QHS Qty: 30 5RF levothyroxine 50 mcg tablet 50 mcg PO DAILY Qty: 90 6RF Discharge Instructions Instructions: Bipolar Disorder (DC), Hypertension (ED), Psychotic Disorder (ED) Additional Instructions: the care bed will contact your mother when a bed is available. you will be provided lisinopril to help treat your high blood pressure. please follow up with primary care provider as soon as possible. the staff at the care bed will try to falitate this for you. Referrals: [facility] [Provider Group] (please call if needed. they will contact your mother when a care bed is available. ) Medical Decision Making Patient presents to the emergency department for evaluation she has extensive psychiatric history she is not suicidal or homicidal. She has been medically screened and is stable for mental health evaluation. This is completed by Zoom and plan is to be discharged to a care bed when available. She has noted to be a patient of Dr. Stanley'dixon but states she currently has no prescription medications she was noted to be hypertensive which has been consistent with previous visits. I will give her lisinopril 40 mg daily which she was previously on to start. The care bed is going to try to obtain primary care provider and medications for her. She will be advised to monitor her blood pressure outpatient again this will be followed by [facility] bed once she is admitted. She does not have a cell phone but her mother's phone number will be provided so they can notify her when the bed is available Medical Records Medical records reviewed: Yes I reviewed the patient's medical records. Lab Data Lab results reviewed: Yes I reviewed the patient's lab results. HPI General Mode of arrival: EMS. Date/Time Provider Initiated Documentation: 07/09/23 18:21. Limitations to Documentation: other (behavioral). Information obtained by: patient, EMS, RN notes reviewed and old records reviewed. HPI Narrative: Presents by EMS for evaluation. Medically she has no complaints but she does state that she has no heat in her apartment and has no cell phone. She was found walking in the road requesting to come to the emergency department. She was evaluated here last night and diagnosed with viral illness. She does not appear intoxicated or impaired. Related Data Home Medications Medication Instructions Recorded Confirmed doxepin 50 mg capsule 50 mg PO QHS #30 caps 12/25/22 07/09/23 levothyroxine 50 mcg tablet 50 mcg PO DAILY #90 tabs 12/25/22 07/09/23 metoprolol succinate 100 mg 100 mg PO DAILY #90 tabs 12/25/22 07/09/23 tablet,extended release 24 hr lisinopril 40 mg tablet 40 mg PO DAILY #30 tabs 07/09/23 Previous Rx's Medication Instructions Recorded doxepin 50 mg capsule 50 mg PO QHS #30 caps 12/25/22 levothyroxine 50 mcg tablet 50 mcg PO DAILY #90 tabs 12/25/22 metoprolol succinate 100 mg 100 mg PO DAILY #90 tabs 12/25/22 tablet,extended release 24 hr lisinopril 40 mg tablet 40 mg PO DAILY #30 tabs 07/09/23 Allergies Allergy/AdvReac Type Severity Reaction Status Date / Time latex Allergy Intermediate SKIN RASH Unverified 07/09/23 18:19 Penicillins Allergy Unverified 07/09/23 18:19 prazosin AdvReac Dizziness/S Unverified 07/09/23 18:19 carmela General Stated Complaint: GenMedical JOLLY: 3 Review of Systems All systems reviewed & are unremarkable except as noted in HPI and below PFSH All Active Problems (Updated 07/09/23 @ 20:29 by Merle Quiroz NP) Hypertension (Chronic) Cough (Acute) Dulce (Acute) URI (upper respiratory infection) (Acute) ADD (attention deficit disorder) (Acute) On stimulant, dexylmethylphenidate-managed per psychiatry Psychosis (Acute) Pre-diabetes (Acute) Obesity, morbid, BMI 40.0-49.9 (Acute) Flaccid paraplegia (Acute) Migraine (Chronic) Urinary retention (Acute) Lumbar pain (Acute) Lower extremity weakness (Acute) Microcytic anemia (Acute) Ovarian cyst (Acute) Substance abuse (Chronic) Heroin, crack cocaine, alcohol. 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 Followed by Dr. Pereira Anxiety (Chronic) On alprazolam-Per psychiatry Smoker (Chronic) Accidental drug overdose (Acute) Medical History At risk for sexually transmitted disease due to unprotected sex (04/24/17) 2018 treated for chlamydia x2. Cauda equina compression Chlamydia (09/24/17) Drug overdose (03/12/06) Fever Gram-positive bacteremia Iron deficiency anemia Lice Right ear pain (06/08/16) Right lower quadrant pain Surgical History Status post dilation and curettage Elective termination of Status post laparoscopy Social History Smoking/Tobacco Use Status: Current every day Tobacco Type: cigarettes Tobacco: How many years used: 23 Quit status: has quit before Second Hand Exposure: Yes Smoking risk assessment performed?: Yes Alcohol Intake: former Drug use: Daily Substance use type: marijuana and crack/cocaine Details: cocaine once a week Household members: none Housing: house Number of Children: 0 Education Level: college Do you need help understanding health information?: Rarely Pets and animals: No Sexually active: Yes Do you think of yourself as: straight/heterosexual Current gender identity: female What is your relationship status?: never How often do you talk on the phone with friends or family?: three or more times per week How often do you get together with friends or relatives?: twice per week How often do you attend confucianism or zoroastrianism services?: decline to answer Do you belong to any clubs or organized social groups?: no Panel score (0-1 are the most socially isolated patients): 1 Duration: 15-30 minutes/day Frequency: 1-2 times per week Quin/Uatsdin: No preference Do you feel safe at home: Yes Do you feel safe in your relationship?: Yes History History 1 Para Hx # Term Pregnancies Multiple births Hx # Pregnancies Ectopic pregnancies AB induced 1 Hx Number of Living Children 0 AB spontaneous Exam Const General: cooperative, comfortable and no acute distress Nutritional Appearance: obese Orientation: alert, awake and oriented x3 HENMT Head: normal to inspection, normocephalic and atraumatic General nose exam: external nose abnormal (reddened most consistent with viral illness) and nasal discharge clear Face and sinus: normal facial exam Eyes General: appearance normal, both eyes and all related structures Alignment and Position: alignment normal Periorbital: periorbital findings normal Sclera: sclerae normal Neck Neck: normal visual inspection and full ROM Chest Chest: normal inspection of the chest Resp Effort & Inspection: normal respiratory effort Auscultation: clear to auscultation bilaterally Cardio Rate: regular rate Rhythm: regular rhythm GI Inspection: normal to inspection Palpation: soft Auscultation: normal bowel sounds Skin General skin exam: no rashes or lesions noted Neuro General: patient alert, patient awake and patient oriented x3 Extrem General: normal to inspection and full ROM Psych Appearance: disheveled Speech and Movement: agitated Mood: anxious mood Affect: labile affect Attitude: belligerent (at times) Thought Process: confabulating, flight of ideas and perseverating Thought Content: delusions, no homicidality and suicidality Insight: poor Judgment: poor Course Vital Signs Vital signs: Vital Signs Temperature 37.2 C 07/09/23 18:16 Pulse 104 H 07/09/23 18:16 Respiratory Rate 20 07/09/23 18:16 Blood Pressure 196/110 H 07/09/23 18:16 Pulse Oximetry 98 07/09/23 18:16 Temperature 37.2 C 07/09/23 18:16 Temperature Source Oral 07/09/23 18:16 Pulse 104 H 07/09/23 18:16 Respiratory Rate 20 07/09/23 18:16 Respiratory Effort Normal 07/09/23 18:44 Respiratory Depth Normal 07/09/23 18:44 Respiratory Pattern Normal 07/09/23 18:44 Blood Pressure 196/110 H 07/09/23 18:16 Blood Pressure Position Sitting 07/09/23 18:16 Pulse Oximetry 97 07/09/23 18:47 Oxygen Delivery Method Room Air 07/09/23 18:43 Oxygen Flow Rate 0 07/09/23 18:16 Pain Level 10 07/09/23 18:47
[2023-07-09] MEDS: Lisinopril 20 MG TAB 40 MG PO (20:54)
--- NOTE | 2023-07-10 00:52 | PDOC.MHCN ---
Date of service: 07/09/23 Time of Service: 19:23 PHQ-9 Over the last 2 weeks, how often have you been bothered by any of the following problems? 1. Little interest or pleasure in doing things: not at all 2. Feeling down, depressed, or hopeless: nearly every day 3. Trouble falling or staying asleep, or sleeping too much: nearly every day 4. Feeling tired or having little energy: not at all 5. Poor appetite or overeating: not at all 6. Feeling bad about yourself - or that you are a failure or have let yourself and your family down: not at all 7. Trouble concentrating on things, such as reading the newspaper or watching television: not at all 8. Moving or speaking so slowly that other people could have noticed? - Or the opposite - being so fidgety or restless that you have been moving around a lot more than usual: not at all 9. Thoughts that you would be better off or of hurting yourself in some way: not at all Total score: 6 If you checked off any problems, how difficult have these problems made it for you to do your work, take care of things at home, or get along with other people?: somewhat difficult Source: Developed by Drs. Herbert Sebastian, Valerie Duong, Demetri Persaud and colleagues, with an educational maricarmen from [employer]. Suicide Severity Rate CSSRS Have you wished you were or wished you could go to sleep and not wake up?: No Have you actually had any thoughts of killing yourself?: No CSSRS3 Have you ever done anything, started to do anything or prepared to do anything to end your life?: No Screening Score Total Score: 0 Screening: Negative Mental Health Emergency Note Release [facility] release signed:: No Reason for Visit In the last 2 weeks has the pt presented for ES prior to today?: Yes, presented at [facility] ED Non Suicidal Self Injury Current: No History: No Safety Risk/Harm to Self or Others Current Ideation to Harm Self or Others: No Asssessment/Mental Status Appearance: Disheveled Attitude: Cooperative and Hostile Behavior: Unremarkable and Agitated Speech: Normal Affect: Cogruent with mood Mood: Anxious and Angry Thought process: Loose associations and Goal directed Hallucinations: yes, Visual and Auditory Delusions: yes, Grandiose Attention: Wandering and Poor concentration Perception: Not impaired Orientation: Fully orientated Memory: Impaired in: (Drug use) Remote Insight: Fair Judgement: Fair Neurovegetative Symptoms Sleep: No change Appetitie: No change Interests: No change Energy: No change Libido: Not applicable Substance Use: Drug Issues: Other (Past cocaine addict ) Do you use nicotine?: Yes Have you used substances in the last 7 days?: yes, THC, Alcohol, Cigarettes Plan/Disposition Recommended Disposition: Crisis bed, facility contacted. Status of Crisis Bed acceptance: Pending review. Plan: Client is Beverley Charles is a 43 year old female who was seen at [facility] ED via zoom after client brought herself to be seen, as she is currently sick. Client reported no SI, HI, intent, plan, or means to cause harm to herself. Client reports in her current home she is ?freezing to ? and the client does not have a phone currently. Clients? appearance was disheveled and at times this mortgage loan underwriter observed the client having an auditory and visual hallucination and observed the client talking to someone else that was not there. Client reports that she is a former addict of cocaine but currently uses marijuana, tobacco, and alcohol. Client was able to identify a support system and strengths. Client reported on several occasions during the assessment that she is interested in adjusting and restarting her medication at this time in addition to finding different supports to help the client with her day-to-day. Client was friendly to this mortgage loan underwriter during the assessment, client answered all these questions but at times went off on a tangent typically involving her past trauma history. Client believes that she has a lot of money but is currently unable to get to it and no one is helping her get to it either. Reports/communication Outcome discussed with: ED/Personnel
== END 2023-07-09 21:06 | disposition home or self-care (01) ==
PROVIDERS: Emergency Provider Nurse Practitioner Acute Care; PCP Family Medicine
DX: F31.9 Bipolar disorder, unspecified (principal); I10 Essential (primary) hypertension
CPT/HCPCS: 00123; 96127; 99283

== ENCOUNTER 2023-07-13 12:32 | Emergency (ER) | payer MEDICAID, SELFPAY ==
[2023-07-13 12:35] VITALS: BP 180/93; PULSE 75; RESP 16; TEMP 37.2; O2SAT 99
[2023-07-13] MEDS: diphenhydrAMINE 25 MG CAP 50 MG PO (13:22)
[2023-07-13] MEDS: Prochlorperazine 10 MG TAB PO (13:23)
[2023-07-13] MEDS: Ketorolac 10 MG TAB PO (13:23)
[2023-07-13 13:51] VITALS: RESP 14
--- NOTE | 2023-07-13 13:56 | W.ED.GENAD ---
Discharge Plan Disposition Patient Disposition: Home Condition: Stable Discharge Details Clinical Impression: Psychosis Primary Care Provider: Coty Stanley ED Provider: Jerod Stevenson Home Meds and New Rx's Prescriptions: No Action metoprolol succinate 100 mg tablet extended release 24 hr 100 mg PO DAILY Qty: 90 5RF doxepin 50 mg capsule 50 mg PO QHS Qty: 30 5RF levothyroxine 50 mcg tablet 50 mcg PO DAILY Qty: 90 6RF lisinopril 40 mg tablet 40 mg PO DAILY Qty: 30 4RF Discharge Instructions Additional Instructions: Please follow-up with mental health for drug rehabilitation services Discharge Data Discharge Date/Time-TO BE ENTERED AT DEPARTURE: 07/13/23 15:31 Medical Decision Making Emergent evaluation of headache. Patient likely has engaged and substance use today. At this time there is no indication for psychiatric involvement. I have discussed with the mother at length and with the [facility] mental health services. At this time they state that the patient does not have any criteria and she has no interest in staying voluntary. Even though she is slightly disorganized, she is not a threat to herself or to others at this time. She was given medications for her headache which seem to have improved her symptoms and at this time there is no indication for further emergent workup. The patient should be discharged. Medical Records Medical records reviewed: Yes I reviewed the patient's medical records. HPI General Date/Time Provider Initiated Documentation: 07/13/23 12:45. Limitations to Documentation: other (Bipolar disorder). Information obtained by: patient. HPI Narrative: 43-year-old female with past medical history including bipolar disorder presents via EMS after hotel she is staying at called 911 secondary to some thoughts or behavior they observed in the parking lot. There was no aggressive or hostile behavior reported. Patient reports right now that she has a headache. She says that she has had a headache every day for the last 3 years. She states that it is a 45/10 on a scale. She has not taken any medication. She states that she does not take medication for bipolar disorder because she does not need medicine Related Data Home Medications Medication Instructions Recorded Confirmed doxepin 50 mg capsule 50 mg PO QHS #30 caps 12/25/22 07/09/23 levothyroxine 50 mcg tablet 50 mcg PO DAILY #90 tabs 12/25/22 07/09/23 metoprolol succinate 100 mg 100 mg PO DAILY #90 tabs 12/25/22 07/09/23 tablet,extended release 24 hr lisinopril 40 mg tablet 40 mg PO DAILY #30 tabs 07/09/23 Previous Rx's Medication Instructions Recorded doxepin 50 mg capsule 50 mg PO QHS #30 caps 12/25/22 levothyroxine 50 mcg tablet 50 mcg PO DAILY #90 tabs 12/25/22 metoprolol succinate 100 mg 100 mg PO DAILY #90 tabs 12/25/22 tablet,extended release 24 hr lisinopril 40 mg tablet 40 mg PO DAILY #30 tabs 07/09/23 Allergies Allergy/AdvReac Type Severity Reaction Status Date / Time latex Allergy Intermediate SKIN RASH Unverified 07/09/23 18:19 Penicillins Allergy Unverified 07/09/23 18:19 prazosin AdvReac Dizziness/S Unverified 07/09/23 18:19 weats General Stated Complaint: GenMedical JOLLY: 3 PFSH All Active Problems Hypertension (Chronic) Cough (Acute) Dulce (Acute) URI (upper respiratory infection) (Acute) ADD (attention deficit disorder) (Acute) On stimulant, dexylmethylphenidate-managed per psychiatry Psychosis (Acute) Pre-diabetes (Acute) Obesity, morbid, BMI 40.0-49.9 (Acute) Flaccid paraplegia (Acute) Migraine (Chronic) Urinary retention (Acute) Lumbar pain (Acute) Lower extremity weakness (Acute) Microcytic anemia (Acute) Ovarian cyst (Acute) Substance abuse (Chronic) Heroin, crack cocaine, alcohol. 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 Followed by Dr. Pereira Anxiety (Chronic) On alprazolam-Per psychiatry Smoker (Chronic) Accidental drug overdose (Acute) Medical History Cauda equina compression Gram-positive bacteremia Fever Iron deficiency anemia Right lower quadrant pain Drug overdose (03/12/06) Right ear pain (06/08/16) Lice At risk for sexually transmitted disease due to unprotected sex (04/24/17) 2018 treated for chlamydia x2. Chlamydia (09/24/17) Surgical History Status post laparoscopy Status post dilation and curettage Elective termination of Social History Smoking/Tobacco Use Status: Current every day Tobacco Type: cigarettes Tobacco: How many years used: 23 Quit status: has quit before Second Hand Exposure: Yes Smoking risk assessment performed?: Yes Alcohol Intake: former Drug use: Daily Substance use type: marijuana and crack/cocaine Details: cocaine once a week Household members: none Housing: house Number of Children: 0 Education Level: college Do you need help understanding health information?: Rarely Pets and animals: No Sexually active: Yes Do you think of yourself as: straight/heterosexual Current gender identity: female What is your relationship status?: never How often do you talk on the phone with friends or family?: three or more times per week How often do you get together with friends or relatives?: twice per week How often do you attend taoism or episcopal services?: decline to answer Do you belong to any clubs or organized social groups?: no Panel score (0-1 are the most socially isolated patients): 1 Duration: 15-30 minutes/day Frequency: 1-2 times per week Quin/Latter-Day: No preference Do you feel safe at home: Yes Do you feel safe in your relationship?: Yes History History 1 Para Hx # Term Pregnancies Multiple births Hx # Pregnancies Ectopic pregnancies AB induced 1 Hx Number of Living Children 0 AB spontaneous Exam Narrative Exam Narrative: Review of Systems: All systems reviewed & are unremarkable except as noted in HPI and below Well-developed, obese, wearing large winter parka pulled over her head NACT PERRL, normal conjunctiva RRR Unlabored respiratory effort Nondistended abdomen Extremities w/o deformity, no cyanosis, no edema No rashes or lesions. no focal neurologic deficits Bizarre mood and affect, tangential speech Course Vital Signs Vital signs: Vital Signs Temperature 37.2 C 07/13/23 12:35 Pulse 75 07/13/23 12:35 Respiratory Rate 16 07/13/23 12:35 Blood Pressure 180/93 H 07/13/23 12:35 Pulse Oximetry 99 07/13/23 12:35 Temperature 37.2 C 07/13/23 12:35 Temperature Source Skin 07/13/23 12:35 Pulse 75 07/13/23 12:35 Respiratory Rate 14 07/13/23 13:51 Respiratory Effort Normal, Non-Labored 07/13/23 13:51 Respiratory Depth Normal 07/13/23 13:51 Respiratory Pattern Normal 07/13/23 13:51 Blood Pressure 180/93 H 07/13/23 12:35 Blood Pressure Position Sitting 07/13/23 12:35 Pulse Oximetry 99 07/13/23 12:35 Oxygen Delivery Method Room Air 07/13/23 12:35 Oxygen Flow Rate 0 07/13/23 12:35 Pain Level 45 07/13/23 13:51 Comment Pt states she is in 45 pain all over 07/13/23 13:51
[2023-07-13 14:06] VITALS: RESP 16
== END 2023-07-13 15:31 | disposition home or self-care (01) ==
PROVIDERS: Emergency Provider Emergency Medicine; PCP Family Medicine
DX: F29 Unspecified psychosis not due to a substance or known physiological condition (principal); F31.9 Bipolar disorder, unspecified; F19.10 Other psychoactive substance abuse, uncomplicated; F17.210 Nicotine dependence, cigarettes, uncomplicated
CPT/HCPCS: 99283; 99282

== ENCOUNTER 2023-08-15 16:27 | Emergency (ER) | payer MEDICAID, SELFPAY ==
[2023-08-15] MEDS: Midazolam 2 MG/2 ML VIAL 4 MG IM (16:35)
--- NOTE | 2023-08-15 16:38 | W.ED.GENAD ---
HPI General Stated Complaint: GenMedical JOLLY: 2 Date/Time Provider Initiated Documentation: 08/15/23 16:28. HPI Narrative: 43-year-old female history of bipolar disorder, ADD, prior episodes of psychosis, presents brought in by EMS for erratic behavior, patient endorses to EMS that she believes that her tailbone is on the floor when EMS arrived they found her place to be covered in feces patient screaming random statements, perseverating on the unsatisfactory nature of the things that her family delivers, denies SI denies HI. No signs of trauma. Related Data Home Medications Medication Instructions Recorded Confirmed doxepin 10 mg capsule 10 mg PO QHS #30 caps 07/26/23 08/15/23 ibuprofen 600 mg tablet 600 mg PO BID #30 tabs 07/26/23 08/15/23 levothyroxine 50 mcg tablet 50 mcg PO DAILY #90 tabs 07/26/23 08/15/23 lisinopril 40 mg tablet 40 mg PO DAILY #30 tabs 07/26/23 08/15/23 metoprolol succinate 100 mg 100 mg PO DAILY #90 tabs 07/26/23 08/15/23 tablet,extended release 24 hr olanzapine 10 mg tablet 10 mg PO QHS #30 tabs 07/26/23 08/15/23 trazodone 50 mg tablet 25 mg (1/2 x 50 mg) PO QHS #30 tabs 07/26/23 08/15/23 Previous Rx's Medication Instructions Recorded doxepin 10 mg capsule 10 mg PO QHS #30 caps 07/26/23 ibuprofen 600 mg tablet 600 mg PO BID #30 tabs 07/26/23 levothyroxine 50 mcg tablet 50 mcg PO DAILY #90 tabs 07/26/23 lisinopril 40 mg tablet 40 mg PO DAILY #30 tabs 07/26/23 metoprolol succinate 100 mg 100 mg PO DAILY #90 tabs 07/26/23 tablet,extended release 24 hr olanzapine 10 mg tablet 10 mg PO QHS #30 tabs 07/26/23 trazodone 50 mg tablet 25 mg (1/2 x 50 mg) PO QHS #30 tabs 07/26/23 Allergies Allergy/AdvReac Type Severity Reaction Status Date / Time latex Allergy Intermediate SKIN RASH Unverified 08/10/23 14:53 Penicillins Allergy Unverified 08/10/23 14:53 prazosin AdvReac Dizziness/S Unverified 08/10/23 14:53 weats Review of Systems Narrative: Review of Systems Constitutional: negative Eyes: negative ENT: negative Cardiovascular: negative Respiratory: negative Gastrointestinal: negative : negative Musculoskeletal: negative Skin: negative Neurologic: negative Psych: Agitation PFSH All Active Problems (Updated 08/09/23 @ 00:06 by JOSEPH MCCORMACK) Dulce (Acute) URI (upper respiratory infection) (Acute) ADD (attention deficit disorder) (Acute) On stimulant, dexylmethylphenidate-managed per psychiatry Psychosis (Acute) Pre-diabetes (Acute) Obesity, morbid, BMI 40.0-49.9 (Acute) Flaccid paraplegia (Acute) Migraine (Chronic) Urinary retention (Acute) Lumbar pain (Acute) Lower extremity weakness (Acute) Microcytic anemia (Acute) Ovarian cyst (Acute) Substance abuse (Chronic) Heroin, crack cocaine, alcohol. 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 Followed by Dr. Pereira Anxiety (Chronic) On alprazolam-Per psychiatry Smoker (Chronic) Accidental drug overdose (Acute) Medical History Cauda equina compression Gram-positive bacteremia Fever Iron deficiency anemia Right lower quadrant pain Drug overdose (03/12/06) Right ear pain (06/08/16) Lice At risk for sexually transmitted disease due to unprotected sex (04/24/17) 2018 treated for chlamydia x2. Chlamydia (09/24/17) Surgical History Status post laparoscopy Status post dilation and curettage Elective termination of Social History Smoking/Tobacco Use Status: Current every day Tobacco Type: cigarettes Tobacco: How many years used: 23 Quit status: has quit before Second Hand Exposure: Yes Smoking risk assessment performed?: Yes Alcohol Intake: former Drug use: Daily Substance use type: marijuana Household members: none Housing: house Number of Children: 0 Education Level: college Do you need help understanding health information?: Rarely Pets and animals: No Sexually active: Yes Do you think of yourself as: straight/heterosexual Current gender identity: female What is your relationship status?: never How often do you talk on the phone with friends or family?: three or more times per week How often do you get together with friends or relatives?: twice per week How often do you attend mu-ism or pentecostal services?: decline to answer Do you belong to any clubs or organized social groups?: no Panel score (0-1 are the most socially isolated patients): 1 Duration: 15-30 minutes/day Frequency: 1-2 times per week Quin/Pentecostal: No preference Do you feel safe at home: Yes Do you feel safe in your relationship?: Yes History History 1 Para Hx # Term Pregnancies Multiple births Hx # Pregnancies Ectopic pregnancies AB induced 1 Hx Number of Living Children 0 AB spontaneous Exam Narrative Exam Narrative: Physical Examination General: alert, awake HEENT: normocephalic, atraumatic; PERRL, EOM intact, conjunctiva normal; no nasal discharge; moist mucous membranes, oral and pharyngeal mucosa normal, tolerating secretions Neck: supple, trachea midline; full ROM Chest: normal to inspection Respiratory: normal respiratory effort, speaking in full sentences, clear to auscultation, no wheezing, rales or rhonchi Cardiac: regular rate, regular rhythm, S1S2 intact, no murmurs rubs or gallops GI: abdomen soft, non-tender, non-distended; no palpable mass or hepatosplenomegaly Back: Normal to inspection and palpation Skin: no lesions, rashes or trauma appreciated Neuro: Following commands moving all extremities Extremities: No signs of trauma Psych: Psychomotor agitation, perseverating on unsatisfactory nature of the things that her family delivers to her, endorsing that she believes her tailbone has fallen out, fast pressured speech, denies SI HI or hallucinations Course Vital Signs Vital signs: Respiratory Effort Normal 08/15/23 16:36 Comment unable to obtain vs at initial triage 08/15/23 16:30 Medical Decision Making 43-year-old female history of ADD, bipolar disorder, psychosis, presents in acute psychiatric crisis, called EMS as she believed her tailbone fell out, patient found in disheveled residence, patient and surroundings covered in feces, no external signs of trauma, patient Dors that she would like something to help her to relax, denies SI denies HI denies hallucinations, pressured fast speech tangential and perseverating. IM Versed has been ordered for anxiolysis and to assist with further assessment. Low suspicion for intoxication trauma metabolic derangement or infection. Awaiting vital sign assessment. If fingerstick glucose normal and vital signs are normal patient is low risk from the smart medical clearance form will be medically cleared and placed in zone B for observation will touch base with [facility] for psychiatric evaluation. Patient given dose of olanzapine given verbal and physical escalation. Now resting comfortably. Awaiting further evaluation by [facility] for likely inpatient placement Quality:[facility] Health Related Social Needs: No Data to Display Discharge Plan Discharge Details Chief Complaint: GenMedical Primary Care Provider: Coty Stanley ED Provider: Esdras Mcclure Meds and New Rx's Prescriptions: No Action metoprolol succinate 100 mg tablet extended release 24 hr 100 mg PO DAILY Qty: 90 5RF Hold Instructions: difficulty accessing med lisinopril 40 mg tablet 40 mg PO DAILY Qty: 30 4RF Hold Instructions: difficulty accessing med levothyroxine 50 mcg tablet 50 mcg PO DAILY Qty: 90 6RF Hold Instructions: no Dr. no access to med. trazodone 50 mg tablet 25 mg PO QHS Qty: 30 5RF Hold Instructions: PT states this med does not work and does not want to use it doxepin 10 mg capsule 10 mg PO QHS Qty: 30 5RF Patient Comments: takes when she can. not consistently olanzapine 10 mg tablet 10 mg PO QHS Qty: 30 2RF Patient Comments: has to use. has not used it ibuprofen 600 mg tablet 600 mg PO BID Qty: 30 0RF
--- NOTE | 2023-08-15 16:44 | NUR.NOTE ---
Nursing Note: pt states she has been having accidents and is unable to make it to the bathroom. when this nurse asked what today's date is pt stated, I do not care. when this nurse asked when this started pt stated, years. Last urination today. Pt states multiple falls in pt's house. Pt not cooperative at this time of assessment. Per patient, You are asking too many questions.
[2023-08-15 16:54] VITALS: BP 168/77; PULSE 82; RESP 24; TEMP 37.3; O2SAT 94
[2023-08-15] MEDS: OLANZapine 10 MG VIAL IM (20:05)
--- NOTE | 2023-08-16 00:38 | W.EDPROG ---
Date of service: 08/16/23 Time of Service: 00:38 Medical Decision Making pt currently sleeping after being medicated and will arouse to voice but quickly falls back asleep, will need nk eval when more awake and will observe until this happens. Quality:[facility] Health Related Social Needs: No Data to Display Sign Out Sign Out Data: Sign Out Comment: pressured speech, flight of ideas, verbal aggression; likely psychosis in setting of bipolar disorder; awaiting [facility] evaluation for likely placement Last updated by Esdras Mcclure MD at 08/16/23 00:04 Discharge Plan Discharge Details Chief Complaint: GenMedical Primary Care Provider: Coty Stanley ED Provider: Baldemar Martínez Martell Meds and New Rx's Prescriptions: No Action metoprolol succinate 100 mg tablet extended release 24 hr 100 mg PO DAILY Qty: 90 5RF Hold Instructions: difficulty accessing med lisinopril 40 mg tablet 40 mg PO DAILY Qty: 30 4RF Hold Instructions: difficulty accessing med levothyroxine 50 mcg tablet 50 mcg PO DAILY Qty: 90 6RF Hold Instructions: no DrTao no access to med. trazodone 50 mg tablet 25 mg PO QHS Qty: 30 5RF Hold Instructions: PT states this med does not work and does not want to use it doxepin 10 mg capsule 10 mg PO QHS Qty: 30 5RF Patient Comments: takes when she can. not consistently olanzapine 10 mg tablet 10 mg PO QHS Qty: 30 2RF Patient Comments: has to use. has not used it ibuprofen 600 mg tablet 600 mg PO BID Qty: 30 0RF
--- NOTE | 2023-08-16 07:30 | W.EDPROG ---
Date of service: 08/16/23 Time of Service: 07:31 Medical Decision Making I received signout on this 43-year-old female in the emergency department with a presentation consistent with psychosis and tangential thinking for which she received midazolam and olanzapine. Her medications have been verified but it is not clear whether or not she routinely takes them. She is pending evaluation with the crisis team. Once she is awake we will determine whether or not she takes her home medications. 11:07 AM Patient requested something for pain and anxiety for which I ordered acetaminophen and hydroxyzine. I spoke to Rachael from [facility] who provide referrals to in patient placement. Patient reportedly declined. 2:30 PM I spoke with the patient and she is amenable to being placed as an inpatient. She requested something for anxiety. I ordered her 5 mg of oral olanzapine. Rachael will seek placement. Patient seeks to be placed at the [facility] center at [facility] in [facility]. I advised her that we could not guarantee a particular placement. Patient remains voluntary. Nitrite negative urinalysis not consistent with UTI. 2:51 PM Patient refused oral olanzapine so I ordered her 10 mg of intramuscular olanzapine. 4:08 PM No active behavioral issues on shift. [facility], Dr. Burgos. Quality:[facility] Health Related Social Needs: No Data to Display Sign Out Sign Out Data: Sign Out Comment: pressured speech, flight of ideas, verbal aggression; likely psychosis in setting of bipolar disorder; awaiting [facility] evaluation for likely placement Last updated by Esdras Mcclure MD at 08/16/23 00:04 Sign Out Comment: pt medicated by Dr. Burgos for flight of ideas and verbal aggression, pending eval by [facility] when awake Last updated by Baldemar Martínez MD at 08/16/23 00:42 Discharge Plan Discharge Details Chief Complaint: GenMedical Primary Care Provider: Coty Stanley ED Provider: Gonzalo Ho Home Meds and New Rx's Prescriptions: No Action metoprolol succinate 100 mg tablet extended release 24 hr 100 mg PO DAILY Qty: 90 5RF Hold Instructions: difficulty accessing med lisinopril 40 mg tablet 40 mg PO DAILY Qty: 30 4RF Hold Instructions: difficulty accessing med levothyroxine 50 mcg tablet 50 mcg PO DAILY Qty: 90 6RF Hold Instructions: no DrTao no access to med. trazodone 50 mg tablet 25 mg PO QHS Qty: 30 5RF Hold Instructions: PT states this med does not work and does not want to use it doxepin 10 mg capsule 10 mg PO QHS Qty: 30 5RF Patient Comments: takes when she can. not consistently olanzapine 10 mg tablet 10 mg PO QHS Qty: 30 2RF Patient Comments: has to use. has not used it ibuprofen 600 mg tablet 600 mg PO BID Qty: 30 0RF
[2023-08-16] MEDS: Acetaminophen 500 MG TAB 1000 MG PO (11:30)
[2023-08-16] MEDS: hydrOXYzine HCL 25 MG TAB PO (11:30)
[2023-08-16 11:32] LABS: Bilirubin Negative (Negative); Blood Negative (Negative); Clarity Clear (Clear); Glucose Negative (Negative); Ketones Negative (Negative); Leukocyte Esterase Negative (Negative); Nitrite Negative (Negative); Specific Gravity >= 1.030 (1.005-1.025); Urobilinogen 0.2 mg/dL (Up to 0.2); pH 6.5 (5-8)
[2023-08-16 11:39] LABS: *AMPHETAMINES SCREEN URINE Negative (Negative); *BARBITURATES SCREEN URINE Negative (Negative); *BENZODIAZEPINES SCREEN URINE Positive (Negative); Cannabinoids THC Positive (Negative); Cocaine Screen,Urine Positive (Negative); METHADONE URINE SCREEN Negative (Negative); OPIATES URINE SCREEN Negative (Negative)
[2023-08-16 11:46] LABS: Tricyclic Antidepressants Negative (Negative)
[2023-08-16] MEDS: OLANZapine 10 MG VIAL IM (15:02)
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
--- NOTE | 2023-08-16 16:35 | W.EDPROG ---
Date of service: 08/16/23 Time of Service: 16:35 Medical Decision Making SMART medical clearance (if all five of the following are answered ``no?? then the patient is considered medically cleared and no testing is indicated): Suspect new onset psychiatric condition or features? [No] Medical conditions that require screening? [No] Diabetes (FSBS less than 60 or greater the 250) Possibility of (age 12 - 50) Other complaints that require screening Abnormal: [No] Vital signs? Temp: greater than 38.0 degrees C (100.4 degrees F) HR: less than 50 or greater than 110 BP: less than 100 systolic or greater than 180/110 (2 consecutive readings 10 min apart) RR: less than 8 or greater than 22 O2 sat: less than 95 % on room air Mental status? Cannot answer name, month/year and location (minimum A/Ox 3) If clinically intoxicated, HII score 4 or more? Physical Exam (unclothed)? Risky presentation? [No] Age less than 12 or greater than 55 Possibility of ingestion (screen all suicidal patients) Eating disorders Potential for alcohol withdrawal (daily use > or equal to 2 weeks) Ill appearing, significant injury, prolonged struggle or ``found down?? Therapeutic levels needed? [No] Phenytoin, Valproic Acid, [place], Digoxin, Warfarin, Carbamazepine Quality:[facility] Health Related Social Needs: No Data to Display Sign Out Sign Out Data: Sign Out Comment: pressured speech, flight of ideas, verbal aggression; likely psychosis in setting of bipolar disorder; awaiting [facility] evaluation for likely placement Last updated by Esdras Mcclure MD at 08/16/23 00:04 Sign Out Comment: pt medicated by Dr. Burgos for flight of ideas and verbal aggression, pending eval by [facility] when awake Last updated by Baldemar Martínez MD at 08/16/23 00:42 Sign Out Comment: Please follow-up with an EKG concerning placement for this patient with pressured speech. Patient was calm last shift. She requested additional medications. She refused oral medications and was given 10 mg intramuscular olanzapine. Last updated by Gonzalo Ho MD at 08/16/23 16:10 Discharge Plan Discharge Details Chief Complaint: GenMedical Primary Care Provider: Coty Stanley ED Provider: Gonzalo Ho Home Meds and New Rx's Prescriptions: No Action metoprolol succinate 100 mg tablet extended release 24 hr 100 mg PO DAILY Qty: 90 5RF Hold Instructions: difficulty accessing med lisinopril 40 mg tablet 40 mg PO DAILY Qty: 30 4RF Hold Instructions: difficulty accessing med levothyroxine 50 mcg tablet 50 mcg PO DAILY Qty: 90 6RF Hold Instructions: no DrTao no access to med. trazodone 50 mg tablet 25 mg PO QHS Qty: 30 5RF Hold Instructions: PT states this med does not work and does not want to use it doxepin 10 mg capsule 10 mg PO QHS Qty: 30 5RF Patient Comments: takes when she can. not consistently olanzapine 10 mg tablet 10 mg PO QHS Qty: 30 2RF Patient Comments: has to use. has not used it ibuprofen 600 mg tablet 600 mg PO BID Qty: 30 0RF
--- NOTE | 2023-08-16 23:11 | ED.PROG_ITS ---
Date of service: 08/16/23 Time of Service: 23:11 Medical Decision Making [facility] services team disagrees with SMART form medical clearance as patient's family believes she may have fallen at home. Upon assessment patient has no external signs of trauma no midline spinal tenderness no weakness or numbness in lower extremities, is ambulatory without assistance neurologically intact no signs of deformity ecchymosis abrasions or lacerations. [facility] services requesting psychiatric lab work to be drawn in order to ensure the patient will be accepted to a psychiatric facility. Patient currently screaming yelling obscenities physically and verbally aggressive towards staff. Will require further medication for her safety and the safety of staff. Have ordered IM Zyprexa 10 mg. Quality:[facility] Health Related Social Needs: No Data to Display Sign Out Sign Out Data: Sign Out Comment: pressured speech, flight of ideas, verbal aggression; likely psychosis in setting of bipolar disorder; awaiting [facility] evaluation for likely placement Last updated by Esdras Mcclure MD at 08/16/23 00:04 Sign Out Comment: pt medicated by Dr. Burgos for flight of ideas and verbal aggression, pending eval by [facility] when awake Last updated by Baldemar Martínez MD at 08/16/23 00:42 Sign Out Comment: Please follow-up with an EKG concerning placement for this patient with pressured speech. Patient was calm last shift. She requested additional medications. She refused oral medications and was given 10 mg intramuscular olanzapine. Last updated by Gonzalo Ho MD at 08/16/23 16:10 Discharge Plan Discharge Details Chief Complaint: GenMedical Primary Care Provider: Coty Stanley ED Provider: Esdras Mcclure Home Meds and New Rx's Prescriptions: No Action metoprolol succinate 100 mg tablet extended release 24 hr 100 mg PO DAILY Qty: 90 5RF Hold Instructions: difficulty accessing med lisinopril 40 mg tablet 40 mg PO DAILY Qty: 30 4RF Hold Instructions: difficulty accessing med levothyroxine 50 mcg tablet 50 mcg PO DAILY Qty: 90 6RF Hold Instructions: no DrTao no access to med. trazodone 50 mg tablet 25 mg PO QHS Qty: 30 5RF Hold Instructions: PT states this med does not work and does not want to use it doxepin 10 mg capsule 10 mg PO QHS Qty: 30 5RF Patient Comments: takes when she can. not consistently olanzapine 10 mg tablet 10 mg PO QHS Qty: 30 2RF Patient Comments: has to use. has not used it ibuprofen 600 mg tablet 600 mg PO BID Qty: 30 0RF doxepin 50 mg capsule 50 mg PO HS Patient Comments: TAKE ONE CAPSULE BY MOUTH AT BEDTIME
[2023-08-17] MEDS: Haloperidol 5 MG/ML VIAL 4 MG IM
[2023-08-17] MEDS: diazePAM 5 MG TAB PO
[2023-08-17 01:18] LABS: Abs Immature Grans 0.05 10^3/uL (0.0-0.06); Absolute Basophil Count 0.03 10^3/uL (0.0-0.2); Absolute Eosinophil Count 0.23 10^3/uL (0.0-0.7); Absolute Lymphocyte Count 2.32 10^3/uL (1.2-3.4); Absolute Monocyte Count 0.49 10^3/uL (0.1-0.8); Absolute Neutrophil Count 6.21 10^3/uL (1.2-6.7); Basophils % 0.3; Eosinophils % 2.5; HCT 38.2 % (36.0-46.0); HGB 11.9 g/dL (11.2-15.7); Immature Grans % 0.5; Lymphocytes % 24.9; MCH 27.9 pg (27.0-33.0); MCHC 31.2 % (32.0-36.0); MCV 90 fL (80-95); MPV 9.2 fL (8.0-11.0); Monocytes % 5.3; Neutrophils % 66.5; Platelet Count 252 10^3/uL (130-400); RBC 4.27 10^6/uL (3.93-5.22); RDW 15.2 % (11.7-14.6); RDW-SD 50.2 fL; WBC 9.33 10^3/uL (4.4-10.8)
[2023-08-17 01:30] LABS: HCG Qual (Serum) Negative
[2023-08-17 01:32] LABS: Acetaminophen < 2 ug/mL (10-30); Salicylate 3.7 mg/dL (<2.8)
[2023-08-17 01:41] LABS: ALT 14 U/L (14-59); AST 11 U/L (15-37); Albumin 3.1 g/dL (3.4-5.0); Alkaline Phosphatase 78 U/L (46-116); Anion Gap 7.9 mmol/L (3-11); BUN 19 mg/dL (7-18); Bilirubin, Total 0.2 mg/dL (0.2-1.0); CO2 26.1 mmol/L (21.0-32.0); CREATININE 0.9 mg/dL (0.55-1.02); Chloride 105 mmol/L (98-107); Estimated GFR 81.35 (mL/min/1.73m2); Glucose 116 mg/dL (74-106); Sodium 139 mmol/L (136-145); TSH (W/Ref FT4) 2.11 uIU/mL (0.36-3.74); Total Protein 6.8 g/dL (6.4-8.2)
--- NOTE | 2023-08-17 02:03 | W.EDPROG ---
Date of service: 08/17/23 Time of Service: 02:03 Medical Decision Making pt's labs unremarkable, she requested im haldol over zyprexa and oral midazolam as she states this has worked better for her in the past, voluntary currently, will continue to monitor. Quality:[facility] Health Related Social Needs: No Data to Display Sign Out Sign Out Data: Sign Out Comment: pressured speech, flight of ideas, verbal aggression; likely psychosis in setting of bipolar disorder; awaiting [facility] evaluation for likely placement Last updated by Esdras Mcclure MD at 08/16/23 00:04 Sign Out Comment: pt medicated by Dr. Burgos for flight of ideas and verbal aggression, pending eval by [facility] when awake Last updated by Baldemar Martínez MD at 08/16/23 00:42 Sign Out Comment: Please follow-up with an EKG concerning placement for this patient with pressured speech. Patient was calm last shift. She requested additional medications. She refused oral medications and was given 10 mg intramuscular olanzapine. Last updated by Gonzalo Ho MD at 08/16/23 16:10 Sign Out Comment: [facility] disagreeing with SMART form, requesting labs and possible imaging to ensure inpatient acceptance; patient ambulatory, neurologically intact; psych labs pending Last updated by Esdras Mcclure MD at 08/16/23 23:28 Discharge Plan Discharge Details Chief Complaint: GenMedical Primary Care Provider: Coty Stanley ED Provider: Baldemar Martínez Home Meds and New Rx's Prescriptions: No Action metoprolol succinate 100 mg tablet extended release 24 hr 100 mg PO DAILY Qty: 90 5RF Hold Instructions: difficulty accessing med lisinopril 40 mg tablet 40 mg PO DAILY Qty: 30 4RF Hold Instructions: difficulty accessing med levothyroxine 50 mcg tablet 50 mcg PO DAILY Qty: 90 6RF Hold Instructions: no DrTao no access to med. trazodone 50 mg tablet 25 mg PO QHS Qty: 30 5RF Hold Instructions: PT states this med does not work and does not want to use it doxepin 10 mg capsule 10 mg PO QHS Qty: 30 5RF Patient Comments: takes when she can. not consistently olanzapine 10 mg tablet 10 mg PO QHS Qty: 30 2RF Patient Comments: has to use. has not used it ibuprofen 600 mg tablet 600 mg PO BID Qty: 30 0RF doxepin 50 mg capsule 50 mg PO HS Patient Comments: TAKE ONE CAPSULE BY MOUTH AT BEDTIME
[2023-08-17 09:44] VITALS: BP 177/108; PULSE 100; RESP 18; TEMP 36.6; O2SAT 99
--- NOTE | 2023-08-17 09:59 | CMSP_ITS ---
Date of service: 08/17/23 Time of Service: 09:59 Care Management Safety Plan Status Status: Voluntary Reason for Wait Reason for Wait: Inpatient Admission Safety Plan Safety Plan: VOLUNTARY FOR INPATIENT PSYCHIATRIC STABILIZATION.? Patient is appropriate in all interactions since arriving at [facility]; Pt has demonstrated appropriate coping and communication skills, has articulated her needs and concerns and is fully engaged during staff interactions. Safety plan has been established with patient, and care team, to adhere to patient goals, identify restrictions based on behavioral status, address nutrition, and determine allowed personal belongings, tools for hygiene and personal care. Determine level of activity including ambulation, level of supervision, visitors, and determine privileges based on behaviors and level of engagement by pt. SAFETY PLAN: 1. Will remain on suicide precautions, in paper clothes 2. Will remain in Zone B under direct supervision of one-on-one staff at all times provided by [employer]; VINOD, SENIOR SECURITY ARCHITECT aquaculture director. 3. May have paper cups, plates, finger foods as well as a cardboard spoon with which to eat meals. 4. Follow [facility] Management of the Admitted Behavioral Health Patient policy. 5. Shower available in Zone B without restriction. 6. Personal belongings-soft items permitted at RN discretion. 7. Visitors-none at this time. 8. Activities: soft cart items approved per RN discretion. 9.? Bathroom available in Zone B without restriction. 10. Phone: None at this time. Due to VOLUNTARY status, if patient wishes to leave [facility], staff will contact [facility] Crisis Screener ([phone]) and On-Call Funeral Planner ([phone]) as soon as possible. In the event of elopement, notify [facility] Police ([phone]). Patient is currently voluntarily at [facility] and seeking inpatient admission when a bed becomes available. [facility] Frontline Tender Coordinator will continue seeking placement. Please contact the Inhalation Therapy Aide Funeral Planner ([phone]) and [facility] Tender Coordinator ([phone]) for any needed changes in the Safety Plan. Safety plan has been provided to interdepartmental care team.
[2023-08-17] MEDS: Lisinopril 20 MG TAB PO (10:06)
[2023-08-17] MEDS: Metoprolol CR 100 MG TABCR PO (10:06)
--- NOTE | 2023-08-17 11:00 | DI.CT_ITS ---
Exam(s) CT LUMBAR SPINE RECONS CT CHEST/ABD/PEL W EXAM: CT CHEST/ABD/PEL W CLINICAL HISTORY: fell down stairs 5 days ago, back pain. TECHNIQUE: Imaging Protocol: Axial computed tomography images with coronal and sagittal reformatted images were created and reviewed CONTRAST MATERIAL: Intravenous: Omnipaque 350 Contrast volume:100 ml Oral: no COMPARISON: CT CT THORAX ABD/PEL CTA from 09/10/2022 CR,XR XR PORTABLE CHEST AP from 07/08/[address] LUMBAR SPINE RECONS from 08/17/2023 FINDINGS: CHEST: Tracheobronchial tree: Patent where visualized. Pulmonary parenchyma: No consolidation or dominant measurable mass. Pleura: No effusion or pneumothorax. Lymph nodes: Within normal limits. Aorta: Thoracic portion non-dilated. Heart: No pericardial effusion. Bones: Disc changes.. No lytic or blastic lesions.No compression fractures. Old left rib fractures. Soft tissues: Unremarkable. ABDOMEN and PELVIS: Liver: Normal density. No measurable mass. Gallbladder and biliary tract: No evidence of stones or wall thickening. No biliary dilatation. Pancreas: Normal density, no abnormal calcifications or inflammatory process. Spleen: Normal. Kidneys: Normal size, contour and axis. No radiodense stones hip. No obstructive uropathy. No suspic ious masses seen. Adrenal glands: No masses seen. Aorta: Abdominal portion non-dilated. Lymph nodes: Within normal limits. Soft tissues: Unremarkable. Bladder: Unremarkable. Bowel: No obstruction or bowel wall thickening. Peritoneal cavity: No ascites. No focal collection. No mesenteric inflammatory response. Bones: Facet degenerative changes L4-5 L5-S1. Prior surgery with removal of the spinous processes at T12 and L1. Reproductive organs: Within normal limits. IMPRESSION: No acute abnormality in the chest, abdomen or pelvis.. RADIATION DOSE DELIVERED: !Error Total DLP DATA REPOSITORY: All CT scans at this facility are submitted to the National Radiology Data Registry (NRDR) Dose Index Registry (DIR) with the [employer] (ACR). RADIATION OPTIMIZATION: All CT scans at this facility use at least one of these dose optimization te chniques: automated exposure control; mA and/or kV adjustment per patient size (includes targeted exa ms where dose is matched to clinical indication); or iterative reconstruction.
[2023-08-17] MEDS: Omnipaque 350 MG/ML 100 ML BTL IJ (12:43)
--- NOTE | 2023-08-17 13:37 | ED.PROG_ITS ---
Date of service: 08/17/23 Time of Service: 13:37 Medical Decision Making Care was signed out by Dr. Martínez, please see his documentation regarding prior ED course and prior physician documentation. Plan at signout was to await voluntary inpatient psychiatric placement. Patient notably hypertensive this morning. Patient is on lisinopril 40 mg and metoprolol 100 mg extended release daily but I was informed that she has been noncompliant with meds recently. Lisinopril 20 mg tablet and metoprolol 100 mg extended release tablet were ordered. Blood pressure reassessed and normalized. Patient complaining of tailbone pain and some back pain and does note that she fell down a flight of stairs about a week ago. CT of the chest abdomen pelvis with lumbar spinal recons were performed and interpreted by radiology: No acute abnormality the chest abdomen pelvis, no fractures. I received call from Elma Escobar, nurse practitioner at [facility], she will accept the patient in transfer. 1616 --patient was reassessed: She was resting comfortably initially on entering the room. Patient noting anxiety about going to [place]. She continues to exhibit delusional thought and paranoia. She explained to me that she was frustrated with having to give blood to the [facility] recently. I explained that [facility] was the only available option at this time for inpatient psychiatric treatment. Patient now agreeable but requesting anxiolytic. I will give benzodiazepine which she request be given IM. Versed 2 mg IM ordered. I will also give droperidol given persistent and ongoing psychosis. Lab Data Lab results reviewed: Yes I reviewed the patient's lab results. Labs: Laboratory Tests Range/Units 08/16/23 08/17/23 11:15 01:05 WBC (4.4-10.8) 10^3/uL 9.33 RBC (3.93-5.22) 10^6/uL 4.27 Hgb (11.2-15.7) g/dL 11.9 Hct (36.0-46.0) % 38.2 MCV (80-95) fL 90 MCH (27.0-33.0) pg 27.9 MCHC (32.0-36.0) % 31.2 L RDW (11.7-14.6) % 15.2 H Plt Count (130-400) 10^3/uL 252 MPV (8.0-11.0) fL 9.2 Immature Gran % 0.5 Neutrophils % 66.5 Lymphocytes % 24.9 Monocytes % 5.3 Eosinophils % 2.5 Basophils % 0.3 Nucleated RBC % (0.0-0.3) % 0.0 Absolute Neutrophils (1.2-6.7) 10^3/uL 6.21 Absolute Lymphocytes (1.2-3.4) 10^3/uL 2.32 Absolute Monocytes (0.1-0.8) 10^3/uL 0.49 Absolute Eosinophils (0.0-0.7) 10^3/uL 0.23 Absolute Basophils (0.0-0.2) 10^3/uL 0.03 Sodium (136-145) mmol/L 139 Potassium (3.5-5.1) mmol/L 4.0 Chloride (98-107) mmol/L 105 Carbon Dioxide (21.0-32.0) mmol/L 26.1 Anion Gap (3-11) mmol/L 7.9 BUN (7-18) mg/dL 19 H Creatinine (0.55-1.02) mg/dL 0.9 Est GFR (CKD-EPI 2020) (mL/min/1.73m2) 81.35 Glucose (74-106) mg/dL 116 H Calcium (8.5-10.1) mg/dL 9.0 Total Bilirubin (0.2-1.0) mg/dL 0.2 AST (15-37) U/L 11 L ALT (14-59) U/L 14 Alkaline Phosphatase (46-116) U/L 78 Total Protein (6.4-8.2) g/dL 6.8 Albumin (3.4-5.0) g/dL 3.1 L TSH (0.36-3.74) uIU/mL 2.11 Serum HCG, Qual Negative Urine Color (Yellow) Yellow Urine Clarity (Clear) Clear Urine pH (5-8) 6.5 Ur Specific [place] (1.005-1.025) >= 1.030 H Urine Protein (Negative) mg/dL Negative Urine Ketones (Negative) mg/dL Negative Urine Blood (Negative) Negative Urine Nitrite (Negative) Negative Urine Bilirubin (Negative) Negative Urine Urobilinogen (Up to 0.2) mg/dL 0.2 Ur Leukocyte Esterase (Negative) Negative Urine Glucose (Negative) mg/dL Negative Salicylates (<2.8) mg/dL 3.7 Urine Opiates Screen (Negative) Negative Urine Methadone Screen (Negative) Negative Acetaminophen (10-30) ug/mL < 2 Ur Barbiturates Screen (Negative) Negative Ur Tricyclics Screen (Negative) Negative Ur Amphetamines Screen (Negative) Negative U Benzodiazepines Scrn (Negative) Positive A Urine Cocaine Screen (Negative) Positive A Ur THC Screen (Negative) Positive A Quality:SDOH Health Related Social Needs: No Data to Display Sign Out Sign Out Data: Sign Out Comment: pressured speech, flight of ideas, verbal aggression; likely psychosis in setting of bipolar disorder; awaiting [facility] evaluation for likely placement Last updated by Esdras Mcclure MD at 08/16/23 00:04 Sign Out Comment: pt medicated by Dr. Bugros for flight of ideas and verbal aggression, pending eval by [facility] when awake Last updated by Baldemar Martínez MD at 08/16/23 00:42 Sign Out Comment: Please follow-up with an EKG concerning placement for this patient with pressured speech. Patient was calm last shift. She requested additional medications. She refused oral medications and was given 10 mg intramuscular olanzapine. Last updated by Gonzalo Ho MD at 08/16/23 16:10 Sign Out Comment: [facility] disagreeing with SMART form, requesting labs and possible imaging to ensure inpatient acceptance; patient ambulatory, neurologically intact; psych labs pending Last updated by Esdras Mcclure MD at 08/16/23 23:28 Sign Out Comment: patient seeking voluntary placement for flight of ideas, psychosis. Last updated by Baldemar Martínez MD at 08/17/23 02:06 Discharge Plan Disposition Patient Disposition: Psychiatric Hospital/Unit Specific Psychiatric Facility: [facility] Discharge Details Clinical Impression: Acute psychosis, Polysubstance abuse Primary Care Provider: Coty Stanley ED Provider: Austin Portillo [facility] Meds and New Rx's Prescriptions: No Action metoprolol succinate 100 mg tablet extended release 24 hr 100 mg PO DAILY Qty: 90 5RF Hold Instructions: difficulty accessing med lisinopril 40 mg tablet 40 mg PO DAILY Qty: 30 4RF Hold Instructions: difficulty accessing med levothyroxine 50 mcg tablet 50 mcg PO DAILY Qty: 90 6RF Hold Instructions: no DrTao no access to med. trazodone 50 mg tablet 25 mg PO QHS Qty: 30 5RF Hold Instructions: PT states this med does not work and does not want to use it doxepin 10 mg capsule 10 mg PO QHS Qty: 30 5RF Patient Comments: takes when she can. not consistently olanzapine 10 mg tablet 10 mg PO QHS Qty: 30 2RF Patient Comments: has to use. has not used it ibuprofen 600 mg tablet 600 mg PO BID Qty: 30 0RF doxepin 50 mg capsule 50 mg PO HS Patient Comments: TAKE ONE CAPSULE BY MOUTH AT BEDTIME
[2023-08-17 13:50] VITALS: BP 158/78; PULSE 69; RESP 16; TEMP 36.6; O2SAT 95
[2023-08-17] MEDS: Ketorolac 15 MG/ML VIAL (15:57)
[2023-08-17] MEDS: Droperidol 5 MG/2 ML VIAL IM (16:35)
[2023-08-17] MEDS: Midazolam 2 MG/2 ML VIAL IM (16:35)
--- NOTE | 2023-08-17 17:57 | MHPN_ITS ---
Date of service: 08/17/23 Time of Service: 17:57 [facility] Emergency Note Release [facility] release signed:: Yes Reason for Visit The client presented to [facility] on 08.15.23 with complaints that her tailbone leaked out of my anus. She presented as significantly delusional and was seeking inpatient treatment. Today's assessment was completed face to face at bedside. In the last 2 weeks has the pt presented for ES prior to today?: Unknown Impression The client is a 43 year old, single female who presents with delusions and possible hallucinations. The client arrived 08.15.23 via ambulance and it was noted by EMT's that she had a mattress on the floor and had been lying in her own feces. She had a strong odor of urine and feces when she arrived. The client is lying in bed this am covered with a blanket. She does not roll over to speak to this clinician as she did on 08.16 but did engage in conversation. She is not as aggressive verbally today as she was on 08.16 but is still delusional. It was reported by ED staff that she became aggressive last night slamming her door, going back into her room lying down and then back up doing it again and required medications to help her sleep. She denied that she slept stating that her stomach, back and bowels hurt. She stated she needs medications. The client reported that she will not wear the pants in the room as they are disgusting. Someone (name not heard) was killed in them and I am not going to traumatize myself again. It was observed that there was a spat of nasal mucus on the pants that were lying on the floor. She denied HI and SI and has been eating fine. She wants to go back to the treatment center she was at in [place] to finish her treatment however, no facilities were able to be located when this clinician searched yesterday. She complains of people being negative toward her while she is at the ED stating as well, that she owns everything. She also notes that her family is not her real family I was adopted and she wants to go home to her right home. It is important to note that the client spoke in like a baby talk or trying to speak with an accent. Plan/Disposition Recommended Disposition: Hospitalization facilities contacted. Plan: The client was accepted to and was transported at 5:30pm via ambulance. Person reported agreement to plan: Yes Facilities contacted if Applicable [facility] Accepted, Accepted/transfer pending. Information Sent to [facility]: Referral Reports/communication Outcome discussed with: ED/Personnel
== END 2023-08-17 17:34 ==
PROVIDERS: Emergency Medicine; Emergency Provider Student in an Organized Health Care Education/Training Program; PCP Family Medicine
DX: F23 Brief psychotic disorder (principal); F19.10 Other psychoactive substance abuse, uncomplicated
CPT/HCPCS: 00123; 36416; 74177; 80053; 80307; 82962; 96372; 99285; H0046; 71260; 80329; 81003; 84443; 84703; 85025; J1630; J1790; J1885; J2250; J2359; J3490

== ENCOUNTER 2024-02-16 20:23 | Emergency (ER) | payer MEDICAID, SELFPAY ==
[2024-02-16 20:28] VITALS: BP 102/82; PULSE 76; RESP 18; TEMP 36.1; O2SAT 97
--- NOTE | 2024-02-16 20:31 | ED.GENADUL_ITS ---
Discharge Plan Disposition Patient Disposition: Home Condition: Stable Discharge Details Clinical Impression: Lumbar radiculopathy Primary Care Provider: Coty Stanley ED Provider: Héctor Jean-Baptiste Home Meds and New Rx's Prescriptions: New ketorolac 10 mg tablet 10 mg PO QID PRNQty: 20 0RF Rx Instructions: maximum total duration of 5 days from all oral, intranasal, or parenteral formulations cyclobenzaprine 10 mg tablet 10 mg PO TID PRNQty: 30 0RF prednisone 20 mg tablet 60 mg PO DAILY 5 Days Qty: 15 0RF Continued levothyroxine 50 mcg tablet 50 mcg PO DAILY Qty: 90 6RF Hold Instructions: no Dr. no access to med. olanzapine 10 mg tablet 10 mg PO BID Qty: 60 6RF Patient Comments: has to use. has not used it trazodone 50 mg tablet 50 mg PO QHS Qty: 30 5RF Hold Instructions: PT states this med does not work and does not want to use it lisinopril 40 mg tablet 40 mg PO DAILY Qty: 30 7RF Hold Instructions: difficulty accessing med doxepin 50 mg capsule 50 mg PO HS Qty: 30 12RF divalproex 500 mg tablet extended release 24 hr 500 mg PO DAILY Qty: 30 6RF metoprolol succinate 100 mg tablet extended release 24 hr 150 mg PO DAILY Qty: 135 5RF Hold Instructions: difficulty accessing med acetaminophen 500 mg capsule 500 mg PO BID PRN Discharge Instructions Instructions: Ketorolac (Systemic), Cyclobenzaprine, Prednisone, Sciatica ED Additional Instructions: You were seen in the emergency department for your anxiety as well as low back pain. You denied any thoughts of harming yourself multiple times, you are of sound mind to refuse [facility] human services evaluation at this time, you state you have a follow-up appointment with them on Sunday. We provided you with Tylenol, Toradol, cyclobenzaprine, Lidoderm patches for your sciatica with some improvement, you state you are less anxious at the time of discharge. I have prescribed you Toradol, cyclobenzaprine and prednisone to help with your back pain, purchase [id number] Lidoderm patches, apply gentle heat and gentle massage to the area. Please return to the emergency department for any severe increase in back pain especially fever, urinary retention, loss of bowel and or pass without noticing, numbness to the genitalia. Please return for any thoughts of harming yourself or any other emergent concerns. Referrals: [facility] [Provider Group] Coty Stanley MD, [place] [Primary Care Provider] - Discharge Data Discharge Date/Time-TO BE ENTERED AT DEPARTURE: 02/16/24 22:32 HPI General Date/Time Provider Initiated Documentation: 02/16/24 20:31 . HPI Narrative: 43 year-old female presents to ED today by POV/ambulating with her mother with a chief complaint of encouraged mother to bring her to ER for psychiatric eval from texting with [facility]- but the patient does not want any psychiatric evaluation- reporting bilateral back pain radiating down legs- denying SI, denying any thoughts of harming self with onset noted for months. Quality described as shooting pains down both legs with SI joint pains, no radiation to urinary retention, bowel incontinence, groin numbness, back pain with fever, inability to ambulate. Severity is described as severe. Palliating factors include nothing specific attempted. Provoking factors include nothing specific. Events leading up to the incident/Associated Symptoms: Patient has an appointment with [facility] on Sunday. Patient not anticoagulated. Related Data Home Medications Medication Instructions Recorded Confirmed levothyroxine 50 mcg tablet 50 mcg PO DAILY #90 tabs 07/26/23 02/16/24 divalproex 500 mg tablet,extended 500 mg PO DAILY #30 tabs 09/27/23 02/16/24 release 24 hr doxepin 50 mg capsule 50 mg PO HS #30 caps 09/27/23 12/27/23 lisinopril 40 mg tablet 40 mg PO DAILY #30 tabs 09/27/23 02/16/24 olanzapine 10 mg tablet 10 mg PO BID #60 tabs 09/27/23 02/16/24 trazodone 50 mg tablet 50 mg PO QHS #30 tabs 09/27/23 02/16/24 metoprolol succinate 100 mg 150 mg (1.5 x 100 mg) PO DAILY 10/29/23 02/16/24 tablet,extended release 24 hr #135 tabs acetaminophen 500 mg capsule 500 mg PO BID PRN 02/16/24 02/16/24 cyclobenzaprine 10 mg tablet 10 mg PO TID PRN #30 tabs 02/16/24 ketorolac 10 mg tablet 10 mg PO QID PRN #20 tabs 02/16/24 prednisone 20 mg tablet 60 mg (3 x 20 mg) PO DAILY 5 days 02/16/24 #15 tabs Previous Rx's Medication Instructions Recorded levothyroxine 50 mcg tablet 50 mcg PO DAILY #90 tabs 07/26/23 divalproex 500 mg tablet,extended 500 mg PO DAILY #30 tabs 09/27/23 release 24 hr doxepin 50 mg capsule 50 mg PO HS #30 caps 09/27/23 lisinopril 40 mg tablet 40 mg PO DAILY #30 tabs 09/27/23 olanzapine 10 mg tablet 10 mg PO BID #60 tabs 09/27/23 trazodone 50 mg tablet 50 mg PO QHS #30 tabs 09/27/23 metoprolol succinate 100 mg 150 mg (1.5 x 100 mg) PO DAILY 10/29/23 tablet,extended release 24 hr #135 tabs cyclobenzaprine 10 mg tablet 10 mg PO TID PRN #30 tabs 02/16/24 ketorolac 10 mg tablet 10 mg PO QID PRN #20 tabs 02/16/24 prednisone 20 mg tablet 60 mg (3 x 20 mg) PO DAILY 5 days 02/16/24 #15 tabs Allergies Allergy/AdvReac Type Severity Reaction Status Date / Time latex Allergy Intermediate SKIN RASH Unverified 02/16/24 20:35 Penicillins Allergy Unknown Unverified 02/16/24 20:35 prazosin AdvReac Dizziness/S Unverified 02/16/24 20:35 weats General JOLLY: 2 Review of Systems All systems reviewed & are unremarkable except as noted in HPI and below Exam Narrative Exam Narrative: GENERAL APPEARANCE: Well-nourished, non-toxic, awake and alert, atraumatic, no acute distress. SKIN: Warm, pink, dry, intact, without rashes/lesions/ulcerations. HEAD: Normocephalic, atraumatic, normal hair distribution for gender/age. EYES: Pupils PERRLA, EOMs intact without nystagmus, normal conjunctiva, no exudates on lids/lashes. ENT: Nares patent, no circumoral cyanosis, no facial swelling NECK: Supple, trachea midline, painless cervical ROM. LUNGS/CHEST: Non-labored respirations, normal A/P diameter, symmetrical expansion, no chest wall deformity HEART (CV/PV): No peripheral edema, no JVD. ABDOMEN: Soft, non-distended, no guarding. MSK: Normal ROM, no swelling/deformity to bilateral UEs or LEs, moving all extremities without weakness, no cyanosis, spine midline without tenderness, normal curvature. able to straight leg raise both lower extremities, no midline vertebral tenderness, tenderness over the SI joints bilaterally, sensation intact in the distal lower extremities, no symptoms of urinary retention or bowel incontinence, sensation intact in just below the suprapubic abdominal region, denies further numbness of any genitalia, denies fever, has pain in sciatic distribution with passive SLR of each leg-do not suspect emergent lower back pathology at this time. NEURO: Mental Status AAOx4 - alert to person, place, time, events No facial droop, no forehead involvement. Motor: No focal weakness - strength 5/5 in bilateral UEs and LEs, proximal and distal, symmetric. Sensory: sensation intact to light touch globally. Gait normal: patient ambulated without ataxia into ED room. PSYCH: euthymic, cooperative, pleasant, appropriate speech Medical Decision Making This dictation utilizes [id number] dictation software and may contain unedited grammatical errors. 43 year-old female presents to ED today by POV/ambulating with her mother with a chief complaint of encouraged mother to bring her to ER for psychiatric eval from texting with [facility]- but the patient does not want any psychiatric evaluation- reporting bilateral back pain radiating down legs- denying SI, denying any thoughts of harming self with onset noted for months. Quality described as shooting pains down both legs with SI joint pains, no radiation to urinary retention, bowel incontinence, groin numbness, back pain with fever, inability to ambulate. Severity is described as severe. Palliating factors include nothing specific attempted. Provoking factors include nothing specific. Events leading up to the incident/Associated Symptoms: Patient has an appointment with [facility] on Sunday. Patients' medical history: History of epidural abscess and flaccid paraplegia, history of cauda equina- 2019. Family and social history: [ ]. Pertinent exam findings / vital signs include able to straight leg raise both lower extremities, no midline vertebral tenderness, tenderness over the SI joints bilaterally, sensation intact in the distal lower extremities, no symptoms of urinary retention or bowel incontinence, sensation intact in just below the suprapubic abdominal region, denies further numbness of any genitalia, denies fever, has pain in sciatic distribution with passive SLR of each leg-do not suspect emergent lower back pathology at this time. Differential / pathologies of concern include lumbar radiculopathy, sacroiliitis, unlikely recurrent cauda equina or epidural abscess at this time, patient denying any psychiatric complaints or desire to be evaluated. Diagnostic studies of: -X-ray lumbar back shows no fracture, shows facet arthropathy and prior surgery Interventions of: -Given Tylenol, Toradol, cyclobenzaprine and Lidoderm patching with significant relief of pain-given Rx for cyclobenzaprine and prednisone. ED Course/Assessment/Plan: 43-year-old female presents with chronic lower back pain, remote history of cauda equina and epidural abscess, has mild symptoms at this time with significant relief from medications, no back pain with fever, no midline tenderness, neurovascularly intact in bilateral lower extremities with strength 5/5, denies any symptoms of bowel or urinary changes or sensory deficits to the groin or lower extremities. Patient denies a desire to receive psychiatric evaluation at this time, has outpatient follow-up, I recommend the patient follow-up with their primary care provider for MRI at some point in the future without relief, strict return criteria for bowel or urinary changes, increasing back pain with fever, sensory deficits spreading up the legs or groin. Findings not consistent with active cauda equina or epidural abscess, suicidal ideation. Disposition of lumbar radiculopathy. Patient verbalized understanding of the plan and return to ED criteria and engaged in shared decision making. Medical Records Medical records reviewed: Yes I reviewed the patient's medical records. Imaging Data Radiologic Study: Attestation: I personally reviewed and interpreted this imaging study as follows: Imaging: X-Ray Radiologist's impression: Exam: XR Lumbosacral Spine Exam date and time: 02/16/2024 9:48 PM Age: 43 years old Clinical indication: Low back pain TECHNIQUE: Imaging protocol: Radiologic exam of the lumbosacral spine. Views: 2 or 3 views. COMPARISON: CT LUMBAR SPINE RECONS 08/17/2023 12:16 PM FINDINGS: Bones/joints: Multilevel degenerative disc disease and facet arthropathy. No evidence of fracture or suspicious osseous lesion. Soft tissues: Unremarkable. IMPRESSION: 1. Multilevel degenerative disc disease and facet arthropathy. 2. No evidence of fracture or suspicious osseous lesion. Dictated and Authenticated by: Benny Terry MD. Quality:[facility] Health Related Social Needs: No Data to Display PFSH All Active Problems (Updated 02/16/24 @ 22:21 by RANJAN Santiago) Lumbar radiculopathy (Acute) Spinal abscess (Acute) 2019 abscess - [facility] Now continued pain Dulce (Acute) URI (upper respiratory infection) (Acute) ADD (attention deficit disorder) (Acute) On stimulant, dexylmethylphenidate-managed per psychiatry Psychosis (Acute) Pre-diabetes (Acute) Obesity, morbid, BMI 40.0-49.9 (Acute) Migraine (Chronic) Lumbar pain (Acute) Lower extremity weakness (Acute) Substance abuse (Chronic) Heroin, crack cocaine, alcohol. 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 Followed by Dr. Pereira Anxiety (Chronic) On alprazolam-Per psychiatry Smoker (Chronic) Medical History (Updated 02/16/24 @ 22:21 by RANJAN Santiago) Epidural abscess Diagnosed at [facility]. S/P T12, L1 decompression and evacuation of epidural abscess on 06/05/2019 [facility]. Flaccid paraplegia Urinary retention Microcytic anemia Ovarian cyst Accidental drug overdose Cauda equina compression Gram-positive bacteremia Fever Iron deficiency anemia Right lower quadrant pain Drug overdose (03/12/06) Right ear pain (06/08/16) Lice At risk for sexually transmitted disease due to unprotected sex (04/24/17) 2018 treated for chlamydia x2. Chlamydia (09/24/17) Surgical History (Updated 09/27/23 @ 13:40 by Coty Stanley MD, [place]) Status post lumbar spine surgery for decompression of spinal cord 06/05/2019 T12, L1 decompression and evacuation of epidural abscess at [facility]. Status post laparoscopy Status post dilation and curettage Elective termination of Social History Smoking/Tobacco Use Status: Current every day Tobacco Type: cigarettes Smoking packs per day: 1 Smoking cigarettes per day: 20.0 Tobacco: How many years used: 23 Quit status: has quit before Second Hand Exposure: Yes Smoking risk assessment performed?: Yes Alcohol Intake: former Drug use: Occasionally Substance use type: marijuana and crack/cocaine Household members: none Housing: house Number of Children: 0 Education Level: college Do you need help understanding health information?: Rarely Pets and animals: No Sexually active: Yes Do you think of yourself as: straight/heterosexual Current gender identity: female What is your relationship status?: never How often do you talk on the phone with friends or family?: three or more times per week How often do you get together with friends or relatives?: twice per week How often do you attend confucianism or druze services?: decline to answer Do you belong to any clubs or organized social groups?: no Panel score (0-1 are the most socially isolated patients): 1 Duration: 15-30 minutes/day Frequency: 1-2 times per week Quin/Anabaptism: No preference Do you feel safe at home: Yes Do you feel safe in your relationship?: Yes History History 1 Para Hx # Term Pregnancies Multiple births Hx # Pregnancies Ectopic pregnancies AB induced 1 Hx Number of Living Children 0 AB spontaneous
[2024-02-16] MEDS: Acetaminophen 500 MG TAB 1000 MG PO (21:00)
[2024-02-16] MEDS: Lidocaine 5% Patch 2 PATCH TP (21:01)
[2024-02-16] MEDS: Ketorolac 10 MG TAB PO (21:01)
[2024-02-16] MEDS: Cyclobenzaprine 10 MG TAB PO (21:01)
--- NOTE | 2024-02-16 21:54 | DI.RAD_ITS ---
Exam(s) XR LUMBAR SPINE AP, LAT EXAM: XR LUMBAR SPINE AP, LAT CLINICAL HISTORY: lumbar back pain. TECHNIQUE: 2D digital imaging was performed. COMPARISON: CT CT CHEST/ABD/PEL W from 08/17/2023 FINDINGS: Two views-AP and lateral: No evidence of acute fracture. At L5 S1 level there is again anterolisthesis of L5 upon S1 related to facet arthropathy at this leve l, as seen on CT scan 08/17/2023. There is no prominent disc space narrowing at this level. Facet j oints at other levels appear unremarkable. Mild disc space narrowing and anterior osseous lipping at L1-2 level again noted and there is evidence of previous surgery with absence of posterior osseous e lements at T12 and L1 vertebral body levels IMPRESSION: Degenerative anterolisthesis of L5 upon S1 with approximately 1 cm anterior slippage L5 upon S1 relat ed to facet arthropathy. Evidence of prior surgery as described above higher up in the lumbosacral spine. DATA REPOSITORY: RADIATION DOSE DELIVERED:
--- NOTE | 2024-02-16 22:18 | DI.VRAD_ITS ---
PROCEDURE INFORMATION: Exam: XR Lumbosacral Spine Exam date and time: 02/16/2024 9:48 PM Age: 43 years old Clinical indication: Low back pain TECHNIQUE: Imaging protocol: Radiologic exam of the lumbosacral spine. Views: 2 or 3 views. COMPARISON: CT LUMBAR SPINE RECONS 08/17/2023 12:16 PM FINDINGS: Bones/joints: Multilevel degenerative disc disease and facet arthropathy. No evidence of fracture or suspicious osseous lesion. Soft tissues: Unremarkable. IMPRESSION: 1. Multilevel degenerative disc disease and facet arthropathy. 2. No evidence of fracture or suspicious osseous lesion. Dictated and Authenticated by: Benny Terry MD. Ordering:RENÉ Anaya MD
[2024-02-16 22:32] VITALS: BP 102/82; PULSE 76; RESP 18; TEMP 36.1; O2SAT 97
== END 2024-02-16 22:32 | disposition home or self-care (01) ==
PROVIDERS: Emergency Provider Physician Assistant; PCP Family Medicine
DX: M54.16 Radiculopathy, lumbar region (principal); F41.9 Anxiety disorder, unspecified
CPT/HCPCS: 99283; 72100

== ENCOUNTER 2024-02-28 14:52 | Emergency (ER) | payer MEDICAID, SELFPAY ==
[2024-02-28 14:55] VITALS: BP 127/73; PULSE 85; RESP 100; TEMP 36.1
== END 2024-02-28 16:17 | disposition left against medical advice (07) ==
LOC: ER 15:16
PROVIDERS: Emergency Provider Emergency Medicine; PCP Family Medicine
DX: Z53.21 Procedure and treatment not carried out due to patient leaving prior to being seen by health care provider (principal)

== ENCOUNTER 2024-03-01 23:25 | Emergency (ER) | payer MEDICAID, SELFPAY ==
[2024-03-01 23:41] VITALS: BP 167/109; PULSE 116; RESP 18; TEMP 37.5; O2SAT 98
[2024-03-01 23:48] VITALS: RESP 18
--- NOTE | 2024-03-02 00:15 | W.ED.GENAD ---
Discharge Plan Disposition Patient Disposition: Against Medical Advice Condition: Good Discharge Details Clinical Impression: Chronic back pain, Bipolar I disorder Primary Care Provider: Coty Stanley ED Provider: Chela Wells Home Meds and New Rx's Prescriptions: Continued levothyroxine 50 mcg tablet 50 mcg PO DAILY Qty: 90 6RF olanzapine 10 mg tablet 10 mg PO BID Qty: 60 6RF Patient Comments: has to use. has not used it trazodone 50 mg tablet 50 mg PO QHS Qty: 30 5RF lisinopril 40 mg tablet 40 mg PO DAILY Qty: 30 7RF doxepin 50 mg capsule 50 mg PO HS Qty: 30 12RF divalproex 500 mg tablet extended release 24 hr 500 mg PO DAILY Qty: 30 6RF metoprolol succinate 100 mg tablet extended release 24 hr 150 mg PO DAILY Qty: 135 5RF acetaminophen 500 mg capsule 500 mg PO BID PRN ketorolac 10 mg tablet 10 mg PO QID PRNQty: 20 0RF Rx Instructions: maximum total duration of 5 days from all oral, intranasal, or parenteral formulations cyclobenzaprine 10 mg tablet 10 mg PO TID PRNQty: 30 0RF Discharge Instructions Instructions: Chronic pain Additional Instructions: Call your primary care doctor on Sunday to schedule an appointment to followup on your visit here. Please discuss your blood pressure at that visit as it is high here today. We would like you to stay and speak with mental health but you have refused. Please return to the emergency department if you change your mind, if you are thinking about hurting yourself or someone else, if you are seeing or hearing things the people around you don't see or hear, or if you have any other concer concerns. Referrals: Coty Stanley MD, [place] [Primary Care Provider] - Discharge Data Discharge Date/Time-TO BE ENTERED AT DEPARTURE: 03/02/24 00:24 HPI General Mode of arrival: ambulatory. Date/Time Provider Initiated Documentation: 03/01/24 23:26. Limitations to Documentation: no limitations. Information obtained by: patient and family. HPI Narrative: 43yo F with hx HTN, bipolar, chronic back pain, presenting for back pain. Reports low back pain that radiates to both legs, constant, minimal improvement with home tylenol and flexeril. Recently seen in the ED and given 5 day course of prednisone which helped initially but no longer feeling the effects. Pain is not acutely worse tonight and no new symptoms, presents to the ED tonight because it is not improving. Worse with walking, having some difficulty ambulating 2/t pain. Reports she sometimes feels like she is not emptying her bladder but this is not new, has been the case 'ever since I was a kid'. No new urinary symptoms. No bowel issues. No numbness, tingling, or weakness. She is otherwise in her usual state of health with no fevers, chills, rash, nausea, vomiting, abdominal pain, dysuria, hematuria, or other concerns. Presents with her mother who drove her to the ED; mother reports that pt was evaluated by [facility] earlier in the week and they recommended inpatient treatment but pt refused. Pt denies any SI/HI/AH/VH or psychiatric concerns at this time, declines to speak to [facility]. Mother does not provide any specific examples of expressed intent to self harm, injurious behavior, or harm towards others. Related Data Home Medications ?Medication ?Instructions ?Recorded ?Confirmed levothyroxine 50 mcg tablet 50 mcg PO DAILY #90 tabs 07/26/23 03/01/24 divalproex 500 mg tablet,extended 500 mg PO DAILY #30 tabs 09/27/23 03/01/24 release 24 hr doxepin 50 mg capsule 50 mg PO HS #30 caps 09/27/23 03/01/24 lisinopril 40 mg tablet 40 mg PO DAILY #30 tabs 09/27/23 03/01/24 olanzapine 10 mg tablet 10 mg PO BID #60 tabs 09/27/23 03/01/24 trazodone 50 mg tablet 50 mg PO QHS #30 tabs 09/27/23 03/01/24 metoprolol succinate 100 mg 150 mg (1.5 x 100 mg) PO DAILY 10/29/23 03/01/24 tablet,extended release 24 hr #135 tabs acetaminophen 500 mg capsule 500 mg PO BID PRN 02/16/24 03/01/24 cyclobenzaprine 10 mg tablet 10 mg PO TID PRN #30 tabs 02/16/24 03/01/24 ketorolac 10 mg tablet 10 mg PO QID PRN #20 tabs 02/16/24 03/01/24 Previous Rx's ?Medication ?Instructions ?Recorded levothyroxine 50 mcg tablet 50 mcg PO DAILY #90 tabs 07/26/23 divalproex 500 mg tablet,extended 500 mg PO DAILY #30 tabs 09/27/23 release 24 hr doxepin 50 mg capsule 50 mg PO HS #30 caps 09/27/23 lisinopril 40 mg tablet 40 mg PO DAILY #30 tabs 09/27/23 olanzapine 10 mg tablet 10 mg PO BID #60 tabs 09/27/23 trazodone 50 mg tablet 50 mg PO QHS #30 tabs 09/27/23 metoprolol succinate 100 mg 150 mg (1.5 x 100 mg) PO DAILY 10/29/23 tablet,extended release 24 hr #135 tabs cyclobenzaprine 10 mg tablet 10 mg PO TID PRN #30 tabs 02/16/24 ketorolac 10 mg tablet 10 mg PO QID PRN #20 tabs 02/16/24 Allergies Allergy/AdvReac Type Severity Reaction Status Date / Time latex Allergy Intermediate SKIN RASH Unverified 03/02/24 05:56 Penicillins Allergy Unknown Unverified 03/02/24 05:56 prazosin AdvReac Dizziness/S Unverified 03/02/24 05:56 weats General Stated Complaint: GenMedical JOLLY: 4 Review of Systems Narrative: see HPI Exam Narrative Exam Narrative: General: Alert, well appearing, well nourished, in no acute distress. Head: Normocephalic, atraumatic Neck: Trachea midline, ?Neck supple. Cardiac: ?RRR, no murmurs appreciated Resp: No respiratory distress. CTAB. Abd: ?Soft, non-distended, nontender : ?No suprapubic tenderness. No CVA tenderness. Extremities: ?No deformities.? No peripheral edema. Back: TTP of mid-low lumbar and sacral spine. Left low lumbar paraspinal spasm. Negative SLR bilaterally. Neuro: ? GCS 15.? Fluent speech, no dysarthria. Motor- 5/5 strength symmetric bilaterallower extremities including hipflexors/extensors, knee flexors/extensors, ankle dorsiflexors and planter flexors. Sensation- ?Intact to light touch and symmetric multiple dermatomes bilateral lower extremities. No saddle anesthesia. Reflexes- 1/4 achilles & patellar, no clonus Gait/station: ?Normal stance.? No truncal ataxia. Steady gait with equal normal steps Course Vital Signs Vital signs: Vital Signs Temperature 37.5 C 03/01/24 23:41 Pulse 116 H 03/01/24 23:41 Respiratory Rate 18 03/01/24 23:41 Blood Pressure 167/109 H 03/01/24 23:41 Pulse Oximetry 98 03/01/24 23:41 Temperature 37.5 C 03/01/24 23:41 Pulse 116 H 03/01/24 23:41 Respiratory Rate 18 03/01/24 23:48 Respiratory Effort Normal 03/01/24 23:48 Respiratory Depth Normal 03/01/24 23:48 Respiratory Pattern Normal 03/01/24 23:48 Blood Pressure 167/109 H 03/01/24 23:41 Blood Pressure Position Sitting 03/01/24 23:41 Pulse Oximetry 98 03/01/24 23:41 Oxygen Delivery Method Room Air 03/01/24 23:41 Oxygen Flow Rate 0 03/01/24 23:41 Medical Decision Making 43yo F with hx HTN, bipolar, chronic back pain, presenting for back pain. No acute change in pain or symptoms. Hypertensive and tachycardiac to 110's on arrival, vital signs otherwise reassuring. Reassuring physical exam with no neurologic findings to suggest cord compression, cauda equina, spinal epidural abscess, etc. ED visit note and L spine xr read reviewed; imaging reassuring at that time. Would not repeat imaging today, transfer for MRI, or get bloodwork. Will give toradol and flexeril here and advise PCP followup. Of note, she presents with her mother who drove her to the ED; mother reports that pt was evaluated by [facility] earlier in the week and they recommended inpatient treatment but pt refused (care coordination note 02/28/24 confirms). To me pt denies any SI/HI/AH/VH or psychiatric concerns at this time, declines to speak to [facility]. Mother does not provide any specific examples of expressed intent to self harm, injurious behavior, or harm towards others. She has capacity and I have no indication to hold her against her will and she does not meet involuntary criteria. As [facility] evidently feels she would benefit from inpatient treatment I advised her to remain in the ED for psychiatric evaluation however she refused. Left AMA; discharge instructions and return precautions were reviewed with patient and mother. Medical Records Medical records reviewed: Yes I reviewed the patient's medical records. Quality:SDIN Health Related Social Needs: No Data to Display PFSH All Active Problems (Updated 03/02/24 @ 00:18 by Chela Wells MD) Chronic back pain (Acute) Lumbar radiculopathy (Acute) Spinal abscess (Acute) 2019 abscess - [facility] Now continued pain Dulce (Acute) URI (upper respiratory infection) (Acute) ADD (attention deficit disorder) (Acute) On stimulant, dexylmethylphenidate-managed per psychiatry Psychosis (Acute) Pre-diabetes (Acute) Obesity, morbid, BMI 40.0-49.9 (Acute) Migraine (Chronic) Lumbar pain (Acute) Lower extremity weakness (Acute) Substance abuse (Chronic) Heroin, crack cocaine, alcohol. 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 Followed by Dr. Pereira Anxiety (Chronic) On alprazolam-Per psychiatry Smoker (Chronic) Medical History (Updated 03/02/24 @ 00:18 by Chela Wells MD) Epidural abscess Diagnosed at [facility]. S/P T12, L1 decompression and evacuation of epidural abscess on 06/05/2019 [facility]. Flaccid paraplegia Urinary retention Microcytic anemia Ovarian cyst Accidental drug overdose Cauda equina compression Gram-positive bacteremia Fever Iron deficiency anemia Right lower quadrant pain Drug overdose (03/12/06) Right ear pain (06/08/16) Lice At risk for sexually transmitted disease due to unprotected sex (04/24/17) 2018 treated for chlamydia x2. Chlamydia (09/24/17) Surgical History (Updated 09/27/23 @ 13:40 by Coty Stanley MD, [place]) Status post lumbar spine surgery for decompression of spinal cord 06/05/2019 T12, L1 decompression and evacuation of epidural abscess at [facility]. Status post laparoscopy Status post dilation and curettage Elective termination of Social History Smoking/Tobacco Use Status: Current every day Tobacco Type: cigarettes Smoking packs per day: 1 Smoking cigarettes per day: 20.0 Tobacco: How many years used: 23 Quit status: has quit before Second Hand Exposure: Yes Smoking risk assessment performed?: Yes Alcohol Intake: former Drug use: Occasionally Substance use type: marijuana Details: Pt has a drug use history Household members: none Housing: house Number of Children: 0 Education Level: college Do you need help understanding health information?: Rarely Pets and animals: No Sexually active: Yes Do you think of yourself as: straight/heterosexual Current gender identity: female What is your relationship status?: never How often do you talk on the phone with friends or family?: three or more times per week How often do you get together with friends or relatives?: twice per week How often do you attend episcopal or catholic services?: decline to answer Do you belong to any clubs or organized social groups?: no Panel score (0-1 are the most socially isolated patients): 1 Duration: 15-30 minutes/day Frequency: 1-2 times per week Quin/Voodoo: No preference Do you feel safe at home: Yes Do you feel safe in your relationship?: Yes History History 1 Para Hx # Term Pregnancies Multiple births Hx # Pregnancies Ectopic pregnancies AB induced 1 Hx Number of Living Children 0 AB spontaneous
[2024-03-02] MEDS: Cyclobenzaprine 10 MG TAB 5 MG PO (00:21)
[2024-03-02] MEDS: Ketorolac 15 MG/ML VIAL IM (00:21)
== END 2024-03-02 00:24 | disposition left against medical advice (07) ==
PROVIDERS: Emergency Provider Student in an Organized Health Care Education/Training Program; PCP Family Medicine
DX: M54.50 Low back pain, unspecified (principal); G89.29 Other chronic pain; F31.9 Bipolar disorder, unspecified
CPT/HCPCS: 96372; 99284; 99283; J1885

== ENCOUNTER 2024-03-02 06:00 | Emergency (ER) | payer MEDICAID, SELFPAY ==
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
[2024-03-02 06:01] VITALS: BP 99/56; PULSE 103; RESP 24; TEMP 36.5; O2SAT 98
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
[2024-03-02 08:34] VITALS: BP 103/81; PULSE 86; RESP 16; TEMP 36.6; O2SAT 96
== END 2024-03-02 08:41 | disposition home or self-care (01) ==
PROVIDERS: Emergency Provider Emergency Medicine; PCP Family Medicine
DX: M54.50 Low back pain, unspecified (principal); G89.29 Other chronic pain; I10 Essential (primary) hypertension; F31.9 Bipolar disorder, unspecified; F17.290 Nicotine dependence, other tobacco product, uncomplicated; V47.5XXA Car driver injured in collision with fixed or stationary object in traffic accident, initial encounter
CPT/HCPCS: 00123; 82962; 99284; 70450; 99283

== ENCOUNTER 2024-03-11 12:12 | Emergency (ER) | payer MEDICAID, SELFPAY ==
[2024-03-11 12:19] VITALS: BP 137/91; PULSE 76; RESP 20; TEMP 36.1; O2SAT 98
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
[2024-03-11 14:54] VITALS: BP 137/91; BP 140/82; PULSE 76; PULSE 78; RESP 18; TEMP 36.1; O2SAT 98
--- NOTE | 2024-03-11 14:57 | NUR.NOTE ---
Nursing Note: cleansed wound gently, applied bacitracin, covered with non-stick pad and wrapped with gauze. Pt tolerated well and was given extra supplies for two more dressing changes.
--- NOTE | 2024-03-13 07:57 | NUR.NOTE ---
Nursing Note: Accessed chart for SQSS investigation.
--- NOTE | 2024-06-06 10:03 | NUR.NOTE ---
Nursing Note: On 03/11 the tech was going out to the waiting room to get the patient to go over to imaging. The tech brought a wheelchair over to the patient and asked her to stand up from the waiting room chair and sit in the wheelchair. The patient was upset because she could not be brought back into the ED due to patient acuity and numbers of patients being seen, there were no available rooms. Per the tech, the patient stood up, started flailing her arms, and then turned and tripped over the wheelchair that was placed at her side for her transport. The tech ran into the ED to get a nurse, alerting us of what had just taken place. There were no providers present to bring along. This nurse went to the waiting room, where I found the mother of the patient actively assisting the patient up from the floor and into the wheelchair. Due to her struggling, I asked the mom to please allow us to assess and pick the patient up. She allowed this but the patient was very uncooperative. She continued to yell at us. I told her that we needed to check her out and get her off the floor. After a few minutes of her yelling at us, she allowed for me to check out her legs. She denied any pain, other than the pain that she was being seen for. There was no injury noted upon assessment. She did allowed myself and the tech to assist her up back onto her feel and then into the wheelchair. From there, the tech brought her to for her imaging and I came back into the department to alert a provider of what happened and my assessment. The provider followed up when they saw her after her imaging was completed. No further concerns during this visit.
--- NOTE | 2024-06-06 10:14 | NUR.NOTE ---
Nursing Note: Got into this chart to document for a visit that happened in February, to follow up with [facility] that was done.
== END 2024-03-11 14:58 | disposition home or self-care (01) ==
PROVIDERS: Emergency Provider Registered Nurse Emergency; PCP Family Medicine
DX: L03.113 Cellulitis of right upper limb (principal); T23.011A Burn of unspecified degree of right thumb (nail), initial encounter; X15.0XXA Contact with hot stove (kitchen), initial encounter
CPT/HCPCS: 96372; 99284; 73130; 99283; J0736

== ENCOUNTER 2024-03-13 11:53 | Emergency (ER) | payer MEDICAID, SELFPAY ==
[2024-03-13 12:12] VITALS: BP 108/82; PULSE 79; RESP 16; TEMP 36.5; O2SAT 97
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
[2024-03-13] MEDS: Lidocaine/Epinephri/Tetracaine Topical Gel 3 ML TP (12:51)
--- NOTE | 2024-03-13 13:02 | NUR.NOTE ---
Nursing Note: PT at bedside.
--- NOTE | 2024-03-13 14:23 | DI.MRI_ITS ---
Exam(s) MR UPPER EXTREMITY RT WO/W EXAM: MR UPPER EXTREMITY RT WO/W CLINICAL HISTORY: right humb cellulitis tracking wound, osteo?. TECHNIQUE: Multiplanar multisequence MRI of the right thumb was performed. CONTRAST MATERIAL: IV Contrast: 20 mL of Dotarem contrast administered. COMPARISON: CR XR HAND RT COMPLETE from 03/11/2024 FINDINGS: BONES/JOINTS: No fracture or contusion pattern. There is normal signal on the T1 weighted images in t he 1st metacarpal bone, proximal phalanx and distal phalanx of the thumb. Following contrast adminis tration no enhancement is seen. MUSCULOTENDINOUS STRUCTURES: The muscles show normal signal and size. There is mild hyperintense sign al seen along the dorsum of the extensor pollicis tendon at the level of the proximal phalanx. Follo wing contrast administration, this area shows enhancement. An infectious tenosynovitis should be con sidered. There is also mild fluid attenuation signal around the extensor tendons of the wrist which may represent a synovitis. SOFT TISSUES: There is edema seen in the soft tissues on the dorsal lateral wrist and in the proximal thumb. There is an irregular fluid collection in the subcutaneous tissues on the dorsum of the thum b adjacent to the head of the 1st metacarpal bone. It extends to the skin surface. This may represe nt an ulceration. There does appear to be a deeper fluid collection which may represent a small absc ess measuring less than 1 cm. OTHER FINDINGS: None. IMPRESSION: 1. No evidence of osteomyelitis. 2. There is a subcutaneous fluid collection which communicates with the skin surface on the dorsum of the thumb adjacent to the head of the 1st metacarpal bones. The findings appear to represent an ulc eration of the skin surface. The deeper fluid collection may represent a small abscess measuring lit tle less than 1 cm. 3. Edema in the subcutaneous tissues on the dorsum of the wrist and in the thumb consistent with a ce llulitis. 4. Some enhancement seen associated with the extensor pollicis tendon adjacent to the proximal phalan x of the thumb. The degree of enhancement is more prominent compared to the adjacent tendons in the wrist. Due to its proximity to the ulceration and fluid collection, infection should be considered. 5. Findings were discussed with Dr. Mcclure at 4:39 p.m. on 03/13/2024. DATA REPOSITORY:
[2024-03-13 14:57] LABS: Abs Immature Grans 0.09 10^3/uL (0.0-0.06); Absolute Basophil Count 0.03 10^3/uL (0.0-0.2); Absolute Eosinophil Count 0.13 10^3/uL (0.0-0.7); Absolute Lymphocyte Count 2.18 10^3/uL (1.2-3.4); Absolute Monocyte Count 0.53 10^3/uL (0.1-0.8); Absolute Neutrophil Count 7.37 10^3/uL (1.2-6.7); Basophils % 0.3 %; Eosinophils % 1.3 %; HCT 41.4 % (36.0-46.0); HGB 13.3 g/dL (11.2-15.7); Immature Grans % 0.9 %; Lymphocytes % 21.1 %; MCH 30.8 pg (27.0-33.0); MCHC 32.1 % (32.0-36.0); MCV 96 fL (80-95); MPV 9.6 fL (8.0-11.0); Monocytes % 5.1 %; Neutrophils % 71.3 %; Platelet Count 263 10^3/uL (130-400); RBC 4.32 10^6/uL (3.93-5.22); RDW 13.5 % (11.7-14.6); RDW-SD 48.1 fL; WBC 10.33 10^3/uL (4.4-10.8)
[2024-03-13] MEDS: LORazepam 2 MG/ML VIAL 0.5 MG IVP (14:58)
[2024-03-13 15:14] LABS: ALT 18 U/L (14-59); AST 7 U/L (15-37); Albumin 3.3 g/dL (3.4-5.0); Alkaline Phosphatase 66 U/L (46-116); Anion Gap 5.1 mmol/L (3-11); BUN 8 mg/dL (7-18); Bilirubin, Total 0.27 mg/dL (0.2-1.0); CO2 29.9 mmol/L (21.0-32.0); CREATININE 0.9 mg/dL (0.55-1.02); Calcium 9.1 mg/dL (8.5-10.1); Chloride 105 mmol/L (98-107); Estimated GFR 81.35 (mL/min/1.73m2); Glucose 94 mg/dL (74-106); Potassium 4.6 mmol/L (3.5-5.1); Sodium 140 mmol/L (136-145); Total Protein 7.6 g/dL (6.4-8.2)
[2024-03-13 15:16] LABS: PTT Activated 31.3 sec (23.6-32.8); Prothrombin Time 9.8 sec (9.1-11.1)
[2024-03-13] MEDS: Normal Saline Flush 10 ML SYR IVP (15:52)
[2024-03-13] MEDS: Gadoterate meglumine 20 ML VIAL IVP (15:53)
[2024-03-13 16:40] VITALS: BP 107/57; PULSE 75; RESP 14; O2SAT 99
[2024-03-13] MEDS: CLINDAMYCIN 300 MG/50 ML BAG 100 MG IVPB (17:40)
[2024-03-13 19:11] LABS: C-Reactive Protein 2.94 mg/dL (<or=0.5)
[2024-03-13 19:40] LABS: ESR 41 mm/hr (0-20)
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
[2024-03-13 20:16] LABS: Lab Add On Test DONE
== END 2024-03-13 20:08 | disposition short-term general hospital (02) ==
PROVIDERS: Emergency Medicine; Emergency Provider Student in an Organized Health Care Education/Training Program; PCP Family Medicine
DX: L08.9 Local infection of the skin and subcutaneous tissue, unspecified (principal); S60.321A Blister (nonthermal) of right thumb, initial encounter; T23.011A Burn of unspecified degree of right thumb (nail), initial encounter; X15.0XXA Contact with hot stove (kitchen), initial encounter
CPT/HCPCS: 00123; 10060; 36415; 80053; 81025; 85652; 87040; 96365; 96375; 99285; 73220; 85025; 85610; 85730; 86140; J0736; J2060

== ENCOUNTER 2024-04-16 17:08 | Emergency (ER) | payer MEDICAID, SELFPAY ==
[2024-04-16 17:22] VITALS: PULSE 102; RESP 20; TEMP 36.3; O2SAT 95
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
[2024-04-16] MEDS: OLANZapine 10 MG TAB PO (18:06)
[2024-04-16 18:32] LABS: Abs Immature Grans 0.11 10^3/uL (0.0-0.06); Absolute Basophil Count 0.03 10^3/uL (0.0-0.2); Absolute Eosinophil Count 0.13 10^3/uL (0.0-0.7); Absolute Lymphocyte Count 2.49 10^3/uL (1.2-3.4); Absolute Monocyte Count 0.54 10^3/uL (0.1-0.8); Absolute Neutrophil Count 6.78 10^3/uL (1.2-6.7); Basophils % 0.3 %; Eosinophils % 1.3 %; HGB 12.6 g/dL (11.2-15.7); Immature Grans % 1.1 %; Lymphocytes % 24.7 %; MCH 31.3 pg (27.0-33.0); MCHC 32.3 % (32.0-36.0); MCV 97 fL (80-95); MPV 8.9 fL (8.0-11.0); Monocytes % 5.4 %; Neutrophils % 67.2 %; Platelet Count 330 10^3/uL (130-400); RBC 4.03 10^6/uL (3.93-5.22); RDW-SD 49.6 fL; WBC 10.08 10^3/uL (4.4-10.8)
[2024-04-16] MEDS: diphenhydrAMINE 25 MG CAP PO (18:51)
[2024-04-16] MEDS: LORazepam 0.5 MG TAB PO (18:51)
[2024-04-16 18:59] LABS: ALT 20 U/L (14-59); AST 14 U/L (15-37); Acetaminophen < 2 ug/mL (10-30); Albumin 3.4 g/dL (3.4-5.0); Alkaline Phosphatase 68 U/L (46-116); Anion Gap 12.7 mmol/L (3-11); BUN 7 mg/dL (7-18); Bilirubin, Total 0.25 mg/dL (0.2-1.0); CO2 25.3 mmol/L (21.0-32.0); Calcium 9.5 mg/dL (8.5-10.1); Chloride 98 mmol/L (98-107); ETHANOL BLOOD 11.8 mg/dL (<10); Estimated GFR 71.69 (mL/min/1.73m2); Glucose 104 mg/dL (74-106); Magnesium 2.1 mg/dL (1.8-2.4); Potassium 3.5 mmol/L (3.5-5.1); Salicylate 5.3 mg/dL (<2.8); Sodium 136 mmol/L (136-145); TSH (W/Ref FT4) 0.85 uIU/mL (0.36-3.74); Total Protein 8.1 g/dL (6.4-8.2)
[2024-04-16 20:12] LABS: COVID-19 PCR Negative (Negative); Influenza A PCR Negative (Negative); Influenza B PCR Negative (Negative); RSV PCR Negative (Negative)
[2024-04-16 20:13] LABS: Source NASOPHARYNX
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
--- NOTE | 2024-04-16 22:59 | W.EDPROG ---
Date of service: 04/16/24 Time of Service: 23:00 Medical Decision Making This patient was signed out to me. Please see previous notes for H&P and initial eval. In brief, 43yo F wtih hx psychosis presenting on warrant for EE. Initial certification filed, awaiting 2nd cert. Did take PO medication voluntarily. Medically cleared, pending 2nd cert and bed placement. Med rec done; patient states not taking any of her home medications (unclear for how long). Will restart levothyroxine, olanzapine, trazadone. Normotensive here, will hold off on home BP meds for now. Overnight appeared to be sleeping; did not wake patient for assessment. Signed out to oncoming physician, plan remains as above. Quality:SDOH Health Related Social Needs: No Data to Display Sign Out Sign Out Data: Sign Out Comment: EE'd, pending 2nd cert, brought in on warrant by [facility]. Took PO meds cooperatively here today, basic labs performed. Last updated by Héctor Jean-Baptiste PA at 04/16/24 22:37 Discharge Plan Discharge Details Chief Complaint: PsychEval Primary Care Provider: Coty Stanley ED Provider: Chela Wells Home Meds and New Rx's Prescriptions: No Action levothyroxine 50 mcg tablet 50 mcg PO DAILY Qty: 90 6RF olanzapine 10 mg tablet 10 mg PO BID Qty: 60 6RF Patient Comments: has to use. has not used it lisinopril 40 mg tablet 40 mg PO DAILY Qty: 30 7RF doxepin 50 mg capsule 50 mg PO HS Qty: 30 12RF divalproex 500 mg tablet extended release 24 hr 500 mg PO DAILY Qty: 30 6RF metoprolol succinate 100 mg tablet extended release 24 hr 150 mg PO DAILY Qty: 135 5RF cyclobenzaprine 10 mg tablet 10 mg PO HS Qty: 5 0RF trazodone 50 mg tablet 50 mg PO QHS Qty: 30 5RF acetaminophen 500 mg capsule 500 mg PO BID PRN
[2024-04-16 23:15] VITALS: BP 112/78; PULSE 81; RESP 20; TEMP 36.9; O2SAT 95
[2024-04-16 23:54] LABS: *AMPHETAMINES SCREEN URINE Positive (Negative); *BARBITURATES SCREEN URINE Negative (Negative); *BENZODIAZEPINES SCREEN URINE Negative (Negative); Cannabinoids THC Positive (Negative); Cocaine Screen,Urine Positive (Negative); METHADONE URINE SCREEN Negative (Negative); OPIATES URINE SCREEN Negative (Negative)
[2024-04-16 23:57] LABS: Tricyclic Antidepressants Positive (Negative)
[2024-04-17 06:56] LABS: Bilirubin Negative (Negative); Blood Small (Negative); Clarity Sl Cloudy (Clear); Glucose Negative (Negative); Ketones Trace mg/dL (Negative); Leukocyte Esterase Large (Negative); Nitrite Negative (Negative); Specific Gravity 1.025 (1.005-1.025); Urobilinogen 0.2 mg/dL (Up to 0.2); pH 5.5 (5-8)
[2024-04-17 06:57] LABS: Bacteria Moderate HPF (Negative); Crystals Negative HPF (Negative); Epithelial Cells Many HPF (Negative); Mucus Negative (Negative)
[2024-04-17 06:58] LABS: C & S Indicated? No/Sq. Contamination; Casts Negative LPF (Negative)
--- NOTE | 2024-04-17 07:53 | ED.PROG_ITS ---
Date of service: 04/17/24 Time of Service: 07:54 Medical Decision Making I received signout on this 43-year-old patient currently on an EE pending second certification. She is medically cleared. No active behavioral issues last shift. She has her home medications ordered. I ordered her a regular diet on a safety tray. Patient had a mildly elevated salicylate level for which I ordered a repeat draw. 11:18 AM Patient's repeat salicylate level was persistently within therapeutic range. It is not climbing. Based on presentation no concerns for salicylate overdose. 4 PM No active behavioral issues last shift. I spoke with the [facility] psychiatrist who is completing second certification. Emergency department Detective Investigator Sahara was in zone B during the second certification process. Will sign patient out to Dr. Monroe. Quality:[facility] Health Related Social Needs: No Data to Display Sign Out Sign Out Data: Sign Out Comment: EE'd, pending 2nd cert, brought in on warrant by [facility]. Took PO meds cooperatively here today, basic labs performed. Last updated by Héctor Jean-Baptiste PA at 04/16/24 22:37 Sign Out Comment: 43yo F, psychosis, EE pending cert. Medically cleared. Home meds ordered (has not taking any of them, holding antihypertensives for low- normal BP here) Last updated by Chela Welsl MD at 04/17/24 05:29 Discharge Plan Discharge Details Chief Complaint: PsychEval Primary Care Provider: Coty Stanley ED Provider: Gonzlao Ho Home Meds and New Rx's Prescriptions: No Action levothyroxine 50 mcg tablet 50 mcg PO DAILY Qty: 90 6RF olanzapine 10 mg tablet 10 mg PO BID Qty: 60 6RF Patient Comments: has to use. has not used it lisinopril 40 mg tablet 40 mg PO DAILY Qty: 30 7RF doxepin 50 mg capsule 50 mg PO HS Qty: 30 12RF divalproex 500 mg tablet extended release 24 hr 500 mg PO DAILY Qty: 30 6RF metoprolol succinate 100 mg tablet extended release 24 hr 150 mg PO DAILY Qty: 135 5RF cyclobenzaprine 10 mg tablet 10 mg PO HS Qty: 5 0RF trazodone 50 mg tablet 50 mg PO QHS Qty: 30 5RF acetaminophen 500 mg capsule 500 mg PO BID PRN
[2024-04-17] MEDS: OLANZapine 10 MG TAB PO ×2 (09:29→20:13)
[2024-04-17] MEDS: Levothyroxine 50 MCG TAB PO (09:29)
[2024-04-17 09:30] VITALS: BP 149/83; PULSE 100; RESP 20; TEMP 36.6; O2SAT 97
[2024-04-17 10:38] LABS: Salicylate 5.3 mg/dL (<2.8)
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
--- NOTE | 2024-04-17 11:15 | PDOC.CMSAFE ---
Date of service: 04/17/24 Time of Service: 11:15 Care Management Safety Plan Status Status: Involuntary Reason for Wait Reason for Wait: Inpatient Admission Safety Plan Safety Plan: INVOLUNTARY FOR INPATIENT PSYCHIATRIC STABILIZATION.? Patient is appropriate in all interactions since arriving at [facility]; Pt has demonstrated appropriate coping and communication skills, has articulated his or her needs and concerns and is fully engaged during staff interactions. Safety plan has been established with patient, and care team, to adhere to patient goals, identify restrictions based on behavioral status, address nutrition, and determine allowed personal belongings, tools for hygiene and personal care. Determine level of activity including ambulation, level of supervision, visitors, and determine privileges based on behaviors and level of engagement by pt. SAFETY PLAN: 1. Will remain on suicide precautions. May wear own clothes at nursing's discretion. 2. Will remain in Zone B under direct supervision of one-on-one staff at all times provided by [employer]; VINOD, VETERINARY VIROLOGIST motorized squad commanding officer. 3. May have paper cups, plates, finger foods as well as a cardboard spoon with which to eat meals. 4. Follow [facility] Management of the Admitted Behavioral Health Patient policy. 5. Shower available in Zone B without restriction. 6. Personal belongings-soft items permitted at RN discretion.. May wear necklace at nursing discretion. 7. Visitors-sister may visit (Gaye) 8. Activities: soft cart items approved per RN discretion. 9.? Bathroom available in Zone B without restriction. 10. Phone: limited to [facility] cordless phone at RN discretion.May only have phone contact with sister Gaye. Due to INVOLUNTARY status, patient is being held at [facility] by the Department of Mental Health ([facility]) until 2nd certification by [facility] Psychiatrist can be performed (within 24 hours). Staff will provide de-escalation support (CPI) as needed. If patient wishes to leave [facility], staff will contact [facility] Crisis Screener ([phone]) and T[employer] Off Braker Machine ([phone]) as soon as possible. In the event of elopement, notify [place] [employer] ([phone]). Patient is currently involuntarily at [facility]. [facility] Frontline [facility] will continue seeking placement. Please contact the [employer] for any needed changes to Safety Plan. Safety plan has been provided to interdepartmental care team. Patient will be transported by [facility] at time of discharge.
[2024-04-17] MEDS: LORazepam 0.5 MG TAB PO (17:20)
--- NOTE | 2024-04-17 18:35 | W.EDPROG ---
Date of service: 04/17/24 Time of Service: 17:00 Medical Decision Making In brief, this is a 43-year-old female patient with a past medical history for bipolar, hypertension, substance use disorder, who is boarding in the emergency department for the last 24 hours with increased aggression, disorganized thinking, grandiosity. The patient was medically cleared prior to my taking over her care, has been taking p.o. meds and has not required any chemical or physical restraint. She is on an EE, and during my shift the patient received a as needed dose of Ativan for some agitation, which she took voluntarily. The patient was accepted at [place] and doc to doc report was provided, signed out to the oncoming team pending transportation arrangements and departure from this emergency department. Remained hemodynamically appropriate while under my care. Nidia Monroe MD Quality:[facility] Health Related Social Needs: No Data to Display Sign Out Sign Out Data: Sign Out Comment: EE'd, pending 2nd cert, brought in on warrant by [employer]. Took PO meds cooperatively here today, basic labs performed. Last updated by Héctor Jean-Baptiste PA at 04/16/24 22:37 Sign Out Comment: 43yo F, psychosis, EE pending cert. Medically cleared. Home meds ordered (has not taking any of them, holding antihypertensives for low-normal BP here) Last updated by Chela Wells MD at 04/17/24 05:29 Sign Out Comment: 43-year-old female history of psychosis on EE with second certification just completed. Home medications ordered with the exception of antihypertensive. No active behavioral issues last shift. Last updated by Gonzalo Ho MD at 04/17/24 16:01 Discharge Plan Discharge Details Chief Complaint: PsychEval Primary Care Provider: Coty Stanley ED Provider: Nidia Monroe Home Meds and New Rx's Prescriptions: No Action levothyroxine 50 mcg tablet 50 mcg PO DAILY Qty: 90 6RF olanzapine 10 mg tablet 10 mg PO BID Qty: 60 6RF Patient Comments: has to use. has not used it lisinopril 40 mg tablet 40 mg PO DAILY Qty: 30 7RF doxepin 50 mg capsule 50 mg PO HS Qty: 30 12RF divalproex 500 mg tablet extended release 24 hr 500 mg PO DAILY Qty: 30 6RF metoprolol succinate 100 mg tablet extended release 24 hr 150 mg PO DAILY Qty: 135 5RF cyclobenzaprine 10 mg tablet 10 mg PO HS Qty: 5 0RF trazodone 50 mg tablet 50 mg PO QHS Qty: 30 5RF acetaminophen 500 mg capsule 500 mg PO BID PRN
[2024-04-17] MEDS: traZODone 50 MG TAB PO (20:14)
[2024-04-17] MEDS: Nicotine 2 MG GUM CH (20:42)
--- NOTE | 2024-04-18 00:42 | ED.PROG_ITS ---
Date of service: 04/18/24 Time of Service: 00:00 Medical Decision Making This patient was signed out to me. Please see previous notes for H&P and initial eval. In brief, 43yo F here with psychosis, EEd and 2nd cert done, doc to doc completed plan for [facility] tomorrow. Overnight no acute events. Will be signed out to oncoming physician, plan remains as above. Quality:[facility] Health Related Social Needs: No Data to Display Sign Out Sign Out Data: Sign Out Comment: EE'd, pending 2nd cert, brought in on warrant by [employer]. Took PO meds cooperatively here today, basic labs performed. Last updated by Héctor Jean-Baptiste PA at 04/16/24 22:37 Sign Out Comment: 43yo F, psychosis, EE pending cert. Medically cleared. Home meds ordered (has not taking any of them, holding antihypertensives for low- normal BP here) Last updated by Chela Wells MD at 04/17/24 05:29 Sign Out Comment: 43-year-old female history of psychosis on EE with second certification just completed. Home medications ordered with the exception of antihypertensive. No active behavioral issues last shift. Last updated by Gonzalo Ho MD at 04/17/24 16:01 Sign Out Comment: 43-year-old female patient with psychosis and gissel, EE, excepted to [facility]. Doc to doc completed, awaiting transport. Last updated by Nidia Monroe MD at 04/17/24 23:14 Discharge Plan Discharge Details Chief Complaint: PsychEval Primary Care Provider: Coty Stanley ED Provider: Chela Wells Home Meds and New Rx's Prescriptions: No Action levothyroxine 50 mcg tablet 50 mcg PO DAILY Qty: 90 6RF olanzapine 10 mg tablet 10 mg PO BID Qty: 60 6RF Patient Comments: has to use. has not used it lisinopril 40 mg tablet 40 mg PO DAILY Qty: 30 7RF doxepin 50 mg capsule 50 mg PO HS Qty: 30 12RF divalproex 500 mg tablet extended release 24 hr 500 mg PO DAILY Qty: 30 6RF metoprolol succinate 100 mg tablet extended release 24 hr 150 mg PO DAILY Qty: 135 5RF cyclobenzaprine 10 mg tablet 10 mg PO HS Qty: 5 0RF trazodone 50 mg tablet 50 mg PO QHS Qty: 30 5RF acetaminophen 500 mg capsule 500 mg PO BID PRN
--- NOTE | 2024-04-18 07:50 | W.EDPROG ---
Date of service: 04/18/24 Time of Service: 07:50 Medical Decision Making I received signout again on this 43-year-old female who has been accepted to the [facility]. Doc to doc has been completed. Transfer paperwork has been signed. Patient is involuntary on an EE. No active behavioral issues last shift. Will update documentation as clinically warranted. 4:42 PM Patient was transported by [facility] to [facility]. She received her olanzapine and oral lorazepam prior to transfer. Quality:[facility] Health Related Social Needs: No Data to Display Sign Out Sign Out Data: Sign Out Comment: EE'd, pending 2nd cert, brought in on warrant by [facility]. Took PO meds cooperatively here today, basic labs performed. Last updated by Héctor Jean-Baptiste PA at 04/16/24 22:37 Sign Out Comment: 43yo F, psychosis, EE pending cert. Medically cleared. Home meds ordered (has not taking any of them, holding antihypertensives for low-normal BP here) Last updated by Chela Wells MD at 04/17/24 05:29 Sign Out Comment: 43-year-old female history of psychosis on EE with second certification just completed. Home medications ordered with the exception of antihypertensive. No active behavioral issues last shift. Last updated by Gonzalo Ho MD at 04/17/24 16:01 Sign Out Comment: 43-year-old female patient with psychosis and gissel, EE, excepted to [facility]. Doc to doc completed, awaiting transport. Last updated by Nidia Monroe MD at 04/17/24 23:14 Sign Out Comment: 43yo F, psychosis, EE and 2nd cert done, anticipate [facility] today. Last updated by Chela Wells MD at 04/18/24 05:54 Discharge Plan Discharge Details Chief Complaint: PsychEval Primary Care Provider: Coty Stanley ED Provider: Gonzalo Ho Home Meds and New Rx's Prescriptions: No Action levothyroxine 50 mcg tablet 50 mcg PO DAILY Qty: 90 6RF olanzapine 10 mg tablet 10 mg PO BID Qty: 60 6RF Patient Comments: has to use. has not used it lisinopril 40 mg tablet 40 mg PO DAILY Qty: 30 7RF doxepin 50 mg capsule 50 mg PO HS Qty: 30 12RF divalproex 500 mg tablet extended release 24 hr 500 mg PO DAILY Qty: 30 6RF metoprolol succinate 100 mg tablet extended release 24 hr 150 mg PO DAILY Qty: 135 5RF cyclobenzaprine 10 mg tablet 10 mg PO HS Qty: 5 0RF trazodone 50 mg tablet 50 mg PO QHS Qty: 30 5RF acetaminophen 500 mg capsule 500 mg PO BID PRN
[2024-04-18] MEDS: Levothyroxine 50 MCG TAB PO (10:21)
[2024-04-18] MEDS: OLANZapine 10 MG TAB PO ×2 (10:21→16:14)
[2024-04-18] MEDS: LORazepam 1 MG TAB PO ×2 (11:37→16:15)
[2024-04-18 12:00] VITALS: BP 135/74; PULSE 102; RESP 20; O2SAT 95
--- NOTE | 2024-04-30 15:01 | NUR.NOTE ---
In chart to look for evidence of pt possessing a necklace on belongings form.
== END 2024-04-18 16:31 ==
PROVIDERS: Physician Assistant; Emergency Provider Emergency Medicine; PCP Family Medicine
DX: F29 Unspecified psychosis not due to a substance or known physiological condition (principal); R45.6 Violent behavior; Z86.59 Personal history of other mental and behavioral disorders; Z87.898 Personal history of other specified conditions
CPT/HCPCS: 00123; 36415; 80053; 80307; 81025; 87637; 99285; H0046; 80320; 80329; 81003; 81015; 83735; 84443; 85025

== ENCOUNTER 2024-05-05 03:23 | Outpatient (CLI) | payer MEDICAID, SELFPAY ==
[2024-05-05 13:02] LABS: VALPROIC ACID 46.5 ug/mL
== END 2024-05-05 03:24 | disposition home or self-care (01) ==
PROVIDERS: PCP Family Medicine
DX: F31.64 Bipolar disorder, current episode mixed, severe, with psychotic features (principal); F43.12 Post-traumatic stress disorder, chronic; F41.1 Generalized anxiety disorder; Z79.899 Other long term (current) drug therapy
CPT/HCPCS: 36415; 80164